=== PATIENT | male | born 1945 | race Caucasian/White ===

== ENCOUNTER 2017-05-22 09:35 | Outpatient (RCR) | payer MEDICARE, MEDICAID ==
[2017-01-24 08:24] VITALS: BMI 30.4
[2017-02-23 16:13] VITALS: BP 138/86
[2017-02-23] MEDS: LIDOCAINE/SOD BICARB 8.4% SYR ID PRN (16:14)
[2017-02-23] MEDS: NS(*) 0.9% 100 ML BAG 100 ML IVPB PRN (16:15)
[2017-02-27] MEDS: LIDOCAINE/SOD BICARB 8.4% SYR ID PRN (11:04)
[2017-02-27 11:05] VITALS: BP 135/86
[2017-02-27] MEDS: NS(*) 0.9% 100 ML BAG 100 ML IVPB PRN (11:05)
[2017-03-06 09:40] VITALS: BP 112/82
[2017-03-06] MEDS: NS(*) 0.9% 100 ML BAG 100 ML IVPB PRN (10:00)
[2017-03-06] MEDS: LIDOCAINE/SOD BICARB 8.4% SYR ID PRN (10:00)
[2017-03-13 09:38] VITALS: BP 152/91
[2017-03-13] MEDS: MAGNESIUM SUL* 4 GM/100 ML BAG 100 ML IVPB PRN ×2 (10:14→12:09)
[2017-03-13] MEDS: LIDOCAINE/SOD BICARB 8.4% SYR ID PRN (14:02)
[2017-03-13] MEDS: NS(*) 0.9% 100 ML BAG 100 ML IVPB PRN (14:02)
[2017-03-20] MEDS: LIDOCAINE/SOD BICARB 8.4% SYR ID PRN (10:35)
[2017-03-20] MEDS: NS(*) 0.9% 100 ML BAG 100 ML IVPB PRN (10:35)
[2017-03-20] MEDS: MAGNESIUM SUL* 4 GM/100 ML BAG 100 ML IVPB PRN ×2 (11:11→13:09)
[2017-03-20 15:20] VITALS: BP 158/90
[2017-03-27] MEDS: MAGNESIUM SUL* 4 GM/100 ML BAG 100 ML IVPB PRN ×2 (10:38→12:15)
[2017-03-27] MEDS: LIDOCAINE/SOD BICARB 8.4% SYR ID PRN (10:39)
[2017-03-27 11:32] VITALS: BP 117/78
[2017-03-27] MEDS: NS(*) 0.9% 100 ML BAG 100 ML IVPB PRN (11:35)
[2017-04-17 10:10] VITALS: BP 125/82
[2017-04-17] MEDS: LIDOCAINE/SOD BICARB 8.4% SYR ID PRN (10:48)
[2017-04-17] MEDS: MAGNESIUM SUL* 4 GM/100 ML BAG 100 ML IVPB PRN ×2 (10:49→12:51)
[2017-04-20 09:38] VITALS: BP 134/72
[2017-04-20] MEDS: LIDOCAINE/SOD BICARB 8.4% SYR ID PRN (09:46)
[2017-04-24 09:33] VITALS: BP 141/86
[2017-04-24] MEDS: NS(*) 0.9% 100 ML BAG 100 ML IVPB PRN (10:00)
[2017-04-24] MEDS: LIDOCAINE/SOD BICARB 8.4% SYR ID PRN (10:30)
[2017-04-24] MEDS: MAGNESIUM SUL* 4 GM/100 ML BAG 100 ML IVPB PRN ×2 (11:09→13:10)
[2017-04-28 09:47] VITALS: BP 126/87
[2017-04-28] MEDS: LIDOCAINE/SOD BICARB 8.4% SYR ID PRN (10:25)
[2017-04-28] MEDS: MAGNESIUM SUL* 4 GM/100 ML BAG 100 ML IVPB PRN ×2 (10:26→12:06)
[2017-05-01] MEDS: MAGNESIUM SUL* 4 GM/100 ML BAG 100 ML IVPB PRN ×2 (10:23→12:05)
[2017-05-01] MEDS: LIDOCAINE/SOD BICARB 8.4% SYR ID PRN (10:24)
[2017-05-01 10:29] VITALS: BP 87/67
[2017-05-04 09:48] VITALS: BP 124/89
[2017-05-04] MEDS: LIDOCAINE/SOD BICARB 8.4% SYR ID PRN (09:48)
[2017-05-04] MEDS: NS(*) 0.9% 100 ML BAG 100 ML IVPB PRN (09:50)
[2017-05-09 09:17] VITALS: BP 147/98
[2017-05-09] MEDS: MAGNESIUM SUL* 4 GM/100 ML BAG 100 ML IVPB PRN ×2 (10:11→12:19)
[2017-05-09] MEDS: NS(*) 0.9% 100 ML BAG 100 ML IVPB PRN (10:11)
[2017-05-09] MEDS: LIDOCAINE/SOD BICARB 8.4% SYR ID PRN (10:11)
[2017-05-16 09:29] VITALS: BP 146/99
[2017-05-16] MEDS: NS(*) 0.9% 100 ML BAG 100 ML IVPB PRN (10:00)
[2017-05-16] MEDS: LIDOCAINE/SOD BICARB 8.4% SYR ID PRN (10:39)
[2017-05-16] MEDS: MAGNESIUM SUL* 4 GM/100 ML BAG 100 ML IVPB PRN ×2 (10:40→12:31)
[~2017-05-22 09:35] MED LIST: ALB0.5 IH; ALB18R INH; ALBU8.5H12 IH; ALL300 PO; ALLO-2; ALLO-2 PO; AML5 PO; AMLO-96; AMLO-96 PO; AMLO1TAB PO; ANU28T PR; APIX2.5T PO; ARTO15 OP; ASPI-715 PO; ATOR10TA65 PO; ATOR20TA22 PO; ATOR20TA65; CHL25 PO; CHOL100059 PO; CHOL100060 PO; CITA-139 PO; CITA-156 PO; COM14R INH; CYAN1000 IJ; CYAN1000 IM; DEXT15DR OU; DEXTROSE 5%(*) 100 ML BAG 100 ML IVPB PRN; DIPH-740 PO; DOXA8TAB62 PO; DOXY-179 PO; ENAL20TA99; ENAL20TA99 PO; ESOM40CA42 PO; FOLI-68 PO; GLY5 PO; HCTZ25 PO; HYD25 PO; HYDR-6045 RC; HYDR10 PO; HYDR25CA83 PO; HYDR25SU51 RC; HYDR28.426 TP; IBUP200C71 PO; K-Dur; KCL IVPB ONE; LAC3.5 OD; LISI20TA29 PO; LOPE1TAB55 PO; LOPE2CAP15; LOR05 PO; LOR5/325 PO; MAGN300C3 PO; MAGN400T36 PO; MAGN400T37 PO; MAGN400T4 PO; MAGNESIUM SUL* 4 GM/100 ML BAG 100 ML IVPB ONE; MAGNESIUM SULFATE 4 GM/100 ML IVPB PRN; MAGNESIUM SULFATE IVPB ONE; MENT113G6 TP; METF-420; METF-420 PO; METO-253 PO; METO25TA23; METO25TA91 PO; METO25TA93 PO; MINE113C2 TP; MOME15CR TP; MOXOD OS; MULT-1379 PO; MULT1CAP59 PO; MVM PO; MYLL PO; NAPR-724; NAPR-724 PO; NIAC100040 PO; NITT TD; NPH,100V12; NPH,100V2 SUBQ; NS(*) 0.9% 1000 ML BAG 1,000 ML IV PRN; NYSP TOP; NYST15PO12 TP; OMEP-218 PO; Oxygen; PAN40 PO; PER PO; PNV1TABL70 PO; POLPT TOP; POTA20TA94 PO; PREOD OS; RAN150 PO; RANI150C17 PO; ROS4 PO; SITA100T9 PO; SUC1 PO; SYRI1DIS; TAM4 PO; TAMS0.4C69 PO; TAMS0.4C70; TAMS0.4C70 PO; THIA100T62 PO; TRAM-420 PO; TRAZ-133 PO; TRAZ50 PO; TRIA80OI13 TP; [UNRECOGNIZED DRUG - CODE]; [UNRECOGNIZED DRUG - MIXTURE]; [UNRECOGNIZED DRUG - OTHER] IVPB ONE; [UNRECOGNIZED DRUG - OTHER] IVPB ONE; [UNRECOGNIZED DRUG - OTHER] OU; [UNRECOGNIZED DRUG - OTHER] PO
[2017-05-22 09:41] VITALS: BP 145/96
[2017-05-22] MEDS: LIDOCAINE/SOD BICARB 8.4% SYR ID PRN (10:05)
[2017-05-22] MEDS: NS(*) 0.9% 100 ML BAG 100 ML IVPB PRN (10:19)
[2017-05-22] MEDS: MAGNESIUM SUL* 4 GM/100 ML BAG 100 ML IVPB PRN ×2 (10:19→12:53)
== END 2017-05-23 ==
LOC: SPU 09:35
PROVIDERS: ATTEND Internal Medicine
DX: E87.6 Hypokalemia (principal); E87.1 Hypo-osmolality and hyponatremia; I48.91 Unspecified atrial fibrillation; F10.10 Alcohol abuse, uncomplicated; R79.0 Abnormal level of blood mineral
CPT/HCPCS: 36415; 83735; 96365; 96366; G0480; J3475; J3480; J7030; J7050; 80320; 82040; 82247; 82310; 82374; 82435; 82565; 82947; 84075; 84132; 84155; 84295; 84450; 84460; 84520

== ENCOUNTER 2017-08-08 08:00 | Outpatient (RCR) | payer MEDICARE, MEDICAID ==
[2017-01-24 08:24] VITALS: BMI 30.4
[~2017-08-08 08:00] MED LIST changes: -DEXTROSE 5%(*) 100 ML BAG 100 ML IVPB PRN; -KCL IVPB ONE; -MAGNESIUM SUL* 4 GM/100 ML BAG 100 ML IVPB ONE; -MAGNESIUM SULFATE 4 GM/100 ML IVPB PRN; -MAGNESIUM SULFATE IVPB ONE; -NAPR-724; -NAPR-724 PO; +NAPR500T31; +NAPR500T31 PO; -NS(*) 0.9% 1000 ML BAG 1,000 ML IV PRN; -[UNRECOGNIZED DRUG - OTHER] IVPB ONE; -[UNRECOGNIZED DRUG - OTHER] IVPB ONE
== END 2017-08-08 10:19 | disposition home or self-care (01) ==
LOC: PT 08:00
PROVIDERS: ATTEND Physician Assistant Medical
DX: M62.81 Muscle weakness (generalized) (principal); M48.00 Spinal stenosis, site unspecified; M48.50XA Collapsed vertebra, not elsewhere classified, site unspecified, initial encounter for fracture; R20.2 Paresthesia of skin; R29.6 Repeated falls; R06.00 Dyspnea, unspecified; M79.606 Pain in leg, unspecified; I10 Essential (primary) hypertension; E11.9 Type 2 diabetes mellitus without complications; E87.1 Hypo-osmolality and hyponatremia; E83.42 Hypomagnesemia; Z95.0 Presence of cardiac pacemaker
CPT/HCPCS: 97163

== ENCOUNTER 2017-08-21 09:08 | Outpatient (RCR) | payer MEDICARE, MEDICAID ==
[2017-01-24 08:24] VITALS: BMI 30.4
[2017-05-29 09:36] VITALS: BP 106/82
[2017-05-29] MEDS: LIDOCAINE/SOD BICARB 8.4% SYR ID PRN (10:38)
[2017-05-29] MEDS: MAGNESIUM SULFATE 4 GM/100 ML IVPB PRN ×2 (10:39→12:38)
[2017-05-29] MEDS: NS(*) 0.9% 100 ML BAG 100 ML IVPB PRN (10:40)
[2017-06-05 09:52] VITALS: BP 137/80
[2017-06-05] MEDS: MAGNESIUM SULFATE 4 GM/100 ML IVPB PRN ×2 (10:27→12:08)
[2017-06-05] MEDS: LIDOCAINE/SOD BICARB 8.4% SYR ID PRN (10:27)
[2017-06-12 09:42] VITALS: BP 116/92
[2017-06-12] MEDS: NS(*) 0.9% 100 ML BAG 100 ML IVPB PRN (10:25)
[2017-06-12] MEDS: MAGNESIUM SULFATE 4 GM/100 ML IVPB PRN ×2 (10:25→12:35)
[2017-06-12] MEDS: LIDOCAINE/SOD BICARB 8.4% SYR ID PRN (10:25)
[2017-06-19 09:26] VITALS: BP 108/93
[2017-06-19] MEDS: MAGNESIUM SULFATE 4 GM/100 ML IVPB PRN ×2 (10:26→12:16)
[2017-06-19] MEDS: LIDOCAINE/SOD BICARB 8.4% SYR ID PRN (10:26)
[2017-06-19] MEDS: NS(*) 0.9% 100 ML BAG 100 ML IVPB PRN (10:26)
[2017-06-26 09:45] VITALS: BP 131/72
[2017-06-26] MEDS: LIDOCAINE/SOD BICARB 8.4% SYR ID PRN (10:41)
[2017-06-26] MEDS: NS(*) 0.9% 100 ML BAG 100 ML IVPB PRN (10:42)
[2017-06-26] MEDS: MAGNESIUM SULFATE 4 GM/100 ML IVPB PRN ×2 (10:42→12:45)
[2017-07-03] MEDS: NS(*) 0.9% 100 ML BAG 100 ML IVPB PRN (10:41)
[2017-07-03] MEDS: MAGNESIUM SULFATE 4 GM/100 ML IVPB PRN ×2 (10:41→12:50)
[2017-07-03] MEDS: LIDOCAINE/SOD BICARB 8.4% SYR ID PRN (10:52)
[2017-07-03 10:55] VITALS: BP 147/89
[2017-07-10 09:40] VITALS: BP 136/89
[2017-07-10] MEDS: LIDOCAINE/SOD BICARB 8.4% SYR ID PRN (10:27)
[2017-07-10] MEDS: NS(*) 0.9% 100 ML BAG 100 ML IVPB PRN (10:28)
[2017-07-10] MEDS: MAGNESIUM SULFATE 4 GM/100 ML IVPB PRN ×2 (10:29→12:30)
[2017-07-10 15:03] VITALS: BP 107/80
[2017-07-17 09:29] VITALS: BP 121/84
[2017-07-17] MEDS: LIDOCAINE/SOD BICARB 8.4% SYR ID PRN (10:15)
[2017-07-17] MEDS: NS(*) 0.9% 100 ML BAG 100 ML IVPB PRN (10:17)
[2017-07-17] MEDS: MAGNESIUM SULFATE 4 GM/100 ML IVPB PRN ×2 (10:17→12:20)
[2017-07-24 09:34] VITALS: BP 132/87
[2017-07-24] MEDS: MAGNESIUM SULFATE 4 GM/100 ML IVPB PRN ×2 (10:16→12:34)
[2017-07-24] MEDS: LIDOCAINE/SOD BICARB 8.4% SYR ID PRN (10:16)
[2017-07-24] MEDS: NS(*) 0.9% 100 ML BAG 100 ML IVPB PRN (10:16)
[2017-07-31 09:50] VITALS: BP 133/87
[2017-07-31] MEDS: MAGNESIUM SULFATE 4 GM/100 ML IVPB PRN ×2 (11:01→13:08)
[2017-07-31] MEDS: LIDOCAINE/SOD BICARB 8.4% SYR ID PRN (11:11)
[2017-07-31] MEDS: NS(*) 0.9% 100 ML BAG 100 ML IVPB PRN (11:11)
[2017-08-07 09:45] VITALS: BP 109/71
[2017-08-07] MEDS: MAGNESIUM SULFATE 4 GM/100 ML IVPB PRN ×2 (10:00→12:51)
[2017-08-07] MEDS: LIDOCAINE/SOD BICARB 8.4% SYR ID PRN (13:24)
[2017-08-07] MEDS: NS(*) 0.9% 100 ML BAG 100 ML IVPB PRN (13:25)
[2017-08-14] MEDS: LIDOCAINE/SOD BICARB 8.4% SYR ID PRN (09:46)
[2017-08-14] MEDS: NS(*) 0.9% 100 ML BAG 100 ML IVPB PRN (09:46)
[2017-08-14] MEDS: MAGNESIUM SULFATE 4 GM/100 ML IVPB PRN ×2 (10:18→12:28)
[2017-08-14 16:12] VITALS: BP 110/87
[~2017-08-21 09:08] MED LIST changes: +DEXTROSE 5%(*) 100 ML BAG 100 ML IVPB PRN; +NS(*) 0.9% 1000 ML BAG 1,000 ML IV PRN
[2017-08-21] MEDS: MAGNESIUM SULFATE 4 GM/100 ML IVPB PRN ×2 (10:00→12:11)
[2017-08-21 10:04] VITALS: BP 127/83
[2017-08-21] MEDS: NS(*) 0.9% 100 ML BAG 100 ML IVPB PRN (13:20)
[2017-08-21] MEDS: LIDOCAINE/SOD BICARB 8.4% SYR ID PRN (13:21)
[2017-08-21 14:33] VITALS: BP 131/80
== END 2017-08-24 ==
LOC: SPU 09:08
PROVIDERS: ATTEND Internal Medicine
DX: R79.0 Abnormal level of blood mineral (principal); E87.1 Hypo-osmolality and hyponatremia; E11.9 Type 2 diabetes mellitus without complications; E78.5 Hyperlipidemia, unspecified
CPT/HCPCS: 36415; 83735; 96365; 96366; G0480; J3475; J7050; 80320; 82040; 82247; 82310; 82374; 82435; 82465; 82565; 82947; 83036; 83718; 84075; 84132; 84155; 84295; 84450; 84460; 84478; 84520

== ENCOUNTER 2017-10-24 09:06 | Outpatient (RCR) | payer MEDICARE, MEDICAID ==
[2017-01-24 08:24] VITALS: BMI 30.4
[2017-08-28] MEDS: MAGNESIUM SUL* 4 GM/100 ML BAG 100 ML IVPB PRN ×2 (11:12→13:08)
[2017-08-28 11:19] VITALS: BP 119/97
[2017-09-04 09:38] VITALS: BP 124/80
[2017-09-04] MEDS: NS(*) 0.9% 100 ML BAG 100 ML IVPB PRN (10:27)
[2017-09-04] MEDS: MAGNESIUM SUL* 4 GM/100 ML BAG 100 ML IVPB PRN ×2 (10:27→12:16)
[2017-09-04] MEDS: LIDOCAINE/SOD BICARB 8.4% SYR ID PRN (10:28)
[2017-09-11] MEDS: MAGNESIUM SUL* 4 GM/100 ML BAG 100 ML IVPB PRN ×2 (10:15→12:16)
[2017-09-11] MEDS: NS(*) 0.9% 100 ML BAG 100 ML IVPB PRN (10:27)
[2017-09-11] MEDS: LIDOCAINE/SOD BICARB 8.4% SYR ID PRN (10:28)
[2017-09-11 15:37] VITALS: BP 124/80
[2017-09-18 09:23] VITALS: BP 129/92
[2017-09-18] MEDS: LIDOCAINE/SOD BICARB 8.4% SYR ID PRN (11:06)
[2017-09-18] MEDS: MAGNESIUM SUL* 4 GM/100 ML BAG 100 ML IVPB PRN ×2 (12:01→12:55)
[2017-09-18] MEDS: NS(*) 0.9% 100 ML BAG 100 ML IVPB PRN (12:02)
[2017-09-26 11:07] VITALS: BP 126/81
[2017-09-26] MEDS: LIDOCAINE/SOD BICARB 8.4% SYR ID PRN (11:20)
[2017-09-26] MEDS: NS(*) 0.9% 100 ML BAG 100 ML IVPB PRN (11:21)
[2017-09-26] MEDS: MAGNESIUM SUL* 4 GM/100 ML BAG 100 ML IVPB PRN ×2 (11:36→13:26)
[2017-10-03 09:55] VITALS: BP 135/86
[2017-10-03] MEDS: NS(*) 0.9% 100 ML BAG 100 ML IVPB PRN (10:14)
[2017-10-03] MEDS: LIDOCAINE/SOD BICARB 8.4% SYR ID PRN (10:14)
[2017-10-03] MEDS: MAGNESIUM SUL* 4 GM/100 ML BAG 100 ML IVPB PRN ×2 (10:15→12:14)
[2017-10-03 14:42] VITALS: BP 150/87
[2017-10-10 09:16] VITALS: BP 151/97
[2017-10-10] MEDS: LIDOCAINE/SOD BICARB 8.4% SYR ID PRN (11:24)
[2017-10-10] MEDS: NS(*) 0.9% 100 ML BAG 100 ML IVPB PRN (11:25)
[2017-10-10] MEDS: MAGNESIUM SULFATE 4 GM/100 ML IVPB PRN ×2 (11:25→13:27)
[~2017-10-24 09:06] MED LIST changes: -CITA-139 PO; +CITA-145 PO; +IBUP-136 PO; -IBUP200C71 PO; -METF-420; +METF-421; +METF-421 PO
[2017-10-24 09:30] VITALS: BP 103/73
[2017-10-24] MEDS: LIDOCAINE/SOD BICARB 8.4% SYR ID PRN (10:06)
[2017-10-24] MEDS: NS(*) 0.9% 100 ML BAG 100 ML IVPB PRN (10:06)
[2017-10-24] MEDS: MAGNESIUM SULFATE 4 GM/100 ML IVPB PRN ×2 (10:07→12:42)
[2017-11-13] MEDS ORDERED: NYST60PO9 TP (09:22)
== END 2017-11-23 ==
LOC: SPU 09:06
PROVIDERS: ATTEND Internal Medicine
DX: R79.0 Abnormal level of blood mineral (principal); E87.1 Hypo-osmolality and hyponatremia; E11.9 Type 2 diabetes mellitus without complications; E78.5 Hyperlipidemia, unspecified
CPT/HCPCS: 83735; 96365; 96366; G0480; J3475; J7050; 80320; 82310; 82374; 82435; 82565; 82947; 84132; 84295; 84520

== ENCOUNTER 2017-11-04 02:04 | Emergency (ER) | payer MEDICARE, MEDICAID ==
[2017-01-24 08:24] VITALS: Wt 90.7 kg
[~2017-11-04 02:04] MED LIST changes: -NYST60PO9 TP
--- NOTE | 2017-11-04 02:06 | ER Report ---
History and Physical Time Seen By MD: 02:04 HPI/ROS CHIEF COMPLAINT: fall tonight, requesting detox HISTORY OF PRESENT ILLNESS: This is a 72 year old male. He fell tonight and called for a lift assist with his emergency pendant. When EMS arrived, he said that he thought he needed to detox. Fall happened when he lost his balance. Only pain is left ribs anteriorly. No other pain. He did not lose consciousness or hit his head. Denies neck pain. Has a skin tear on left forearm. He drinks about 1/2 fifth of liquor daily. Last drink just prior to coming here. Has been here for detox in the past and has had periods of being sober for about 6 months in the past. No shortness of breath. Normal bowels. Normal urination. Allergies: Coded Allergies: No Known Drug Allergies (Verified , 11/04/17) Home Meds Reported Medications Thiamine Hcl (THIAMINE HCL) 100 Mg Tablet, 100 MG PO DAILY 12/26/16 Folic Acid (FOLIC ACID) 1 Mg Tablet, 1 MG PO QDAY, TAB 12/26/16 Citalopram Hydrobromide (CITALOPRAM HBR) 20 Mg Tablet, 20 MG PO QDAY, #5 TAB 12/23/16 Menthol (BENGAY) 113 Gm Gel..gram., 1 GM TP QID Y for PAIN 12/23/16 Cyanocobalamin (Vitamin B-12) (CYANOCOBALAMIN INJECTION) 1,000 Mcg/1 Ml Vial, 1000 MCG IJ Q2WK, VIAL 12/23/16 Tramadol Hcl (TRAMADOL HCL) 50 Mg Tablet, 50 MG PO TID, TAB 12/23/16 Metoprolol Tartrate (METOPROLOL TARTRATE) 25 Mg Tablet, 1 TAB PO BID, TAB 12/23/16 Apixaban (ELIQUIS) 2.5 Mg Tablet, 2 TAB PO BID 08/15/16 Amlodipine Besylate (AMLODIPINE BESYLATE) 5 Mg Tablet, 1 TAB PO QDAY, TAB 08/15/16 Tamsulosin Hcl (TAMSULOSIN HCL) 0.4 Mg Cap.er.24h, 0.4 MG PO HS, CAP 08/15/16 Multivitamin (MULTIVITAMINS) 1 Each Capsule, 1 EACH PO QDAY, CAPSULE 08/15/16 Lisinopril (LISINOPRIL) 20 Mg Tablet, 20 MG PO DAILY, TAB 08/15/16 Magnesium Oxide (MAGNESIUM OXIDE) 400 Mg Tablet, 2 CAP PO TID 08/15/16 Cholecalciferol (Vitamin D3) (VITAMIN D3) 1,000 Unit Capsule, 1000 UNIT PO QDAY , CAPSULE 08/15/16 Reviewed Nurses Notes: Yes Hx Smoking: No Smoking Status: Never Smoker Exposure to Second Hand Smoke?: No Hx Substance Use Disorder: No Hx Alcohol Use: Yes Constitutional Vital Sign - Last 24 Hours 11/04/17 11/04/17 11/04/17 11/04/17 02:05 02:06 02:19 03:00 Temp 97.9 Pulse 86 67 Resp 22 B/P (MAP) 112/69 (83) 112/69 112/82 (92) Pulse Ox 90 90 O2 Delivery Room Air 11/04/17 11/04/17 03:04 03:19 Pulse 83 82 Pulse Ox 91 90 Physical Exam General Appearance: Alert. No acute distress. Eyes: Pupils are equal, round. Reactive to light. Pinpoint. No pallor, injection or icterus. Extraocular movements are intact. ENT: Mucous membranes are moist. Normal oral mucosa. Posterior oropharynx is normal. Neck: Supple and non tender. Respiratory: Lungs are clear to auscultation. Cardiovascular: Regular rate and rhythm. No murmurs, gallops or rubs. Gastrointestinal: Abdomen is soft and non tender. Nondistended. Normal active bowel sounds. Neurological: Alert and oriented x3. Skin: Warm and dry. Has skin tear on left forearm. No bruising noted. Musculoskeletal: Extremities are otherwise nontender. Full range of motion. No tenderness in palpation of the cervical, thoracic and lumbar spine. DIFFERENTIAL DIAGNOSIS: After history and physical exam, differential diagnosis was considered for fall with rib pain and alcohol intoxication requesting detox. Medical Decision Making Data Points Result Diagram: 11/04/17 0210 11/04/17 0210 Laboratory Hematology Test 11/04/17 02:10 11/04/17 03:00 Red Blood Count 5.21 M/uL (4.00-5.60) Mean Corpuscular Volume 94.8 fL (80.0-96.0) Mean Corpuscular Hemoglobin 33.1 pg (26.0-33.0) Mean Corpuscular Hemoglobin Concent 34.9 g/dL (32.0-36.0) Red Cell Distribution Width 14.3 % (11.5-14.5) Mean Platelet Volume 6.7 fL (7.2-11.1) Neutrophils (%) (Auto) 47.4 % (39.4-72.5) Lymphocytes (%) (Auto) 44.7 % (17.6-49.6) Monocytes (%) (Auto) 6.1 % (4.1-12.4) Eosinophils (%) (Auto) 0.5 % (0.4-6.7) Basophils (%) (Auto) 1.3 % (0.3-1.4) Nucleated RBC Relative Count (auto) 0.1 /100WBC Neutrophils # (Auto) 3.6 K/uL (2.0-7.4) Lymphocytes # (Auto) 3.4 K/uL (1.3-3.6) Monocytes # (Auto) 0.5 K/uL (0.3-1.0) Eosinophils # (Auto) 0.0 K/uL (0.0-0.5) Basophils # (Auto) 0.1 K/uL (0.0-0.1) Nucleated RBC Absolute Count (auto) 0.01 K/uL Sodium Level 129 mmol/L (137-145) Potassium Level 3.8 mmol/L (3.5-5.0) Chloride Level 92 mmol/L (98-107) Carbon Dioxide Level 20 mmol/L (22-30) Blood Urea Nitrogen 17 mg/dl (9-21) Creatinine 0.80 mg/dl (0.66-1.25) Glomerular Filtration Rate Calc > 60.0 Random Glucose 153 mg/dl (75-110) Calcium Level 8.1 mg/dl (8.4-10.2) Magnesium Level 1.5 mg/dl (1.7-2.2) Total Bilirubin 0.5 mg/dl (0.2-1.3) Aspartate Amino Transf (AST/SGOT) 20 U/L (0-35) Alanine Aminotransferase (ALT/SGPT) 20 U/L (0-56) Alkaline Phosphatase 56 U/L (0-126) Total Protein 6.5 g/dl (6.3-8.2) Albumin 3.3 g/dl (3.5-5.0) Salicylates Level < 10 mg/L Salicylate Last Dose Date unk Acetaminophen Level < 10 ug/ml Serum Alcohol 257 mg/dl Urine Color Yellow Urine Clarity Clear Urine pH 5.0 pH (4.8-9.5) Urine Specific [place] 1.008 Urine Protein Negative mg/dL (NEGATIVE) Urine Glucose (UA) Negative mg/dL (NEGATIVE) Urine Ketones Negative mg/dL (NEGATIVE) Urine Blood Negative (NEGATIVE) Urine Nitrite Negative (NEGATIVE) Urine Bilirubin Negative (NEGATIVE) Urine Urobilinogen Negative mg/dL (0.2-1.9) Urine Leukocyte Esterase Negative (NEGATIVE) Urine RBC <1 /HPF (0-2/HPF) Urine WBC <1 /HPF (0-5/HPF) Urine Squamous Epithelial Cells None /LPF (</=FEW) Urine Bacteria Negative /HPF (NONE-FEW) Urine Mucus None /HPF (NONE-FEW) Urine Opiates Screen Negative Urine Barbiturates Screen Negative Ur Tricyclic Antidepressants Screen Negative Urine Phencyclidine Screen Negative Urine Amphetamines Screen Negative Urine Benzodiazepines Screen Negative Urine Cocaine Screen Negative Urine Cannabinoids Screen Negative Chemistry Test 11/04/17 02:10 11/04/17 03:00 White Blood Count 7.7 k/uL (4.5-11.0) Red Blood Count 5.21 M/uL (4.00-5.60) Hemoglobin 17.2 g/dL (14.0-18.0) Hematocrit 49.4 % (42.0-52.0) Mean Corpuscular Volume 94.8 fL (80.0-96.0) Mean Corpuscular Hemoglobin 33.1 pg (26.0-33.0) Mean Corpuscular Hemoglobin Concent 34.9 g/dL (32.0-36.0) Red Cell Distribution Width 14.3 % (11.5-14.5) Platelet Count 175 K/uL (150-450) Mean Platelet Volume 6.7 fL (7.2-11.1) Neutrophils (%) (Auto) 47.4 % (39.4-72.5) Lymphocytes (%) (Auto) 44.7 % (17.6-49.6) Monocytes (%) (Auto) 6.1 % (4.1-12.4) Eosinophils (%) (Auto) 0.5 % (0.4-6.7) Basophils (%) (Auto) 1.3 % (0.3-1.4) Nucleated RBC Relative Count (auto) 0.1 /100WBC Neutrophils # (Auto) 3.6 K/uL (2.0-7.4) Lymphocytes # (Auto) 3.4 K/uL (1.3-3.6) Monocytes # (Auto) 0.5 K/uL (0.3-1.0) Eosinophils # (Auto) 0.0 K/uL (0.0-0.5) Basophils # (Auto) 0.1 K/uL (0.0-0.1) Nucleated RBC Absolute Count (auto) 0.01 K/uL Glomerular Filtration Rate Calc > 60.0 Calcium Level 8.1 mg/dl (8.4-10.2) Magnesium Level 1.5 mg/dl (1.7-2.2) Total Bilirubin 0.5 mg/dl (0.2-1.3) Aspartate Amino Transf (AST/SGOT) 20 U/L (0-35) Alanine Aminotransferase (ALT/SGPT) 20 U/L (0-56) Alkaline Phosphatase 56 U/L (0-126) Total Protein 6.5 g/dl (6.3-8.2) Albumin 3.3 g/dl (3.5-5.0) Salicylates Level < 10 mg/L Salicylate Last Dose Date unk Acetaminophen Level < 10 ug/ml Serum Alcohol 257 mg/dl Urine Color Yellow Urine Clarity Clear Urine pH 5.0 pH (4.8-9.5) Urine Specific [place] 1.008 Urine Protein Negative mg/dL (NEGATIVE) Urine Glucose (UA) Negative mg/dL (NEGATIVE) Urine Ketones Negative mg/dL (NEGATIVE) Urine Blood Negative (NEGATIVE) Urine Nitrite Negative (NEGATIVE) Urine Bilirubin Negative (NEGATIVE) Urine Urobilinogen Negative mg/dL (0.2-1.9) Urine Leukocyte Esterase Negative (NEGATIVE) Urine RBC <1 /HPF (0-2/HPF) Urine WBC <1 /HPF (0-5/HPF) Urine Squamous Epithelial Cells None /LPF (</=FEW) Urine Bacteria Negative /HPF (NONE-FEW) Urine Mucus None /HPF (NONE-FEW) Urine Opiates Screen Negative Urine Barbiturates Screen Negative Ur Tricyclic Antidepressants Screen Negative Urine Phencyclidine Screen Negative Urine Amphetamines Screen Negative Urine Benzodiazepines Screen Negative Urine Cocaine Screen Negative Urine Cannabinoids Screen Negative Toxicology Test 11/04/17 02:10 11/04/17 03:00 Salicylates Level < 10 mg/L Salicylate Last Dose Date unk Acetaminophen Level < 10 ug/ml Serum Alcohol 257 mg/dl Urine Opiates Screen Negative Urine Barbiturates Screen Negative Ur Tricyclic Antidepressants Screen Negative Urine Phencyclidine Screen Negative Urine Amphetamines Screen Negative Urine Benzodiazepines Screen Negative Urine Cocaine Screen Negative Urine Cannabinoids Screen Negative Urinalysis Test 11/04/17 03:00 Urine Color Yellow Urine Clarity Clear Urine pH 5.0 pH (4.8-9.5) Urine Specific [place] 1.008 Urine Protein Negative mg/dL (NEGATIVE) Urine Glucose (UA) Negative mg/dL (NEGATIVE) Urine Ketones Negative mg/dL (NEGATIVE) Urine Blood Negative (NEGATIVE) Urine Nitrite Negative (NEGATIVE) Urine Bilirubin Negative (NEGATIVE) Urine Urobilinogen Negative mg/dL (0.2-1.9) Urine Leukocyte Esterase Negative (NEGATIVE) Urine RBC <1 /HPF (0-2/HPF) Urine WBC <1 /HPF (0-5/HPF) Urine Squamous Epithelial Cells None /LPF (</=FEW) Urine Bacteria Negative /HPF (NONE-FEW) Urine Mucus None /HPF (NONE-FEW) EKG/Imaging Imaging CT Head without contrast and CT Cervical spine: Indication: Fall, intoxication. Comparison: 02/18/2014. Technique: CT head: Axial CT images were obtained through the brain from the skull base to the vertex without administration of IV contrast. Reformatted coronal and sagittal images were also obtained. Technique: CT cervical spine: Axial CT imaging of the cervical spine was performed. 2-D sagittal and coronal CT reformats were also obtained. One of the following dose optimization techniques was utilized in the performance of this exam: Automated exposure control; adjustment of the mA and/ or kV according to the patient's size; or use of an iterative reconstruction technique. Specific details can be referenced in the facility's radiology CT exam operational policy. FINDINGS: CT head: No evidence of mass, mass effect, or midline shift. No acute intracranial hemorrhage or acute territorial infarction. Mild cerebral volume loss and small amount of white matter hypoattenuation likely related to chronic small vessel ischemic disease. No fracture. Bilateral lens surgeries. The left maxillary sinus, anterior ethmoid air cells and frontal sinuses are opacified. There is calcific density within part of the material opacifying the maxillary sinus and ethmoid air cells. The wall of the maxillary sinus appears thickened. CT cervical spine: No acute abnormality of cervical vertebral body height and alignment. No cervical spine fracture. There is no prevertebral soft tissue thickening. Moderate to severe multilevel spondylosis. C6 and C7 are fused. Remaining visualized cervical soft tissues are unremarkable. The airway is patent. The lung apices are clear. Incompletely imaged implanted cardiac device. IMPRESSION: 1. No acute intracranial abnormality. 2. No acute osseous abnormality of the cervical spine. 3. Probable chronic opacification of the left maxillary sinus, anterior ethmoid air cell cells and left frontal sinus. Underlying neoplasm not excluded ; consider nonemergent ENT consultation. Report Dictated By: Jalen Guerra MD at 11/04/2017 3:46 AM TWO VIEW CHEST 11/04/2017 2:34 AM. INDICATION: Fall, left rib pain. COMPARISON: 04/26/2017. FINDINGS: Lungs are well-expanded. The lungs are clear. No pneumothorax or pleural effusion. Pulmonary vasculature is unremarkable. Heart size is normal. Unchanged single-lead implanted cardiac device. No definite acute displaced fracture. IMPRESSION: No acute cardiopulmonary abnormality or definite acute displaced rib fracture. Report Dictated By: Jalen Guerra MD at 11/04/2017 3:12 AM TWO VIEW CHEST 11/04/2017 2:34 AM. INDICATION: Fall, left rib pain. COMPARISON: 04/26/2017. FINDINGS: Lungs are well-expanded. The lungs are clear. No pneumothorax or pleural effusion. Pulmonary vasculature is unremarkable. Heart size is normal. Unchanged single-lead implanted cardiac device. No definite acute displaced fracture. IMPRESSION: No acute cardiopulmonary abnormality or definite acute displaced rib fracture. Report Dictated By: Jalen Guerra MD at 11/04/2017 3:12 AM ED Course/Re-evaluation Clinical Indication for ER IV: Hydration, IV Access ED Course After initial evaluation, an IV was started and labs were obtained. Urine sample was obtained as well. Patient went to CT scan for a CT scan of his head and cervical spine which was negative. Had a chest and left rib series which were negative as well. On return, the patient had a banana bag. Once labs were available, I contacted Ember Soler for admission to [facility]. She accepted the patient. However the patient changes mind and would like to return home. He was discharged home with instructions to return if he changed his mind. Decision to Disposition Date: Nov 04, 2017 Decision to Disposition Time: 04:32 Depart Departure Latest Vital Signs Vital Signs Date Time Temp Pulse Resp B/P (MAP) Pulse Ox O2 Delivery O2 Flow Rate FiO2 11/04/17 03:19 82 90 11/04/17 03:00 112/82 (92) 11/04/17 02:06 97.9 22 Room Air Impression: Primary Impression: Alcohol use disorder, severe, dependence Additional Impressions: Fall Rib contusion Condition: Improved Disposition: HOME OR SELF-CARE Referrals: DARRYN HUNTER DO (PCP) Patient Instructions: Alcohol Dependence (ED), Rib Contusion (ED) Problem Qualifiers Additional Impressions: Fall Encounter type: initial encounter Qualified Codes: W19.XXXA - Unspecified fall, initial encounter Rib contusion Encounter type: initial encounter Laterality: left Qualified Codes: S20.212A - Contusion of left front wall of thorax, initial encounter BELTRAN HENRIQUEZ MD Nov 04, 2017 02:06
[2017-11-04 02:18] LABS: PLATELET COUNT, AUTOMATED 175 K/uL (150-450)
[2017-11-04] MEDS ORDERED: THIAMINE HCL(*) 200 MG/2 ML IN 100 MG, FOLIC ACID(*) 50 MG/10 ML INJ 1 MG, MULTIVITAMIN... IV ONE (02:45)
--- NOTE | 2017-11-04 03:21 | RADIOLOGY IMAGING REPORT ---
FACILITY: [facility] - [place] PATIENT NAME: Caleb Gomez : 1945 MR: [id number] V: [id number] EXAM DATE: ORDERING PHYSICIAN: BELTRAN HENRIQUEZ TECHNOLOGIST: Location: [facility] [place] Patient: Caleb Gomez : 1945 Visit/Account:[id number] Date of Sevice: 11/04/2017 TWO VIEW CHEST 11/04/2017 2:34 AM. INDICATION: Fall, left rib pain. COMPARISON: 04/26/2017. FINDINGS: Lungs are well-expanded. The lungs are clear. No pneumothorax or pleural effusion. Pulmo nary vasculature is unremarkable. Heart size is normal. Unchanged single-lead implanted cardiac dev ice. No definite acute displaced fracture. IMPRESSION: No acute cardiopulmonary abnormality or definite acute displaced rib fracture. Report Dictated By: Jalen Guerra MD at 11/04/2017 3:12 AM Report E-Signed By: Jalen Guerra MD at 11/04/2017 3:16 AM WSN:[id number]
--- NOTE | 2017-11-04 03:22 | RADIOLOGY IMAGING REPORT ---
FACILITY: [facility] - [place] PATIENT NAME: Caleb Gomez : 1945 MR: [id number] V: [id number] EXAM DATE: ORDERING PHYSICIAN: BELTRAN HENRIQUEZ TECHNOLOGIST: Location: [facility] [place] Patient: Caleb Gomez : 1945 Visit/Account:[id number] Date of Sevice: 11/04/2017 TWO VIEW CHEST 11/04/2017 2:34 AM. INDICATION: Fall, left rib pain. COMPARISON: 04/26/2017. FINDINGS: Lungs are well-expanded. The lungs are clear. No pneumothorax or pleural effusion. Pulmo nary vasculature is unremarkable. Heart size is normal. Unchanged single-lead implanted cardiac dev ice. No definite acute displaced fracture. IMPRESSION: No acute cardiopulmonary abnormality or definite acute displaced rib fracture. Report Dictated By: Jalen Guerra MD at 11/04/2017 3:12 AM Report E-Signed By: Jalen Guerra MD at 11/04/2017 3:16 AM WSN:[id number]
--- NOTE | 2017-11-04 04:00 | RADIOLOGY IMAGING REPORT ---
FACILITY: [facility] - [place] PATIENT NAME: Caleb Gomez : 1945 MR: [id number] V: [id number] EXAM DATE: ORDERING PHYSICIAN: BELTRAN HENRIQUEZ TECHNOLOGIST: Location: [facility] Patient: Caleb Gomez : 1945 Visit/Account:[id number] Date of Sevice: 11/04/2017 CT Head without contrast and CT Cervical spine: Indication: Fall, intoxication. Comparison: 02/18/2014. Technique: CT head: Axial CT images were obtained through the brain from the skull base to the verte x without administration of IV contrast. Reformatted coronal and sagittal images were also obtained. Technique: CT cervical spine: Axial CT imaging of the cervical spine was performed. 2-D sagittal and coronal CT reformats were also obtained. One of the following dose optimization techniques was utilized in the performance of this exam: Autom ated exposure control; adjustment of the mA and/or kV according to the patient's size; or use of an i terative reconstruction technique. Specific details can be referenced in the facility's radiology C T exam operational policy. FINDINGS: CT head: No evidence of mass, mass effect, or midline shift. No acute intracranial hemorrhage or acute territorial infarction. Mild cerebral volume loss and small amount of white matter hypoattenuation likely related to chronic small vessel ischemic disease. No fracture. Bilateral lens surgeries. The left maxillary sinus, anterior ethmoid air cells and frontal sinuses are opacified. There is khadra cific density within part of the material opacifying the maxillary sinus and ethmoid air cells. The wall of the maxillary sinus appears thickened. CT cervical spine: No acute abnormality of cervical vertebral body height and alignment. No cervical spine fracture. T here is no prevertebral soft tissue thickening. Moderate to severe multilevel spondylosis. C6 and C7 are fused. Remaining visualized cervical soft tissues are unremarkable. The airway is patent. The lung apices are clear. Incompletely imaged implanted cardiac device. IMPRESSION: 1. No acute intracranial abnormality. 2. No acute osseous abnormality of the cervical spine. 3. Probable chronic opacification of the left maxillary sinus, anterior ethmoid air cell cells and l eft frontal sinus. Underlying neoplasm not excluded; consider nonemergent ENT consultation. Report Dictated By: Jalen Guerra MD at 11/04/2017 3:46 AM Report E-Signed By: Jalen Guerra MD at 11/04/2017 3:56 AM WSN:[id number]
--- NOTE | 2017-11-04 04:01 | RADIOLOGY IMAGING REPORT ---
[facility] PATIENT NAME: Caleb Gomez : 1945 MR: [id number] V: [id number] EXAM DATE: ORDERING PHYSICIAN: BELTRAN HENRIQUEZ TECHNOLOGIST: Location: [facility] Patient: Caleb Gomez : 1945 Visit/Account:[id number] Date of Sevice: 11/04/2017 CT Head without contrast and CT Cervical spine: Indication: Fall, intoxication. Comparison: 02/18/2014. Technique: CT head: Axial CT images were obtained through the brain from the skull base to the verte x without administration of IV contrast. Reformatted coronal and sagittal images were also obtained. Technique: CT cervical spine: Axial CT imaging of the cervical spine was performed. 2-D sagittal and coronal CT reformats were also obtained. One of the following dose optimization techniques was utilized in the performance of this exam: Autom ated exposure control; adjustment of the mA and/or kV according to the patient's size; or use of an i terative reconstruction technique. Specific details can be referenced in the facility's radiology C T exam operational policy. FINDINGS: CT head: No evidence of mass, mass effect, or midline shift. No acute intracranial hemorrhage or acute territorial infarction. Mild cerebral volume loss and small amount of white matter hypoattenuation likely related to chronic small vessel ischemic disease. No fracture. Bilateral lens surgeries. The left maxillary sinus, anterior ethmoid air cells and frontal sinuses are opacified. There is khadra cific density within part of the material opacifying the maxillary sinus and ethmoid air cells. The wall of the maxillary sinus appears thickened. CT cervical spine: No acute abnormality of cervical vertebral body height and alignment. No cervical spine fracture. T here is no prevertebral soft tissue thickening. Moderate to severe multilevel spondylosis. C6 and C7 are fused. Remaining visualized cervical soft tissues are unremarkable. The airway is patent. The lung apices are clear. Incompletely imaged implanted cardiac device. IMPRESSION: 1. No acute intracranial abnormality. 2. No acute osseous abnormality of the cervical spine. 3. Probable chronic opacification of the left maxillary sinus, anterior ethmoid air cell cells and l eft frontal sinus. Underlying neoplasm not excluded; consider nonemergent ENT consultation. Report Dictated By: Jalen Guerra MD at 11/04/2017 3:46 AM Report E-Signed By: Jalen Guerra MD at 11/04/2017 3:56 AM WSN:[id number]
[2017-11-04 04:30] VITALS: BP 131/78
== END 2017-11-04 05:00 | disposition home or self-care (01) ==
LOC: ER 02:05
DX: F10.20 Alcohol dependence, uncomplicated (principal); S20.212A Contusion of left front wall of thorax, initial encounter
CPT/HCPCS: 70450; 71046; 71100; 72125; 80305; 81001; 83735; 84443; 85025; 96365; 99284; G0480; J3411; J7030; 80320; 80329; 82040; 82247; 82310; 82374; 82435; 82565; 82947; 84075; 84132; 84155; 84295; 84450; 84460; 84520

== ENCOUNTER → 2017-11-04 | Outpatient (CLI) | payer MEDICARE, MEDICAID ==
[2017-01-24 08:24] VITALS: BMI 30.4
[~2017-11-04] MED LIST changes: -DEXTROSE 5%(*) 100 ML BAG 100 ML IVPB PRN; -IBUP-136 PO; +IBUP200C71 PO; -NS(*) 0.9% 1000 ML BAG 1,000 ML IV PRN; +NYST60PO9 TP
== END ==
LOC: AMB 01:35
PROVIDERS: ATTEND Nurse Practitioner
DX: F10.229 Alcohol dependence with intoxication, unspecified (principal); S50.812A Abrasion of left forearm, initial encounter
CPT/HCPCS: A0425; A0429

== ENCOUNTER 2017-11-08 01:15 | Emergency (ER) | payer MEDICARE, MEDICAID ==
[2017-01-24 08:24] VITALS: Wt 86.2 kg
[~2017-11-08 01:15] MED LIST changes: -NYST60PO9 TP
--- NOTE | 2017-11-08 01:26 | ER Report ---
History and Physical Time Seen By MD: 01:25 Hx. of Stated Complaint: PATIENT STATES THAT HE HAS BEEN DRINKIN TOO MUCH AND THAT HE KEEPS FALLING HPI/ROS CHIEF COMPLAINT: Requesting detox HISTORY OF PRESENT ILLNESS: 72-year-old male brought in by EMS requesting detox tonight. Patient states she's been falling down. He's been so drunk. He denies injuries. He was checked out here a few days ago and has left bruised ribs, chest x-ray and rib series were negative for obvious injury. She has numerous old bruises that are healing. He has numerous abrasions and skin tears on both of his arms. He thinks his last tetanus shots up-to-date. Patient was complaining of right wrist pain on EMS call. He denies complain on arrival here. REVIEW OF SYSTEMS: Respiratory: No cough, no dyspnea. Cardiovascular: No chest pain, no palpitations. Gastrointestinal: No vomiting, no abdominal pain. Musculoskeletal: No back pain. Allergies: Coded Allergies: No Known Drug Allergies (Verified , 11/04/17) Home Meds Reported Medications Thiamine Hcl (THIAMINE HCL) 100 Mg Tablet, 100 MG PO DAILY 12/26/16 Folic Acid (FOLIC ACID) 1 Mg Tablet, 1 MG PO QDAY, TAB 12/26/16 Citalopram Hydrobromide (CITALOPRAM HBR) 20 Mg Tablet, 20 MG PO QDAY, #5 TAB 12/23/16 Menthol (BENGAY) 113 Gm Gel..gram., 1 GM TP QID Y for PAIN 12/23/16 Cyanocobalamin (Vitamin B-12) (CYANOCOBALAMIN INJECTION) 1,000 Mcg/1 Ml Vial, 1000 MCG IJ Q2WK, VIAL 12/23/16 Tramadol Hcl (TRAMADOL HCL) 50 Mg Tablet, 50 MG PO TID, TAB 12/23/16 Metoprolol Tartrate (METOPROLOL TARTRATE) 25 Mg Tablet, 1 TAB PO BID, TAB 12/23/16 Apixaban (ELIQUIS) 2.5 Mg Tablet, 2 TAB PO BID 08/15/16 Amlodipine Besylate (AMLODIPINE BESYLATE) 5 Mg Tablet, 1 TAB PO QDAY, TAB 08/15/16 Tamsulosin Hcl (TAMSULOSIN HCL) 0.4 Mg Cap.er.24h, 0.4 MG PO HS, CAP 08/15/16 Multivitamin (MULTIVITAMINS) 1 Each Capsule, 1 EACH PO QDAY, CAPSULE 08/15/16 Lisinopril (LISINOPRIL) 20 Mg Tablet, 20 MG PO DAILY, TAB 08/15/16 Magnesium Oxide (MAGNESIUM OXIDE) 400 Mg Tablet, 2 CAP PO TID 08/15/16 Cholecalciferol (Vitamin D3) (VITAMIN D3) 1,000 Unit Capsule, 1000 UNIT PO QDAY , CAPSULE 08/15/16 Past Medical/Surgical History Alcoholism, type II diabetes Reviewed Nurses Notes: Yes Old Medical Records Reviewed: Yes Hx Smoking: No Smoking Status: Never Smoker Exposure to Second Hand Smoke?: No Hx Substance Use Disorder: No Hx Alcohol Use: Yes Constitutional Vital Sign - Last 24 Hours 11/08/17 11/08/17 11/08/17 11/08/17 01:17 01:18 01:30 02:00 Temp 98.5 Pulse 69 Resp 16 B/P (MAP) 171/98 (122) 171/98 171/85 (113) 171/95 (120) Pulse Ox 99 O2 Delivery Nasal Cannula 11/08/17 11/08/17 11/08/17 11/08/17 02:30 02:45 03:00 03:15 Pulse 85 77 B/P (MAP) 139/76 (97) 116/74 (88) Pulse Ox 96 98 11/08/17 11/08/17 11/08/17 11/08/17 03:20 03:21 03:30 03:50 Pulse 59 64 B/P (MAP) 136/70 (92) Pulse Ox 98 98 90 11/08/17 03:59 Pulse 60 Physical Exam General Appearance: The patient is alert, has no immediate need for airway protection and no current signs of toxicity. Vital signs stable, afebrile, pulse ox normal HEENT: Pupils equal and round no injection. TMs normal, oropharynx with mild erythema, no exudate Respiratory: Chest is non tender, lungs are clear to auscultation. Cardiac: regular rate and rhythm Gastrointestinal: Abdomen is soft and non tender, no masses, bowel sounds normal. Musculoskeletal: Neck: Neck is supple and non tender. Extremities have full range of motion and are non tender. Skin: No rashes or lesions. DIFFERENTIAL DIAGNOSIS: After history and physical exam differential diagnosis was considered for depression including functional and major depression, situational depression, medication side effect, alcohol dependence, drugs and alcohol abuse. Medical Decision Making Data Points Result Diagram: 11/08/17 02111/08/17 021 Laboratory Hematology Test 11/08/17 02:13 11/08/17 02:20 Red Blood Count 5.10 M/uL (4.00-5.60) Mean Corpuscular Volume 95.3 fL (80.0-96.0) Mean Corpuscular Hemoglobin 33.1 pg (26.0-33.0) Mean Corpuscular Hemoglobin Concent 34.7 g/dL (32.0-36.0) Red Cell Distribution Width 15.0 % (11.5-14.5) Mean Platelet Volume 6.6 fL (7.2-11.1) Neutrophils (%) (Auto) 42.3 % (39.4-72.5) Lymphocytes (%) (Auto) 45.3 % (17.6-49.6) Monocytes (%) (Auto) 11.2 % (4.1-12.4) Eosinophils (%) (Auto) 0.4 % (0.4-6.7) Basophils (%) (Auto) 0.8 % (0.3-1.4) Nucleated RBC Relative Count (auto) 0.1 /100WBC Neutrophils # (Auto) 2.2 K/uL (2.0-7.4) Lymphocytes # (Auto) 2.4 K/uL (1.3-3.6) Monocytes # (Auto) 0.6 K/uL (0.3-1.0) Eosinophils # (Auto) 0.0 K/uL (0.0-0.5) Basophils # (Auto) 0.0 K/uL (0.0-0.1) Nucleated RBC Absolute Count (auto) 0.01 K/uL Sodium Level 138 mmol/L (137-145) Potassium Level 4.3 mmol/L (3.5-5.0) Chloride Level 98 mmol/L (98-107) Carbon Dioxide Level 26 mmol/L (22-30) Blood Urea Nitrogen 13 mg/dl (9-21) Creatinine 0.70 mg/dl (0.66-1.25) Glomerular Filtration Rate Calc > 60.0 Random Glucose 95 mg/dl (75-110) Calcium Level 8.1 mg/dl (8.4-10.2) Magnesium Level 1.5 mg/dl (1.7-2.2) Total Bilirubin 1.0 mg/dl (0.2-1.3) Aspartate Amino Transf (AST/SGOT) 50 U/L (0-35) Alanine Aminotransferase (ALT/SGPT) 32 U/L (0-56) Alkaline Phosphatase 61 U/L (0-126) Total Protein 6.2 g/dl (6.3-8.2) Albumin 3.0 g/dl (3.5-5.0) Thyroid Stimulating Hormone (TSH) 0.20 uIU/ml (0.46-4.68) Salicylates Level < 10 mg/L Salicylate Last Dose Date unk Acetaminophen Level < 10 ug/ml Serum Alcohol 311 mg/dl Urine Color Yellow Urine Clarity Clear Urine pH 5.0 pH (4.8-9.5) Urine Specific [place] 1.006 Urine Protein Negative mg/dL (NEGATIVE) Urine Glucose (UA) Negative mg/dL (NEGATIVE) Urine Ketones Negative mg/dL (NEGATIVE) Urine Blood Negative (NEGATIVE) Urine Nitrite Negative (NEGATIVE) Urine Bilirubin Negative (NEGATIVE) Urine Urobilinogen 0.2 mg/dL (0.2-1.9) Urine Leukocyte Esterase Negative (NEGATIVE) Urine RBC <1 /HPF (0-2/HPF) Urine WBC None /HPF (0-5/HPF) Urine Squamous Epithelial Cells None /LPF (</=FEW) Urine Bacteria Negative /HPF (NONE-FEW) Urine Mucus None /HPF (NONE-FEW) Urine Opiates Screen Negative Urine Barbiturates Screen Negative Ur Tricyclic Antidepressants Screen Negative Urine Phencyclidine Screen Negative Urine Amphetamines Screen Negative Urine Benzodiazepines Screen Negative Urine Cocaine Screen Negative Urine Cannabinoids Screen Negative Chemistry Test 11/08/17 02:13 11/08/17 02:20 White Blood Count 5.2 k/uL (4.5-11.0) Red Blood Count 5.10 M/uL (4.00-5.60) Hemoglobin 16.9 g/dL (14.0-18.0) Hematocrit 48.6 % (42.0-52.0) Mean Corpuscular Volume 95.3 fL (80.0-96.0) Mean Corpuscular Hemoglobin 33.1 pg (26.0-33.0) Mean Corpuscular Hemoglobin Concent 34.7 g/dL (32.0-36.0) Red Cell Distribution Width 15.0 % (11.5-14.5) Platelet Count 141 K/uL (150-450) Mean Platelet Volume 6.6 fL (7.2-11.1) Neutrophils (%) (Auto) 42.3 % (39.4-72.5) Lymphocytes (%) (Auto) 45.3 % (17.6-49.6) Monocytes (%) (Auto) 11.2 % (4.1-12.4) Eosinophils (%) (Auto) 0.4 % (0.4-6.7) Basophils (%) (Auto) 0.8 % (0.3-1.4) Nucleated RBC Relative Count (auto) 0.1 /100WBC Neutrophils # (Auto) 2.2 K/uL (2.0-7.4) Lymphocytes # (Auto) 2.4 K/uL (1.3-3.6) Monocytes # (Auto) 0.6 K/uL (0.3-1.0) Eosinophils # (Auto) 0.0 K/uL (0.0-0.5) Basophils # (Auto) 0.0 K/uL (0.0-0.1) Nucleated RBC Absolute Count (auto) 0.01 K/uL Glomerular Filtration Rate Calc > 60.0 Calcium Level 8.1 mg/dl (8.4-10.2) Magnesium Level 1.5 mg/dl (1.7-2.2) Total Bilirubin 1.0 mg/dl (0.2-1.3) Aspartate Amino Transf (AST/SGOT) 50 U/L (0-35) Alanine Aminotransferase (ALT/SGPT) 32 U/L (0-56) Alkaline Phosphatase 61 U/L (0-126) Total Protein 6.2 g/dl (6.3-8.2) Albumin 3.0 g/dl (3.5-5.0) Thyroid Stimulating Hormone (TSH) 0.20 uIU/ml (0.46-4.68) Salicylates Level < 10 mg/L Salicylate Last Dose Date unk Acetaminophen Level < 10 ug/ml Serum Alcohol 311 mg/dl Urine Color Yellow Urine Clarity Clear Urine pH 5.0 pH (4.8-9.5) Urine Specific [place] 1.006 Urine Protein Negative mg/dL (NEGATIVE) Urine Glucose (UA) Negative mg/dL (NEGATIVE) Urine Ketones Negative mg/dL (NEGATIVE) Urine Blood Negative (NEGATIVE) Urine Nitrite Negative (NEGATIVE) Urine Bilirubin Negative (NEGATIVE) Urine Urobilinogen 0.2 mg/dL (0.2-1.9) Urine Leukocyte Esterase Negative (NEGATIVE) Urine RBC <1 /HPF (0-2/HPF) Urine WBC None /HPF (0-5/HPF) Urine Squamous Epithelial Cells None /LPF (</=FEW) Urine Bacteria Negative /HPF (NONE-FEW) Urine Mucus None /HPF (NONE-FEW) Urine Opiates Screen Negative Urine Barbiturates Screen Negative Ur Tricyclic Antidepressants Screen Negative Urine Phencyclidine Screen Negative Urine Amphetamines Screen Negative Urine Benzodiazepines Screen Negative Urine Cocaine Screen Negative Urine Cannabinoids Screen Negative Toxicology Test 11/08/17 02:13 11/08/17 02:20 Salicylates Level < 10 mg/L Salicylate Last Dose Date unk Acetaminophen Level < 10 ug/ml Serum Alcohol 311 mg/dl Urine Opiates Screen Negative Urine Barbiturates Screen Negative Ur Tricyclic Antidepressants Screen Negative Urine Phencyclidine Screen Negative Urine Amphetamines Screen Negative Urine Benzodiazepines Screen Negative Urine Cocaine Screen Negative Urine Cannabinoids Screen Negative Urinalysis Test 11/08/17 02:20 Urine Color Yellow Urine Clarity Clear Urine pH 5.0 pH (4.8-9.5) Urine Specific [place] 1.006 Urine Protein Negative mg/dL (NEGATIVE) Urine Glucose (UA) Negative mg/dL (NEGATIVE) Urine Ketones Negative mg/dL (NEGATIVE) Urine Blood Negative (NEGATIVE) Urine Nitrite Negative (NEGATIVE) Urine Bilirubin Negative (NEGATIVE) Urine Urobilinogen 0.2 mg/dL (0.2-1.9) Urine Leukocyte Esterase Negative (NEGATIVE) Urine RBC <1 /HPF (0-2/HPF) Urine WBC None /HPF (0-5/HPF) Urine Squamous Epithelial Cells None /LPF (</=FEW) Urine Bacteria Negative /HPF (NONE-FEW) Urine Mucus None /HPF (NONE-FEW) ED Course/Re-evaluation ED Course Patient was admitted to an examination room. H&P was done. The differential diagnoses was considered. On conical examination. Patient has been falling down because of intoxication. He was seen here 4 days ago and had x-rays of his left ribs. Patient was considering detox. During his last admission but declined and went home. He's continued to drink. He brought in by ambulance tonight requesting detox. Patient states she is continuing to fall down intoxicated. There are well-healed abrasions and cuts to his arms. Patient has hyperglycemia secondary to noncompliance with his type II diabetic treatment plan. Myra Cervantestz not been taking his metformin. I see no indication to admit the patient to the medical service. Will likely need consult in behavioral health for management of his glucoses. 11/08/2017 3:52:22 am case discussed with Dr. Prater psychiatrist's on-call Decision to Disposition Date: Nov 08, 2017 Decision to Disposition Time: 03:52 Depart Departure Latest Vital Signs Vital Signs Date Time Temp Pulse Resp B/P (MAP) Pulse Ox O2 Delivery O2 Flow Rate FiO2 11/08/17 03:59 60 11/08/17 03:50 90 11/08/17 03:30 136/70 (92) 11/08/17 01:18 98.5 16 Nasal Cannula Impression: Primary Impression: Alcohol use disorder, severe, dependence Additional Impressions: Falling Contusion of rib on left side Condition: Improved Disposition: XFER TO [facility] Referrals: DARRYN HUNTER DO (PCP) Problem Qualifiers Additional Impressions: Contusion of rib on left side Encounter type: subsequent encounter Qualified Codes: S20.212D - Contusion of left front wall of thorax, subsequent encounter EMILY VILLALTA DO Nov 08, 2017 01:26
[2017-11-08] MEDS ORDERED: THIAMINE HCL(*) 200 MG/2 ML IN 100 MG, FOLIC ACID(*) 50 MG/10 ML INJ 1 MG, MULTIVITAMIN... IV ONE (01:35)
[2017-11-08 02:29] LABS: PLATELET COUNT, AUTOMATED 141 K/uL (150-450)
[2017-11-08 03:30] VITALS: BP 136/70
== END 2017-11-08 04:12 ==
LOC: ER 01:23
DX: F10.20 Alcohol dependence, uncomplicated (principal); S20.212D Contusion of left front wall of thorax, subsequent encounter; E11.65 Type 2 diabetes mellitus with hyperglycemia
CPT/HCPCS: 80305; 81001; 83735; 84443; 85025; 96365; 96366; 99283; G0480; J3411; J3475; J7030; 80320; 80329; 82040; 82247; 82310; 82374; 82435; 82565; 82947; 84075; 84132; 84155; 84295; 84450; 84460; 84520; 96375

== ENCOUNTER 2017-11-08 04:04 | Inpatient (IN) | payer MEDICARE, MEDICAID ==
[2017-01-24 08:24] VITALS: Ht 152.4 cm; Wt 86.4 kg
[~2017-11-08] VITALS: Ht 152.4 cm; Wt 86.4 kg
[2017-11-08 04:18] VITALS: BP 165/84
[2017-11-08] MEDS: DIAZEPAM 10 MG TAB PO PRN ×5 (05:12→23:44)
[2017-11-08 08:00] VITALS: BP 155/74
[2017-11-08] MEDS: MULTIVITAMINS TAB PO SCH (08:26)
[2017-11-08] MEDS: THIAMINE HCL 100 MG TAB PO SCH (08:26)
[2017-11-08 11:57] VITALS: BP 162/86
[2017-11-08] MEDS: CITALOPRAM HYDROBROM 20 MG TAB PO SCH (13:06)
[2017-11-08] MEDS: METOPROLOL TART 50 MG TAB PO SCH ×2 (13:07→20:27)
[2017-11-08] MEDS: TAMSULOSIN HCL 0.4 MG CAP PO SCH (13:07)
[2017-11-08] MEDS: amLODIPine BESYL(*) 5 MG TAB PO SCH (13:07)
[2017-11-08] MEDS: LISINOPRIL 20 MG TAB PO SCH (13:07)
[2017-11-08] MEDS: MAGNESIUM OXIDE 400 MG TAB PO SCH ×2 (13:15→20:27)
[2017-11-08 15:57] VITALS: BP 139/68
--- NOTE | 2017-11-08 16:41 | HISTORY AND PHYSICAL ---
DATE OF ADMISSION: November 08, 2017 Patient was seen at approximately 1130 hours on morning of 08 November 2017 for note concerning this dictation. PRESENTING PROBLEM AND CHIEF COMPLAINT Alcohol withdrawal treatment. HISTORY OF PRESENT ILLNESS This is a very well-known, 72-year-old male who presented to the Emergency Room after calling EMS services to take him there from his home, which is not located far from the hospital. Patient again continues to suffer from alcohol use disorder, patient asking for help with alcohol withdrawal. Patient was brought to the Behavioral Health Unit without any concerns. It is noted that patient was in the Emergency Room for alcohol use disorder on November 04, 2017, as well, but at that time, patient decided he would return home. On the morning of November 08, 2017, patient was seen by this provider, patient having limited communication abilities, patient in active alcohol withdrawal. Patient noted to be smiling at this provider and indicating a good memory of this provide as well as another staff member present. Patient humorous, wanting to tell jokes. Patient denying any other concerns other than ongoing problems with alcohol use disorder, including recent falls resulting in bruising. MENTAL HEALTH HISTORY Patient has been hospitalized here at [facility] on multiple occasions. Please see previous notes for alcohol detox in the past. Patient has at times been hospitalized on medical floor due to electrolyte abnormalities as well. Patient continues to follow up with [facility] and is believed at home. No history of suicide attempt, and no history of residential alcohol treatment is believed to have taken place in the patient's history. FAMILY PSYCHIATRIC HISTORY Noted that his mother and father drank a lot on previous admissions. No other genetic psychiatric illnesses noted. Patient was adopted outside of his biological home at the early age of 1. PAST MEDICAL HISTORY * Patient suffers from lqy-[id number]-kcefuqqog diabetes in the past. * History of significant pain from spinal stenosis. Limited ambulation concerns in the past. * Some concerns with hypertension and obesity in the past. * He has a history of gout, likely related to alcohol consumption. 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 SOCIAL HISTORY Patient was born in [place], raised there. Parents were at time of his . Patient was adopted into another family at the age of 1. He reports after this having a good childhood, free of sexual, emotional, or physical abuse. Patient graduated high school, attended one semester of college. Patient has worked for the [email or web address] in the past. 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 Patient not currently . He is . He is not believed to have any significant other currently, and he is heterosexual. Patient has two grown children living in [place]. Some limited contact with them in the past. Patient is last known to be living in [facility], having home health care nurse and in-home mental health treatment ongoing. LEGAL HISTORY Not believed to be under any legal concerns at this time. SUBSTANCE ABUSE HISTORY Notable for longstanding chronic alcohol dependence. Patient has had relatively long periods of sobriety in the past. He is not believed to have smoked tobacco or use other illicit substances now. PHYSICAL EXAMINATION Please see emergency room note. Notable for: GENERAL: Well-known patient, a 72-year-old male in a state of alcohol intoxication. VITAL SIGNS: At time of admission, blood pressure recorded as 171/98, temperature 98.5, pulse 69, respiratory rate 16, pulse oximetry 99 on supplemental oxygen. LABORATORY DATA At time of admission, CBC notable for MCH high at 33.1 and platelet count low at 141. Chemistry panel notable for magnesium low at 1.5. Patient historically can have a very low magnesium level. TSH low at 0.20. AST elevated at 50. Urinalysis was unremarkable. Toxicology screen negative for substances of abuse with a serum alcohol level of 311 at time of admission. MENTAL STATUS EXAMINATION GENERAL APPEARANCE, BEHAVIOR, AND ATTITUDE: This is a 72-year-old male who is well known to the [facility] staff. Some psychomotor agitation in the form of tremor noted during initial interview. Patient making good eye contact, smiling at this provider. No bizarre mannerisms or tics. SPEECH: Largely considered within normal limits for this patient. MOOD: Described as good today. AFFECT: Full and mood congruent. THOUGHT PROCESSES: Goal directed. Patient seeking admission for help with alcohol withdrawal. No loose associations or flight of ideas could be detected. THOUGHT CONTENT: Free of auditory or visual hallucinations, ideas of reference , thought broadcasting, delusions, obsessions, compulsions. Patient adamantly denying suicidal or homicidal ideations. SENSORIUM: Clear. COGNITION: Alert and oriented to person, place, time, mostly to situation. MEMORY: Immediate, recent, and remote historically intact. INTELLIGENCE: Historically average. INSIGHT AND JUDGMENT: Patient has a virtual inability to abstain from alcohol outside of this hospital; however, patient is believed to make some efforts at limiting consumption, and patient presenting voluntarily for alcohol withdrawal management. ASSESSMENT This 72-year-old male, very well known to the Behavioral Health staff and [facility] staff. Patient certainly could benefit from residential treatment for alcohol use disorder once alcohol withdrawal is treated to completion; however, patient does have physical limitations and is otherwise well cared for in the [facility] with in-home health care present. At this time, will likely treat alcohol withdrawal to completion and encourage abstinence again in the outpatient setting. DIAGNOSES 1. Alcohol intoxication. 2. Alcohol withdrawal. 3. Alcohol use disorder, severe. 4. Stressors of illness and other medical concerns. PLAN 1. Admit to the unit. 2. Necessary precautions to be implemented. 3. Patient will participate in individual and group therapy. 4. Medications will be titrated as necessary. 5. Collateral information to be obtained as necessary. 6. Estimated length of stay three to five days. MTDD
[2017-11-08 20:00] VITALS: BP 133/90
[2017-11-08] MEDS: MENTHOL/METHYL SALI CREAM 57 GM 57 GM TUBE TP PRN (20:27)
[2017-11-08 23:35] VITALS: BP 174/107
[2017-11-08] MEDS: MAG HYD/AL HYD/SIMETH 30ML UDC PO PRN (23:44)
[2017-11-09] MEDS: LOPERAMIDE HCL 2 MG CAP PO PRN ×3 (02:38→09:13)
[2017-11-09 02:40] VITALS: BP 171/80
[2017-11-09] MEDS: DIAZEPAM 10 MG TAB PO PRN (02:47)
[2017-11-09 07:52] VITALS: BP 146/88
[2017-11-09] MEDS: THIAMINE HCL 100 MG TAB PO SCH (08:33)
[2017-11-09] MEDS: CITALOPRAM HYDROBROM 20 MG TAB PO SCH (08:33)
[2017-11-09] MEDS: MAGNESIUM OXIDE 400 MG TAB PO SCH ×3 (08:33→21:10)
[2017-11-09] MEDS: MULTIVITAMINS TAB PO SCH (08:33)
[2017-11-09] MEDS: LISINOPRIL 20 MG TAB PO SCH (08:33)
[2017-11-09] MEDS: METOPROLOL TART 50 MG TAB PO SCH ×2 (08:33→21:10)
[2017-11-09] MEDS: TAMSULOSIN HCL 0.4 MG CAP PO SCH (08:33)
[2017-11-09] MEDS: amLODIPine BESYL(*) 5 MG TAB PO SCH (08:33)
[2017-11-09 09:34] LABS: PLATELET COUNT, AUTOMATED 136 K/uL (150-450)
--- NOTE | 2017-11-09 10:31 | [facility] Progress Note ---
[facility] - Subjective Progress Notes Subjective Patient smiling at this provider and interacting well. Alcohol withdrawal ongoing, will continue treatment. Some stool incontinence today, patient is ambulatory. Magnesium level good today. Will encourage abstinance upon discharge in this patient who refuses rehab center treatment. Suicidal Ideation: None Homicidal Ideation: None [facility] - Objective Physical Exam Vital Signs Hematology Test 11/09/17 09:17 Red Blood Count 4.84 M/uL (4.00-5.60) Mean Corpuscular Volume 97.0 fL (80.0-96.0) Mean Corpuscular Hemoglobin 33.7 pg (26.0-33.0) Mean Corpuscular Hemoglobin Concent 34.7 g/dL (32.0-36.0) Red Cell Distribution Width 15.1 % (11.5-14.5) Mean Platelet Volume 6.9 fL (7.2-11.1) Neutrophils (%) (Auto) 62.0 % (39.4-72.5) Lymphocytes (%) (Auto) 26.2 % (17.6-49.6) Monocytes (%) (Auto) 10.7 % (4.1-12.4) Eosinophils (%) (Auto) 0.7 % (0.4-6.7) Basophils (%) (Auto) 0.4 % (0.3-1.4) Nucleated RBC Relative Count (auto) 0.2 /100WBC Neutrophils # (Auto) 4.8 K/uL (2.0-7.4) Lymphocytes # (Auto) 2.0 K/uL (1.3-3.6) Monocytes # (Auto) 0.8 K/uL (0.3-1.0) Eosinophils # (Auto) 0.1 K/uL (0.0-0.5) Basophils # (Auto) 0.0 K/uL (0.0-0.1) Nucleated RBC Absolute Count (auto) 0.01 K/uL Sodium Level 134 mmol/L (137-145) Potassium Level 3.8 mmol/L (3.5-5.0) Chloride Level 98 mmol/L (98-107) Carbon Dioxide Level 23 mmol/L (22-30) Blood Urea Nitrogen 14 mg/dl (9-21) Creatinine 0.70 mg/dl (0.66-1.25) Glomerular Filtration Rate Calc > 60.0 Random Glucose 226 mg/dl (75-110) Calcium Level 8.1 mg/dl (8.4-10.2) Magnesium Level 1.8 mg/dl (1.7-2.2) Total Bilirubin 2.8 mg/dl (0.2-1.3) Aspartate Amino Transf (AST/SGOT) 100 U/L (0-35) Alanine Aminotransferase (ALT/SGPT) 52 U/L (0-56) Alkaline Phosphatase 74 U/L (0-126) Total Protein 6.1 g/dl (6.3-8.2) Albumin 3.0 g/dl (3.5-5.0) Chemistry Test 11/09/17 09:17 White Blood Count 7.7 k/uL (4.5-11.0) Red Blood Count 4.84 M/uL (4.00-5.60) Hemoglobin 16.3 g/dL (14.0-18.0) Hematocrit 46.9 % (42.0-52.0) Mean Corpuscular Volume 97.0 fL (80.0-96.0) Mean Corpuscular Hemoglobin 33.7 pg (26.0-33.0) Mean Corpuscular Hemoglobin Concent 34.7 g/dL (32.0-36.0) Red Cell Distribution Width 15.1 % (11.5-14.5) Platelet Count 136 K/uL (150-450) Mean Platelet Volume 6.9 fL (7.2-11.1) Neutrophils (%) (Auto) 62.0 % (39.4-72.5) Lymphocytes (%) (Auto) 26.2 % (17.6-49.6) Monocytes (%) (Auto) 10.7 % (4.1-12.4) Eosinophils (%) (Auto) 0.7 % (0.4-6.7) Basophils (%) (Auto) 0.4 % (0.3-1.4) Nucleated RBC Relative Count (auto) 0.2 /100WBC Neutrophils # (Auto) 4.8 K/uL (2.0-7.4) Lymphocytes # (Auto) 2.0 K/uL (1.3-3.6) Monocytes # (Auto) 0.8 K/uL (0.3-1.0) Eosinophils # (Auto) 0.1 K/uL (0.0-0.5) Basophils # (Auto) 0.0 K/uL (0.0-0.1) Nucleated RBC Absolute Count (auto) 0.01 K/uL Glomerular Filtration Rate Calc > 60.0 Calcium Level 8.1 mg/dl (8.4-10.2) Magnesium Level 1.8 mg/dl (1.7-2.2) Total Bilirubin 2.8 mg/dl (0.2-1.3) Aspartate Amino Transf (AST/SGOT) 100 U/L (0-35) Alanine Aminotransferase (ALT/SGPT) 52 U/L (0-56) Alkaline Phosphatase 74 U/L (0-126) Total Protein 6.1 g/dl (6.3-8.2) Albumin 3.0 g/dl (3.5-5.0) Vital Signs Date Time Temp Pulse Resp B/P (MAP) Pulse Ox O2 Delivery O2 Flow Rate FiO2 11/09/17 07:52 98.0 69 18 146/88 (107) 94 Nasal Cannula 1.0 Muscle Strength and Tone: Other (limited) Gait and Station: Unsteady [facility] Medications Reviewed: Side Effects, Benefits of Medication, Risks Allergies Reviewed: Yes Mental Status Exam General Appearance: Casual, No Well Groomed, Good Eye Contact, Cooperative, Polite, Good Interaction, Unkept, No Tearful, Psychomotor Agitation, No Psychomotor Retardation, No Bizarre Mannerisms, No Tics Speech: Clear, Spontaneous, Normal Rate, Normal Rhythm, Normal Volume, Normal Tone Mood: Euthymic Affect: Full and Appropriate, Calm, No Flat, No Withdrawn, No Tearful, No Anxious, No Agitated Thought Process: Organized, Logical, Goal Directed, No Loose Associations, No Flight of Ideas Thought Content: No Suicidal Ideation, No Homicidal Ideation, No Delusions, No Auditory Halllucinations, No Visual Hallucinations, No Thought Broadcasting, No Ideas of Reference, No Obsessions, No Compulsions Sensorium: Clear Cognition: Alert & Oriented-Person, Alert & Oriented-Place, Alert & Oriented- Time, Oxvxr-[id number]-[id number] Memory: Immediate, Recent, Remote Intelligence: Average Insight Judgment: Poor (unable to control fully control alcohol consumption) Result Diagram: 11/09/1791611/09/17916 [facility] Assessment and Plan [id number] Encounter Date: Nov 09, 2017 [id number] Encounter Time: 10:30 [facility] Plan: Necessary Precautions, Individual/Group Therapy, Admin/Titrate Meds, Educate Patient Tobacco Medications: Not Appropriate Condition Multpiple Antipsychotics Used: No Problems: (1) Alcohol withdrawal Status: Acute (2) Alcohol use disorder, severe, dependence Status: Chronic Condition 1. continue treatment. 2. monitor labs Problem Qualifiers (1) Alcohol withdrawal: Complication of substance-induced condition: uncomplicated Qualified Codes: F10.230 - Alcohol dependence with withdrawal, uncomplicated CJ STANLEY MD Nov 09, 2017 10:30
[2017-11-09 12:40] VITALS: BP 118/64
[2017-11-09] MEDS: MAG HYD/AL HYD/SIMETH 30ML UDC PO PRN ×2 (15:08→21:10)
[2017-11-09 16:40] VITALS: BP 142/65
[2017-11-10] MEDS: LOPERAMIDE HCL 2 MG CAP PO PRN ×4 (01:11→15:52)
[2017-11-10 06:23] VITALS: BP 142/84
[2017-11-10 07:47] VITALS: BP 130/80
[2017-11-10] MEDS: CITALOPRAM HYDROBROM 20 MG TAB PO SCH (08:20)
[2017-11-10] MEDS: TAMSULOSIN HCL 0.4 MG CAP PO SCH (08:21)
[2017-11-10] MEDS: METOPROLOL TART 50 MG TAB PO SCH ×2 (08:21→20:49)
[2017-11-10] MEDS: MULTIVITAMINS TAB PO SCH (08:22)
[2017-11-10] MEDS: amLODIPine BESYL(*) 5 MG TAB PO SCH (08:22)
[2017-11-10] MEDS: THIAMINE HCL 100 MG TAB PO SCH (08:22)
[2017-11-10] MEDS: LISINOPRIL 20 MG TAB PO SCH (08:22)
[2017-11-10] MEDS: MAGNESIUM OXIDE 400 MG TAB PO SCH ×3 (08:22→20:49)
[2017-11-10 10:30] VITALS: BP 102/62
[2017-11-10] MEDS: MAG HYD/AL HYD/SIMETH 30ML UDC PO PRN (10:34)
--- NOTE | 2017-11-10 11:07 | BHS Progress Note ---
S - Subjective Progress Notes Subjective Patient continues in alcohol withdrawal, mood good, appetite improving, limited strength today, will continue treatment with likely discharge on Monday. Sleep intact. No other concerns today. Will likely resume home health care, and plan for discharge on Monday. Will monitor magnesium, and routine labwork prior to discharge. No other concerns, interacting well, in good spirits. Suicidal Ideation: None Homicidal Ideation: None [facility] - Objective Physical Exam Vital Signs Hematology Test 11/09/17 09:17 Red Blood Count 4.84 M/uL (4.00-5.60) Mean Corpuscular Volume 97.0 fL (80.0-96.0) Mean Corpuscular Hemoglobin 33.7 pg (26.0-33.0) Mean Corpuscular Hemoglobin Concent 34.7 g/dL (32.0-36.0) Red Cell Distribution Width 15.1 % (11.5-14.5) Mean Platelet Volume 6.9 fL (7.2-11.1) Neutrophils (%) (Auto) 62.0 % (39.4-72.5) Lymphocytes (%) (Auto) 26.2 % (17.6-49.6) Monocytes (%) (Auto) 10.7 % (4.1-12.4) Eosinophils (%) (Auto) 0.7 % (0.4-6.7) Basophils (%) (Auto) 0.4 % (0.3-1.4) Nucleated RBC Relative Count (auto) 0.2 /100WBC Neutrophils # (Auto) 4.8 K/uL (2.0-7.4) Lymphocytes # (Auto) 2.0 K/uL (1.3-3.6) Monocytes # (Auto) 0.8 K/uL (0.3-1.0) Eosinophils # (Auto) 0.1 K/uL (0.0-0.5) Basophils # (Auto) 0.0 K/uL (0.0-0.1) Nucleated RBC Absolute Count (auto) 0.01 K/uL Sodium Level 134 mmol/L (137-145) Potassium Level 3.8 mmol/L (3.5-5.0) Chloride Level 98 mmol/L (98-107) Carbon Dioxide Level 23 mmol/L (22-30) Blood Urea Nitrogen 14 mg/dl (9-21) Creatinine 0.70 mg/dl (0.66-1.25) Glomerular Filtration Rate Calc > 60.0 Random Glucose 226 mg/dl (75-110) Hemoglobin A1c 6.3 % (4.6-6.0) Calcium Level 8.1 mg/dl (8.4-10.2) Magnesium Level 1.8 mg/dl (1.7-2.2) Total Bilirubin 2.8 mg/dl (0.2-1.3) Aspartate Amino Transf (AST/SGOT) 100 U/L (0-35) Alanine Aminotransferase (ALT/SGPT) 52 U/L (0-56) Alkaline Phosphatase 74 U/L (0-126) Total Protein 6.1 g/dl (6.3-8.2) Albumin 3.0 g/dl (3.5-5.0) Chemistry Test 11/09/17 09:17 White Blood Count 7.7 k/uL (4.5-11.0) Red Blood Count 4.84 M/uL (4.00-5.60) Hemoglobin 16.3 g/dL (14.0-18.0) Hematocrit 46.9 % (42.0-52.0) Mean Corpuscular Volume 97.0 fL (80.0-96.0) Mean Corpuscular Hemoglobin 33.7 pg (26.0-33.0) Mean Corpuscular Hemoglobin Concent 34.7 g/dL (32.0-36.0) Red Cell Distribution Width 15.1 % (11.5-14.5) Platelet Count 136 K/uL (150-450) Mean Platelet Volume 6.9 fL (7.2-11.1) Neutrophils (%) (Auto) 62.0 % (39.4-72.5) Lymphocytes (%) (Auto) 26.2 % (17.6-49.6) Monocytes (%) (Auto) 10.7 % (4.1-12.4) Eosinophils (%) (Auto) 0.7 % (0.4-6.7) Basophils (%) (Auto) 0.4 % (0.3-1.4) Nucleated RBC Relative Count (auto) 0.2 /100WBC Neutrophils # (Auto) 4.8 K/uL (2.0-7.4) Lymphocytes # (Auto) 2.0 K/uL (1.3-3.6) Monocytes # (Auto) 0.8 K/uL (0.3-1.0) Eosinophils # (Auto) 0.1 K/uL (0.0-0.5) Basophils # (Auto) 0.0 K/uL (0.0-0.1) Nucleated RBC Absolute Count (auto) 0.01 K/uL Glomerular Filtration Rate Calc > 60.0 Hemoglobin A1c 6.3 % (4.6-6.0) Calcium Level 8.1 mg/dl (8.4-10.2) Magnesium Level 1.8 mg/dl (1.7-2.2) Total Bilirubin 2.8 mg/dl (0.2-1.3) Aspartate Amino Transf (AST/SGOT) 100 U/L (0-35) Alanine Aminotransferase (ALT/SGPT) 52 U/L (0-56) Alkaline Phosphatase 74 U/L (0-126) Total Protein 6.1 g/dl (6.3-8.2) Albumin 3.0 g/dl (3.5-5.0) Muscle Strength and Tone: Other (limited) Gait and Station: Unsteady [facility] Medications Reviewed: Side Effects, Benefits of Medication, Risks Allergies Reviewed: Yes Mental Status Exam General Appearance: Casual, No Well Groomed, Good Eye Contact, Cooperative, Polite, Good Interaction, Unkept, No Tearful, No Psychomotor Agitation, No Psychomotor Retardation, No Bizarre Mannerisms, No Tics Speech: Clear (baseline), Spontaneous, Normal Rate, Normal Rhythm, Normal Volume, Normal Tone, No Delayed, No Slurred, No Garbled, No Rambling, No Inappropriate Mood: Euthymic Affect: Full and Appropriate, Calm, No Flat, No Withdrawn, No Tearful, No Anxious, No Agitated Thought Process: Organized, Logical, Goal Directed, No Loose Associations, No Flight of Ideas Thought Content: No Suicidal Ideation, No Homicidal Ideation, No Delusions, No Auditory Halllucinations, No Visual Hallucinations, No Thought Broadcasting, No Ideas of Reference, No Obsessions, No Compulsions Sensorium: Clear Cognition: Alert & Oriented-Person, Alert & Oriented-Place, Alert & Oriented- Time, [id number] Memory: Immediate, Recent, Remote Intelligence: Average Insight Judgment: Poor (unable to fully control alcohol consumption) Result Diagram: 11/09/17 0917 11/09/1717 [facility] Assessment and Plan Immu-[id number] Encounter Date: Nov 10, 2017 Louo-[id number]-Rewg Encounter Time: 11:00 [facility] Plan: Necessary Precautions, Individual/Group Therapy, Admin/Titrate Meds, Educate Patient Tobacco Medications: Not Appropriate Condition Multpiple Antipsychotics Used: No Problems: (1) Alcohol withdrawal Status: Acute (2) Alcohol use disorder, severe, dependence Status: Chronic Condition 1. continue treatment. 2. likely discharge Monday. Problem Qualifiers (1) Alcohol withdrawal: Complication of substance-induced condition: uncomplicated Qualified Codes: F10.230 - Alcohol dependence with withdrawal, uncomplicated CJ STANLEY MD Nov 10, 2017 11:07
[2017-11-10 15:45] VITALS: BP 130/80
[2017-11-10 18:30] VITALS: BP 122/64
[2017-11-10 23:40] VITALS: BP 178/98
[2017-11-11] MEDS: TAMSULOSIN HCL 0.4 MG CAP PO SCH (08:31)
[2017-11-11] MEDS: CITALOPRAM HYDROBROM 20 MG TAB PO SCH (08:31)
[2017-11-11] MEDS: amLODIPine BESYL(*) 5 MG TAB PO SCH (08:31)
[2017-11-11] MEDS: THIAMINE HCL 100 MG TAB PO SCH (08:31)
[2017-11-11] MEDS: LISINOPRIL 20 MG TAB PO SCH (08:31)
[2017-11-11] MEDS: MAGNESIUM OXIDE 400 MG TAB PO SCH ×3 (08:32→21:12)
[2017-11-11] MEDS: METOPROLOL TART 50 MG TAB PO SCH ×2 (08:32→21:13)
[2017-11-11] MEDS: MULTIVITAMINS TAB PO SCH (08:35)
[2017-11-11] MEDS ORDERED: HYPROMELLOSE 0.4% LUB 15ML BTL OU PRN (09:35)
[2017-11-11] MEDS: MAG HYD/AL HYD/SIMETH 30ML UDC PO PRN ×2 (10:27→19:37)
[2017-11-11] MEDS: MENTHOL/METHYL SALI CREAM 57 GM 57 GM TUBE TP PRN (10:28)
--- NOTE | 2017-11-11 12:33 | BHS Progress Note ---
[facility] - Subjective Progress Notes Subjective "I've done this four or five times before. I'm almost through it." Slight hand tremor, denies N/V/D Denies depression/anxiety/anger Reports sleep as sufficient States plan for discharge Monday Has [facility], [facility] assist at home Suicidal Ideation: None Homicidal Ideation: None [facility] - Objective Physical Exam Vital Signs Allergies Coded Allergies No Known Drug Allergies (Verified11/04/17) Muscle Strength and Tone: Other (limited) Gait and Station: Unsteady [facility] Medications Reviewed: Side Effects, Benefits of Medication, Risks Allergies Reviewed: Yes Mental Status Exam General Appearance: Casual, No Well Groomed, Good Eye Contact, Cooperative, Polite, Good Interaction, Unkept, No Tearful, No Psychomotor Agitation, No Psychomotor Retardation, No Bizarre Mannerisms, No Tics Speech: Clear (baseline), Spontaneous, Normal Rate, Normal Rhythm, Normal Volume, Normal Tone, No Delayed, No Slurred, No Garbled, No Rambling, No Inappropriate Mood: Euthymic Affect: Full and Appropriate, Calm, No Flat, No Withdrawn, No Tearful, No Anxious, No Agitated Thought Process: Organized, Logical, Goal Directed, No Loose Associations, No Flight of Ideas Thought Content: No Suicidal Ideation, No Homicidal Ideation, No Delusions, No Auditory Halllucinations, No Visual Hallucinations, No Thought Broadcasting, No Ideas of Reference, No Obsessions, No Compulsions Sensorium: Clear Cognition: Alert & Oriented-Person, Alert & Oriented-Place, Alert & Oriented- Time, [id number]-[id number]-[id number] Memory: Immediate, Recent, Remote Intelligence: Average Insight Judgment: Poor (unable to fully control alcohol consumption) Result Diagram: 11/09/1791611/09/17916 [facility] Assessment and Plan [id number] Encounter Date: Nov 11, 2017 Iuag-[id number] Encounter Time: 12:29 [facility] Plan: Necessary Precautions, Individual/Group Therapy, Admin/Titrate Meds, Educate Patient Tobacco Medications: Not Appropriate Condition Multpiple Antipsychotics Used: No Problems: (1) Alcohol use disorder, severe, dependence Status: Chronic (2) Type 2 diabetes mellitus Status: Chronic (3) Alcohol intoxication Status: Resolved (4) Alcohol withdrawal Status: Resolved Condition Continue CIWA Continue current medication and treatment Ambulates w/walker, compliant with oxygen Problem Qualifiers (1) Alcohol withdrawal: Complication of substance-induced condition: uncomplicated Qualified Codes: F10.230 - Alcohol dependence with withdrawal, uncomplicated HOME FRAZIER NP Nov 11, 2017 12:33
[2017-11-11] MEDS: HYPROMELLOSE 0.4% LUB 15ML BTL OU PRN (14:08)
[2017-11-11] MEDS: LOPERAMIDE HCL 2 MG CAP PO PRN (14:48)
[2017-11-11] MEDS: NYSTATIN 100,000 U/GM PWD 15GM TP SCH (21:12)
[2017-11-11] MEDS: APIXABAN 2.5 MG TABLET PO SCH (21:13)
[2017-11-12 06:10] VITALS: BP 152/92
[2017-11-12] MEDS: LISINOPRIL 20 MG TAB PO SCH (08:47)
[2017-11-12] MEDS: THIAMINE HCL 100 MG TAB PO SCH (08:47)
[2017-11-12] MEDS: APIXABAN 2.5 MG TABLET PO SCH ×2 (08:47→21:30)
[2017-11-12] MEDS: CITALOPRAM HYDROBROM 20 MG TAB PO SCH (08:47)
[2017-11-12] MEDS: MULTIVITAMINS TAB PO SCH (08:47)
[2017-11-12] MEDS: amLODIPine BESYL(*) 5 MG TAB PO SCH (08:47)
[2017-11-12] MEDS: METOPROLOL TART 50 MG TAB PO SCH ×2 (08:48→21:30)
[2017-11-12] MEDS: MAGNESIUM OXIDE 400 MG TAB PO SCH ×3 (08:48→21:30)
[2017-11-12] MEDS: NYSTATIN 100,000 U/GM PWD 15GM TP SCH ×2 (08:52→21:29)
[2017-11-12 09:05] VITALS: BP 108/60
[2017-11-12] MEDS: LOPERAMIDE HCL 2 MG CAP PO PRN ×3 (09:23→21:30)
[2017-11-12] MEDS: MAG HYD/AL HYD/SIMETH 30ML UDC PO PRN ×3 (09:23→21:29)
--- NOTE | 2017-11-12 10:56 | BHS Progress Note ---
S - Subjective Progress Notes Subjective "I'm doing great. I'm going home tomorrow.." Denies depression, anxiety Agrees with having home health care meet him, has assist from [facility] Denies urge to drink Alcohol withdrawal complete Suicidal Ideation: None Homicidal Ideation: None [facility] - Objective Physical Exam Deferred ED Medications Hypromellose (Natural Balance Tears 0.4% 15 ml Btl) 1-2 DROPS PRN PRN Last administered on 11/11/17at 14:08; Admin Dose 4 DROP; Start 11/11/17 at 09:35; Stop 12/11/17 at 09:34 Nystatin (Nystop (Or Equiv)) APPLY BID Last administered on 11/12/17at 08:52; Admin Dose 1 RACHEL; Start 11/11/17 at 21:00; Stop 12/11/17 at 20:59 Apixaban (Eliquis 2.5 Mg Tablet (Or Equiv)) 5 mg BID Last administered on at 08:47; Admin Dose 5 MG; Start 11/11/17 at 21:00; Stop 12/11/17 at 20:59 Muscle Strength and Tone: Other (limited) Gait and Station: Unsteady [facility] Medications Reviewed: Side Effects, Benefits of Medication, Risks Allergies Reviewed: Yes Mental Status Exam General Appearance: Casual, No Well Groomed, Good Eye Contact, Cooperative, Polite, Good Interaction, Unkept, No Tearful, No Psychomotor Agitation, No Psychomotor Retardation, No Bizarre Mannerisms, No Tics Speech: Clear (baseline), Spontaneous, Normal Rate, Normal Rhythm, Normal Volume, Normal Tone, No Delayed, No Slurred, No Garbled, No Rambling, No Inappropriate Mood: Euthymic Affect: Full and Appropriate, Calm, No Flat, No Withdrawn, No Tearful, No Anxious, No Agitated Thought Process: Organized, Logical, Goal Directed, No Loose Associations, No Flight of Ideas Thought Content: No Suicidal Ideation, No Homicidal Ideation, No Delusions, No Auditory Halllucinations, No Visual Hallucinations, No Thought Broadcasting, No Ideas of Reference, No Obsessions, No Compulsions Sensorium: Clear Cognition: Alert & Oriented-Person, Alert & Oriented-Place, Alert & Oriented- Time, Pbecl-Mztccwna-Yvyavcecr Memory: Immediate, Recent, Remote Intelligence: Average Insight Judgment: Poor (unable to fully control alcohol consumption) Result Diagram: 11/09/17 0917 11/09/17 0917 Imaging Hematology Test 11/09/17 09:17 Red Blood Count 4.84 M/uL (4.00-5.60) Mean Corpuscular Volume 97.0 fL (80.0-96.0) Mean Corpuscular Hemoglobin 33.7 pg (26.0-33.0) Mean Corpuscular Hemoglobin Concent 34.7 g/dL (32.0-36.0) Red Cell Distribution Width 15.1 % (11.5-14.5) Mean Platelet Volume 6.9 fL (7.2-11.1) Neutrophils (%) (Auto) 62.0 % (39.4-72.5) Lymphocytes (%) (Auto) 26.2 % (17.6-49.6) Monocytes (%) (Auto) 10.7 % (4.1-12.4) Eosinophils (%) (Auto) 0.7 % (0.4-6.7) Basophils (%) (Auto) 0.4 % (0.3-1.4) Nucleated RBC Relative Count (auto) 0.2 /100WBC Neutrophils # (Auto) 4.8 K/uL (2.0-7.4) Lymphocytes # (Auto) 2.0 K/uL (1.3-3.6) Monocytes # (Auto) 0.8 K/uL (0.3-1.0) Eosinophils # (Auto) 0.1 K/uL (0.0-0.5) Basophils # (Auto) 0.0 K/uL (0.0-0.1) Nucleated RBC Absolute Count (auto) 0.01 K/uL Sodium Level 134 mmol/L (137-145) Potassium Level 3.8 mmol/L (3.5-5.0) Chloride Level 98 mmol/L (98-107) Carbon Dioxide Level 23 mmol/L (22-30) Blood Urea Nitrogen 14 mg/dl (9-21) Creatinine 0.70 mg/dl (0.66-1.25) Glomerular Filtration Rate Calc > 60.0 Random Glucose 226 mg/dl (75-110) Hemoglobin A1c 6.3 % (4.6-6.0) Calcium Level 8.1 mg/dl (8.4-10.2) Magnesium Level 1.8 mg/dl (1.7-2.2) Total Bilirubin 2.8 mg/dl (0.2-1.3) Aspartate Amino Transf (AST/SGOT) 100 U/L (0-35) Alanine Aminotransferase (ALT/SGPT) 52 U/L (0-56) Alkaline Phosphatase 74 U/L (0-126) Total Protein 6.1 g/dl (6.3-8.2) Albumin 3.0 g/dl (3.5-5.0) Chemistry Test 11/09/17 09:17 White Blood Count 7.7 k/uL (4.5-11.0) Red Blood Count 4.84 M/uL (4.00-5.60) Hemoglobin 16.3 g/dL (14.0-18.0) Hematocrit 46.9 % (42.0-52.0) Mean Corpuscular Volume 97.0 fL (80.0-96.0) Mean Corpuscular Hemoglobin 33.7 pg (26.0-33.0) Mean Corpuscular Hemoglobin Concent 34.7 g/dL (32.0-36.0) Red Cell Distribution Width 15.1 % (11.5-14.5) Platelet Count 136 K/uL (150-450) Mean Platelet Volume 6.9 fL (7.2-11.1) Neutrophils (%) (Auto) 62.0 % (39.4-72.5) Lymphocytes (%) (Auto) 26.2 % (17.6-49.6) Monocytes (%) (Auto) 10.7 % (4.1-12.4) Eosinophils (%) (Auto) 0.7 % (0.4-6.7) Basophils (%) (Auto) 0.4 % (0.3-1.4) Nucleated RBC Relative Count (auto) 0.2 /100WBC Neutrophils # (Auto) 4.8 K/uL (2.0-7.4) Lymphocytes # (Auto) 2.0 K/uL (1.3-3.6) Monocytes # (Auto) 0.8 K/uL (0.3-1.0) Eosinophils # (Auto) 0.1 K/uL (0.0-0.5) Basophils # (Auto) 0.0 K/uL (0.0-0.1) Nucleated RBC Absolute Count (auto) 0.01 K/uL Glomerular Filtration Rate Calc > 60.0 Hemoglobin A1c 6.3 % (4.6-6.0) Calcium Level 8.1 mg/dl (8.4-10.2) Magnesium Level 1.8 mg/dl (1.7-2.2) Total Bilirubin 2.8 mg/dl (0.2-1.3) Aspartate Amino Transf (AST/SGOT) 100 U/L (0-35) Alanine Aminotransferase (ALT/SGPT) 52 U/L (0-56) Alkaline Phosphatase 74 U/L (0-126) Total Protein 6.1 g/dl (6.3-8.2) Albumin 3.0 g/dl (3.5-5.0) [facility] Assessment and Plan [id number] Encounter Date: Nov 12, 2017 Agps-sl-Vxej Encounter Time: 10:53 [facility] Plan: Necessary Precautions, Individual/Group Therapy, Admin/Titrate Meds, Educate Patient Tobacco Medications: Not Appropriate Condition Multpiple Antipsychotics Used: No Problems: (1) Alcohol use disorder, severe, dependence Status: Chronic (2) Type 2 diabetes mellitus Status: Chronic (3) Alcohol intoxication Status: Resolved (4) Alcohol withdrawal Status: Resolved Condition Treatment team 11/13/17 Denies urge to drink [facility] and [facility] services in [facility] Continue current medication and treatment Potential discharge tomorrow Problem Qualifiers (1) Alcohol withdrawal: Complication of substance-induced condition: uncomplicated Qualified Codes: F10.230 - Alcohol dependence with withdrawal, uncomplicated HOME FRAZIER NP Nov 12, 2017 10:56
[2017-11-12 13:18] VITALS: BP 110/58
[2017-11-12 17:00] VITALS: BP 124/78
[2017-11-12] MEDS ORDERED: TAMSULOSIN HCL 0.4 MG CAP PO SCH (21:00)
[2017-11-12 22:00] VITALS: BP 148/88
[2017-11-12] MEDS: HYPROMELLOSE 0.4% LUB 15ML BTL OU PRN (23:08)
[2017-11-13 04:08] VITALS: BP 171/92
[2017-11-13] MEDS: LOPERAMIDE HCL 2 MG CAP PO PRN (04:22)
[2017-11-13 07:02] LABS: PLATELET COUNT, AUTOMATED 123 K/uL (150-450)
[2017-11-13] MEDS: MULTIVITAMINS TAB PO SCH (08:18)
[2017-11-13] MEDS: METOPROLOL TART 50 MG TAB PO SCH (08:18)
[2017-11-13] MEDS: APIXABAN 2.5 MG TABLET PO SCH (08:18)
[2017-11-13] MEDS: LISINOPRIL 20 MG TAB PO SCH (08:18)
[2017-11-13] MEDS: MAGNESIUM OXIDE 400 MG TAB PO SCH (08:18)
[2017-11-13] MEDS: amLODIPine BESYL(*) 5 MG TAB PO SCH (08:18)
[2017-11-13] MEDS: CITALOPRAM HYDROBROM 20 MG TAB PO SCH (08:18)
[2017-11-13] MEDS: THIAMINE HCL 100 MG TAB PO SCH (08:18)
[2017-11-13] MEDS ORDERED: NYST60PO9 TP (09:22)
[2017-11-13] MEDS: NYSTATIN 100,000 U/GM PWD 15GM TP SCH (10:10)
[2017-11-13 11:12] VITALS: BP 115/85
--- NOTE | 2017-11-14 21:35 | DISCHARGE SUMMARY ---
DATE OF ADMISSION: November 08, 2017 DATE OF DISCHARGE: November 13, 2017 Patient was seen on the a.m. of 13 November 2017 at approximately 0930 hours for note concerning this dictation. FINAL DIAGNOSES 1. Alcohol use disorder, severe. 2. Ket-lwwokaq-vspuzfrns diabetes mellitus. 3. Chronic hypomagnesemia. 4. Supportive relationship with outpatient care. REASON FOR ADMISSION This is a very well-known, 72-year-old male who had been admitted to the [facility] Unit on multiple occasions for ongoing battles with alcohol use disorder which is severe in nature. Patient calling EMS services on October, to be brought to the Emergency Room. Patient was admitted without incident. Alcohol withdrawal was treated to completion with diazepam per [facility] protocol. Patient remained polite, calm, and cooperative throughout his stay. Alcohol withdrawal was considered moderate in nature and treated to completion. This provider and staff members at [facility] as well as the patient met with [facility] staff on multiple occasions, who indicated that he would be appropriate for ongoing management at home. Patient was cooperative with them prior to admission as well as during discharge process. Patient did verbalized a desire to once again stop alcohol consumption. Patient indicating no other psychiatric concerns, and patient was discharged to home. Patient refusing to go to rehab at this time. PHYSICAL EXAMINATION Please see emergency room note. Notable for: GENERAL: A 72-year-old male who is somewhat older than state age. VITAL SIGNS: Vital signs at time of admission, temperature 98.5, pulse 68, respiratory rate 16, blood pressure 171/98, and pulse oximetry 99 on nasal cannula oxygen at time of admission. At time of discharge, vital signs showed temperature 98.6, pulse 68, respiratory rate 18, blood pressure 115/85, and pulse oximetry 92 on room air. LABORATORY DATA CBC on November 09, 2017, indicated MCV elevations at 97.0, MCV elevated at 33.7, platelet count low at 136. At time of admission, toxicology screen notable for serum alcohol of 311. Rest of toxicology screen was negative. Urinalysis was unremarkable. TSH was low at 0.20. CMP on November 08, 2017, indicated a total bilirubin in normal range of 1.0 with an elevated AST of 50. Random glucose on November 13, 2017, noted to be at 121 with a hemoglobin A1c of 6.3 and elevated on November 09, 2017. MENTAL STATUS EXAMINATION AT TIME OF DISCHARGE GENERAL APPEARANCE, BEHAVIOR, AND ATTITUDE: This is a pleasant, 72-year-old male, some frailness to patient's overall appearance. Patient making good eye contact, in good spirits. No bizarre mannerisms or ticks. No periods of tearfulness. No psychomotor retardation or retardation. SPEECH: Considered baseline in this patient and overall within normal limits. MOOD: Described at good. AFFECT: Full and bright. THOUGHT PROCESSES: Goal directed, patient wanting to discharge back to home. Logical, patient wanting to stop all alcohol use. No loose associations or flight of ideas. THOUGHT CONTENT: Free of auditory or visual hallucinations, ideas of reference , thought broadcasting, delusions, obsessions, compulsions. Patient adamantly denying suicidal or homicidal ideations. SENSORIUM: Clear. COGNITION: Alert and oriented to person, place, time, situation. MEMORY: Immediate, recent, and remote estimated intact. INTELLIGENCE: Average based on interview. INSIGHT AND JUDGMENT: Considered grossly intact in the absence of alcohol use and appropriate for ongoing outpatient management with close observation through in-home health care. RESULTS OF TESTING IMAGING: On November 04, 2017, please see electronic record for cervical spine CT, head CT, and chest x-ray. There was noted to be chronic opacification of the left maxillary sinus, anterior ethmoid air cells, and left frontal sinus, and consider nonemergent ENT consultation. 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 Chest x-ray was overall unremarkable. LABORATORY DATA: See above. CONSULTATIONS None. TREATMENT Patient received medications, participated in individual and group therapy. HOSPITAL COURSE Patient took an active role in his treatment, very friendly disposition underlying in this 72-year-old male who suffers from chronic alcoholism. Alcohol withdrawal was treated to completion. Incontinence of both urine and stool during treatment resolved, and patient was appropriate for discharge back to home. CONDITION OF PATIENT ON DISCHARGE Stable, considered minimal risk to himself or others in the absence of alcohol use. DISPOSITION Patient refusing entrance into rehab at this time. Patient strongly encouraged to abstain from alcohol. Patient indicated the desire to do so. Patient would follow up with primary care providers and magnesium infusions that patient has been doing well with overall. Patient would abstain from all alcohol, Tylenol, and acetaminophen-containing products. Patient would stop tramadol prescribed at home, which patient did not need on the unit. Patient would follow up with [facility] as directed and scheduled, and given the crisis line should symptoms return. Patient encouraged to attempt to attend AA meetings as well and obtain a sponsor. DISCHARGE MEDICATIONS 1. Celexa 20 mg daily. 2. Eliquis 5 mg twice a day. 3. Flomax 0.4 mg at bedtime. 4. Lopressor 25 mg twice daily. 5. Magnesium oxide 800 mg three times daily. 6. Norvasc 5 mg daily. 7. Prinivil 20 mg daily. 8. Multivitamin with minerals daily. 9. Thiamine 100 mg daily. Risks, benefits, and alternatives of above discharge plan were discussed. Informed consent was given to proceed with above discharge plan by this competent patient and home health care staff from [facility]. THONG
== END 2017-11-13 12:24 | disposition home or self-care (01) | DRG 897 ==
LOC: BHS 04:04
PROVIDERS: ADMIT Psychiatry & Neurology Psychiatry; ATTEND Psychiatry & Neurology Psychiatry
DX: F10.230 Alcohol dependence with withdrawal, uncomplicated (principal); E11.9 Type 2 diabetes mellitus without complications; E83.42 Hypomagnesemia; I10 Essential (primary) hypertension; Y90.8 Blood alcohol level of 240 mg/100 ml or more; M1A.9XX0 Chronic gout, unspecified, without tophus (tophi)
CPT/HCPCS: 36415; 80305; 80320; 80329; 81001; 82040; 82247; 82310; 82374; 82435; 82565; 82947; 83036; 83735; 84075; 84132; 84155; 84295; 84443; 84450; 84460; 84520; 85025; 96365; 96375; 99283; J3411; J3475; J7030

== ENCOUNTER → 2017-11-08 | Outpatient (CLI) | payer MEDICARE, MEDICAID ==
[2017-01-24 08:24] VITALS: BMI 30.4
[~2017-11-08] MED LIST changes: +NYST60PO9 TP
== END ==
LOC: AMB 00:48
PROVIDERS: ATTEND Nurse Practitioner
DX: S20.212A Contusion of left front wall of thorax, initial encounter (principal); F10.229 Alcohol dependence with intoxication, unspecified
CPT/HCPCS: A0425; A0429

== ENCOUNTER 2017-12-22 17:24 | Inpatient (IN) | payer MEDICARE, MEDICAID ==
[~2017-12-22] VITALS: Ht 172.7 cm; Wt 86.4 kg
[~2017-12-22 17:24] MED LIST changes: -SODCTAB FT
--- NOTE | 2017-12-22 17:34 | ER Report ---
History and Physical Time Seen By MD: 17:34 Hx. of Stated Complaint: NOT FEELING WELL TODAY. HAS HAD 7 OR 8 BEERS TODAY. NOT TAKING HIG MAGNESIUM MEDS. TAKES BP MEDS, BP IS AROUND 100 TODAY PER EMS HPI/ROS CHIEF COMPLAINT: Not feeling well HISTORY OF PRESENT ILLNESS: 72-year-old male patient presents to emergency room with complaint of not feeling well. Patient states that he has a history of hypomagnesium. Patient states he is not been getting infusion for his magnesium due to his drinking. Patient states that he has not had any nausea, vomiting, however he has had some diarrhea. Patient states that he would like to have his magnesium checked because of his history. Patient states he's also had a history of hypokalemia. He states that he has had some stomach upset, which he gets these been drinking. He states he is been drinking 7-8 of 16 ounce beers a night. Patient denies having any fevers or chills. He also denies having any chest pain or shortness of breath. REVIEW OF SYSTEMS: Respiratory: No cough, no dyspnea. Cardiovascular: No chest pain, no palpitations. Gastrointestinal: As noted above Musculoskeletal: No back pain. Allergies: Coded Allergies: No Known Drug Allergies (Verified , 12/22/17) Home Meds Reported Medications Nystatin (NYSTOP) 60 Gm Powder, 1 RACHEL TP BID Finish remainder of Nystop from hospital. 11/13/17 Thiamine Hcl (THIAMINE HCL) 100 Mg Tablet, 100 MG PO DAILY 12/26/16 Folic Acid (FOLIC ACID) 1 Mg Tablet, 1 MG PO QDAY, TAB 12/26/16 Citalopram Hydrobromide (CITALOPRAM HBR) 20 Mg Tablet, 20 MG PO QDAY, #5 TAB 12/23/16 Menthol (BENGAY) 113 Gm Gel..gram., 1 GM TP QID Y for PAIN 12/23/16 Cyanocobalamin (Vitamin B-12) (CYANOCOBALAMIN INJECTION) 1,000 Mcg/1 Ml Vial, 1000 MCG IJ Q2WK, VIAL 12/23/16 Metoprolol Tartrate (METOPROLOL TARTRATE) 25 Mg Tablet, 1 TAB PO BID, TAB 12/23/16 Apixaban (ELIQUIS) 2.5 Mg Tablet, 2 TAB PO BID 08/15/16 Amlodipine Besylate (AMLODIPINE BESYLATE) 5 Mg Tablet, 1 TAB PO QDAY, TAB 08/15/16 Tamsulosin Hcl (TAMSULOSIN HCL) 0.4 Mg Cap.er.24h, 0.4 MG PO HS, CAP 08/15/16 Multivitamin (MULTIVITAMINS) 1 Each Capsule, 1 EACH PO QDAY, CAPSULE 08/15/16 Lisinopril (LISINOPRIL) 20 Mg Tablet, 20 MG PO DAILY, TAB 08/15/16 Magnesium Oxide (MAGNESIUM OXIDE) 400 Mg Tablet, 2 CAP PO TID 08/15/16 Cholecalciferol (Vitamin D3) (VITAMIN D3) 1,000 Unit Capsule, 1000 UNIT PO QDAY , CAPSULE 08/15/16 Past Medical/Surgical History Patient has a past medical history of syncope, hypertension, hyperlipidemia, ulcers, reflux, fractured ribs, fibula fracture, spinal stenosis, bilateral cataracts, type 2 diabetes, hypomagnesemia, hyponatremia, rash, alcohol abuse. Patient has surgical history of pacemaker, cataract surgery. Patient has a family medical history of diabetes. Reviewed Nurses Notes: Yes Hx Smoking: No Smoking Status: Never Smoker Exposure to Second Hand Smoke?: No Hx Substance Use Disorder: No Hx Alcohol Use: Yes Constitutional Vital Sign - Last 24 Hours 12/22/17 12/22/17 12/22/17 12/22/17 17:26 17:30 17:39 17:54 Temp 98.7 Pulse 81 83 58 Resp 20 14 30 B/P (MAP) 94/83 86/51 (63) Pulse Ox 95 96 95 12/22/17 12/22/17 12/22/17 12/22/17 18:00 18:24 18:30 18:39 Pulse 53 80 Resp 19 18 B/P (MAP) 102/51 (68) 118/73 (88) Pulse Ox 97 96 12/22/17 12/22/17 12/22/17 12/22/17 18:54 19:00 19:09 19:29 Pulse 59 63 82 Resp 27 18 18 B/P (MAP) 128/76 (93) Pulse Ox 98 98 99 12/22/17 19:30 B/P (MAP) 111/67 (82) Intake and Output 12/22/17 12/22/17 12/23/17 14:59 22:59 06:59 Intake Total 1000 ml Balance 1000 ml Physical Exam General Appearance: The patient is alert, has no immediate need for airway protection and no current signs of toxicity. Respiratory: Chest is non tender, lungs are clear to auscultation. Cardiac: regular rate and rhythm Gastrointestinal: Abdomen is soft and non tender, no masses, bowel sounds normal. Musculoskeletal: Neck: Neck is supple and non tender. Extremities have full range of motion and are non tender. Skin: No rashes or lesions. DIFFERENTIAL DIAGNOSIS: After history and physical exam differential diagnosis was considered for alcohol abuse, hypomagnesemia, hyponatremia. Medical Decision Making Data Points Result Diagram: 12/22/17 1745 12/22/17 1745 Laboratory Hematology Test 12/22/17 17:45 12/22/17 18:01 12/22/17 19:27 Red Blood Count 5.19 M/uL (4.00-5.60) Mean Corpuscular Volume 94.4 fL (80.0-96.0) Mean Corpuscular Hemoglobin 33.4 pg (26.0-33.0) Mean Corpuscular Hemoglobin Concent 35.4 g/dL (32.0-36.0) Red Cell Distribution Width 14.4 % (11.5-14.5) Mean Platelet Volume 7.2 fL (7.2-11.1) Neutrophils (%) (Auto) 58.5 % (39.4-72.5) Lymphocytes (%) (Auto) 24.2 % (17.6-49.6) Monocytes (%) (Auto) 13.8 % (4.1-12.4) Eosinophils (%) (Auto) 1.9 % (0.4-6.7) Basophils (%) (Auto) 1.6 % (0.3-1.4) Nucleated RBC Relative Count (auto) 0.1 /100WBC Neutrophils # (Auto) 4.9 K/uL (2.0-7.4) Lymphocytes # (Auto) 2.0 K/uL (1.3-3.6) Monocytes # (Auto) 1.2 K/uL (0.3-1.0) Eosinophils # (Auto) 0.2 K/uL (0.0-0.5) Basophils # (Auto) 0.1 K/uL (0.0-0.1) Nucleated RBC Absolute Count (auto) 0.01 K/uL Sodium Level 119 mmol/L (137-145) Potassium Level 4.2 mmol/L (3.5-5.0) Chloride Level 81 mmol/L (98-107) Carbon Dioxide Level 29 mmol/L (22-30) Blood Urea Nitrogen 10 mg/dl (9-21) Creatinine 0.80 mg/dl (0.66-1.25) Glomerular Filtration Rate Calc > 60.0 Random Glucose 110 mg/dl (75-110) Calcium Level 8.6 mg/dl (8.4-10.2) Magnesium Level 1.3 mg/dl (1.7-2.2) Total Bilirubin 0.9 mg/dl (0.2-1.3) Aspartate Amino Transf (AST/SGOT) 17 U/L (0-35) Alanine Aminotransferase (ALT/SGPT) 19 U/L (0-56) Alkaline Phosphatase 49 U/L (0-126) Troponin I < 0.012 ng/ml Total Protein 6.3 g/dl (6.3-8.2) Albumin 3.4 g/dl (3.5-5.0) Salicylates Level < 10 mg/L Salicylate Last Dose Date unk Acetaminophen Level < 10 ug/ml Serum Alcohol 61 mg/dl Urine Color Yellow Urine Clarity Slightly-cloudy Urine pH 6.0 pH (4.8-9.5) Urine Specific [place] 1.009 Urine Protein Negative mg/dL (NEGATIVE) Urine Glucose (UA) Negative mg/dL (NEGATIVE) Urine Ketones Negative mg/dL (NEGATIVE) Urine Blood Negative (NEGATIVE) Urine Nitrite Negative (NEGATIVE) Urine Bilirubin Negative (NEGATIVE) Urine Urobilinogen Negative mg/dL (0.2-1.9) Urine Leukocyte Esterase Negative (NEGATIVE) Urine RBC <1 /HPF (0-2/HPF) Urine WBC 2 /HPF (0-5/HPF) Urine Squamous Epithelial Cells Many /LPF (</=FEW) Urine Bacteria Negative /HPF (NONE-FEW) Urine Hyaline Casts Many /LPF (NONE-FEW) Urine Mucus None /HPF (NONE-FEW) Urine Opiates Screen Negative Urine Barbiturates Screen Negative Ur Tricyclic Antidepressants Screen Negative Urine Phencyclidine Screen Negative Urine Amphetamines Screen Positive Urine Benzodiazepines Screen Positive Urine Cocaine Screen Negative Urine Cannabinoids Screen Negative Urine Osmolality 238 mosm/K (500-800) Urine Random Sodium 14 MEQ/L Chemistry Test 12/22/17 17:45 12/22/17 18:01 12/22/17 19:27 White Blood Count 8.4 k/uL (4.5-11.0) Red Blood Count 5.19 M/uL (4.00-5.60) Hemoglobin 17.4 g/dL (14.0-18.0) Hematocrit 49.0 % (42.0-52.0) Mean Corpuscular Volume 94.4 fL (80.0-96.0) Mean Corpuscular Hemoglobin 33.4 pg (26.0-33.0) Mean Corpuscular Hemoglobin Concent 35.4 g/dL (32.0-36.0) Red Cell Distribution Width 14.4 % (11.5-14.5) Platelet Count 172 K/uL (150-450) Mean Platelet Volume 7.2 fL (7.2-11.1) Neutrophils (%) (Auto) 58.5 % (39.4-72.5) Lymphocytes (%) (Auto) 24.2 % (17.6-49.6) Monocytes (%) (Auto) 13.8 % (4.1-12.4) Eosinophils (%) (Auto) 1.9 % (0.4-6.7) Basophils (%) (Auto) 1.6 % (0.3-1.4) Nucleated RBC Relative Count (auto) 0.1 /100WBC Neutrophils # (Auto) 4.9 K/uL (2.0-7.4) Lymphocytes # (Auto) 2.0 K/uL (1.3-3.6) Monocytes # (Auto) 1.2 K/uL (0.3-1.0) Eosinophils # (Auto) 0.2 K/uL (0.0-0.5) Basophils # (Auto) 0.1 K/uL (0.0-0.1) Nucleated RBC Absolute Count (auto) 0.01 K/uL Glomerular Filtration Rate Calc > 60.0 Calcium Level 8.6 mg/dl (8.4-10.2) Magnesium Level 1.3 mg/dl (1.7-2.2) Total Bilirubin 0.9 mg/dl (0.2-1.3) Aspartate Amino Transf (AST/SGOT) 17 U/L (0-35) Alanine Aminotransferase (ALT/SGPT) 19 U/L (0-56) Alkaline Phosphatase 49 U/L (0-126) Troponin I < 0.012 ng/ml Total Protein 6.3 g/dl (6.3-8.2) Albumin 3.4 g/dl (3.5-5.0) Salicylates Level < 10 mg/L Salicylate Last Dose Date unk Acetaminophen Level < 10 ug/ml Serum Alcohol 61 mg/dl Urine Color Yellow Urine Clarity Slightly-cloudy Urine pH 6.0 pH (4.8-9.5) Urine Specific [place] 1.009 Urine Protein Negative mg/dL (NEGATIVE) Urine Glucose (UA) Negative mg/dL (NEGATIVE) Urine Ketones Negative mg/dL (NEGATIVE) Urine Blood Negative (NEGATIVE) Urine Nitrite Negative (NEGATIVE) Urine Bilirubin Negative (NEGATIVE) Urine Urobilinogen Negative mg/dL (0.2-1.9) Urine Leukocyte Esterase Negative (NEGATIVE) Urine RBC <1 /HPF (0-2/HPF) Urine WBC 2 /HPF (0-5/HPF) Urine Squamous Epithelial Cells Many /LPF (</=FEW) Urine Bacteria Negative /HPF (NONE-FEW) Urine Hyaline Casts Many /LPF (NONE-FEW) Urine Mucus None /HPF (NONE-FEW) Urine Opiates Screen Negative Urine Barbiturates Screen Negative Ur Tricyclic Antidepressants Screen Negative Urine Phencyclidine Screen Negative Urine Amphetamines Screen Positive Urine Benzodiazepines Screen Positive Urine Cocaine Screen Negative Urine Cannabinoids Screen Negative Urine Osmolality 238 mosm/K (500-800) Urine Random Sodium 14 MEQ/L Toxicology Test 12/22/17 17:45 12/22/17 18:01 Salicylates Level < 10 mg/L Salicylate Last Dose Date unk Acetaminophen Level < 10 ug/ml Serum Alcohol 61 mg/dl Urine Opiates Screen Negative Urine Barbiturates Screen Negative Ur Tricyclic Antidepressants Screen Negative Urine Phencyclidine Screen Negative Urine Amphetamines Screen Positive Urine Benzodiazepines Screen Positive Urine Cocaine Screen Negative Urine Cannabinoids Screen Negative Urinalysis Test 12/22/17 18:01 12/22/17 19:27 Urine Color Yellow Urine Clarity Slightly-cloudy Urine pH 6.0 pH (4.8-9.5) Urine Specific [place] 1.009 Urine Protein Negative mg/dL (NEGATIVE) Urine Glucose (UA) Negative mg/dL (NEGATIVE) Urine Ketones Negative mg/dL (NEGATIVE) Urine Blood Negative (NEGATIVE) Urine Nitrite Negative (NEGATIVE) Urine Bilirubin Negative (NEGATIVE) Urine Urobilinogen Negative mg/dL (0.2-1.9) Urine Leukocyte Esterase Negative (NEGATIVE) Urine RBC <1 /HPF (0-2/HPF) Urine WBC 2 /HPF (0-5/HPF) Urine Squamous Epithelial Cells Many /LPF (</=FEW) Urine Bacteria Negative /HPF (NONE-FEW) Urine Hyaline Casts Many /LPF (NONE-FEW) Urine Mucus None /HPF (NONE-FEW) Urine Osmolality 238 mosm/K (500-800) Urine Random Sodium 14 MEQ/L EKG/Imaging EKG Interpretation 12 lead EKG: Rhythm: I tried ventricular pacemaker with ventricular rate of 82 bpm [place]: normal QRS: Wide-complex QRS consistent with a chronic jugular pacemaker ST segments: normal Imaging Technique: CHEST SINGLE AP HISTORY: not feeling well Comparison studies: None FINDINGS: The lungs are clear. No pleural effusion. The left chest wall pacer, leads and cardiomediastinal silhouette is unchanged. IMPRESSION: 1. No acute cardiopulmonary process. Report Dictated By: Toan Hui DO at 12/22/2017 6:05 PM Report E-Signed By: Toan Hui DO at 12/22/2017 6:07 PM ED Course/Re-evaluation ED Course Patient was admitted to exam room, history and physical were obtained. Differential diagnoses were considered. On examination lungs are clear, heart is regular, abdomen soft nontender. A CBC, CMP, troponin, EKG, chest x-ray, Tylenol level, magnesium, TSH ordered. Patient had a normal white count, his CMP did show a critically low sodium of 119, his chloride was also low at 81. He had a potassium of 4.2 and a magnesium of 1.3. Patient states he does have salt tablets which he takes normally. He states that he has not been taking those. Patient states that he is feeling better after receiving half liter normal saline. I discussed with him his lab results, his chest x-ray, his EKG and troponin. I believe the sodium is low enough that we need to admit him so that we can slowly replace his sodium. Patient states that he would agree to that. I discussed the case with Dr. Velázquez, hospitalist, who came down and evaluated the patient in the emergency room and agreed to admit the patient for hyponatremia and alcohol detox. Decision to Disposition Date: Dec 22, 2017 Decision to Disposition Time: 19:08 Depart Departure Latest Vital Signs Vital Signs Date Time Temp Pulse Resp B/P (MAP) Pulse Ox O2 Delivery O2 Flow Rate FiO2 12/22/17 19:30 111/67 (82) 12/22/17 19:29 82 18 99 12/22/17 17:26 98.7 Impression: Primary Impression: Hyponatremia Additional Impressions: Hypomagnesemia Alcohol withdrawal Condition: Condition Unchanged Disposition: Admitted from ER Problem Qualifiers Additional Impressions: Alcohol withdrawal Complication of substance-induced condition: uncomplicated Qualified Codes: F10.230 - Alcohol dependence with withdrawal, uncomplicated CARROLL AMADOR Dec 22, 2017 17:34
[2017-12-22] MEDS ORDERED: NS(*) 0.9% 1000 ML BAG 1,000 ML IV ONE (17:39)
--- NOTE | 2017-12-22 17:46 | EKG ---
FACILITY: [facility] PATIENT NAME: ALVARO POWELL : [id number] MR: [id number] V: [id number] EXAM DATE: ORDERING PHYSICIAN: CARROLL AMADOR TECHNOLOGIST: Test Reason : Blood Pressure : / mmHG Vent. Rate : 083 BPM Atrial Rate : 083 BPM P-R Int : 108 ms QRS Dur : 174 ms QT Int : 454 ms P-R-T Axes : 032 -86 079 degrees QTc Int : 533 ms Electronic ventricular pacemaker When compared with ECG of 23-JAN-2017 16:53, Vent. rate has increased BY 23 BPM Confirmed by MIKE VELÁSQUEZ ([id number]) on 12/22/2017 6:43:14 PM Referred By: Confirmed By:MIKE VELÁSQUEZ
[2017-12-22 17:59] LABS: PLATELET COUNT, AUTOMATED 172 K/uL (150-450)
--- NOTE | 2017-12-22 18:10 | RADIOLOGY IMAGING REPORT ---
FACILITY: [facility] [place] PATIENT NAME: Caleb Gomez : 1945 MR: [id number] V: [id number] EXAM DATE: ORDERING PHYSICIAN: CARROLL AMADOR TECHNOLOGIST: Location: [facility] [place] Patient: Caleb Gomez : 1945 Visit/Account:[id number] Date of Sevice: 12/22/2017 Technique: CHEST SINGLE AP HISTORY: not feeling well Comparison studies: None FINDINGS: The lungs are clear. No pleural effusion. The left chest wall pacer, leads and cardiomedias tinal silhouette is unchanged. IMPRESSION: 1. No acute cardiopulmonary process. Report Dictated By: Toan Hui DO at 12/22/2017 6:05 PM Report E-Signed By: Toan Hui DO at 12/22/2017 6:07 PM [id number]
[2017-12-22] MEDS ORDERED: DIAZEPAM 10 MG TAB PO PRN ×2 (19:05)
[2017-12-22] MEDS ORDERED: PROMETHAZINE 25 MG/ML 1 ML AMP IVP PRN (19:05)
[2017-12-22] MEDS ORDERED: MAGNESIUM SUL* 2 GM/50 ML IVPB 50 ML IVPB ONE (19:19)
[2017-12-22] MEDS ORDERED: THIAMINE HCL(*) 200 MG/2 ML IN 100 MG, FOLIC ACID(*) 50 MG/10 ML INJ 1 MG, MULTIVITAMIN... IV ONE ×2 (19:30→22:10)
--- NOTE | 2017-12-22 19:49 | History & Physical ---
History of Present Illness History of Present Illness 72yo male with a h/o alcohol abuse, hyponatremia who came to the ER because he has been having daily n/v and wanted electrolytes checked. About a month ago, he was on BHS for alcohol withdrawal. He had a "moderate" withdrawal and was able to discharge about 5 days later. It is unclear when he started drinking again, but has been drinking about 6-8 16ounce beers a day. His last drink was about 4 o'clock today. He has been having daily vomiting in the evening after he eats and drinks water, which happens when he drinking alcohol regularly. He denies coffee ground emesis/hematemesis/melena/hematochezia. He denies cp/sob/f /c. He would like to stop drinking alcohol. He denies illicit drug use or any history of smoking/chewing tobacco. In the ER, he received NS. History Problems: (1) Type 2 diabetes mellitus Status: Chronic (2) Hyponatremia Status: Chronic (3) Hypertension Status: Chronic (4) Alcohol abuse Status: Chronic (5) GERD (gastroesophageal reflux disease) Status: Chronic (6) BPH (benign prostatic hyperplasia) Status: Chronic (7) Chronic a-fib Status: Chronic (8) S/P placement of cardiac pacemaker Status: Chronic Home Meds Reported Medications Nystatin (NYSTOP) 60 Gm Powder, 1 RACHEL TP BID Finish remainder of Nystop from hospital. 11/13/17 Thiamine Hcl (THIAMINE HCL) 100 Mg Tablet, 100 MG PO DAILY 12/26/16 Folic Acid (FOLIC ACID) 1 Mg Tablet, 1 MG PO QDAY, TAB 12/26/16 Citalopram Hydrobromide (CITALOPRAM HBR) 20 Mg Tablet, 20 MG PO QDAY, #5 TAB 12/23/16 Menthol (BENGAY) 113 Gm Gel..gram., 1 GM TP QID Y for PAIN 12/23/16 Cyanocobalamin (Vitamin B-12) (CYANOCOBALAMIN INJECTION) 1,000 Mcg/1 Ml Vial, 1000 MCG IJ Q2WK, VIAL 12/23/16 Metoprolol Tartrate (METOPROLOL TARTRATE) 25 Mg Tablet, 1 TAB PO BID, TAB 12/23/16 Apixaban (ELIQUIS) 2.5 Mg Tablet, 2 TAB PO BID 08/15/16 Amlodipine Besylate (AMLODIPINE BESYLATE) 5 Mg Tablet, 1 TAB PO QDAY, TAB 08/15/16 Tamsulosin Hcl (TAMSULOSIN HCL) 0.4 Mg Cap.er.24h, 0.4 MG PO HS, CAP 08/15/16 Multivitamin (MULTIVITAMINS) 1 Each Capsule, 1 EACH PO QDAY, CAPSULE 08/15/16 Lisinopril (LISINOPRIL) 20 Mg Tablet, 20 MG PO DAILY, TAB 08/15/16 Magnesium Oxide (MAGNESIUM OXIDE) 400 Mg Tablet, 2 CAP PO TID 08/15/16 Cholecalciferol (Vitamin D3) (VITAMIN D3) 1,000 Unit Capsule, 1000 UNIT PO QDAY , CAPSULE 08/15/16 Allergies: Coded Allergies: No Known Drug Allergies (Verified , 12/22/17) Patient History: FH: alcoholism FATHER MOTHER Unremarkable BROTHER OR SISTER CHILD CHILD Other Social/Family Hx See HPI Hx Smoking: No Smoking Status: Never Smoker Exposure to Second Hand Smoke?: No Caffeine Intake: Coffee Caffeine/Cups Per Day: 2 Hx Alcohol Use: Yes Hx Substance Use Disorder: No Social Drug Use: Never Review of Systems All Systems Reviewed/Normal: Yes, Except as Noted Exam Vital Signs Vital Signs Date Time Temp Pulse Resp B/P (MAP) Pulse Ox O2 Delivery O2 Flow Rate FiO2 12/22/17 17:26 98.7 81 20 94/83 95 General Appearance: Alert, Awake, No Acute Distress Neuro: No Gross deficits Eyes: PERRLA ENT: Moist Mucous Membranes Cardiovascular: Regular Rate and Rhythm, No JVD Respiratory: Clear to Auscultation GI: Abd Soft and Non-Tender Extremities: No Edema Integumentary: No Jaundice, No Cyanosis Medical Decision Making Data Points Result Diagram: 12/22/17174412/22/17 174 Item Value Date Time Serum Alcohol 11 mg/dl 01/26/15 1345 Troponin I < 0.012 ng/ml 12/22/171744 Magnesium Level 1.3 mg/dl L 12/22/17 174 Total Bilirubin 0.9 mg/dl 12/22/17 174 Aspartate Amino Transf (AST/SGOT) 17 U/L 12/22/17 174 Alanine Aminotransferase (ALT/SGPT) 19 U/L 12/22/17 174 Alkaline Phosphatase 49 U/L 12/22/17 174 Neutrophils (%) (Auto) 58.5 % 12/22/17 1745 Lymphocytes (%) (Auto) 24.2 % 12/22/17 1745 Monocytes (%) (Auto) 13.8 % H 12/22/17 1745 Urine RBC <1 /HPF 12/22/17 1801 Urine WBC 2 /HPF 12/22/17 1801 Urine Squamous Epithelial Cells Many /LPF H 12/22/17 1801 Urine Bacteria Negative /HPF 12/22/17 1801 Urine Hyaline Casts Many /LPF H 12/22/17 1801 Urine Mucus None /HPF 12/22/17 1801 EKG / Imaging EKG Interpretation Vent. Rate : 083 BPM Atrial Rate : 083 BPM P-R Int : 108 ms QRS Dur : 174 ms QT Int : 454 ms P-R-T Axes : 032 -86 079 degrees QTc Int : 533 ms Electronic ventricular pacemaker When compared with ECG of 23-JAN-2017 16:53, Vent. rate has increased BY 23 BPM Confirmed by MIKE VELÁSQUEZ ([id number]) on 12/22/2017 6:43:14 PM Imaging CXR - 1. No acute cardiopulmonary process. Assessment and Plan Problems: (1) Hyponatremia Status: Chronic Assessment & Plan: He presented with a sodium of 118 and appears to be asymptomatic. This is a chronic intermittent problem likely related to "Beer Potomania". However, he is on citalopram that could be causing SIADH. Abby and UOsm pending. Will check a BMP in about an hour. He will be on seizure precautions. (2) Alcohol abuse Status: Chronic Assessment & Plan: His last drink was a few hours before admission. He will be on CIWA precautions with Valium to cover. See above. Banana bag now and then oral thiamine and folate. (3) Hypomagnesemia Status: Acute Assessment & Plan: Secondary to alcohol use. Will replace and follow. He reports stopping his oral supplement at home while drinking alcohol. (4) Type 2 diabetes mellitus Status: Chronic Assessment & Plan: He is diet controlled. He had a HgA1c of 6.8 on 11/09. Will check AC and HS glucose with SSI level 1 to cover. (5) GERD (gastroesophageal reflux disease) Status: Chronic Assessment & Plan: He has been having daily vomiting secondary to his "gastria " from drinking alcohol. Will start Carafate AC and HS and IV Protonix. He denies any symptoms worrisome for bleeding. (6) Hypertension Status: Chronic Assessment & Plan: Continue chronic metoprolol, amlodipine and lisinopril with parameters. (7) Chronic a-fib Status: Chronic Assessment & Plan: He is chronically ventricular paced, but does take metoprolol. He is on Eliquis for stroke prophylaxis, which will be continued. (8) BPH (benign prostatic hyperplasia) Status: Chronic Assessment & Plan: Continue Flomax Copies to: DARRYN HUNTER DO Venous Thromboembolism Antithrombotics Is Pt On Any Antithrombotics?: Yes Exam Sepsis Risk: No Definite Risk Problem Qualifiers (1) BPH (benign prostatic hyperplasia): Lower urinary tract symptom presence: unspecified whether lower urinary tract symptoms present Qualified Codes: N40.0 - Benign prostatic hyperplasia without lower urinary tract symptoms MIKE VELÁSQUEZ MD Dec 22, 2017 19:49
[2017-12-22 20:19] VITALS: BP 107/69
[2017-12-22] MEDS: METOPROLOL TART 50 MG TAB PO SCH (21:00)
[2017-12-22] MEDS: PANTOPRAZOLE SOD 40 MG IV VIAL IVP SCH (21:08)
[2017-12-22] MEDS: APIXABAN 2.5 MG TABLET PO SCH (21:09)
[2017-12-22] MEDS: SUCRALFATE 1 GM TAB PO SCH (21:09)
[2017-12-22] MEDS: TAMSULOSIN HCL 0.4 MG CAP PO SCH (21:09)
[2017-12-22 22:27] VITALS: BP 100/64
[2017-12-23 03:26] VITALS: BP 136/86
[2017-12-23] MEDS: SUCRALFATE 1 GM TAB PO SCH ×4 (06:17→20:50)
[2017-12-23 06:21] LABS: PLATELET COUNT, AUTOMATED 135 K/uL (150-450)
[2017-12-23 06:28] LABS: INR 1.19
[2017-12-23 07:42] VITALS: BP 137/84
[2017-12-23] MEDS: LISINOPRIL 20 MG TAB PO SCH (09:00)
[2017-12-23] MEDS: PANTOPRAZOLE SOD 40 MG IV VIAL IVP SCH ×2 (09:13→20:51)
[2017-12-23] MEDS: METOPROLOL TART 50 MG TAB PO SCH ×2 (09:14→20:50)
[2017-12-23] MEDS: FOLIC ACID 1 MG TAB PO SCH (09:14)
[2017-12-23] MEDS: THIAMINE HCL 100 MG TAB PO SCH (09:14)
[2017-12-23] MEDS: amLODIPine BESYL(*) 5 MG TAB PO SCH (09:14)
[2017-12-23] MEDS: APIXABAN 2.5 MG TABLET PO SCH ×2 (09:14→20:50)
[2017-12-23 11:39] VITALS: BP 113/75
[2017-12-23 13:02] VITALS: Ht 172.7 cm; Wt 86.4 kg
[2017-12-23] MEDS: ACETAMINOPHEN 500 MG TAB PO PRN ×2 (13:15→20:49)
[2017-12-23] MEDS: CALCIUM CARBONATE 500 MG CHEW PO PRN ×2 (13:15→20:50)
[2017-12-23] MEDS: HYPROMELLOSE 0.4% LUB 15ML BTL OU PRN ×3 (13:16→21:01)
[2017-12-23 15:11] VITALS: BP 99/67
--- NOTE | 2017-12-23 16:01 | Hospitalist Progress Note ---
Subjective Progress Notes Subjective 72M admitted for hyponatremia 2/2 EtOH abuse. Doing well this am, Na coming up. Patient Complains of: Neurological: No: Syncope Cardiovascular: No: Chest Pain Respiratory: No: Cough Gastrointestinal: No Nausea, No Vomiting Genitourinary: No Dysuria Musculoskeletal: Other (tremor), No: Pain, Sprain Physical Exam Vital Signs Date Time Temp Pulse Resp B/P (MAP) Pulse Ox O2 Delivery O2 Flow Rate FiO2 12/23/17 15:11 97.7 20 99/67 (78) 96 Nasal Cannula 2.0 12/23/17 11:39 83 Intake and Output 12/24/17 07:00 Intake Total 0 ml Balance 0 ml Intake Oral 0 ml # Voids 4 # Bowel Movements 4 General Appearance: Alert, Awake, No Acute Distress Neuro: No Gross deficits Eyes: PERRLA ENT: Normal Neck: No Masses Cardiovascular: Normal Rhythm & Peripheral Pulses Respiratory: No Respiratory Distress Chest: No Masses GI: Soft and Non-Tender Lymph: Cervical Nodes Benign Musculoskeletal: No Weakness/Pain Extremities: Warm, Pulses, Perfused Integumentary: Skin Intact without Lesion / Mass Result Diagram: 12/23/1753012/23/17530 Assessment and Plan Problems: (1) Hyponatremia Status: Chronic Assessment & Plan: He presented with a sodium of 118 and appears to be asymptomatic. This is a chronic intermittent problem likely related to "Beer Potomania". However, he is on citalopram that could be causing SIADH. Na increasing at acceptable rate. Monitor. (2) Alcohol abuse Status: Chronic Assessment & Plan: His last drink was a few hours before admission. He will be on CIWA precautions with Valium to cover. See above. Banana bag now and then oral thiamine and folate. (3) Hypomagnesemia Status: Acute Assessment & Plan: Secondary to alcohol use. Will replace and follow. He reports stopping his oral supplement at home while drinking alcohol. (4) Type 2 diabetes mellitus Status: Chronic Assessment & Plan: He is diet controlled. He had a HgA1c of 6.8 on 11/09. Will check AC and HS glucose with SSI level 1 to cover. (5) GERD (gastroesophageal reflux disease) Status: Chronic Assessment & Plan: He has been having daily vomiting secondary to his "gastria " from drinking alcohol. Carafate AC and HS and IV Protonix. He denies any symptoms worrisome for bleeding. (6) Hypertension Status: Chronic Assessment & Plan: Continue chronic metoprolol, amlodipine and lisinopril with parameters. (7) Chronic a-fib Status: Chronic Assessment & Plan: He is chronically ventricular paced, but does take metoprolol. He is on Eliquis for stroke prophylaxis, which will be continued. (8) BPH (benign prostatic hyperplasia) Status: Chronic Assessment & Plan: Continue Flomax Exam Sepsis Risk: No Definite Risk Problem Qualifiers (1) BPH (benign prostatic hyperplasia): Lower urinary tract symptom presence: unspecified whether lower urinary tract symptoms present Qualified Codes: N40.0 - Benign prostatic hyperplasia without lower urinary tract symptoms JUNIE MEHTACHARLES Dec 23, 2017 16:01
[2017-12-23] MEDS: INSULIN HUM LISPRO 100 UN/ML 3 ML VIAL SUBQ PRN ×2 (16:58→21:03)
[2017-12-23] MEDS ORDERED: NS(*) 0.9% 1000 ML BAG 1,000 ML IV PRN (19:25)
[2017-12-23 19:32] VITALS: BP 110/75
[2017-12-23] MEDS: TAMSULOSIN HCL 0.4 MG CAP PO SCH (20:50)
[2017-12-24 00:46] VITALS: BP 158/93
[2017-12-24 02:36] VITALS: BP 133/83
[2017-12-24] MEDS: HYPROMELLOSE 0.4% LUB 15ML BTL OU PRN ×2 (02:41→09:16)
[2017-12-24] MEDS: SUCRALFATE 1 GM TAB PO SCH (05:52)
[2017-12-24 08:55] VITALS: BP 136/68
[2017-12-24] MEDS: LISINOPRIL 20 MG TAB PO SCH (09:00)
[2017-12-24] MEDS: amLODIPine BESYL(*) 5 MG TAB PO SCH (09:17)
[2017-12-24] MEDS: METOPROLOL TART 50 MG TAB PO SCH (09:17)
[2017-12-24] MEDS: THIAMINE HCL 100 MG TAB PO SCH (09:17)
[2017-12-24] MEDS: PANTOPRAZOLE SOD 40 MG IV VIAL IVP SCH (09:17)
[2017-12-24] MEDS: FOLIC ACID 1 MG TAB PO SCH (09:17)
[2017-12-24] MEDS: APIXABAN 2.5 MG TABLET PO SCH (09:17)
[2017-12-24] MEDS ORDERED: SODCTAB FT (09:38)
--- NOTE | 2017-12-24 09:43 | Hospitalist Depart ---
Discharge Summary Reason for Hosp/Final Diag: (1) Hyponatremia Status: Chronic Hospital Course & Plan: He presented with a sodium of 118. He was treated with a saline infusion and his sodium improved appropriately. He is advised to take sodium tablets. (2) Alcohol abuse Status: Chronic Hospital Course & Plan: His last drink was a few hours before admission. He was placed on CIWA protocol, but did not require treatment. We did place him on thiamine supplements. (3) Hypomagnesemia Status: Acute Hospital Course & Plan: Resolved with supplementation. (4) Type 2 diabetes mellitus Status: Chronic Hospital Course & Plan: He is controlled by diet alone. (5) GERD (gastroesophageal reflux disease) Status: Chronic Hospital Course & Plan: Resolved with Protonix. (6) Hypertension Status: Chronic Hospital Course & Plan: He is on chronic treatment with metoprolol, amlodipine and lisinopril. (7) Chronic a-fib Status: Chronic Hospital Course & Plan: He is ventricular paced. He is also on chronic treatment with metoprolol and Eliquis. (8) BPH (benign prostatic hyperplasia) Status: Chronic Hospital Course & Plan: He is on chronic treatment with Flomax Departure Latest Vital Signs Vital Signs 12/24/17 12/24/17 02:36 08:55 Temp 97.7 Pulse 61 Resp 18 B/P (MAP) 136/68 (90) O2 Flow Rate 1.0 Weight (Pounds): 190 Weight (Ounces): 9.0 Result Diagram: 12/23/17 0531 12/24/17 0522 Condition: Improved Discharge: Home, Home Health Discharge Instructions Home Meds Active Scripts Sodium Chloride (SODIUM CHLORIDE) 1 Gm Tab, 1 GM FT QDAY, #30 TAB Prov:COLINALVARO DO 12/24/17 Reported Medications Nystatin (NYSTOP) 60 Gm Powder, 1 RACHEL TP BID Finish remainder of Nystop from hospital. 11/13/17 Thiamine Hcl (THIAMINE HCL) 100 Mg Tablet, 100 MG PO DAILY 12/26/16 Folic Acid (FOLIC ACID) 1 Mg Tablet, 1 MG PO QDAY, TAB 12/26/16 Citalopram Hydrobromide (CITALOPRAM HBR) 20 Mg Tablet, 20 MG PO QDAY, #5 TAB 12/23/16 Menthol (BENGAY) 113 Gm Gel..gram., 1 GM TP QID Y for PAIN 12/23/16 Cyanocobalamin (Vitamin B-12) (CYANOCOBALAMIN INJECTION) 1,000 Mcg/1 Ml Vial, 1000 MCG IJ Q2WK, VIAL 12/23/16 Metoprolol Tartrate (METOPROLOL TARTRATE) 25 Mg Tablet, 1 TAB PO BID, TAB 12/23/16 Apixaban (ELIQUIS) 2.5 Mg Tablet, 2 TAB PO BID 08/15/16 Amlodipine Besylate (AMLODIPINE BESYLATE) 5 Mg Tablet, 1 TAB PO QDAY, TAB 08/15/16 Tamsulosin Hcl (TAMSULOSIN HCL) 0.4 Mg Cap.er.24h, 0.4 MG PO HS, CAP 08/15/16 Multivitamin (MULTIVITAMINS) 1 Each Capsule, 1 EACH PO QDAY, CAPSULE 08/15/16 Lisinopril (LISINOPRIL) 20 Mg Tablet, 20 MG PO DAILY, TAB 08/15/16 Magnesium Oxide (MAGNESIUM OXIDE) 400 Mg Tablet, 2 CAP PO TID 08/15/16 Cholecalciferol (Vitamin D3) (VITAMIN D3) 1,000 Unit Capsule, 1000 UNIT PO QDAY , CAPSULE 08/15/16 Diet: Diabetic Activity: As Tolerated Copies to: DARRYN HUNTER DO Venous Thromboembolism Antithrombotics Is Pt On Any Antithrombotics?: Yes Problem Qualifiers (1) BPH (benign prostatic hyperplasia): Lower urinary tract symptom presence: unspecified whether lower urinary tract symptoms present Qualified Codes: N40.0 - Benign prostatic hyperplasia without lower urinary tract symptoms ALVARO SHAW DO Dec 24, 2017 09:43
== END 2017-12-24 10:05 | disposition home health service (06) | DRG 641 ==
LOC: ER 17:38 → MED 19:30
PROVIDERS: ADMIT Internal Medicine; ATTEND Internal Medicine
DX: E87.1 Hypo-osmolality and hyponatremia (principal); F10.220 Alcohol dependence with intoxication, uncomplicated; E83.42 Hypomagnesemia; E11.9 Type 2 diabetes mellitus without complications; K21.9 Gastro-esophageal reflux disease without esophagitis; I10 Essential (primary) hypertension; I48.2 Chronic atrial fibrillation; N40.0 Benign prostatic hyperplasia without lower urinary tract symptoms; E78.5 Hyperlipidemia, unspecified; Y90.3 Blood alcohol level of 60-79 mg/100 ml; Z95.0 Presence of cardiac pacemaker
CPT/HCPCS: 36415; 36416; 71045; 80305; 80320; 80329; 81001; 82040; 82247; 82310; 82374; 82435; 82565; 82947; 82948; 83735; 83935; 84075; 84132; 84155; 84295; 84300; 84443; 84450; 84460; 84484; 84520; 85025; 85610; 93005; C9113; J3411; J3475; J7030

== ENCOUNTER → 2017-12-22 | Outpatient (CLI) | payer MEDICARE, MEDICAID ==
[~2017-12-22] MED LIST changes: +IBUP-136 PO; -IBUP200C71 PO; +NYST60PO9 TP; +SODCTAB FT
[2017-12-23 13:02] VITALS: BMI 28.9
== END ==
LOC: AMB 16:49
PROVIDERS: ATTEND Nurse Practitioner
DX: R53.1 Weakness (principal); F10.20 Alcohol dependence, uncomplicated
CPT/HCPCS: A0425; A0429

== ENCOUNTER → 2018-01-01 | Outpatient (CLI) | payer MEDICARE, MEDICAID ==
[2017-12-23 13:02] VITALS: BMI 28.9
[~2018-01-01] MED LIST changes: +SODCTAB FT
== END ==
LOC: LAB 15:45
PROVIDERS: ATTEND Family Medicine
DX: E87.1 Hypo-osmolality and hyponatremia (principal); R79.0 Abnormal level of blood mineral
CPT/HCPCS: 36415; 82310; 82374; 82435; 82565; 82947; 83735; 84132; 84295; 84520

== ENCOUNTER 2018-01-08 11:06 | Emergency (ER) | payer MEDICARE, MEDICAID ==
[2017-12-23 13:02] VITALS: Wt 86.4 kg
--- NOTE | 2018-01-08 11:20 | ER Report ---
History and Physical Time Seen By MD: 11:16 Hx. of Stated Complaint: pt reports shakiness and lightheadedness, was admitted last time he had these symptoms for low electrolytes. is known alcoholic, stopped for 3 weeks but started up again about 2 weeks ago. reports drinking about 4 beers daily HPI/ROS 72-year-old male known alcoholic presents to the emergency department stating that he started to drink again, and he is worried about his electrolytes. Started to drink 2 beers a day for the past 2 weeks. He drank 2 beers this morning already. He has been sober for long periods of time intermittently. He says he doesn't feel like he is withdrawing from alcohol, but says that he has been hyponatremic in the past and he is worried about hyponatremia. He otherwise feels well, and is taking by mouth. He states he knows that he needs to stop drinking, and voices that he knows how to self detox. He has no other concerns or complaints. Remainder of the 14 system rev: Yes Allergies: Coded Allergies: No Known Drug Allergies (Verified , 01/08/18) Home Meds Active Scripts Sodium Chloride (SODIUM CHLORIDE) 1 Gm Tab, 1 GM FT QDAY, #30 TAB Prov:COLINALVARO 12/24/17 Reported Medications Nystatin (NYSTOP) 60 Gm Powder, 1 RACHEL TP BID Finish remainder of Nystop from hospital. 11/13/17 Thiamine Hcl (THIAMINE HCL) 100 Mg Tablet, 100 MG PO DAILY 12/26/16 Folic Acid (FOLIC ACID) 1 Mg Tablet, 1 MG PO QDAY, TAB 12/26/16 Citalopram Hydrobromide (CITALOPRAM HBR) 20 Mg Tablet, 20 MG PO QDAY, #5 TAB 12/23/16 Menthol (BENGAY) 113 Gm Gel..gram., 1 GM TP QID PRN for PAIN 12/23/16 Cyanocobalamin (Vitamin B-12) (CYANOCOBALAMIN INJECTION) 1,000 Mcg/1 Ml Vial, 1000 MCG IJ Q2WK, VIAL 12/23/16 Metoprolol Tartrate (METOPROLOL TARTRATE) 25 Mg Tablet, 1 TAB PO BID, TAB 12/23/16 Apixaban (ELIQUIS) 2.5 Mg Tablet, 2 TAB PO BID 08/15/16 Amlodipine Besylate (AMLODIPINE BESYLATE) 5 Mg Tablet, 1 TAB PO QDAY, TAB 08/15/16 Tamsulosin Hcl (TAMSULOSIN HCL) 0.4 Mg Cap.er.24h, 0.4 MG PO HS, CAP 08/15/16 Multivitamin (MULTIVITAMINS) 1 Each Capsule, 1 EACH PO QDAY, CAPSULE 08/15/16 Lisinopril (LISINOPRIL) 20 Mg Tablet, 20 MG PO DAILY, TAB 08/15/16 Magnesium Oxide (MAGNESIUM OXIDE) 400 Mg Tablet, 2 CAP PO TID 08/15/16 Cholecalciferol (Vitamin D3) (VITAMIN D3) 1,000 Unit Capsule, 1000 UNIT PO QDAY, CAPSULE 08/15/16 Reviewed Nurses Notes: Yes Old Medical Records Reviewed: Yes Hx Smoking: No Smoking Status: Never Smoker Exposure to Second Hand Smoke?: No Hx Substance Use Disorder: No Hx Alcohol Use: Yes Constitutional Vital Sign - Last 24 Hours 01/08/18 11:07 Temp 98.2 Pulse 63 Resp 15 B/P (MAP) 107/77 Pulse Ox 96 Physical Exam General Appearance: The patient is alert, has no immediate need for airway protection and no current signs of toxicity. Eyes: Pupils equal and round no injection. Respiratory: Chest is non tender, lungs are clear to auscultation. Cardiac: regular rate and rhythm Gastrointestinal: Abdomen is soft and non tender, no masses, bowel sounds normal. Neck: Neck is supple and non tender. Extremities have full range of motion and are non tender. Skin: No rashes or lesions. DIFFERENTIAL DIAGNOSIS: After history and physical exam differential diagnosis was considered for alcohol withdrawal, electrolyte abnormality, other toxidrome, alcohol intoxication Medical Decision Making Data Points Result Diagram: 01/08/18 1125 01/08/18 1125 Laboratory Hematology Test 01/08/18 11:25 Red Blood Count 5.50 M/uL (4.00-5.60) Mean Corpuscular Volume 94.8 fL (80.0-96.0) Mean Corpuscular Hemoglobin 33.6 pg (26.0-33.0) Mean Corpuscular Hemoglobin Concent 35.5 g/dL (32.0-36.0) Red Cell Distribution Width 13.9 % (11.5-14.5) Mean Platelet Volume 7.4 fL (7.2-11.1) Neutrophils (%) (Auto) 63.9 % (39.4-72.5) Lymphocytes (%) (Auto) 23.4 % (17.6-49.6) Monocytes (%) (Auto) 9.6 % (4.1-12.4) Eosinophils (%) (Auto) 1.7 % (0.4-6.7) Basophils (%) (Auto) 1.4 % (0.3-1.4) Nucleated RBC Relative Count (auto) 0.1 /100WBC Neutrophils # (Auto) 5.4 K/uL (2.0-7.4) Lymphocytes # (Auto) 2.0 K/uL (1.3-3.6) Monocytes # (Auto) 0.8 K/uL (0.3-1.0) Eosinophils # (Auto) 0.1 K/uL (0.0-0.5) Basophils # (Auto) 0.1 K/uL (0.0-0.1) Nucleated RBC Absolute Count (auto) 0.01 K/uL Sodium Level 127 mmol/L (137-145) Potassium Level 4.3 mmol/L (3.5-5.0) Chloride Level 89 mmol/L (98-107) Carbon Dioxide Level 28 mmol/L (22-30) Blood Urea Nitrogen 8 mg/dl (9-21) Creatinine 0.70 mg/dl (0.66-1.25) Glomerular Filtration Rate Calc > 60.0 Random Glucose 137 mg/dl (75-110) Calcium Level 8.9 mg/dl (8.4-10.2) Magnesium Level 1.4 mg/dl (1.7-2.2) Total Bilirubin 0.9 mg/dl (0.2-1.3) Aspartate Amino Transf (AST/SGOT) 23 U/L (0-35) Alanine Aminotransferase (ALT/SGPT) 29 U/L (0-56) Alkaline Phosphatase 56 U/L (0-126) Total Protein 7.1 g/dl (6.3-8.2) Albumin 3.8 g/dl (3.5-5.0) Serum Alcohol 44 mg/dl Chemistry Test 01/08/18 11:25 White Blood Count 8.4 k/uL (4.5-11.0) Red Blood Count 5.50 M/uL (4.00-5.60) Hemoglobin 18.5 g/dL (14.0-18.0) Hematocrit 52.1 % (42.0-52.0) Mean Corpuscular Volume 94.8 fL (80.0-96.0) Mean Corpuscular Hemoglobin 33.6 pg (26.0-33.0) Mean Corpuscular Hemoglobin Concent 35.5 g/dL (32.0-36.0) Red Cell Distribution Width 13.9 % (11.5-14.5) Platelet Count 238 K/uL (150-450) Mean Platelet Volume 7.4 fL (7.2-11.1) Neutrophils (%) (Auto) 63.9 % (39.4-72.5) Lymphocytes (%) (Auto) 23.4 % (17.6-49.6) Monocytes (%) (Auto) 9.6 % (4.1-12.4) Eosinophils (%) (Auto) 1.7 % (0.4-6.7) Basophils (%) (Auto) 1.4 % (0.3-1.4) Nucleated RBC Relative Count (auto) 0.1 /100WBC Neutrophils # (Auto) 5.4 K/uL (2.0-7.4) Lymphocytes # (Auto) 2.0 K/uL (1.3-3.6) Monocytes # (Auto) 0.8 K/uL (0.3-1.0) Eosinophils # (Auto) 0.1 K/uL (0.0-0.5) Basophils # (Auto) 0.1 K/uL (0.0-0.1) Nucleated RBC Absolute Count (auto) 0.01 K/uL Glomerular Filtration Rate Calc > 60.0 Calcium Level 8.9 mg/dl (8.4-10.2) Magnesium Level 1.4 mg/dl (1.7-2.2) Total Bilirubin 0.9 mg/dl (0.2-1.3) Aspartate Amino Transf (AST/SGOT) 23 U/L (0-35) Alanine Aminotransferase (ALT/SGPT) 29 U/L (0-56) Alkaline Phosphatase 56 U/L (0-126) Total Protein 7.1 g/dl (6.3-8.2) Albumin 3.8 g/dl (3.5-5.0) Serum Alcohol 44 mg/dl Toxicology Test 01/08/18 11:25 Serum Alcohol 44 mg/dl ED Course/Re-evaluation ED Course Electrolytes are at baseline for this patient. He was given a banana bag with magnesium. He is not currently in withdrawal. He has had no falls or other trauma, and does not need any imaging. He will says that he no he needs to stop drinking, and states that he knows how to self detox at home. He does not want inpatient admission for alcohol detox. Decision to Disposition Date: Jan 08, 2018 Decision to Disposition Time: 11:19 Depart Departure Latest Vital Signs Vital Signs Date Time Temp Pulse Resp B/P (MAP) Pulse Ox O2 Delivery O2 Flow Rate FiO2 01/08/18 11:07 98.2 63 15 107/77 96 Impression: Primary Impression: Alcohol use disorder, severe, dependence Condition: Improved Disposition: HOME OR SELF-CARE Patient Instructions: Alcohol Dependence (ED) ERIKA POLANCO MD Jan 08, 2018 11:20
[2018-01-08] MEDS ORDERED: NS(*) 0.9% 1000 ML BAG 1,000 ML IV ONE (11:25)
[2018-01-08 11:34] LABS: PLATELET COUNT, AUTOMATED 238 K/uL (150-450)
--- NOTE | 2018-01-08 11:54 | EKG ---
FACILITY: [facility] PATIENT NAME: ALVARO POWELL : [id number] MR: [id number] V: [id number] EXAM DATE: ORDERING PHYSICIAN: ERIKA POLANCO TECHNOLOGIST: DARIAN Parsons Reason : A Blood Pressure : / mmHG Vent. Rate : 063 BPM Atrial Rate : 300 BPM P-R Int : 000 ms QRS Dur : 182 ms QT Int : 476 ms P-R-T Axes : 092 -80 079 degrees QTc Int : 487 ms Electronic ventricular pacemaker Ventricular-paced rhythm Atrial fibrillation When compared with ECG of 22-DEC-2017 17:40, Vent. rate has decreased BY 20 BPM Confirmed by Wagner Haskins ([id number]) on 01/08/2018 3:36:32 PM Referred By: Confirmed By:Wagner Villegas
[2018-01-08] MEDS ORDERED: GI COCKTAIL 60 ML BTL PO PRN (12:30)
[2018-01-08] MEDS ORDERED: FAMOTIDINE(*) 20MG/50ML PREMIX 50 ML IVPB ONE (12:30)
[2018-01-08] MEDS ORDERED: LIDOCAINE 2% VISC SLN 15ML UDC PO ONE (13:00)
[2018-01-08] MEDS ORDERED: MAG HYD/AL HYD/SIMETH 30ML UDC PO ONE (13:00)
[2018-01-08] MEDS ORDERED: MULTIVITAMINS(*) 10 ML VIAL 10 ML, THIAMINE HCL(*) 200 MG/2 ML IN 100 MG, FOLIC ACID(*)... IV ONE (13:30)
[2018-01-08 15:00] VITALS: BP 152/108
== END 2018-01-08 15:17 | disposition home or self-care (01) ==
LOC: ER 11:17
DX: F10.20 Alcohol dependence, uncomplicated (principal); I48.91 Unspecified atrial fibrillation
CPT/HCPCS: 83735; 85025; 93005; 96361; 96365; 96367; 99284; A9270; G0480; J3411; J3475; J3490; J7030; 80320; 82040; 82247; 82310; 82374; 82435; 82565; 82947; 84075; 84132; 84155; 84295; 84450; 84460; 84520

== ENCOUNTER → 2018-01-08 | Outpatient (CLI) | payer MEDICARE, MEDICAID ==
[2017-12-23 13:02] VITALS: BMI 28.9
== END ==
LOC: AMB 10:50
PROVIDERS: ATTEND Nurse Practitioner
DX: R42 Dizziness and giddiness (principal); R25.3 Fasciculation; E11.9 Type 2 diabetes mellitus without complications; F10.21 Alcohol dependence, in remission
CPT/HCPCS: A0425; A0429

== ENCOUNTER 2018-02-22 17:27 | Emergency (ER) | payer MEDICARE, MEDICAID ==
[2017-12-23 13:02] VITALS: Wt 86.4 kg
[~2018-02-22 17:27] MED LIST changes: -ONDA4TAB SL
--- NOTE | 2018-02-22 18:02 | ER Report ---
History and Physical Time Seen By MD: 18:02 Hx. of Stated Complaint: "I DONT KNOW WHY I'M HERE." REPORTS THINKING HE MAY WANT TO DETOX. HPI/ROS CHIEF COMPLAINT: Crying out for help HISTORY OF PRESENT ILLNESS: 72-year-old male chronic alcoholic brought in by EMS from [facility] where he is a resident for the last 20 years. His fellow residents hurting crying out for help and called EMS to come evaluate him. On arrival EMS. Find him slightly pale. Patient voices no complaint on arrival here to the ER. Patient has a history of chronic alcoholism and continues to drink whiskey. He was admitted 2 months ago for hyponatremia, hypomagnesemia. Patient has a history of chronic atrial fibrillation on a ventricular pacemaker on Eliquis. REVIEW OF SYSTEMS: Respiratory: No cough, no dyspnea. Cardiovascular: No chest pain, no palpitations. Gastrointestinal: No vomiting, no abdominal pain. Musculoskeletal: No back pain. Allergies: Coded Allergies: No Known Drug Allergies (Verified , 02/22/18) Home Meds Active Scripts Sodium Chloride (SODIUM CHLORIDE) 1 Gm Tab, 1 GM FT QDAY, #30 TAB Prov:ALVARO SHAW 12/24/17 Reported Medications Nystatin (NYSTOP) 60 Gm Powder, 1 RACHEL TP BID Finish remainder of Nystop from hospital. 11/13/17 Thiamine Hcl (THIAMINE HCL) 100 Mg Tablet, 100 MG PO DAILY 12/26/16 Folic Acid (FOLIC ACID) 1 Mg Tablet, 1 MG PO QDAY, TAB 12/26/16 Citalopram Hydrobromide (CITALOPRAM HBR) 20 Mg Tablet, 20 MG PO QDAY, #5 TAB 12/23/16 Menthol (BENGAY) 113 Gm Gel..gram., 1 GM TP QID PRN for PAIN 12/23/16 Cyanocobalamin (Vitamin B-12) (CYANOCOBALAMIN INJECTION) 1,000 Mcg/1 Ml Vial, 1000 MCG IJ Q2WK, VIAL 12/23/16 Metoprolol Tartrate (METOPROLOL TARTRATE) 25 Mg Tablet, 1 TAB PO BID, TAB 12/23/16 Apixaban (ELIQUIS) 2.5 Mg Tablet, 2 TAB PO BID 08/15/16 Amlodipine Besylate (AMLODIPINE BESYLATE) 5 Mg Tablet, 1 TAB PO QDAY, TAB 08/15/16 Tamsulosin Hcl (TAMSULOSIN HCL) 0.4 Mg Cap.er.24h, 0.4 MG PO HS, CAP 08/15/16 Multivitamin (MULTIVITAMINS) 1 Each Capsule, 1 EACH PO QDAY, CAPSULE 08/15/16 Lisinopril (LISINOPRIL) 20 Mg Tablet, 20 MG PO DAILY, TAB 08/15/16 Magnesium Oxide (MAGNESIUM OXIDE) 400 Mg Tablet, 2 CAP PO TID 08/15/16 Cholecalciferol (Vitamin D3) (VITAMIN D3) 1,000 Unit Capsule, 1000 UNIT PO QDAY, CAPSULE 08/15/16 Past Medical/Surgical History Patient has a past medical history of syncope, hypertension, hyperlipidemia, ulcers, reflux, fractured ribs, fibula fracture, spinal stenosis, bilateral cataracts, type 2 diabetes, hypomagnesemia, hyponatremia, rash, alcohol abuse. Patient has surgical history of pacemaker, cataract surgery. Patient has a family medical history of diabetes. Reviewed Nurses Notes: Yes Old Medical Records Reviewed: Yes Hx Smoking: No Smoking Status: Never Smoker Exposure to Second Hand Smoke?: No Hx Substance Use Disorder: No Hx Alcohol Use: Yes Constitutional Vital Sign - Last 24 Hours 02/22/18 02/22/18 02/22/18 02/22/18 17:27 18:42 18:57 19:00 Temp 98.1 Pulse 76 59 60 Resp 20 B/P (MAP) 134/97 133/66 (88) 116/57 (76) Pulse Ox 93 87 95 O2 Delivery Room Air 02/22/18 19:12 Pulse 59 Pulse Ox 99 Intake and Output 02/22/18 02/22/18 02/23/18 15:00 23:00 07:00 Intake Total 1015.2 ml Balance 1015.2 ml Physical Exam Vital signs stable, afebrile, pulse ox normal General Appearance: The patient is alert, has no immediate need for airway protection and no current signs of toxicity. Slurred speech consistent with alcohol ingestion. HEENT: Pupils equal and round no injection. Oropharynx without redness or exudate, mucous. Membranes are moist., Odor of EtOH Respiratory: Chest is non tender, lungs are clear to auscultation. Cardiac: regular rate and rhythm Gastrointestinal: Abdomen is soft and non tender, no masses, bowel sounds normal. Musculoskeletal: Neck: Neck is supple and non tender. Extremities have full range of motion and are non tender. No edema, no calf tenderness Skin: No rashes or lesions. DIFFERENTIAL DIAGNOSIS: After history and physical exam differential diagnosis was considered for altered mental status including but not limited to hypoglycemia, infectious process, electrolyte abnormality, head injury and intoxicants. Additionally, Medical Decision Making Data Points Result Diagram: 02/22/18 1755 02/22/18 1755 Laboratory Hematology Test 02/22/18 17:55 Red Blood Count 5.46 M/uL (4.00-5.60) Mean Corpuscular Volume 95.7 fL (80.0-96.0) Mean Corpuscular Hemoglobin 33.1 pg (26.0-33.0) Mean Corpuscular Hemoglobin Concent 34.6 g/dL (32.0-36.0) Red Cell Distribution Width 14.7 % (11.5-14.5) Mean Platelet Volume 7.0 fL (7.2-11.1) Neutrophils (%) (Auto) 41.0 % (39.4-72.5) Lymphocytes (%) (Auto) 46.7 % (17.6-49.6) Monocytes (%) (Auto) 11.1 % (4.1-12.4) Eosinophils (%) (Auto) 0.5 % (0.4-6.7) Basophils (%) (Auto) 0.7 % (0.3-1.4) Nucleated RBC Relative Count (auto) 0.1 /100WBC Neutrophils # (Auto) 2.4 K/uL (2.0-7.4) Lymphocytes # (Auto) 2.7 K/uL (1.3-3.6) Monocytes # (Auto) 0.7 K/uL (0.3-1.0) Eosinophils # (Auto) 0.0 K/uL (0.0-0.5) Basophils # (Auto) 0.0 K/uL (0.0-0.1) Nucleated RBC Absolute Count (auto) 0.01 K/uL Sodium Level 131 mmol/L (137-145) Potassium Level 3.6 mmol/L (3.5-5.0) Chloride Level 91 mmol/L (98-107) Carbon Dioxide Level 29 mmol/L (22-30) Blood Urea Nitrogen 7 mg/dl (9-21) Creatinine 0.60 mg/dl (0.66-1.25) Glomerular Filtration Rate Calc > 60.0 Random Glucose 138 mg/dl (75-110) Calcium Level 9.1 mg/dl (8.4-10.2) Magnesium Level 1.2 mg/dl (1.7-2.2) Total Bilirubin 0.6 mg/dl (0.2-1.3) Aspartate Amino Transf (AST/SGOT) 135 U/L (0-35) Alanine Aminotransferase (ALT/SGPT) 77 U/L (0-56) Alkaline Phosphatase 63 U/L (0-126) Total Protein 6.9 g/dl (6.3-8.2) Albumin 3.6 g/dl (3.5-5.0) Thyroid Stimulating Hormone (TSH) 1.04 uIU/ml (0.46-4.68) Salicylates Level < 10 mg/L Salicylate Last Dose Date unk Acetaminophen Level < 10 ug/ml Serum Alcohol 256 mg/dl Chemistry Test 02/22/18 17:55 White Blood Count 5.9 k/uL (4.5-11.0) Red Blood Count 5.46 M/uL (4.00-5.60) Hemoglobin 18.1 g/dL (14.0-18.0) Hematocrit 52.2 % (42.0-52.0) Mean Corpuscular Volume 95.7 fL (80.0-96.0) Mean Corpuscular Hemoglobin 33.1 pg (26.0-33.0) Mean Corpuscular Hemoglobin Concent 34.6 g/dL (32.0-36.0) Red Cell Distribution Width 14.7 % (11.5-14.5) Platelet Count 195 K/uL (150-450) Mean Platelet Volume 7.0 fL (7.2-11.1) Neutrophils (%) (Auto) 41.0 % (39.4-72.5) Lymphocytes (%) (Auto) 46.7 % (17.6-49.6) Monocytes (%) (Auto) 11.1 % (4.1-12.4) Eosinophils (%) (Auto) 0.5 % (0.4-6.7) Basophils (%) (Auto) 0.7 % (0.3-1.4) Nucleated RBC Relative Count (auto) 0.1 /100WBC Neutrophils # (Auto) 2.4 K/uL (2.0-7.4) Lymphocytes # (Auto) 2.7 K/uL (1.3-3.6) Monocytes # (Auto) 0.7 K/uL (0.3-1.0) Eosinophils # (Auto) 0.0 K/uL (0.0-0.5) Basophils # (Auto) 0.0 K/uL (0.0-0.1) Nucleated RBC Absolute Count (auto) 0.01 K/uL Glomerular Filtration Rate Calc > 60.0 Calcium Level 9.1 mg/dl (8.4-10.2) Magnesium Level 1.2 mg/dl (1.7-2.2) Total Bilirubin 0.6 mg/dl (0.2-1.3) Aspartate Amino Transf (AST/SGOT) 135 U/L (0-35) Alanine Aminotransferase (ALT/SGPT) 77 U/L (0-56) Alkaline Phosphatase 63 U/L (0-126) Total Protein 6.9 g/dl (6.3-8.2) Albumin 3.6 g/dl (3.5-5.0) Thyroid Stimulating Hormone (TSH) 1.04 uIU/ml (0.46-4.68) Salicylates Level < 10 mg/L Salicylate Last Dose Date unk Acetaminophen Level < 10 ug/ml Serum Alcohol 256 mg/dl Toxicology Test 02/22/18 17:55 Salicylates Level < 10 mg/L Salicylate Last Dose Date unk Acetaminophen Level < 10 ug/ml Serum Alcohol 256 mg/dl ED Course/Re-evaluation Clinical Indication for ER IV: Hydration, IV Access ED Course To an examination room. H&P was done. The differential diagnoses was considered. On clinical examination. Patient voicing no complaints. He admits that he heavily drinks. He has no desire to quit. He was offered admission to detox after. Diagnostic studies were performed. Patient has a history of a low sodium and was admitted several months ago. Patient's diagnostic studies are unremarkable. He is given a banana bag. He was again offered admission [facility] for medical detox. But he declined. He is discharged back to his [facility] facility. Decision to Disposition Date: Feb 22, 2018 Decision to Disposition Time: 18:59 Depart Departure Latest Vital Signs Vital Signs Date Time Temp Pulse Resp B/P (MAP) Pulse Ox O2 Delivery O2 Flow Rate FiO2 02/22/18 19:12 59 99 02/22/18 19:00 116/57 (76) 02/22/18 17:27 98.1 20 Room Air Impression: Primary Impression: Alcohol use disorder, severe, dependence Additional Impressions: Hyponatremia Hypomagnesemia Condition: Improved Disposition: HOME OR SELF-CARE Patient Instructions: Alcohol Dependence (ED) Additional Instructions: Follow-up with your primary care physician Problem Qualifiers EMILY VILLALTA DO Feb 22, 2018 18:02
[2018-02-22] MEDS ORDERED: THIAMINE HCL(*) 200 MG/2 ML IN 100 MG, FOLIC ACID(*) 50 MG/10 ML INJ 1 MG, MULTIVITAMIN... IV ONE ×2 (18:13→18:30)
[2018-02-22 18:21] LABS: PLATELET COUNT, AUTOMATED 195 K/uL (150-450)
[2018-02-22 19:00] VITALS: BP 116/57
== END 2018-02-22 19:43 | disposition home or self-care (01) ==
LOC: ER 18:03
DX: F10.20 Alcohol dependence, uncomplicated (principal); E87.1 Hypo-osmolality and hyponatremia; E83.42 Hypomagnesemia
CPT/HCPCS: 83735; 84443; 85025; 96365; 99283; G0480; J3411; J3475; J7030; 80320; 80329; 82040; 82247; 82310; 82374; 82435; 82565; 82947; 84075; 84132; 84155; 84295; 84450; 84460; 84520

== ENCOUNTER → 2018-02-22 | Outpatient (CLI) | payer MEDICARE, MEDICAID ==
[2017-12-23 13:02] VITALS: BMI 28.9
[~2018-02-22] MED LIST changes: +AMLO-111; +AMLO-111 PO; -AMLO-96; -AMLO-96 PO; -METF-421; -METF-421 PO; +METF-452; +METF-452 PO; +ONDA4TAB SL
== END ==
LOC: AMB 16:57
PROVIDERS: ATTEND Nurse Practitioner
DX: F10.220 Alcohol dependence with intoxication, uncomplicated (principal)
CPT/HCPCS: A0425; A0429

== ENCOUNTER 2018-03-03 23:12 | Emergency (ER) | payer MEDICARE, MEDICAID ==
[2017-12-23 13:02] VITALS: Wt 90.7 kg
[~2018-03-03 23:12] MED LIST changes: -ONDA4TAB SL
[2018-03-03 23:17] VITALS: BP 108/70
--- NOTE | 2018-03-03 23:17 | ER Report ---
History and Physical Time Seen By MD: 23:16 HPI/ROS CHIEF COMPLAINT: Vomiting, alcohol withdrawal HISTORY OF PRESENT ILLNESS: 72-year-old male chronic alcoholic presents by ambulance with vomiting and diarrhea for 24 hours. Patient denies fever, chills, hematemesis, or melena. Patient denies dysuria. Patient denies consumption of bad food or exposure to ill contacts. Patient denies recent antibiotic use. Patient states he wants medical detox. Patient admits to recent alcohol ingestion. REVIEW OF SYSTEMS: Respiratory: No cough, no dyspnea. Cardiovascular: No chest pain, no palpitations. Gastrointestinal: As above Musculoskeletal: No back pain. Allergies: Coded Allergies: No Known Drug Allergies (Verified , 03/03/18) Home Meds Active Scripts Ondansetron (ZOFRAN ODT) 4 Mg Tab.rapdis, 4 MG SL Q6H PRN for NAUSEA/VOMITING, #12 TAB.VIMAL Prov:EMILY VILLALTA DO 03/04/18 Sodium Chloride (SODIUM CHLORIDE) 1 Gm Tab, 1 GM FT QDAY, #30 TAB Prov:ALVARO SHAW DO 12/24/17 Reported Medications Nystatin (NYSTOP) 60 Gm Powder, 1 RACHEL TP BID Finish remainder of Nystop from hospital. 11/13/17 Thiamine Hcl (THIAMINE HCL) 100 Mg Tablet, 100 MG PO DAILY 12/26/16 Folic Acid (FOLIC ACID) 1 Mg Tablet, 1 MG PO QDAY, TAB 12/26/16 Citalopram Hydrobromide (CITALOPRAM HBR) 20 Mg Tablet, 20 MG PO QDAY, #5 TAB 12/23/16 Menthol (BENGAY) 113 Gm Gel..gram., 1 GM TP QID PRN for PAIN 12/23/16 Cyanocobalamin (Vitamin B-12) (CYANOCOBALAMIN INJECTION) 1,000 Mcg/1 Ml Vial, 1000 MCG IJ Q2WK, VIAL 12/23/16 Metoprolol Tartrate (METOPROLOL TARTRATE) 25 Mg Tablet, 1 TAB PO BID, TAB 12/23/16 Apixaban (ELIQUIS) 2.5 Mg Tablet, 2 TAB PO BID 08/15/16 Amlodipine Besylate (AMLODIPINE BESYLATE) 5 Mg Tablet, 1 TAB PO QDAY, TAB 08/15/16 Tamsulosin Hcl (TAMSULOSIN HCL) 0.4 Mg Cap.er.24h, 0.4 MG PO HS, CAP 08/15/16 Multivitamin (MULTIVITAMINS) 1 Each Capsule, 1 EACH PO QDAY, CAPSULE 08/15/16 Lisinopril (LISINOPRIL) 20 Mg Tablet, 20 MG PO DAILY, TAB 08/15/16 Magnesium Oxide (MAGNESIUM OXIDE) 400 Mg Tablet, 2 CAP PO TID 08/15/16 Cholecalciferol (Vitamin D3) (VITAMIN D3) 1,000 Unit Capsule, 1000 UNIT PO QDAY, CAPSULE 08/15/16 Past Medical/Surgical History Patient has a past medical history of syncope, hypertension, hyperlipidemia, ulcers, reflux, fractured ribs, fibula fracture, spinal stenosis, bilateral cataracts, type 2 diabetes, hypomagnesemia, hyponatremia, rash, alcohol abuse. Patient has surgical history of pacemaker, cataract surgery. Patient has a family medical history of diabetes. Reviewed Nurses Notes: Yes Old Medical Records Reviewed: Yes Hx Smoking: No Smoking Status: Never Smoker Exposure to Second Hand Smoke?: No Hx Substance Use Disorder: No Hx Alcohol Use: Yes Constitutional Vital Sign - Last 24 Hours 03/03/18 23:17 Temp 99.6 Pulse 68 Resp 20 B/P (MAP) 108/70 Pulse Ox 95 O2 Delivery Room Air Physical Exam General Appearance: The patient is alert, has no immediate need for airway protection and no current signs of toxicity. Vital signs stable, afebrile, pulse ox normal. Palpation of the head and neck reveal no tenderness or trauma HEENT: Pupils equal and round no injection. Anicteric sclera, oropharynx with redness, odor of EtOH and emesis Respiratory: Chest is non tender, lungs are clear to auscultation. Cardiac: regular rate and rhythm Gastrointestinal: Abdomen is soft and non tender, no masses, bowel sounds normal. Musculoskeletal: Neck: Neck is supple and non tender. No lymphadenopathy Extremities have full range of motion and are non tender. No edema Skin: No rashes or lesions. DIFFERENTIAL DIAGNOSIS: After history and physical exam differential diagnosis was considered for abdominal pain including but not limited to appendicitis, cholecystitis, gastritis , alcohol dependence, alcohol withdrawal, and urinary tract infection. Medical Decision Making Data Points Result Diagram: 03/03/18 6341 03/03/18 2351 Laboratory Hematology Test 03/03/18 23:51 Red Blood Count 5.05 M/uL (4.00-5.60) Mean Corpuscular Volume 96.0 fL (80.0-96.0) Mean Corpuscular Hemoglobin 33.4 pg (26.0-33.0) Mean Corpuscular Hemoglobin Concent 34.7 g/dL (32.0-36.0) Red Cell Distribution Width 14.6 % (11.5-14.5) Mean Platelet Volume 7.2 fL (7.2-11.1) Neutrophils (%) (Auto) 47.8 % (39.4-72.5) Lymphocytes (%) (Auto) 35.4 % (17.6-49.6) Monocytes (%) (Auto) 15.3 % (4.1-12.4) Eosinophils (%) (Auto) 0.8 % (0.4-6.7) Basophils (%) (Auto) 0.7 % (0.3-1.4) Nucleated RBC Relative Count (auto) 0.1 /100WBC Neutrophils # (Auto) 3.1 K/uL (2.0-7.4) Lymphocytes # (Auto) 2.3 K/uL (1.3-3.6) Monocytes # (Auto) 1.0 K/uL (0.3-1.0) Eosinophils # (Auto) 0.0 K/uL (0.0-0.5) Basophils # (Auto) 0.0 K/uL (0.0-0.1) Nucleated RBC Absolute Count (auto) 0.01 K/uL Sodium Level 131 mmol/L (137-145) Potassium Level 3.0 mmol/L (3.5-5.0) Chloride Level 89 mmol/L (98-107) Carbon Dioxide Level 29 mmol/L (22-30) Blood Urea Nitrogen 6 mg/dl (9-21) Creatinine 0.80 mg/dl (0.66-1.25) Glomerular Filtration Rate Calc > 60.0 Random Glucose 133 mg/dl (75-110) Lactate 3.8 mmol/L (0.7-2.1) Calcium Level 8.1 mg/dl (8.4-10.2) Magnesium Level 1.2 mg/dl (1.7-2.2) Total Bilirubin 1.0 mg/dl (0.2-1.3) Aspartate Amino Transf (AST/SGOT) 75 U/L (0-35) Alanine Aminotransferase (ALT/SGPT) 73 U/L (0-56) Alkaline Phosphatase 67 U/L (0-126) Ammonia < 9 UMOL/L (9-33) Total Protein 6.4 g/dl (6.3-8.2) Albumin 3.2 g/dl (3.5-5.0) Salicylates Level 16 mg/L Salicylate Last Dose Date unk Acetaminophen Level < 10 ug/ml Serum Alcohol 93 mg/dl Chemistry Test 03/03/18 23:51 White Blood Count 6.5 k/uL (4.5-11.0) Red Blood Count 5.05 M/uL (4.00-5.60) Hemoglobin 16.8 g/dL (14.0-18.0) Hematocrit 48.5 % (42.0-52.0) Mean Corpuscular Volume 96.0 fL (80.0-96.0) Mean Corpuscular Hemoglobin 33.4 pg (26.0-33.0) Mean Corpuscular Hemoglobin Concent 34.7 g/dL (32.0-36.0) Red Cell Distribution Width 14.6 % (11.5-14.5) Platelet Count 153 K/uL (150-450) Mean Platelet Volume 7.2 fL (7.2-11.1) Neutrophils (%) (Auto) 47.8 % (39.4-72.5) Lymphocytes (%) (Auto) 35.4 % (17.6-49.6) Monocytes (%) (Auto) 15.3 % (4.1-12.4) Eosinophils (%) (Auto) 0.8 % (0.4-6.7) Basophils (%) (Auto) 0.7 % (0.3-1.4) Nucleated RBC Relative Count (auto) 0.1 /100WBC Neutrophils # (Auto) 3.1 K/uL (2.0-7.4) Lymphocytes # (Auto) 2.3 K/uL (1.3-3.6) Monocytes # (Auto) 1.0 K/uL (0.3-1.0) Eosinophils # (Auto) 0.0 K/uL (0.0-0.5) Basophils # (Auto) 0.0 K/uL (0.0-0.1) Nucleated RBC Absolute Count (auto) 0.01 K/uL Glomerular Filtration Rate Calc > 60.0 Lactate 3.8 mmol/L (0.7-2.1) Calcium Level 8.1 mg/dl (8.4-10.2) Magnesium Level 1.2 mg/dl (1.7-2.2) Total Bilirubin 1.0 mg/dl (0.2-1.3) Aspartate Amino Transf (AST/SGOT) 75 U/L (0-35) Alanine Aminotransferase (ALT/SGPT) 73 U/L (0-56) Alkaline Phosphatase 67 U/L (0-126) Ammonia < 9 UMOL/L (9-33) Total Protein 6.4 g/dl (6.3-8.2) Albumin 3.2 g/dl (3.5-5.0) Salicylates Level 16 mg/L Salicylate Last Dose Date unk Acetaminophen Level < 10 ug/ml Serum Alcohol 93 mg/dl Toxicology Test 03/03/18 23:51 Salicylates Level 16 mg/L Salicylate Last Dose Date unk Acetaminophen Level < 10 ug/ml Serum Alcohol 93 mg/dl EKG/Imaging EKG Interpretation 12 lead EK Rhythm: Electronic pacemaker, rate 60 bpm [place]: normal QRS: normal ST segments: normal, comparison to previous EKG dated 01/08/18 to begin change in morphology of pacemaker ED Course/Re-evaluation Clinical Indication for ER IV: Hydration, IV Access ED Course Patient was admitted to an examination room. H&P was done. The differential diagnoses was considered. On clinical examination. Patient presents with vomiting. He is in alcohol withdrawal. He's a chronic alcoholic. Patient was requesting detox. Unfortunately there are no beds available in [facility] for detox tonight. I spoke with the patient at length offering him other options. He would like to go home with medicine to control his vomiting and stop drinking on his own. Patient's diagnostic studies show a blood alcohol and 93. Hypokalem ia. Patient does have a history of hypomagnesemia and hypokalemia. He was previously admitted with a sodium of 119.. Patient having diarrhea. Likely secondary to food poisoning or gastroenteritis. Patient was treated with an IV banana bag. Zofran 4 mg IV with improvement of his symptoms. He would like to go home. He is given a prescription for oral Zofran sublingual. Decision to Disposition Date: Mar 04, 2018 Decision to Disposition Time: 00:56 Depart Departure Latest Vital Signs Vital Signs Date Time Temp Pulse Resp B/P (MAP) Pulse Ox O2 Delivery O2 Flow Rate FiO2 03/03/18 23:17 99.6 68 20 108/70 95 Room Air Impression: Primary Impression: Alcohol use disorder, severe, dependence Additional Impressions: Vomiting Hypokalemia Hyponatremia Condition: Improved Disposition: HOME OR SELF-CARE New Scripts Ondansetron (ZOFRAN ODT) 4 Mg Tab.rapdis 4 MG SL Q6H PRN for NAUSEA/VOMITING, #12 TAB.VIMAL Prov: EMILY VILLALTA DO 03/04/18 Patient Instructions: Alcohol Dependence (ED) Additional Instructions: Stop drinking alcohol Follow up with your primary care next week Problem Qualifiers Additional Impressions: Vomiting Vomiting type: unspecified Vomiting Intractability: unspecified Nausea presence: unspecified Qualified Codes: R11.10 - Vomiting, unspecified EMILY VILLALTA DO Mar 03, 2018 23:17
[2018-03-03] MEDS ORDERED: THIAMINE HCL(*) 200 MG/2 ML IN 100 MG, FOLIC ACID(*) 50 MG/10 ML INJ 1 MG, MULTIVITAMIN... IV ONE (23:18)
--- NOTE | 2018-03-04 00:09 | EKG ---
FACILITY: [facility] PATIENT NAME: ALVARO POWELL : [id number] MR: [id number]: [id number] EXAM DATE: ORDERING PHYSICIAN: EMILY VILLALTA TECHNOLOGIST: LANCE Test Reason : DETOX Blood Pressure : / mmHG Vent. Rate : 060 BPM Atrial Rate : 220 BPM P-R Int : 000 ms QRS Dur : 168 ms QT Int : 500 ms P-R-T Axes : 000 -83 077 degrees QTc Int : 500 ms Electronic ventricular pacemaker When compared with ECG of 08-JAN-2018 11:43, Electronic ventricular pacemaker has replaced Atrial fibrillation Confirmed by DOMONIQUE CALERO ([id number]) on 03/04/2018 6:35:16 AM Referred By: AMBAR Confirmed By:DOMONIQUE CALERO
[2018-03-04 00:16] LABS: PLATELET COUNT, AUTOMATED 153 K/uL (150-450)
[2018-03-04] MEDS ORDERED: ONDANSETRON 4 MG ODT TH SL ONE (00:55)
[2018-03-04] MEDS ORDERED: POTASSIUM CHL 20 MEQ TABCR PO ONE (00:55)
[2018-03-04] MEDS ORDERED: ONDA4TAB SL (00:59)
== END 2018-03-04 01:20 | disposition home or self-care (01) ==
LOC: ER 23:49
DX: F10.230 Alcohol dependence with withdrawal, uncomplicated (principal); R11.10 Vomiting, unspecified; E87.6 Hypokalemia; E87.1 Hypo-osmolality and hyponatremia; Y90.4 Blood alcohol level of 80-99 mg/100 ml
CPT/HCPCS: 82140; 83605; 83735; 84443; 85025; 93005; 96365; 99283; A9270; G0480; J3411; J3475; J7030; Q0162; 80320; 80329; 82040; 82247; 82310; 82374; 82435; 82565; 82947; 84075; 84132; 84155; 84295; 84450; 84460; 84520; S0119

== ENCOUNTER → 2018-03-03 | Outpatient (CLI) | payer MEDICARE, MEDICAID ==
[2017-12-23 13:02] VITALS: BMI 28.9
[~2018-03-03] MED LIST changes: +ONDA4TAB SL
== END ==
LOC: AMB 22:59
PROVIDERS: ATTEND Nurse Practitioner
DX: F10.120 Alcohol abuse with intoxication, uncomplicated (principal); R11.10 Vomiting, unspecified
CPT/HCPCS: A0425; A0429

== ENCOUNTER 2018-03-15 13:50 | Emergency (ER) | payer MEDICARE, MEDICAID ==
[2017-12-23 13:02] VITALS: Wt 91.0 kg
[~2018-03-15 13:50] MED LIST changes: -ACID1TAB2 PO; -BENGAY TP; -ESCI20TA38 PO; -LOPE2CAP15 PO; -MAG-65 PO
[2018-03-15] MEDS ORDERED: THIAMINE HCL(*) 200 MG/2 ML IN 100 MG, FOLIC ACID(*) 50 MG/10 ML INJ 1 MG, MULTIVITAMIN... IV ONE (14:18)
[2018-03-15 14:33] LABS: PLATELET COUNT, AUTOMATED 158 K/uL (150-450)
--- NOTE | 2018-03-15 14:33 | ER Report ---
History and Physical Time Seen By MD: 14:05 Hx. of Stated Complaint: Patient here for alcohol detox. Also states he has bed sores on his buttocks. BS 111 on scene (YAYO MYLES DO) HPI/ROS CHIEF COMPLAINT: I want detox HISTORY OF PRESENT ILLNESS: Pt states that he and his doctors have a plan for him to be admitted for detox and then to go to a group/intermediate for 20 days to follow. PT states he has been struggling alcoholic for 50 years. Pt states he has been sober for 6 months in the past but that was a while ago. Pt last drink was prior to arrival. Pt states that he also has a bed sore on his buttocks. Pt denies any fevers. no chills. PT denies using other drugs. Pt does states he knows his electrolytes are sometimes off and would like them checked. Not homicidal or suicidal REVIEW OF SYSTEMS: Constitutional: No fever, no chills. Eyes: No discharge. ENT: No sore throat. Cardiovascular: No chest pain, no palpitations. Respiratory: No cough, no shortness of breath. Gastrointestinal: No abdominal pain, no vomiting. Genitourinary: No hematuria. Musculoskeletal: No back pain. Skin: No rashes, + pressure sore on left buttocks Neurological: No headache. (YAYO MYLES DO) Allergies: Coded Allergies: No Known Drug Allergies (Verified , 03/15/18) Home Meds Active Scripts Ondansetron (ZOFRAN ODT) 4 Mg Tab.rapdis, 4 MG SL Q6H PRN for NAUSEA/VOMITING, #12 TAB.VIMAL Prov:EMILY VILLALTA DO 03/04/18 Sodium Chloride (SODIUM CHLORIDE) 1 Gm Tab, 1 GM FT QDAY, #30 TAB Prov:ALVARO SHAW DO 12/24/17 Reported Medications Nystatin (NYSTOP) 60 Gm Powder, 1 RACHEL TP BID Finish remainder of Nystop from hospital. 11/13/17 Thiamine Hcl (THIAMINE HCL) 100 Mg Tablet, 100 MG PO DAILY 12/26/16 Folic Acid (FOLIC ACID) 1 Mg Tablet, 1 MG PO QDAY, TAB 12/26/16 Citalopram Hydrobromide (CITALOPRAM HBR) 20 Mg Tablet, 20 MG PO QDAY, #5 TAB 12/23/16 Menthol (BENGAY) 113 Gm Gel..gram., 1 GM TP QID PRN for PAIN 12/23/16 Cyanocobalamin (Vitamin B-12) (CYANOCOBALAMIN INJECTION) 1,000 Mcg/1 Ml Vial, 1000 MCG IJ Q2WK, VIAL 12/23/16 Metoprolol Tartrate (METOPROLOL TARTRATE) 25 Mg Tablet, 1 TAB PO BID, TAB 12/23/16 Apixaban (ELIQUIS) 2.5 Mg Tablet, 2 TAB PO BID 08/15/16 Amlodipine Besylate (AMLODIPINE BESYLATE) 5 Mg Tablet, 1 TAB PO QDAY, TAB 08/15/16 Tamsulosin Hcl (TAMSULOSIN HCL) 0.4 Mg Cap.er.24h, 0.4 MG PO HS, CAP 08/15/16 Multivitamin (MULTIVITAMINS) 1 Each Capsule, 1 EACH PO QDAY, CAPSULE 08/15/16 Lisinopril (LISINOPRIL) 20 Mg Tablet, 20 MG PO DAILY, TAB 08/15/16 Magnesium Oxide (MAGNESIUM OXIDE) 400 Mg Tablet, 2 CAP PO TID 08/15/16 Cholecalciferol (Vitamin D3) (VITAMIN D3) 1,000 Unit Capsule, 1000 UNIT PO QDAY, CAPSULE 08/15/16 Past Medical/Surgical History Pmhx: syncope, hypertension, hyperlipidemia, ulcers, reflux, fractured ribs, fibula fracture, spinal stenosis, bilateral cataracts, type 2 diabetes, hypomagnesemia, hyponatremia, rash, alcohol abuse. Pshx: pacemaker, cataract surgery. Pfhx: diabetes. (YAYO MYLES DO) Reviewed Nurses Notes: Yes Old Medical Records Reviewed: Yes (YAYO MYLES DO) Hx Smoking: No Smoking Status: Never Smoker Exposure to Second Hand Smoke?: No Hx Substance Use Disorder: No Hx Alcohol Use: Yes (YAYO MYLES DO) Constitutional Vital Sign - Last 24 Hours 03/15/18 13:51 Temp 99.1 Pulse 74 Resp 16 B/P (MAP) 134/102 Pulse Ox 94 O2 Delivery Room Air (BELTRAN HENRIQUEZ MD) Physical Exam General Appearance: The patient is alert, has no immediate need for airway p rotection and no signs of toxicity. Eyes: Pupils equal and round no pallor or injection, EOMI ENT: no pharyngeal erythema or exudates, Mucous membranes are moist Respiratory: There are no retractions, lungs are clear to auscultation. Cardiovascular: Regular rate and rhythm. pulses are equal and symmetrical Gastrointestinal: Abdomen is soft and non tender, no masses, bowel sounds normal, no guarding, no rigidity or rebound Neurological: Cranial nerves II-XII grossly intact, no sensory or motor loss Skin: Warm and dry, no rashes, + 1.5cm circular grade 2 pressure sore on left bottocks Musculoskeletal: Neck is supple non tender, no vertebral tenderness Extremities are nontender, non swollen and have full range of motion. DIFFERENTIAL DIAGNOSIS: After history and physical exam differential diagnosis was considered for electrolyte abnl, pressure sore secondary to immobility, alcoholic (LAURORA,YAYO V DO) Medical Decision Making Data Points Result Diagram: 03/15/18 1350 03/15/18 1350 Laboratory Hematology Test 03/15/18 13:50 03/15/18 16:00 03/15/18 16:50 Red Blood Count 5.34 M/uL (4.00-5.60) Mean Corpuscular Volume 98.4 fL (80.0-96.0) Mean Corpuscular Hemoglobin 34.5 pg (26.0-33.0) Mean Corpuscular Hemoglobin Concent 35.1 g/dL (32.0-36.0) Red Cell Distribution Width 16.0 % (11.5-14.5) Mean Platelet Volume 7.5 fL (7.2-11.1) Neutrophils (%) (Auto) 50.5 % (39.4-72.5) Lymphocytes (%) (Auto) 37.7 % (17.6-49.6) Monocytes (%) (Auto) 10.9 % (4.1-12.4) Eosinophils (%) (Auto) 0.4 % (0.4-6.7) Basophils (%) (Auto) 0.5 % (0.3-1.4) Nucleated RBC Relative Count (auto) 0.2 /100WBC Neutrophils # (Auto) 3.5 K/uL (2.0-7.4) Lymphocytes # (Auto) 2.6 K/uL (1.3-3.6) Monocytes # (Auto) 0.8 K/uL (0.3-1.0) Eosinophils # (Auto) 0.0 K/uL (0.0-0.5) Basophils # (Auto) 0.0 K/uL (0.0-0.1) Nucleated RBC Absolute Count (auto) 0.01 K/uL Peripheral Blood Smear No Y/N Sodium Level 131 mmol/L (137-145) Potassium Level 3.6 mmol/L (3.5-5.0) Chloride Level 90 mmol/L (98-107) Carbon Dioxide Level 27 mmol/L (22-30) Blood Urea Nitrogen 5 mg/dl (9-21) Creatinine 0.80 mg/dl (0.66-1.25) Glomerular Filtration Rate Calc > 60.0 Random Glucose 139 mg/dl (75-110) Calcium Level 7.9 mg/dl (8.4-10.2) Total Bilirubin 2.4 mg/dl (0.2-1.3) Aspartate Amino Transf (AST/SGOT) 181 U/L (0-35) Alanine Aminotransferase (ALT/SGPT) 113 U/L (0-56) Alkaline Phosphatase 76 U/L (0-126) Total Protein 7.4 g/dl (6.3-8.2) Albumin 3.6 g/dl (3.5-5.0) Thyroid Stimulating Hormone (TSH) 0.89 uIU/ml (0.46-4.68) Salicylates Level < 10 mg/L Salicylate Last Dose Date unknown Acetaminophen Level < 10 ug/ml Serum Alcohol 236 mg/dl Urine Color Yellow Urine Clarity Clear Urine pH 6.0 pH (4.8-9.5) Urine Specific [place] 1.009 Urine Protein Negative mg/dL (NEGATIVE) Urine Glucose (UA) Negative mg/dL (NEGATIVE) Urine Ketones Negative mg/dL (NEGATIVE) Urine Blood Negative (NEGATIVE) Urine Nitrite Negative (NEGATIVE) Urine Bilirubin Negative (NEGATIVE) Urine Urobilinogen Negative mg/dL (0.2-1.9) Urine Leukocyte Esterase Negative (NEGATIVE) Urine RBC None /HPF (0-2/HPF) Urine WBC <1 /HPF (0-5/HPF) Urine Squamous Epithelial Cells None /LPF (</=FEW) Urine Bacteria Negative /HPF (NONE-FEW) Urine Hyaline Casts Many /LPF (NONE-FEW) Urine Mucus Few /HPF (NONE-FEW) Urine Opiates Screen Negative Urine Barbiturates Screen Negative Ur Tricyclic Antidepressants Screen Negative Urine Phencyclidine Screen Negative Urine Amphetamines Screen Negative Urine Benzodiazepines Screen Negative Urine Cocaine Screen Negative Urine Cannabinoids Screen Negative Magnesium Level 1.9 mg/dl (1.7-2.2) Chemistry Test 03/15/18 13:50 03/15/18 16:00 03/15/18 16:50 White Blood Count 6.9 k/uL (4.5-11.0) Red Blood Count 5.34 M/uL (4.00-5.60) Hemoglobin 18.4 g/dL (14.0-18.0) Hematocrit 52.5 % (42.0-52.0) Mean Corpuscular Volume 98.4 fL (80.0-96.0) Mean Corpuscular Hemoglobin 34.5 pg (26.0-33.0) Mean Corpuscular Hemoglobin Concent 35.1 g/dL (32.0-36.0) Red Cell Distribution Width 16.0 % (11.5-14.5) Platelet Count 158 K/uL (150-450) Mean Platelet Volume 7.5 fL (7.2-11.1) Neutrophils (%) (Auto) 50.5 % (39.4-72.5) Lymphocytes (%) (Auto) 37.7 % (17.6-49.6) Monocytes (%) (Auto) 10.9 % (4.1-12.4) Eosinophils (%) (Auto) 0.4 % (0.4-6.7) Basophils (%) (Auto) 0.5 % (0.3-1.4) Nucleated RBC Relative Count (auto) 0.2 /100WBC Neutrophils # (Auto) 3.5 K/uL (2.0-7.4) Lymphocytes # (Auto) 2.6 K/uL (1.3-3.6) Monocytes # (Auto) 0.8 K/uL (0.3-1.0) Eosinophils # (Auto) 0.0 K/uL (0.0-0.5) Basophils # (Auto) 0.0 K/uL (0.0-0.1) Nucleated RBC Absolute Count (auto) 0.01 K/uL Peripheral Blood Smear No Y/N Glomerular Filtration Rate Calc > 60.0 Calcium Level 7.9 mg/dl (8.4-10.2) Total Bilirubin 2.4 mg/dl (0.2-1.3) Aspartate Amino Transf (AST/SGOT) 181 U/L (0-35) Alanine Aminotransferase (ALT/SGPT) 113 U/L (0-56) Alkaline Phosphatase 76 U/L (0-126) Total Protein 7.4 g/dl (6.3-8.2) Albumin 3.6 g/dl (3.5-5.0) Thyroid Stimulating Hormone (TSH) 0.89 uIU/ml (0.46-4.68) Salicylates Level < 10 mg/L Salicylate Last Dose Date unknown Acetaminophen Level < 10 ug/ml Serum Alcohol 236 mg/dl Urine Color Yellow Urine Clarity Clear Urine pH 6.0 pH (4.8-9.5) Urine Specific [place] 1.009 Urine Protein Negative mg/dL (NEGATIVE) Urine Glucose (UA) Negative mg/dL (NEGATIVE) Urine Ketones Negative mg/dL (NEGATIVE) Urine Blood Negative (NEGATIVE) Urine Nitrite Negative (NEGATIVE) Urine Bilirubin Negative (NEGATIVE) Urine Urobilinogen Negative mg/dL (0.2-1.9) Urine Leukocyte Esterase Negative (NEGATIVE) Urine RBC None /HPF (0-2/HPF) Urine WBC <1 /HPF (0-5/HPF) Urine Squamous Epithelial Cells None /LPF (</=FEW) Urine Bacteria Negative /HPF (NONE-FEW) Urine Hyaline Casts Many /LPF (NONE-FEW) Urine Mucus Few /HPF (NONE-FEW) Urine Opiates Screen Negative Urine Barbiturates Screen Negative Ur Tricyclic Antidepressants Screen Negative Urine Phencyclidine Screen Negative Urine Amphetamines Screen Negative Urine Benzodiazepines Screen Negative Urine Cocaine Screen Negative Urine Cannabinoids Screen Negative Magnesium Level 1.9 mg/dl (1.7-2.2) Toxicology Test 03/15/18 13:50 03/15/18 16:00 Salicylates Level < 10 mg/L Salicylate Last Dose Date unknown Acetaminophen Level < 10 ug/ml Serum Alcohol 236 mg/dl Urine Opiates Screen Negative Urine Barbiturates Screen Negative Ur Tricyclic Antidepressants Screen Negative Urine Phencyclidine Screen Negative Urine Amphetamines Screen Negative Urine Benzodiazepines Screen Negative Urine Cocaine Screen Negative Urine Cannabinoids Screen Negative Urinalysis Test 03/15/18 16:00 Urine Color Yellow Urine Clarity Clear Urine pH 6.0 pH (4.8-9.5) Urine Specific [place] 1.009 Urine Protein Negative mg/dL (NEGATIVE) Urine Glucose (UA) Negative mg/dL (NEGATIVE) Urine Ketones Negative mg/dL (NEGATIVE) Urine Blood Negative (NEGATIVE) Urine Nitrite Negative (NEGATIVE) Urine Bilirubin Negative (NEGATIVE) Urine Urobilinogen Negative mg/dL (0.2-1.9) Urine Leukocyte Esterase Negative (NEGATIVE) Urine RBC None /HPF (0-2/HPF) Urine WBC <1 /HPF (0-5/HPF) Urine Squamous Epithelial Cells None /LPF (</=FEW) Urine Bacteria Negative /HPF (NONE-FEW) Urine Hyaline Casts Many /LPF (NONE-FEW) Urine Mucus Few /HPF (NONE-FEW) (BELTRAN HENRIQUEZ MD) ED Course/Re-evaluation Clinical Indication for ER IV: IV Access ED Course Consult wound care for the pressure sore. Check labs. 03/15/2018 2:59:11 pm Pts Magnesium level is low. Had 1gram in the banana bag but will order a second gram of magnesium. Will page Dr. Prater to discuss case. 03/15/2018 3:24:[address] Mckinley accepts the patient but would like him down in the emergency room for a repeat magnesium level to show improvement before he goes upstairs. Decision to Disposition Date: Mar 15, 2018 (YAYO MYLES DO) ED Course Repeat Magnesium level is normal. Decision to Disposition Date: Mar 15, 2018 Decision to Disposition Time: 17:35 (BELTRAN HENRIQUEZ MD) Depart Departure Latest Vital Signs Vital Signs Date Time Temp Pulse Resp B/P (MAP) Pulse Ox O2 Delivery O2 Flow Rate FiO2 03/15/18 13:51 99.1 74 16 134/102 94 Room Air (BELTRAN HENRIQUEZ MD) Impression: Primary Impression: Hypomagnesemia Additional Impressions: Alcohol intoxication Alcohol abuse Pressure ulcer of left buttock, stage 2 Condition: Condition Unchanged Disposition: XFER TO [facility] Problem Qualifiers Additional Impressions: Alcohol intoxication Complication of substance-induced condition: uncomplicated Qualified Codes: F10.920 - Alcohol use, unspecified with intoxication, uncomplicated YAYO MYLES DO Mar 15, 2018 14:33 BELTRAN HENRIQUEZ MD Mar 15, 2018 17:35
[2018-03-15] MEDS ORDERED: MAGNESIUM SUL/D5W* 1 GM/100 ML 100 ML IVPB ONE (14:55)
[2018-03-15] MEDS ORDERED: POTASSIUM CHL 20 MEQ TABCR PO ONE (15:25)
[2018-03-15 16:30] VITALS: BP 128/98
[2018-03-15] MEDS ORDERED: ESCI20TA38 PO (22:30)
== END 2018-03-15 17:46 ==
LOC: ER 14:09
DX: E83.42 Hypomagnesemia (principal); F10.229 Alcohol dependence with intoxication, unspecified; L89.322 Pressure ulcer of left buttock, stage 2
CPT/HCPCS: 80305; 81001; 83735; 84443; 85025; 96365; 96366; 96368; 99284; A9270; G0480; J3411; J3475; J7030; 80320; 80329; 82040; 82247; 82310; 82374; 82435; 82565; 82947; 84075; 84132; 84155; 84295; 84450; 84460; 84520; 97161

== ENCOUNTER 2018-03-15 16:17 | Inpatient (IN) | payer MEDICARE, MEDICAID ==
[2017-12-23 13:02] VITALS: Ht 172.7 cm; Wt 90.7 kg
[~2018-03-15] VITALS: Ht 172.7 cm; Wt 90.7 kg
[2018-03-15 18:00] VITALS: BP 130/85
[2018-03-15 22:00] VITALS: BP 130/85
[2018-03-15] MEDS ORDERED: ESCI20TA38 PO (22:30)
[2018-03-15] MEDS: APIXABAN 2.5 MG TABLET PO SCH (23:38)
[2018-03-15] MEDS: MAGNESIUM OXIDE 400 MG TAB PO SCH (23:38)
[2018-03-15] MEDS: TAMSULOSIN HCL 0.4 MG CAP PO SCH (23:38)
[2018-03-15] MEDS: MAG HYD/AL HYD/SIMETH 30ML UDC PO PRN (23:45)
[2018-03-16] VITALS (7 sets, daily range): BP systolic 108–141; BP diastolic 61–92
[2018-03-16] MEDS ORDERED: ACETAMINOPHEN 325 MG TAB PO PRN (00:55)
[2018-03-16] MEDS: LOPERAMIDE HCL 2 MG CAP PO PRN ×6 (02:33→18:30)
[2018-03-16] MEDS: DIAZEPAM 10 MG TAB PO PRN ×2 (07:50→11:49)
[2018-03-16 08:14] LABS: PLATELET COUNT, AUTOMATED 126 K/uL (150-450)
[2018-03-16] MEDS: MAGNESIUM OXIDE 400 MG TAB PO SCH ×3 (08:18→21:25)
[2018-03-16] MEDS: FOLIC ACID 1 MG TAB PO SCH (08:18)
[2018-03-16] MEDS: amLODIPine BESYL(*) 5 MG TAB PO SCH (08:18)
[2018-03-16] MEDS: MULTIVITAMINS TAB PO SCH (08:19)
[2018-03-16] MEDS: THIAMINE HCL 100 MG TAB PO SCH (08:19)
[2018-03-16] MEDS: CHOLECALCIFEROL 1000 UNIT TAB PO SCH (08:19)
[2018-03-16] MEDS: LISINOPRIL 20 MG TAB PO SCH (08:19)
[2018-03-16] MEDS: APIXABAN 2.5 MG TABLET PO SCH ×2 (08:27→21:26)
[2018-03-16] MEDS: ESCITALOPRAM OXALATE 10 MG TAB PO SCH (08:27)
[2018-03-16] MEDS: MAG HYD/AL HYD/SIMETH 30ML UDC PO PRN ×2 (10:12→16:56)
--- NOTE | 2018-03-16 14:41 | SCHAAF H&P ---
DATE OF ADMISSION: March 15, 2018 Patient was seen on 03/16/2018 at approximately 0825 hours for a note concerning this dictation. ATTENDING PHYSICIAN Sloan Prater MD PRESENTING PROBLEM, CHIEF COMPLAINT Treatment for alcohol withdrawal. HISTORY OF PRESENT ILLNESS This is very well known 72-year-old male who was last on the Behavioral Health floor for alcohol withdrawal on 11/08/2017 to 11/13/2017. Patient once again discharged at that time back to home where he was followed closely by [facility]. Patient has some sporadic periods of abstinence, but overall has been in a repeated pattern of slow relapses culminating in hospital admissions. At this time, patient starting that he wants help with alcohol withdrawals so he can "enter a alf for 20 days." Patient decompensating overall slowly with AIDS and the effects of chronic alcoholism. Patient's apartment is in a state of disrepair at this time per [facility] staff. Patient himself happy appearing with bright affect interacting with this provider in active alcohol withdrawal, remembering this provider well and did not seem to have any significant cognitive impairment. Patient denies any other symptoms of psychiatric concern. MENTAL HEALTH HISTORY The patient has been hospitalized at [facility] here on numerous occasions. Patient has at times been hospitalized on a medical floor due to electrolyte abnormality as well, particularly chronic hypomagnesemia. Patient continues to follow up with [facility] at home at this time. No history of suicide attempt. No history of residential alcohol treatment is believed to have taken place in the patient's history. MEDICATIONS The patient has been on [*] FAMILY PSYCHIATRIC HISTORY The patient noted that his mother and father drank a lot on previous admissions. No other genetic psychiatric illnesses were noted. Patient was adopted outside of his biological home at the early age of 1. PAST MEDICAL HISTORY The patient suffers from noninsulin-dependent diabetes in the past. History of significant pain from spinal stenosis, limited ambulation concerns, hypertension, obesity, history of gout likely related to alcohol consumption, history of severe and significant hypomagnesemia, and this has long-term being treated with infusions in the past here at [facility]. SOCIAL HISTORY The patient was born in [place] and raised there. Parents at the time of his . Patient was adopted into another family at the age of 1. He reports after this having a good childhood free of sexual, emotional, or physical abuse. Patient graduated high school, attended one semester of college. Patient has worked for the [employer] in the past. 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 Patient not currently . He is . He is not believed to have a significant other, and he is heterosexual. Patient has two grown children living in [place]. Some limited contract with them in the past. The patient is last known to be living in [facility] having Home Healthcare nurse and in-home mental health treatment ongoing from [facility]. LEGAL HISTORY Not believed to be under any legal concerns at this time. SUBSTANCE ABUSE HISTORY Notable for longstanding chronic alcohol dependence. Patient had had relatively long periods of sobriety in the past. He is not believed to have smoked tobacco or use other illicit substances now. PHYSICAL EXAMINATION Please see emergency room note notable for 72-year-old male and somewhat physically compromised at time of admission. Vital signs at the time of admission: Temperature 99.1, pulse 74, respiratory rate 16, blood pressure 134/102 and pulse oximetry 94% on room air. LABORATORY DATA CBC upon admission notable for hemoglobin 18.4 and elevated, hematocrit 52.5 and elevated, MCV 98.4 and elevated, MCH 34.5 and elevated, platelet count at 158 upon admission. Chemistry panel notable for magnesium of 0.9. This was corrected to 1.9 in the emergency room before being brought to the Behavioral Health floor. Total bilirubin 2.4 with a AST of 181 and ALT of 113. Potassium noted to be normal with 3.6. Urinalysis showed hyaline cast present. Toxicology screen negative for substance abuse with serum alcohol level of 236. MENTAL STATUS EXAMINATION GENERAL APPEARANCE, BEHAVIOR AND ATTITUDE: This is a somewhat disheveled appearing 72-year-old male, smiling at this provider, making good eye contact. Psychomotor agitation associated with ongoing alcohol withdrawal present. No periods of tearfulness. No bizarre mannerisms or tics. SPEECH: Considered to be baseline in this patient, but complicated by active alcohol withdrawal. MOOD: Frustrated somewhat. AFFECT: Full and bright and overall mood-congruent. THOUGHT PROCESSES: Goal-directed. Patient reporting that he wants to detox and then go to the alf for a period of 20 days. No loose associations or flight of ideas. THOUGHT CONTENT: Free of auditory or visual hallucinations, ideas of reference, thought broadcastings, delusions, obsessions or compulsions. The patient denying suicidal or homicidal ideations. SENSORIUM: Clear. COGNITION: Alert and oriented to person, place, time and situation. MEMORY: Immediate, recent and remote grossly intact. INTELLIGENCE: Average, based on historical knowledge of this patient as well as multiple admissions here. INSIGHT AND JUDGMENT: Considered grossly intact in the absence of ongoing alcohol use. ASSESSMENT This is a very well known 72-year-old male. Continues to suffer from ongoing alcohol independence with limited ability now to maintain his independence with Home Health nursing and [facility] present. At this time, the patient himself stating he would like to enter the alf for a period of "20 days" to get back on his feet. We will continue to evaluate, and we will treat alcohol withdrawal to completion. DIAGNOSES 1. Alcohol withdrawal. 2. Alcohol use disorder, severe. 3. Past history of noninsulin-dependent diabetes mellitus. 4. Chronic hypomagnesemia. 5. Limited mobility. 6. Supportive care with [facility]. PLAN 1. Admit to the unit. 2. Necessary precautions will be implemented. 3. The patient will participate in individual and group therapy as tolerated. 4. Medications will be given. Patient will continue outpatient medications, and alcohol withdrawal to be treated with diazepam per [facility] [place] Withdrawal Assessment protocol. 5. Collateral information to be obtained as necessary. 6. Estimated length of stay five to seven days. MTDD
[2018-03-16] MEDS: MENTHOL/METHYL SALI CREAM 57 GM 57 GM TUBE TP PRN (17:56)
[2018-03-16] MEDS ORDERED: DIAZEPAM 10 MG TAB PO ONE (21:00)
[2018-03-16] MEDS: TAMSULOSIN HCL 0.4 MG CAP PO SCH (21:25)
[2018-03-17] MEDS: MAG HYD/AL HYD/SIMETH 30ML UDC PO PRN ×3 (00:53→17:35)
[2018-03-17] MEDS: MENTHOL/METHYL SALI CREAM 57 GM 57 GM TUBE TP PRN ×3 (01:16→21:04)
[2018-03-17 02:46] VITALS: BP 148/93
[2018-03-17 06:32] VITALS: BP 144/91
[2018-03-17 06:49] LABS: PLATELET COUNT, AUTOMATED 95 K/uL (150-450)
[2018-03-17] MEDS: APIXABAN 2.5 MG TABLET PO SCH ×2 (08:53→21:05)
[2018-03-17] MEDS: LISINOPRIL 20 MG TAB PO SCH (08:53)
[2018-03-17] MEDS: MULTIVITAMINS TAB PO SCH (08:53)
[2018-03-17] MEDS: ESCITALOPRAM OXALATE 10 MG TAB PO SCH (08:53)
[2018-03-17] MEDS: FOLIC ACID 1 MG TAB PO SCH (08:53)
[2018-03-17] MEDS: amLODIPine BESYL(*) 5 MG TAB PO SCH (08:53)
[2018-03-17] MEDS: CHOLECALCIFEROL 1000 UNIT TAB PO SCH (08:54)
[2018-03-17] MEDS: MAGNESIUM OXIDE 400 MG TAB PO SCH ×3 (08:54→21:05)
[2018-03-17] MEDS: THIAMINE HCL 100 MG TAB PO SCH (08:54)
[2018-03-17 10:50] VITALS: BP 134/62
--- NOTE | 2018-03-17 10:50 | BHS Progress Note ---
[facility] - Subjective Progress Notes Subjective "I'm good... I just need eye drops and Nystatin." Denies SI/HI. Monitoring per [facility] protocol. Alcohol withdrawal syndrome is benign. Suicidal Ideation: None Homicidal Ideation: None [facility] - Objective Physical Exam Vital Signs Vital Signs 03/16/18 03/17/18 16:50 06:32 Temp 97.3 Pulse 78 Resp 24 B/P (MAP) 144/91 (108) Pulse Ox 98 O2 Delivery Oxy Mask O2 Flow Rate 2.0 Muscle Strength and Tone: Other (poor/weak) Gait and Station: Unsteady [facility] Medications Reviewed: Side Effects, Benefits of Medication, Risks Allergies Reviewed: Yes Mental Status Exam General Appearance: No Well Groomed; Good Eye Contact, Cooperative, Polite, Good Interaction, Unkept Speech: Spontaneous, Normal Rate, Normal Rhythm, Normal Volume, Normal Tone Mood: Euthymic, Other Affect: Full and Appropriate, Calm Thought Process: Organized, Logical, Goal Directed; No Loose Associations, No Flight of Ideas Thought Content: No Suicidal Ideation, No Homicidal Ideation, No Delusions, No Auditory Halllucinations, No Visual Hallucinations, No Thought Broadcasting, No Ideas of Reference, No Obsessions, No Compulsions Sensorium: Clear Cognition: Alert & Oriented-Person, Alert & Oriented-Place, Alert & Oriented- Time, [id number]-[id number]-Xqfrzgcyp Memory: Immediate, Recent, Remote (fair) Intelligence: Average Insight Judgment: Fair Result Diagram: 03/17/1862603/17/18626 [facility] Assessment and Plan Wjhf-[id number] Encounter Date: Mar 17, 2018 Aybj-gu-Qyns Encounter Time: 10:00 Tobacco Medications: Not Appropriate Condition Multpiple Antipsychotics Used: No Problems: (1) Alcohol abuse Status: Chronic PEDRO PABLO GARAY NP Mar 17, 2018 10:50
[2018-03-17 14:50] VITALS: BP 128/68
[2018-03-17] MEDS: HYPROMELLOSE 0.4% LUB 15ML BTL OU PRN ×2 (17:39→21:09)
[2018-03-17] MEDS: TAMSULOSIN HCL 0.4 MG CAP PO SCH (21:05)
[2018-03-17] MEDS: LOPERAMIDE HCL 2 MG CAP PO PRN ×2 (21:05→23:02)
[2018-03-17] MEDS: NYSTATIN 100,000 U/GM PWD 15GM TP PRN (21:10)
[2018-03-17 23:00] VITALS: BP 125/79
[2018-03-18] MEDS: LOPERAMIDE HCL 2 MG CAP PO PRN ×2 (00:56→23:19)
[2018-03-18 06:26] VITALS: BP 132/77
[2018-03-18 06:49] LABS: PLATELET COUNT, AUTOMATED 86 K/uL (150-450)
[2018-03-18] MEDS: CHOLECALCIFEROL 1000 UNIT TAB PO SCH (07:32)
[2018-03-18] MEDS: THIAMINE HCL 100 MG TAB PO SCH (07:32)
[2018-03-18] MEDS: MAGNESIUM OXIDE 400 MG TAB PO SCH ×3 (07:32→20:19)
[2018-03-18] MEDS: amLODIPine BESYL(*) 5 MG TAB PO SCH (07:32)
[2018-03-18] MEDS: ESCITALOPRAM OXALATE 10 MG TAB PO SCH (07:33)
[2018-03-18] MEDS: APIXABAN 2.5 MG TABLET PO SCH ×2 (07:33→20:20)
[2018-03-18] MEDS: MULTIVITAMINS TAB PO SCH (07:33)
[2018-03-18] MEDS: LISINOPRIL 20 MG TAB PO SCH (07:33)
[2018-03-18] MEDS: FOLIC ACID 1 MG TAB PO SCH (07:33)
[2018-03-18] MEDS: HYPROMELLOSE 0.4% LUB 15ML BTL OU PRN ×3 (07:37→20:19)
[2018-03-18] MEDS: MAG HYD/AL HYD/SIMETH 30ML UDC PO PRN ×2 (13:44→20:26)
[2018-03-18] MEDS: MENTHOL/METHYL SALI CREAM 57 GM 57 GM TUBE TP PRN (20:19)
[2018-03-18] MEDS: NYSTATIN 100,000 U/GM PWD 15GM TP PRN (20:19)
[2018-03-18] MEDS: TAMSULOSIN HCL 0.4 MG CAP PO SCH (20:19)
[2018-03-18 20:26] VITALS: BP 133/66
[2018-03-19] MEDS: LOPERAMIDE HCL 2 MG CAP PO PRN ×3 (01:54→13:17)
[2018-03-19 05:32] VITALS: BP 124/62
[2018-03-19 06:21] LABS: PLATELET COUNT, AUTOMATED 108 K/uL (150-450)
[2018-03-19] MEDS: MULTIVITAMINS TAB PO SCH (08:32)
[2018-03-19] MEDS: FOLIC ACID 1 MG TAB PO SCH (08:33)
[2018-03-19] MEDS: MAGNESIUM OXIDE 400 MG TAB PO SCH ×3 (08:33→20:52)
[2018-03-19] MEDS: THIAMINE HCL 100 MG TAB PO SCH (08:33)
[2018-03-19] MEDS: amLODIPine BESYL(*) 5 MG TAB PO SCH (08:33)
[2018-03-19] MEDS: LISINOPRIL 20 MG TAB PO SCH (08:34)
[2018-03-19] MEDS: APIXABAN 2.5 MG TABLET PO SCH ×2 (08:34→20:51)
[2018-03-19] MEDS: ESCITALOPRAM OXALATE 10 MG TAB PO SCH (08:34)
[2018-03-19] MEDS: CHOLECALCIFEROL 1000 UNIT TAB PO SCH (08:34)
[2018-03-19] MEDS: MAG HYD/AL HYD/SIMETH 30ML UDC PO PRN ×2 (10:01→18:05)
--- NOTE | 2018-03-19 11:15 | BHS Progress Note ---
[facility] - Subjective Progress Notes Subjective Patient alcohol withdrawal now considered complete, will plan on patient entering [facility]. Will look into this today. Patient denies any other concerns. Magnesium trending up. Suicidal Ideation: None Homicidal Ideation: None [facility] - Objective Physical Exam Vital Signs Hematology Test 03/16/18 08:03 03/17/18 06:27 03/19/18 06:12 Peripheral Blood Smear No Y/N Hemoglobin A1c 6.5 % (4.6-6.0) Red Blood Count 3.72 M/uL (4.00-5.60) Mean Corpuscular Volume 102.2 fL (80.0-96.0) Mean Corpuscular Hemoglobin 35.6 pg (26.0-33.0) Mean Corpuscular Hemoglobin Concent 34.8 g/dL (32.0-36.0) Red Cell Distribution Width 15.4 % (11.5-14.5) Mean Platelet Volume 7.9 fL (7.2-11.1) Neutrophils (%) (Auto) 69.1 % (39.4-72.5) Lymphocytes (%) (Auto) 16.7 % (17.6-49.6) Monocytes (%) (Auto) 12.2 % (4.1-12.4) Eosinophils (%) (Auto) 1.7 % (0.4-6.7) Basophils (%) (Auto) 0.3 % (0.3-1.4) Nucleated RBC Relative Count (auto) 0.1 /100WBC Neutrophils # (Auto) 4.5 K/uL (2.0-7.4) Lymphocytes # (Auto) 1.1 K/uL (1.3-3.6) Monocytes # (Auto) 0.8 K/uL (0.3-1.0) Eosinophils # (Auto) 0.1 K/uL (0.0-0.5) Basophils # (Auto) 0.0 K/uL (0.0-0.1) Nucleated RBC Absolute Count (auto) 0.01 K/uL Sodium Level 126 mmol/L (137-145) Potassium Level 4.3 mmol/L (3.5-5.0) Chloride Level 91 mmol/L (98-107) Carbon Dioxide Level 30 mmol/L (22-30) Blood Urea Nitrogen 21 mg/dl (9-21) Creatinine 0.50 mg/dl (0.66-1.25) Glomerular Filtration Rate Calc > 60.0 Random Glucose 136 mg/dl (75-110) Calcium Level 7.7 mg/dl (8.4-10.2) Magnesium Level 1.6 mg/dl (1.7-2.2) Total Bilirubin 3.1 mg/dl (0.2-1.3) Aspartate Amino Transf (AST/SGOT) 30 U/L (0-35) Alanine Aminotransferase (ALT/SGPT) 49 U/L (0-56) Alkaline Phosphatase 45 U/L (0-126) Total Protein 5.3 g/dl (6.3-8.2) Albumin 2.5 g/dl (3.5-5.0) Chemistry Test 03/16/18 08:03 03/17/18 06:27 03/19/18 06:12 Peripheral Blood Smear No Y/N Hemoglobin A1c 6.5 % (4.6-6.0) White Blood Count 6.5 k/uL (4.5-11.0) Red Blood Count 3.72 M/uL (4.00-5.60) Hemoglobin 13.2 g/dL (14.0-18.0) Hematocrit 38.0 % (42.0-52.0) Mean Corpuscular Volume 102.2 fL (80.0-96.0) Mean Corpuscular Hemoglobin 35.6 pg (26.0-33.0) Mean Corpuscular Hemoglobin Concent 34.8 g/dL (32.0-36.0) Red Cell Distribution Width 15.4 % (11.5-14.5) Platelet Count 108 K/uL (150-450) Mean Platelet Volume 7.9 fL (7.2-11.1) Neutrophils (%) (Auto) 69.1 % (39.4-72.5) Lymphocytes (%) (Auto) 16.7 % (17.6-49.6) Monocytes (%) (Auto) 12.2 % (4.1-12.4) Eosinophils (%) (Auto) 1.7 % (0.4-6.7) Basophils (%) (Auto) 0.3 % (0.3-1.4) Nucleated RBC Relative Count (auto) 0.1 /100WBC Neutrophils # (Auto) 4.5 K/uL (2.0-7.4) Lymphocytes # (Auto) 1.1 K/uL (1.3-3.6) Monocytes # (Auto) 0.8 K/uL (0.3-1.0) Eosinophils # (Auto) 0.1 K/uL (0.0-0.5) Basophils # (Auto) 0.0 K/uL (0.0-0.1) Nucleated RBC Absolute Count (auto) 0.01 K/uL Glomerular Filtration Rate Calc > 60.0 Calcium Level 7.7 mg/dl (8.4-10.2) Magnesium Level 1.6 mg/dl (1.7-2.2) Total Bilirubin 3.1 mg/dl (0.2-1.3) Aspartate Amino Transf (AST/SGOT) 30 U/L (0-35) Alanine Aminotransferase (ALT/SGPT) 49 U/L (0-56) Alkaline Phosphatase 45 U/L (0-126) Total Protein 5.3 g/dl (6.3-8.2) Albumin 2.5 g/dl (3.5-5.0) Vital Signs Date Time Temp Pulse Resp B/P (MAP) Pulse Ox O2 Delivery O2 Flow Rate FiO2 03/19/18 05:32 97.9 69 16 124/62 (82) 95 Nasal Cannula 2.0 Muscle Strength and Tone: Other (poor/weak, improving some) Gait and Station: Unsteady [facility] Medications Reviewed: Side Effects, Benefits of Medication, Risks Allergies Reviewed: Yes Mental Status Exam General Appearance: No Well Groomed; Good Eye Contact, Cooperative, Polite, Good Interaction, Unkept; No Tearful, No Psychomotor Agitation, No Psychomotor Retardation, No Bizarre Mannerisms, No Tics Speech: Clear, Spontaneous, Normal Rate, Normal Rhythm, Normal Volume, Normal Tone Mood: Euthymic Affect: Full and Appropriate, Calm Thought Process: Organized, Logical, Goal Directed; No Loose Associations, No Flight of Ideas Thought Content: No Suicidal Ideation, No Homicidal Ideation, No Delusions, No Auditory Halllucinations, No Visual Hallucinations, No Thought Broadcasting, No Ideas of Reference, No Obsessions, No Compulsions Sensorium: Clear Cognition: Alert & Oriented-Person, Alert & Oriented-Place, Alert & Oriented- Time, Gwsdr-Nhupqyra-Nfcwqjpqz Memory: Immediate, Recent, Remote (fair) Intelligence: Average Insight Judgment: Fair (in absence of alcohol) Result Diagram: 03/19/1861103/19/18611 [facility] Assessment and Plan Vjhj-sv-[id number] Encounter Date: Mar 19, 2018 Tfoz-kv-Otss Encounter Time: 11:00 [facility] Plan: Necessary Precautions, Individual/Group Therapy, Admin/Titrate Meds, Educate Patient Tobacco Medications: Not Appropriate Condition Multpiple Antipsychotics Used: No Problems: (1) Alcohol withdrawal (2) Alcohol use disorder, severe, dependence Status: Chronic Condition 1. will look into transfer to [facility]. 2. alcohol withdrawal now complete. Problem Qualifiers (1) Alcohol withdrawal: Complication of substance-induced condition: uncomplicated Qualified Codes: F10.230 - Alcohol dependence with withdrawal, uncomplicated CJ STANLEY MD Mar 19, 2018 11:15
--- NOTE | 2018-03-19 11:52 | Miscellaneous Provider Note ---
Miscellaneous Provider Note Note History and physical was dictated and signed stating that patient "decompensating with AIDS". The dictation was intended to say "decompensating with age." Medical Records to be sent: Miscellaneous Notes CJ STANLEY MD Mar 19, 2018 11:52
[2018-03-19] MEDS: HYPROMELLOSE 0.4% LUB 15ML BTL OU PRN ×3 (12:34→20:52)
[2018-03-19 13:53] VITALS: BP 133/75
[2018-03-19] MEDS: TAMSULOSIN HCL 0.4 MG CAP PO SCH (20:51)
[2018-03-19] MEDS: NYSTATIN 100,000 U/GM PWD 15GM TP PRN (20:52)
[2018-03-19] MEDS: MENTHOL/METHYL SALI CREAM 57 GM 57 GM TUBE TP PRN (20:52)
[2018-03-20] MEDS: LOPERAMIDE HCL 2 MG CAP PO PRN ×5 (02:42→20:57)
[2018-03-20 05:39] VITALS: BP 161/78
[2018-03-20 07:50] VITALS: BP 128/76
[2018-03-20 08:35] VITALS: BP 110/60
[2018-03-20 08:38] LABS: PLATELET COUNT, AUTOMATED 128 K/uL (150-450)
[2018-03-20] MEDS: APIXABAN 2.5 MG TABLET PO SCH ×2 (08:39→20:54)
[2018-03-20] MEDS: ESCITALOPRAM OXALATE 10 MG TAB PO SCH (08:39)
[2018-03-20] MEDS: amLODIPine BESYL(*) 5 MG TAB PO SCH (08:39)
[2018-03-20] MEDS: MAGNESIUM OXIDE 400 MG TAB PO SCH ×3 (08:39→20:54)
[2018-03-20] MEDS: FOLIC ACID 1 MG TAB PO SCH (08:39)
[2018-03-20] MEDS: MULTIVITAMINS TAB PO SCH (08:40)
[2018-03-20] MEDS: THIAMINE HCL 100 MG TAB PO SCH (08:40)
[2018-03-20] MEDS: CHOLECALCIFEROL 1000 UNIT TAB PO SCH (08:40)
[2018-03-20] MEDS: LISINOPRIL 20 MG TAB PO SCH (08:40)
[2018-03-20] MEDS: LACTOBACILLUS ACIDOPHILUS TAB PO SCH ×2 (08:41→17:18)
--- NOTE | 2018-03-20 08:49 | BHS Progress Note ---
S - Subjective Progress Notes Subjective Patient in good spirits today, loose stool continues will order labs concerning such, and alcohol withdrawal is now considered complete. Will continue to explore entrance into [facility], and also look into transfer to Extended care to await placement in shelter. Blood pressure now falling in absence of alcohol use and will hold/stop antihypertensives accordingly. Will have labs today to evaluate magnesium and hepatic function. Sleep okay, Mood good. Suicidal Ideation: None Homicidal Ideation: None [facility] - Objective Physical Exam Vital Signs Hematology Test 03/17/18 06:27 03/20/18 08:31 Hemoglobin A1c 6.5 % (4.6-6.0) Red Blood Count 3.94 M/uL (4.00-5.60) Mean Corpuscular Volume 103.2 fL (80.0-96.0) Mean Corpuscular Hemoglobin 35.3 pg (26.0-33.0) Mean Corpuscular Hemoglobin Concent 34.2 g/dL (32.0-36.0) Red Cell Distribution Width 15.3 % (11.5-14.5) Mean Platelet Volume 7.8 fL (7.2-11.1) Neutrophils (%) (Auto) 59.2 % (39.4-72.5) Lymphocytes (%) (Auto) 21.3 % (17.6-49.6) Monocytes (%) (Auto) 16.5 % (4.1-12.4) Eosinophils (%) (Auto) 2.3 % (0.4-6.7) Basophils (%) (Auto) 0.7 % (0.3-1.4) Nucleated RBC Relative Count (auto) 0.1 /100WBC Neutrophils # (Auto) 3.7 K/uL (2.0-7.4) Lymphocytes # (Auto) 1.3 K/uL (1.3-3.6) Monocytes # (Auto) 1.0 K/uL (0.3-1.0) Eosinophils # (Auto) 0.1 K/uL (0.0-0.5) Basophils # (Auto) 0.0 K/uL (0.0-0.1) Nucleated RBC Absolute Count (auto) 0.01 K/uL Peripheral Blood Smear No Y/N Chemistry Test 03/17/18 06:27 03/20/18 08:31 Hemoglobin A1c 6.5 % (4.6-6.0) White Blood Count 6.3 k/uL (4.5-11.0) Red Blood Count 3.94 M/uL (4.00-5.60) Hemoglobin 13.9 g/dL (14.0-18.0) Hematocrit 40.7 % (42.0-52.0) Mean Corpuscular Volume 103.2 fL (80.0-96.0) Mean Corpuscular Hemoglobin 35.3 pg (26.0-33.0) Mean Corpuscular Hemoglobin Concent 34.2 g/dL (32.0-36.0) Red Cell Distribution Width 15.3 % (11.5-14.5) Platelet Count 128 K/uL (150-450) Mean Platelet Volume 7.8 fL (7.2-11.1) Neutrophils (%) (Auto) 59.2 % (39.4-72.5) Lymphocytes (%) (Auto) 21.3 % (17.6-49.6) Monocytes (%) (Auto) 16.5 % (4.1-12.4) Eosinophils (%) (Auto) 2.3 % (0.4-6.7) Basophils (%) (Auto) 0.7 % (0.3-1.4) Nucleated RBC Relative Count (auto) 0.1 /100WBC Neutrophils # (Auto) 3.7 K/uL (2.0-7.4) Lymphocytes # (Auto) 1.3 K/uL (1.3-3.6) Monocytes # (Auto) 1.0 K/uL (0.3-1.0) Eosinophils # (Auto) 0.1 K/uL (0.0-0.5) Basophils # (Auto) 0.0 K/uL (0.0-0.1) Nucleated RBC Absolute Count (auto) 0.01 K/uL Peripheral Blood Smear No Y/N Muscle Strength and Tone: Other (poor/weak, improving ) Gait and Station: Unsteady [facility] Medications Reviewed: Side Effects, Benefits of Medication, Risks Allergies Reviewed: Yes Mental Status Exam General Appearance: No Well Groomed; Good Eye Contact, Cooperative, Polite, Good Interaction, Unkept; No Tearful, No Psychomotor Agitation, No Psychomotor Retardation, No Bizarre Mannerisms, No Tics Speech: Clear, Spontaneous, Normal Rate, Normal Rhythm, Normal Volume, Normal Tone Mood: Euthymic Affect: Full and Appropriate, Calm Thought Process: Organized, Logical, Goal Directed; No Loose Associations, No Flight of Ideas Thought Content: No Suicidal Ideation, No Homicidal Ideation, No Delusions, No Auditory Halllucinations, No Visual Hallucinations, No Thought Broadcasting, No Ideas of Reference, No Obsessions, No Compulsions Sensorium: Clear Cognition: Alert & Oriented-Person, Alert & Oriented-Place, Alert & Oriented- Time, Jixtp-Fggupcbj-Gwcoejowi Memory: Immediate, Recent, Remote (fair) Intelligence: Average Insight Judgment: Fair (in absence of alcohol) Result Diagram: 03/19/1861103/19/18611 [facility] Assessment and Plan [id number] Encounter Date: Mar 20, 2018 [id number] Encounter Time: 08:40 [facility] Plan: Necessary Precautions, Individual/Group Therapy, Admin/Titrate Meds, Educate Patient Tobacco Medications: Not Appropriate Condition Multpiple Antipsychotics Used: No Problems: (1) Alcohol withdrawal Status: Resolved (2) Alcohol use disorder, severe, dependence Status: Chronic Condition 1. labwork 2. look into placement. 3. monitor hypertension. Problem Qualifiers (1) Alcohol withdrawal: Complication of substance-induced condition: uncomplicated Qualified Codes: F10.230 - Alcohol dependence with withdrawal, uncomplicated CJ STANLEY MD Mar 20, 2018 08:49
[2018-03-20] MEDS: MAG HYD/AL HYD/SIMETH 30ML UDC PO PRN ×2 (11:53→23:09)
[2018-03-20] MEDS: HYPROMELLOSE 0.4% LUB 15ML BTL OU PRN ×2 (17:30→20:53)
[2018-03-20] MEDS: TAMSULOSIN HCL 0.4 MG CAP PO SCH (20:53)
[2018-03-21 02:09] VITALS: BP 156/86
[2018-03-21 07:32] VITALS: BP 138/74
[2018-03-21] MEDS: CHOLECALCIFEROL 1000 UNIT TAB PO SCH (08:13)
[2018-03-21] MEDS: THIAMINE HCL 100 MG TAB PO SCH (08:13)
[2018-03-21] MEDS: MAGNESIUM OXIDE 400 MG TAB PO SCH ×3 (08:13→20:52)
[2018-03-21] MEDS: MULTIVITAMINS TAB PO SCH (08:13)
[2018-03-21] MEDS: FOLIC ACID 1 MG TAB PO SCH (08:14)
[2018-03-21] MEDS: ESCITALOPRAM OXALATE 10 MG TAB PO SCH (08:14)
[2018-03-21] MEDS: amLODIPine BESYL(*) 5 MG TAB PO SCH (08:14)
[2018-03-21] MEDS: LISINOPRIL 20 MG TAB PO SCH (08:14)
[2018-03-21 08:18] LABS: PLATELET COUNT, AUTOMATED 125 K/uL (150-450)
[2018-03-21] MEDS: LACTOBACILLUS ACIDOPHILUS TAB PO SCH ×2 (08:44→17:14)
[2018-03-21] MEDS: APIXABAN 2.5 MG TABLET PO SCH ×2 (08:46→20:52)
--- NOTE | 2018-03-21 13:32 | BHS Progress Note ---
BHS - Subjective Progress Notes Subjective Patient continues to make progress with ambulation, loose stools resolving somewhat, alcohol withdrawal considered complete. Will have magnesium infusion today, and will continue to work on intermediate placement. Will continue to hold lisinopril,. Will not start Protonix as hypomagnesia may be promoted. Suicidal Ideation: None Homicidal Ideation: None [facility] - Objective Physical Exam Vital Signs Vital Signs Date Time Temp Pulse Resp B/P (MAP) Pulse Ox O2 Delivery O2 Flow Rate FiO2 03/21/18 07:32 97.7 60 15 138/74 (95) 97 Nasal Cannula 2.0 Hematology Test 03/17/18 06:27 03/20/18 00:00 03/21/18 08:01 Hemoglobin A1c 6.5 % (4.6-6.0) Stool Occult Blood (IFOB) Negative (NEGATIVE) Stool Leukocytes, Qualitative Negative Clostridium Difficile Toxin A & B Negative Clostridium difficile Antigen Negative Red Blood Count 3.61 M/uL (4.00-5.60) Mean Corpuscular Volume 103.4 fL (80.0-96.0) Mean Corpuscular Hemoglobin 35.8 pg (26.0-33.0) Mean Corpuscular Hemoglobin Concent 34.7 g/dL (32.0-36.0) Red Cell Distribution Width 15.5 % (11.5-14.5) Mean Platelet Volume 7.6 fL (7.2-11.1) Neutrophils (%) (Auto) 52.1 % (39.4-72.5) Lymphocytes (%) (Auto) 23.4 % (17.6-49.6) Monocytes (%) (Auto) 21.4 % (4.1-12.4) Eosinophils (%) (Auto) 2.5 % (0.4-6.7) Basophils (%) (Auto) 0.6 % (0.3-1.4) Nucleated RBC Relative Count (auto) 0.1 /100WBC Neutrophils # (Auto) 3.0 K/uL (2.0-7.4) Lymphocytes # (Auto) 1.3 K/uL (1.3-3.6) Monocytes # (Auto) 1.2 K/uL (0.3-1.0) Eosinophils # (Auto) 0.1 K/uL (0.0-0.5) Basophils # (Auto) 0.0 K/uL (0.0-0.1) Nucleated RBC Absolute Count (auto) 0.00 K/uL Peripheral Blood Smear Yes Y/N Sodium Level 128 mmol/L (137-145) Potassium Level 3.9 mmol/L (3.5-5.0) Chloride Level 94 mmol/L (98-107) Carbon Dioxide Level 30 mmol/L (22-30) Blood Urea Nitrogen 12 mg/dl (9-21) Creatinine 0.50 mg/dl (0.66-1.25) Glomerular Filtration Rate Calc > 60.0 Random Glucose 145 mg/dl (75-110) Calcium Level 8.0 mg/dl (8.4-10.2) Magnesium Level 1.5 mg/dl (1.7-2.2) Total Bilirubin 1.4 mg/dl (0.2-1.3) Aspartate Amino Transf (AST/SGOT) 36 U/L (0-35) Alanine Aminotransferase (ALT/SGPT) 45 U/L (0-56) Alkaline Phosphatase 42 U/L (0-126) Total Protein 5.2 g/dl (6.3-8.2) Albumin 2.4 g/dl (3.5-5.0) Chemistry Test 03/17/18 06:27 03/20/18 00:00 03/21/18 08:01 Hemoglobin A1c 6.5 % (4.6-6.0) Stool Occult Blood (IFOB) Negative (NEGATIVE) Stool Leukocytes, Qualitative Negative Clostridium Difficile Toxin A & B Negative Clostridium difficile Antigen Negative White Blood Count 5.7 k/uL (4.5-11.0) Red Blood Count 3.61 M/uL (4.00-5.60) Hemoglobin 12.9 g/dL (14.0-18.0) Hematocrit 37.3 % (42.0-52.0) Mean Corpuscular Volume 103.4 fL (80.0-96.0) Mean Corpuscular Hemoglobin 35.8 pg (26.0-33.0) Mean Corpuscular Hemoglobin Concent 34.7 g/dL (32.0-36.0) Red Cell Distribution Width 15.5 % (11.5-14.5) Platelet Count 125 K/uL (150-450) Mean Platelet Volume 7.6 fL (7.2-11.1) Neutrophils (%) (Auto) 52.1 % (39.4-72.5) Lymphocytes (%) (Auto) 23.4 % (17.6-49.6) Monocytes (%) (Auto) 21.4 % (4.1-12.4) Eosinophils (%) (Auto) 2.5 % (0.4-6.7) Basophils (%) (Auto) 0.6 % (0.3-1.4) Nucleated RBC Relative Count (auto) 0.1 /100WBC Neutrophils # (Auto) 3.0 K/uL (2.0-7.4) Lymphocytes # (Auto) 1.3 K/uL (1.3-3.6) Monocytes # (Auto) 1.2 K/uL (0.3-1.0) Eosinophils # (Auto) 0.1 K/uL (0.0-0.5) Basophils # (Auto) 0.0 K/uL (0.0-0.1) Nucleated RBC Absolute Count (auto) 0.00 K/uL Peripheral Blood Smear Yes Y/N Glomerular Filtration Rate Calc > 60.0 Calcium Level 8.0 mg/dl (8.4-10.2) Magnesium Level 1.5 mg/dl (1.7-2.2) Total Bilirubin 1.4 mg/dl (0.2-1.3) Aspartate Amino Transf (AST/SGOT) 36 U/L (0-35) Alanine Aminotransferase (ALT/SGPT) 45 U/L (0-56) Alkaline Phosphatase 42 U/L (0-126) Total Protein 5.2 g/dl (6.3-8.2) Albumin 2.4 g/dl (3.5-5.0) Muscle Strength and Tone: Other (poor/weak, improving ) Gait and Station: Unsteady [facility] Medications Reviewed: Side Effects, Benefits of Medication, Risks Allergies Reviewed: Yes Mental Status Exam General Appearance: No Well Groomed; Good Eye Contact, Cooperative, Polite, Good Interaction, Unkept; No Tearful, No Psychomotor Agitation, No Psychomotor Retardation, No Bizarre Mannerisms, No Tics Speech: Clear, Spontaneous, Normal Rate, Normal Rhythm, Normal Volume, Normal Tone Mood: Euthymic Affect: Full and Appropriate, Calm Thought Process: Organized, Logical, Goal Directed; No Loose Associations, No Flight of Ideas Thought Content: No Suicidal Ideation, No Homicidal Ideation, No Delusions, No Auditory Halllucinations, No Visual Hallucinations, No Thought Broadcasting, No Ideas of Reference, No Obsessions, No Compulsions Sensorium: Clear Cognition: Alert & Oriented-Person, Alert & Oriented-Place, Alert & Oriented- Time, [id number]-[id number] Memory: Immediate, Recent, Remote (fair) Intelligence: Average Insight Judgment: Fair (in absence of alcohol) Result Diagram: 03/21/1880003/21/18800 [facility] Assessment and Plan [id number] Encounter Date: Mar 21, 2018 Oefn-cn-[id number] Encounter Time: 10:00 [facility] Plan: Necessary Precautions, Individual/Group Therapy, Admin/Titrate Meds, Educate Patient Tobacco Medications: Not Appropriate Condition Multpiple Antipsychotics Used: No Problems: (1) Alcohol withdrawal Status: Resolved (2) Alcohol use disorder, severe, dependence Status: Chronic Condition 1. continue treatment. 2. magnesium infusion today. 3. hold lisinopril 4. consider trazadone QHS. 5. intermediate placement latter this week. Problem Qualifiers (1) Alcohol withdrawal: Complication of substance-induced condition: uncomplicated Qualified Codes: F10.230 - Alcohol dependence with withdrawal, uncomplicated CJ STANLEY MD Mar 21, 2018 13:32
[2018-03-21] MEDS: TAMSULOSIN HCL 0.4 MG CAP PO SCH (20:52)
[2018-03-21] MEDS: HYPROMELLOSE 0.4% LUB 15ML BTL OU PRN (20:53)
[2018-03-22 06:16] VITALS: BP 157/85
[2018-03-22 07:32] VITALS: BP 118/74
[2018-03-22] MEDS: LISINOPRIL 20 MG TAB PO SCH (07:53)
[2018-03-22 08:09] LABS: PLATELET COUNT, AUTOMATED 141 K/uL (150-450)
[2018-03-22] MEDS: THIAMINE HCL 100 MG TAB PO SCH (08:25)
[2018-03-22] MEDS: APIXABAN 2.5 MG TABLET PO SCH ×2 (08:25→21:10)
[2018-03-22] MEDS: CHOLECALCIFEROL 1000 UNIT TAB PO SCH (08:25)
[2018-03-22] MEDS: amLODIPine BESYL(*) 5 MG TAB PO SCH (08:27)
[2018-03-22] MEDS: FOLIC ACID 1 MG TAB PO SCH (08:27)
[2018-03-22] MEDS: MAGNESIUM OXIDE 400 MG TAB PO SCH ×3 (08:27→21:10)
[2018-03-22] MEDS: MULTIVITAMINS TAB PO SCH (08:27)
[2018-03-22] MEDS: LACTOBACILLUS ACIDOPHILUS TAB PO SCH ×2 (08:27→21:10)
[2018-03-22] MEDS: ESCITALOPRAM OXALATE 10 MG TAB PO SCH (08:27)
[2018-03-22] MEDS: MAG HYD/AL HYD/SIMETH 30ML UDC PO PRN (13:02)
--- NOTE | 2018-03-22 15:04 | BHS Progress Note ---
[facility] - Subjective Progress Notes Subjective Patient remains in good spirits today, appetite okay today with good sleep, no other concerns, probable transfer to the [facility] soon. Suicidal Ideation: None Homicidal Ideation: None [facility] - Objective Physical Exam Vital Signs Vital Signs Date Time Temp Pulse Resp B/P (MAP) Pulse Ox O2 Delivery O2 Flow Rate FiO2 03/22/18 07:32 97.9 63 28 118/74 (89) 97 Room Air 03/22/18 06:16 2.0 Muscle Strength and Tone: Other (poor/weak, improving ) Gait and Station: Unsteady [facility] Medications Reviewed: Side Effects, Benefits of Medication, Risks Allergies Reviewed: Yes Mental Status Exam General Appearance: No Well Groomed; Good Eye Contact, Cooperative, Polite, Good Interaction, Unkept; No Tearful, No Psychomotor Agitation, No Psychomotor Retardation, No Bizarre Mannerisms, No Tics Speech: Clear, Spontaneous, Normal Rate, Normal Rhythm, Normal Volume, Normal Tone Mood: Euthymic Affect: Full and Appropriate, Calm Thought Process: Organized, Logical, Goal Directed; No Loose Associations, No Flight of Ideas Thought Content: No Suicidal Ideation, No Homicidal Ideation, No Delusions, No Auditory Halllucinations, No Visual Hallucinations, No Thought Broadcasting, No Ideas of Reference, No Obsessions, No Compulsions Sensorium: Clear Cognition: Alert & Oriented-Person, Alert & Oriented-Place, Alert & Oriented- Time, [id number]-Xnuaqiadb Memory: Immediate, Recent, Remote (fair) Intelligence: Average Insight Judgment: Fair (in absence of alcohol) Result Diagram: 03/22/18 0803 03/22/18 0803 [facility] Assessment and Plan Qnaj-ie-[id number] Encounter Date: Mar 22, 2018 Ozsf-fe-[id number] Encounter Time: 15:00 [facility] Plan: Necessary Precautions, Individual/Group Therapy, Admin/Titrate Meds, Educate Patient Tobacco Medications: Not Appropriate Condition Multpiple Antipsychotics Used: No Problems: (1) Alcohol withdrawal Status: Resolved (2) Alcohol use disorder, severe, dependence Status: Chronic Condition 1. continue treatment. 2. no medication changes. 3. transfer to [facility] when accepted. Problem Qualifiers (1) Alcohol withdrawal: Complication of substance-induced condition: uncomplicated Qualified Codes: F10.230 - Alcohol dependence with withdrawal, uncomplicated CJ STANLEY MD Mar 22, 2018 15:04
[2018-03-22] MEDS: HYPROMELLOSE 0.4% LUB 15ML BTL OU PRN (21:09)
[2018-03-22] MEDS: TAMSULOSIN HCL 0.4 MG CAP PO SCH (21:10)
[2018-03-22] MEDS: NYSTATIN 100,000 U/GM PWD 15GM TP PRN (21:22)
[2018-03-22] MEDS: MENTHOL/METHYL SALI CREAM 57 GM 57 GM TUBE TP PRN (21:22)
[2018-03-23 06:38] VITALS: BP 114/74
[2018-03-23 07:50] VITALS: BP 108/78
[2018-03-23] MEDS: LACTOBACILLUS ACIDOPHILUS TAB PO SCH (08:16)
[2018-03-23] MEDS: ESCITALOPRAM OXALATE 10 MG TAB PO SCH (08:16)
[2018-03-23] MEDS: MAGNESIUM OXIDE 400 MG TAB PO SCH ×2 (08:16→13:32)
[2018-03-23] MEDS: APIXABAN 2.5 MG TABLET PO SCH (08:16)
[2018-03-23] MEDS: FOLIC ACID 1 MG TAB PO SCH (08:16)
[2018-03-23] MEDS: CHOLECALCIFEROL 1000 UNIT TAB PO SCH (08:17)
[2018-03-23] MEDS: THIAMINE HCL 100 MG TAB PO SCH (08:17)
[2018-03-23] MEDS: MULTIVITAMINS TAB PO SCH (08:17)
[2018-03-23] MEDS: amLODIPine BESYL(*) 5 MG TAB PO SCH (08:19)
[2018-03-23] MEDS ORDERED: ACID1TAB2 PO (11:43)
[2018-03-23] MEDS ORDERED: BENGAY TP (11:48)
[2018-03-23] MEDS ORDERED: LOPE2CAP15 PO (11:49)
[2018-03-23] MEDS ORDERED: MAG-65 PO (11:54)
[2018-03-23] MEDS ORDERED: DEXT15DR OU (11:55)
[2018-03-23] MEDS ORDERED: NYST60PO9 TP (12:01)
--- NOTE | 2018-03-27 05:48 | SCHAAF DISCHARGE ---
DATE OF ADMISSION: 03/15/2018 DATE OF DISCHARGE: 03/23/2018 ATTENDING PHYSICIAN Sloan Prater MD Patient was seen at approximately 1100 hours on 23 March 2018 for note concerning this dictation. FINAL DIAGNOSES 1. Alcohol use disorder, severe. 2. Alcohol withdrawal, considered complete. 3. Hypomagnesemia, chronic in nature, likely related at least in part to heavy alcohol consumption. 4. Hypertension. 5. Chronic pain. 6. Inability to care for self. 7. Rule out anxiety, unspecified, or depression, unspecified. REASON FOR ADMISSION This is a very well-known 72-year-old male who lives locally here in the senior housing in [place]. Patient has long been followed by [facility] in-home health services and other in-home health services. Patient is noted to continue to live in very poor conditions. Patient decompensating even worse in the presence of heavy alcohol consumption. Patient has been admitted here multiple times for detoxification from alcohol, returns home and continues to drink, where patient has a very limited ability to care for his needs in the home. Patient was brought in to detox from alcohol and planned subsequent admission into [facility]. Patient on board with this and in agreement. Patient admitted without incident. Alcohol withdrawal was considered moderate in nature and treated to completion. Patient having limited mobility and limited ability to care for self. Alcohol withdrawal was treated again to completion. [facility] agreed to accept patient in for continued rehab and monitoring of overall medical conditions and ability to care for self. PHYSICAL EXAMINATION Please see emergency room note. Notable for a 72-year-old male having limited ambulatory status at time of arrival. Vital signs at the time of admission: Temperature 99.1, pulse 74, respiratory rate 16, blood pressure 134/102 and pulse oximetry 94% on room air. Vital signs at the time of discharge from [facility]: Temperature 97.7, pulse 60, respiratory rate 20, blood pressure 108/78 and pulse oximetry 97% on nasal cannula at 2L. LABORATORY DATA CBC notable on admission for hemoglobin and hematocrit elevated at 18.4 and 52.5 respectively. MCV and MCH elevated at 98.4 and 34.5. Platelet count noted to be in low-normal range at 158 upon admission. Magnesium level critically low upon arrival at 0.9. Total bilirubin 2.4 with an AST elevated at 181 and an ALT elevated at 113. Urinalysis unremarkable. Toxicology screen negative on arrival for substances of abuse, with a serum alcohol level of 236. CBC on 03/22/2018 indicated red blood cells low at 3.77, hemoglobin and hematocrit low at 13.5 and 38.8, MCV elevated at 103 with an MCH elevated at 35.8, platelet count low at 141. Stool occult blood was negative. Stool leukocytes negative. Giardia antigen was negative, as well as trichrome parasite testing negative in the stool. Clostridium difficile antigen and toxins were negative, and ova and parasite concentrate was negative. Chemistry panel on 03/22/2018 indicated sodium slightly low at 128, random glucose 117. A1c noted to be 6.5. Calcium low at 7.7. Total bilirubin in normal range at 1.3 with a mild elevation in AST of 37. MENTAL STATUS EXAMINATION AT THE TIME OF DISCHARGE GENERAL APPEARANCE, BEHAVIOR AND ATTITUDE: This is a cooperative, pleasant 72]-year-old male, smiling at this provider, joking and making good eye contact. No bizarre mannerisms or tics. No gross psychomotor retardation or agitation. No periods of tearfulness. SPEECH: Considered baseline in this patient, and overall largely within normal limits. . MOOD: Described as "good." . AFFECT: Full and mood-congruent. THOUGHT PROCESSES: Goal-directed. Patient stating he was ready to go to the [facility], where he has been before. Fairly logical. No loose associations or flight of ideas. THOUGHT CONTENT: Free of auditory or visual hallucinations, ideas of reference, thought broadcastings, delusions, obsessions or compulsions. The patient is adamantly denying suicidal or homicidal ideation. SENSORIUM: Clear. COGNITION: Alert and oriented to person, place, time and situation. MEMORY: Immediate, recent and remote was estimated intact. INTELLIGENCE: Average, based on interview. INSIGHT AND JUDGMENT: Considered grossly intact in the absence of alcohol consumption. . RESULTS OF TESTING Imaging: None. Laboratory data: See above. CONSULTATIONS None. TREATMENT Patient received medications, participated in individual and group therapy, and was followed by Physical and Occupational Therapy. Please see their notes on medical record. HOSPITAL COURSE Patient remained very pleasant, calm, in good spirits throughout his stay. Alcohol withdrawal treated to completion, considered moderate in nature. Patient becoming somewhat more ambulatory during his stay, and somewhat more able to take care of himself in the absence of extreme alcohol use. Patient becoming somewhat more able to care for his ADLs in the absence of alcohol use again. Please refer to PT and OT notes. CONDITION OF PATIENT ON DISCHARGE Stable and considered a minimal risk to himself or others and appropriate for transfer to [facility]. DISPOSITION The patient was discharged to enter [facility] with diagnosis of alcohol use disorder, severe; alcohol withdrawal, considered complete, and see above. Patient would continue followup care through [facility]. Crisis line was given should symptoms return at time of discharge. Patient would remain on Bacid, two tablets at breakfast and supper; Eliquis 5 mg twice daily; Flomax 0.4 mg at bedtime; folic acid 1 mg daily; Lexapro 20 mg daily; magnesium oxide 800 mg three times a day. Patient noted to have chronic hypomagnesemia and received a magnesium infusion while on the behavioral health floor. Norvasc 5 mg daily. Prinivil was stopped during patient's stay, as hypertension was alleviated somewhat in the absence of alcohol use once withdrawal was complete. Multivitamin with minerals daily; thiamine 100 mg daily; vitamin D3 1000 international units daily. Patient could use Uzair Taylor cream as needed; Imodium 2 mg as needed p.r.n. Patient could continue Maalox, Natural Balance Tears, and Nystop as needed to affected area. Patient would abstain from all alcohol and would continue magnesium infusions as necessary in the absence of alcohol use. Crisis line was given should symptoms return. The risks, benefits and alternatives of the above discharge plan were discussed. Informed consent was given to proceed with the above discharge plan by this competent patient. [facility] program accepting snf facility. THONG
== END 2018-03-23 15:45 | DRG 897 ==
LOC: BHS 16:17
PROVIDERS: ADMIT Psychiatry & Neurology Psychiatry; ATTEND Psychiatry & Neurology Psychiatry
DX: F10.230 Alcohol dependence with withdrawal, uncomplicated (principal); E83.42 Hypomagnesemia; E11.9 Type 2 diabetes mellitus without complications; I10 Essential (primary) hypertension; Y90.7 Blood alcohol level of 200-239 mg/100 ml; E66.9 Obesity, unspecified; Z68.30 Body mass index [BMI] 30.0-30.9, adult; G89.29 Other chronic pain; F41.8 Other specified anxiety disorders; Z60.2 Problems related to living alone; Z81.1 Family history of alcohol abuse and dependence
CPT/HCPCS: 36415; 80305; 80320; 80329; 81001; 82040; 82247; 82274; 82310; 82374; 82435; 82565; 82947; 83036; 83630; 83735; 84075; 84132; 84155; 84295; 84443; 84450; 84460; 84520; 85025; 87045; 87177; 87269; 87324; 87449; 96365; 96366; 96368; 97161; 97162; 97165; 99284; J3411; J3475; J7030

== ENCOUNTER → 2018-03-15 | Outpatient (CLI) | payer MEDICARE, MEDICAID ==
[2017-12-23 13:02] VITALS: BMI 28.9
[~2018-03-15] MED LIST changes: +ACID1TAB2 PO; +BENGAY TP; +ESCI20TA38 PO; +LOPE2CAP15 PO; +MAG-65 PO; +ONDA4TAB SL
== END ==
LOC: AMB 13:37
PROVIDERS: ATTEND Nurse Practitioner
DX: F10.220 Alcohol dependence with intoxication, uncomplicated (principal)
CPT/HCPCS: A0425; A0427

== ENCOUNTER 2018-03-21 06:58 | Outpatient (RCR) | payer MEDICARE, MEDICAID ==
--- NOTE | 2017-12-05 08:34 | NUR ---
October 16, 2017 RE: . Michele Diallo To whom it may concern, Please note my patient Michele Diallo underwent an infusion treatment on Wednesday, October 04, 2017. It was recommended that he abstain from work for two days following his infusion in order to manage his ongoing medical needs. Thank you for your support to Mr. Diallo during this time. Any questions regarding this matter can be directed to Dr. Saldaña at [phone]. Thank you, Kelton Saldaña MD [facility] General Surgeon [facility]
[2017-12-23 13:02] VITALS: BMI 28.9
[~2018-03-21 06:58] MED LIST changes: +ESCI20TA38 PO
[2018-03-21] MEDS ORDERED: DEXTROSE 5%(*) 100 ML BAG 100 ML IVPB PRN (12:20)
[2018-03-21] MEDS ORDERED: LIDOCAINE/SOD BICARB 8.4% SYR ID PRN (12:20)
[2018-03-21] MEDS ORDERED: NS(*) 0.9% 100 ML BAG 100 ML IVPB PRN (12:20)
[2018-03-21] MEDS: MAGNESIUM SUL* 4 GM/100 ML BAG 100 ML IVPB PRN ×2 (12:38→14:18)
[2018-03-23] MEDS ORDERED: ACID1TAB2 PO (11:43)
[2018-03-23] MEDS ORDERED: BENGAY TP (11:48)
[2018-03-23] MEDS ORDERED: LOPE2CAP15 PO (11:49)
[2018-03-23] MEDS ORDERED: MAG-65 PO (11:54)
[2018-03-23] MEDS ORDERED: DEXT15DR OU (11:55)
[2018-03-23] MEDS ORDERED: NYST60PO9 TP (12:01)
[2018-04-11] MEDS ORDERED: BENZ200C15 PO (11:21)
[2018-04-11] MEDS ORDERED: ROBC PO (11:21)
[2018-04-11] MEDS ORDERED: ALBU2.5V36 INH (11:21)
[2018-04-11] MEDS ORDERED: PRED20TA6 PO (11:21)
[2018-04-28] MEDS ORDERED: TRAM-420 PO (22:18)
== END 2018-05-11 16:11 | disposition home or self-care (01) ==
LOC: SPU 06:58
PROVIDERS: ATTEND Family Medicine
DX: R79.0 Abnormal level of blood mineral (principal); E87.1 Hypo-osmolality and hyponatremia; E11.9 Type 2 diabetes mellitus without complications; E78.5 Hyperlipidemia, unspecified
CPT/HCPCS: 96365; 96366; J3475; J7050

== ENCOUNTER → 2018-03-29 | Outpatient (REF) | payer MEDICARE, MEDICAID ==
[2017-12-23 13:02] VITALS: BMI 28.9
[~2018-03-29] MED LIST changes: +ACID1TAB2 PO; +BENGAY TP; +LOPE2CAP15 PO; +MAG-65 PO
== END ==
LOC: ZZSENDIN 16:58
PROVIDERS: ATTEND Family Medicine
DX: E87.1 Hypo-osmolality and hyponatremia (principal)
CPT/HCPCS: 82310; 82374; 82435; 82565; 82947; 83735; 84132; 84295; 84520

== ENCOUNTER → 2018-04-04 | Outpatient (REF) | payer MEDICARE, MEDICAID ==
[2017-12-23 13:02] VITALS: BMI 28.9
== END ==
LOC: ZZLCC 06:48
PROVIDERS: ATTEND Family Medicine
DX: E87.1 Hypo-osmolality and hyponatremia (principal); R79.0 Abnormal level of blood mineral
CPT/HCPCS: 82310; 82374; 82435; 82565; 82947; 83735; 84132; 84295; 84520

== ENCOUNTER 2018-04-11 09:08 | Emergency (ER) | payer MEDICARE, MEDICAID ==
[2017-12-23 13:02] VITALS: Wt 86.2 kg
[~2018-04-11 09:08] MED LIST changes: -ALBU2.5V36 INH; -BENZ200C15 PO; -PRED20TA6 PO; -ROBC PO
[2018-04-11] MEDS ORDERED: NS(*) 0.9% 1000 ML BAG 1,000 ML IV ONE (09:21)
--- NOTE | 2018-04-11 09:21 | ER Report ---
History and Physical Time Seen By MD: 09:16 Hx. of Stated Complaint: PATIENT REPORTS THAT HE HAS BEEN CONGESTED FOR THE PAST 5 DAYS. HPI/ROS CHIEF COMPLAINT: Cough and shortness of breath HISTORY OF PRESENT ILLNESS: This is a 72-year-old male. Transferred to the ER from [facility]. Shortness of breath for the last 5 days. Also having runny nose and congestion. He has been coughing up increasing amounts of phlegm. Now also having some pain around his ribs and lower abdomen from the coughing. This pain just started today. Denies any fevers and there are no reported fevers at [facility] from the nurse's documentation. His chest feels tight but no other pain. No nausea or vomiting. He denies any trouble with his bowels or with urination. Allergies: Coded Allergies: No Known Drug Allergies (Verified , 03/15/18) Home Meds Active Scripts Guaifenesin/Codeine (GUAIFENESIN-CODEINE SYRUP) 5 Ml Syrp, 5 ML PO Q6H PRN for COUGH, #120 ML 0 Refills Prov:BELTRAN HENRIQUEZ MD 04/11/18 Albuterol Sulfate 0.083% (ALBUTEROL SULFATE 0.083%) 2.5 Mg/3 Ml Vial.neb, 2.5 MG INH Q4H PRN for WHEEZING, #1 BOX 0 Refills Prov:BELTRAN HENRIQUEZ MD 04/11/18 Benzonatate (BENZONATATE) 200 Mg Capsule, 200 MG PO TID PRN for COUGH, #15 CAP 0 Refills Prov:BELTRAN HENRIQUEZ MD 04/11/18 Prednisone (PREDNISONE) 20 Mg Tablet, 60 MG PO QDAY, #12 TAB Prov:BELTRAN HENRIQUEZ MD 04/11/18 Reported Medications Nystatin (NYSTOP) 60 Gm Powder, 1 RCAHEL TP BID for ANTI FUNGAL 03/23/18 Dextran 70/Hypromellose (Natural Balance Tears Eye Drop) 0.1 %-0.3 % Drops, 1-2 GTT OU PRN PRN for DRY EYES 03/23/18 Mag Hydrox/Aluminum Hyd/Simeth (Maalox Advanced Suspension) 200 Mg-200 Mg-20 Mg/5 Ml Oral.susp, 1 DOSE-PACK PO Q4H 03/23/18 Loperamide HCl (Imodium A-D) 2 Mg Capsule, 2 MG PO PRN PRN for DIARRHEA 03/23/18 Menthol/Methyl Salicylate (BENGAY GREASELESS CREAM) 57 Gm Oint, 1 GM TP 3-4XD for PAIN 03/23/18 Acidoph/L.bulg/Bif.b/S.thermop (BACID CAPLET) 1 Each Tablet, 2 EACH PO BIDBS 03/23/18 Escitalopram Oxalate (LEXAPRO) 20 Mg Tablet, 20 MG PO QDAY, TAB 03/15/18 Thiamine Hcl (THIAMINE HCL) 100 Mg Tablet, 100 MG PO DAILY 12/26/16 Folic Acid (FOLIC ACID) 1 Mg Tablet, 1 MG PO QDAY, TAB 12/26/16 Cyanocobalamin (Vitamin B-12) (CYANOCOBALAMIN INJECTION) 1,000 Mcg/1 Ml Vial, 1000 MCG IJ Q2WK, VIAL 12/23/16 Apixaban (ELIQUIS) 2.5 Mg Tablet, 2 TAB PO BID 08/15/16 Amlodipine Besylate (AMLODIPINE BESYLATE) 5 Mg Tablet, 1 TAB PO QDAY, TAB 08/15/16 Tamsulosin Hcl (TAMSULOSIN HCL) 0.4 Mg Cap.er.24h, 0.4 MG PO HS, CAP 08/15/16 Multivitamin (MULTIVITAMINS) 1 Each Capsule, 1 EACH PO QDAY, CAPSULE 08/15/16 Magnesium Oxide (MAGNESIUM OXIDE) 400 Mg Tablet, 2 CAP PO TID 08/15/16 Cholecalciferol (Vitamin D3) (VITAMIN D3) 1,000 Unit Capsule, 1000 UNIT PO QDAY, CAPSULE 08/15/16 Reviewed Nurses Notes: Yes Hx Smoking: No Smoking Status: Never Smoker Exposure to Second Hand Smoke?: No Hx Substance Use Disorder: No Hx Alcohol Use: Yes Constitutional Vital Sign - Last 24 Hours 04/11/18 04/11/18 04/11/18 04/11/18 09:08 09:10 09:23 09:25 Temp 97.7 Pulse 66 Resp 24 B/P (MAP) 130/115 (120) 130/115 131/83 (99) Pulse Ox 96 O2 Delivery Nasal Cannula O2 Flow Rate 3.0 04/11/18 04/11/18 04/11/18 04/11/18 09:30 09:35 09:35 09:38 Pulse 60 60 Resp 18 17 B/P (MAP) 139/88 (105) Pulse Ox 97 97 O2 Delivery Nasal Cannula O2 Flow Rate 3.0 04/11/18 04/11/18 04/11/18 04/11/18 09:49 09:49 10:08 10:13 Pulse 60 62 ??? Resp 18 27 27 Pulse Ox 98 96 85 O2 Delivery Cool Aerosol O2 Flow Rate 3.0 04/11/18 04/11/18 04/11/18 04/11/18 10:27 10:27 10:30 10:43 Pulse 60 68 Resp 18 21 B/P (MAP) 149/130 (136) Pulse Ox 95 91 O2 Delivery Nasal Cannula O2 Flow Rate 1.0 04/11/18 04/11/18 04/11/18 04/11/18 11:00 11:13 11:30 11:43 Pulse 72 77 Resp 11 32 B/P (MAP) 128/73 (91) 123/68 (86) Pulse Ox 95 95 Physical Exam General Appearance: The patient is alert. No acute distress. Eyes: Pupils are equal, round. Reactive to light. No pallor, injection or icterus. Extraocular movements are intact. ENT: Mucous membranes are moist. Normal oral mucosa. Posterior oropharynx has mild erythema with some mild postnasal drainage which is clear. Neck: Supple and non tender. Has some anterior cervical lymphadenopathy. Respiratory: Lungs have wheezing and rhonchi. Cardiovascular: Regular rate and rhythm. No murmurs, gallops or rubs. Gastrointestinal: Abdomen is soft and non tender. Nondistended. No masses or organomegaly. Normal active bowel sounds. Neurological: Alert and oriented x3. No focal neurologic deficits Skin: Warm and dry. No rashes. Musculoskeletal: Extremities are nontender. DIFFERENTIAL DIAGNOSIS: After history and physical exam, differential diagnosis was considered for shortness of breath including but not limited to pulmonary infectious process, COPD, asthma, pulmonary embolus and congestive heart failure. Medical Decision Making Data Points Result Diagram: 04/11/1852 04/11/1852 Laboratory Hematology Test 04/11/18 09:52 04/11/18 10:00 Red Blood Count 4.49 M/uL (4.00-5.60) Mean Corpuscular Volume 99.4 fL (80.0-96.0) Mean Corpuscular Hemoglobin 34.2 pg (26.0-33.0) Mean Corpuscular Hemoglobin Concent 34.4 g/dL (32.0-36.0) Red Cell Distribution Width 14.0 % (11.5-14.5) Mean Platelet Volume 7.8 fL (7.2-11.1) Neutrophils (%) (Auto) 67.7 % (39.4-72.5) Lymphocytes (%) (Auto) 18.3 % (17.6-49.6) Monocytes (%) (Auto) 11.5 % (4.1-12.4) Eosinophils (%) (Auto) 1.5 % (0.4-6.7) Basophils (%) (Auto) 1.0 % (0.3-1.4) Nucleated RBC Relative Count (auto) 0.1 /100WBC Neutrophils # (Auto) 7.3 K/uL (2.0-7.4) Lymphocytes # (Auto) 2.0 K/uL (1.3-3.6) Monocytes # (Auto) 1.2 K/uL (0.3-1.0) Eosinophils # (Auto) 0.2 K/uL (0.0-0.5) Basophils # (Auto) 0.1 K/uL (0.0-0.1) Nucleated RBC Absolute Count (auto) 0.01 K/uL Sodium Level 129 mmol/L (137-145) Potassium Level 3.7 mmol/L (3.5-5.0) Chloride Level 97 mmol/L (98-107) Carbon Dioxide Level 24 mmol/L (22-30) Blood Urea Nitrogen 12 mg/dl (9-21) Creatinine 0.50 mg/dl (0.66-1.25) Glomerular Filtration Rate Calc > 60.0 Random Glucose 112 mg/dl (75-110) Calcium Level 8.1 mg/dl (8.4-10.2) Magnesium Level 1.4 mg/dl (1.7-2.2) Total Bilirubin 1.1 mg/dl (0.2-1.3) Aspartate Amino Transf (AST/SGOT) 24 U/L (0-35) Alanine Aminotransferase (ALT/SGPT) 38 U/L (0-56) Alkaline Phosphatase 55 U/L (0-126) Troponin I 0.016 ng/ml B-Type Natriuretic Peptide 193 pg/ml (0-100) Total Protein 6.2 g/dl (6.3-8.2) Albumin 3.1 g/dl (3.5-5.0) Blood Gas Puncture Site Left radial Blood Gas Patient Temperature 97.7 DEGREES Arterial Blood pH 7.41 (7.35-7.45) Arterial Blood Partial Pressure CO2 37 mmHg (32-37) Arterial Blood Partial Pressure O2 87 mmHg (60-80) Arterial Blood HCO3 24 mmol/L (20-26) Arterial Blood Oxygen Saturation 97 % (92-100) Arterial Blood Base Excess -1.0 mmol/L Juma Test Acceptable Oxygen Liters/Minute 33 Chemistry Test 04/11/18 09:52 04/11/18 10:00 White Blood Count 10.8 k/uL (4.5-11.0) Red Blood Count 4.49 M/uL (4.00-5.60) Hemoglobin 15.4 g/dL (14.0-18.0) Hematocrit 44.6 % (42.0-52.0) Mean Corpuscular Volume 99.4 fL (80.0-96.0) Mean Corpuscular Hemoglobin 34.2 pg (26.0-33.0) Mean Corpuscular Hemoglobin Concent 34.4 g/dL (32.0-36.0) Red Cell Distribution Width 14.0 % (11.5-14.5) Platelet Count 181 K/uL (150-450) Mean Platelet Volume 7.8 fL (7.2-11.1) Neutrophils (%) (Auto) 67.7 % (39.4-72.5) Lymphocytes (%) (Auto) 18.3 % (17.6-49.6) Monocytes (%) (Auto) 11.5 % (4.1-12.4) Eosinophils (%) (Auto) 1.5 % (0.4-6.7) Basophils (%) (Auto) 1.0 % (0.3-1.4) Nucleated RBC Relative Count (auto) 0.1 /100WBC Neutrophils # (Auto) 7.3 K/uL (2.0-7.4) Lymphocytes # (Auto) 2.0 K/uL (1.3-3.6) Monocytes # (Auto) 1.2 K/uL (0.3-1.0) Eosinophils # (Auto) 0.2 K/uL (0.0-0.5) Basophils # (Auto) 0.1 K/uL (0.0-0.1) Nucleated RBC Absolute Count (auto) 0.01 K/uL Glomerular Filtration Rate Calc > 60.0 Calcium Level 8.1 mg/dl (8.4-10.2) Magnesium Level 1.4 mg/dl (1.7-2.2) Total Bilirubin 1.1 mg/dl (0.2-1.3) Aspartate Amino Transf (AST/SGOT) 24 U/L (0-35) Alanine Aminotransferase (ALT/SGPT) 38 U/L (0-56) Alkaline Phosphatase 55 U/L (0-126) Troponin I 0.016 ng/ml B-Type Natriuretic Peptide 193 pg/ml (0-100) Total Protein 6.2 g/dl (6.3-8.2) Albumin 3.1 g/dl (3.5-5.0) Blood Gas Puncture Site Left radial Blood Gas Patient Temperature 97.7 DEGREES Arterial Blood pH 7.41 (7.35-7.45) Arterial Blood Partial Pressure CO2 37 mmHg (32-37) Arterial Blood Partial Pressure O2 87 mmHg (60-80) Arterial Blood HCO3 24 mmol/L (20-26) Arterial Blood Oxygen Saturation 97 % (92-100) Arterial Blood Base Excess -1.0 mmol/L Juma Test Acceptable Oxygen Liters/Minute 33 Microbiology Microbiology Date/Time Source Procedure Growth Status 04/11/18 09:52 Blood Blood Culture - Preliminary NO GROWTH SO FAR, SET LATE. REINCUBATED Resulted EKG/Imaging EKG Interpretation 12 lead EKG: Electronic ventricular paced Imaging Exam type: CHEST SINGLE AP History: RESP DISTRESS Comparison: December 22, 2017. Findings: The lungs are free of acute effusions, infiltrates or edema. There is no evidence of a pneumothorax or pneumomediastinum. Oxygen tubing projects over the left upper thorax. A pacemaker battery pack projects over the lateral aspect the left mid thorax. Single pacemaker lead appears well totally unchanged in position. The cardiac silhouette is normal in size. IMPRESSION: 1. No acute cardiac pulmonary process is seen Report Dictated By: Beth Enriquez MD at 04/11/2018 10:40 AM ED Course/Re-evaluation Clinical Indication for ER IV: IV Access ED Course Had improvement after DuoNeb treatment. Solu-Medrol 125 mg IV given as well. X- ray negative. Labs unremarkable. Gave him benzonatate and this did seem to help the cough a little bit. Decision to Disposition Date: Apr 11, 2018 Decision to Disposition Time: 11:18 Depart Departure Latest Vital Signs Vital Signs Date Time Temp Pulse Resp B/P (MAP) Pulse Ox O2 Delivery O2 Flow Rate FiO2 04/11/18 11:43 77 32 95 04/11/18 11:30 123/68 (86) 04/11/18 10:27 Nasal Cannula 1.0 04/11/18 09:10 97.7 Impression: Primary Impression: Acute viral bronchitis Condition: Improved Disposition: HOME OR SELF-CARE New Scripts Guaifenesin/Codeine (GUAIFENESIN-CODEINE SYRUP) 5 Ml Syrp 5 ML PO Q6H PRN for COUGH, #120 ML 0 Refills Prov: BELTRAN HENRIQUEZ MD 04/11/18 Albuterol Sulfate 0.083% (ALBUTEROL SULFATE 0.083%) 2.5 Mg/3 Ml Vial.neb 2.5 MG INH Q4H PRN for WHEEZING, #1 BOX 0 Refills Prov: BELTRAN HENRIQUEZ MD 04/11/18 Benzonatate (BENZONATATE) 200 Mg Capsule 200 MG PO TID PRN for COUGH, #15 CAP 0 Refills Prov: BELTRAN HENRIQUEZ MD 04/11/18 Prednisone (PREDNISONE) 20 Mg Tablet 60 MG PO QDAY, #12 TAB Prov: BELTRAN HENRIQUEZ MD 04/11/18 Patient Instructions: Acute Bronchitis (ED) Additional Instructions: Use Benzonatate 200mg every 8 hours as needed for cough. Albuterol nebulizer treatments every 4 hours as needed for cough and wheezing. Prednisone 20mg tablets, take 3 tablets once a day for 4 days, first dose tomorrow morning. Use of Guaifenesin with Codeine, 1 teaspoon every 4 hours as needed for cough. Tylenol or Ibuprofen as needed for pain. Make a follow-up appointment with Dr. Woods. BELTRAN HENRIQUEZ MD Apr 11, 2018 09:21
[2018-04-11] MEDS ORDERED: methylPREDNIS SUCC 125 MG/2ML IVP ONE (09:25)
[2018-04-11] MEDS ORDERED: MORPHINE 4 MG/ML SDV IVP ONE (09:25)
[2018-04-11] MEDS: ALBUTEROL/IPRATROPIUM 3 ML NEB NEB SCH ×3 (09:34→10:06)
[2018-04-11 10:02] LABS: PLATELET COUNT, AUTOMATED 181 K/uL (150-450)
--- NOTE | 2018-04-11 10:16 | EKG ---
FACILITY: [facility] PATIENT NAME: ALVARO POWELL : [id number] MR: [id number] V: [id number] EXAM DATE: ORDERING PHYSICIAN: BELTRAN HENRIQUEZ TECHNOLOGIST: DARIAN Parsons Reason : RESPIRATORY Blood Pressure : / mmHG Vent. Rate : 060 BPM Atrial Rate : 061 BPM P-R Int : 000 ms QRS Dur : 158 ms QT Int : 544 ms P-R-T Axes : 000 -72 132 degrees QTc Int : 544 ms Electronic ventricular pacemaker When compared with ECG of 03-MAR-2018 23:56, No significant change was found Confirmed by Wagner Haskins ([id number]) on 04/11/2018 6:51:31 PM Referred By: MARTINEZ Confirmed By:Wagner Villegas
--- NOTE | 2018-04-11 10:46 | RADIOLOGY IMAGING REPORT ---
FACILITY: [facility] [place] PATIENT NAME: Caleb Gomez : 1945 MR: [id number] V: [id number] EXAM DATE: ORDERING PHYSICIAN: BELTRAN HENRIQUEZ TECHNOLOGIST: Location: [facility] [place] Patient: Caleb Gomez : 1945 Visit/Account:[id number] Date of Sevice: 04/11/2018 Exam type: CHEST SINGLE AP History: RESP DISTRESS Comparison: December 22, 2017. Findings: The lungs are free of acute effusions, infiltrates or edema. There is no evidence of a pneumothorax or pneumomediastinum. Oxygen tubing projects over the left upper thorax. A pacemaker battery pack p rojects over the lateral aspect the left mid thorax. Single pacemaker lead appears well totally unch anged in position. The cardiac silhouette is normal in size. IMPRESSION: 1. No acute cardiac pulmonary process is seen Report Dictated By: Beth Enriquez MD at 04/11/2018 10:40 AM Report E-Signed By: Beth Enriquez MD at 04/11/2018 10:42 AM WSN:[id number]
[2018-04-11] MEDS ORDERED: BENZONATATE 100 MG CAP PO ONE (11:10)
[2018-04-11] MEDS ORDERED: predniSONE 20 MG TAB PO ONE (11:10)
[2018-04-11] MEDS ORDERED: ALBUTEROL 2.5 MG/3 ML NEB NEB ONE (11:10)
[2018-04-11] MEDS ORDERED: BENZ200C15 PO (11:21)
[2018-04-11] MEDS ORDERED: ROBC PO (11:21)
[2018-04-11] MEDS ORDERED: PRED20TA6 PO (11:21)
[2018-04-11] MEDS ORDERED: ALBU2.5V36 INH (11:21)
[2018-04-11 11:30] VITALS: BP 123/68
== END 2018-04-11 12:00 | disposition home or self-care (01) ==
LOC: ER 09:08
DX: J20.8 Acute bronchitis due to other specified organisms (principal)
CPT/HCPCS: 36415; 36600; 71045; 82803; 83735; 83880; 84484; 85025; 87040; 93005; 94640; 94644; 96361; 96374; 96375; 99284; A9270; J2270; J2930; J7030; J7512; J7613; J7620; 82040; 82247; 82310; 82374; 82435; 82565; 82947; 84075; 84132; 84155; 84295; 84450; 84460; 84520

== ENCOUNTER → 2018-04-11 | Outpatient (CLI) | payer MEDICARE, MEDICAID ==
[2017-12-23 13:02] VITALS: BMI 28.9
[~2018-04-11] MED LIST changes: +ALBU2.5V36 INH; +BENZ200C15 PO; +PRED20TA6 PO; +ROBC PO
== END ==
LOC: AMB 08:48
PROVIDERS: ATTEND Nurse Practitioner
DX: R06.03 Acute respiratory distress (principal); R19.7 Diarrhea, unspecified
CPT/HCPCS: A0425; A0427

== ENCOUNTER → 2018-04-11 | Outpatient (CLI) | payer MEDICARE, MEDICAID ==
[2017-12-23 13:02] VITALS: BMI 28.9
== END ==
LOC: AMB 11:59
PROVIDERS: ATTEND Nurse Practitioner
DX: R53.1 Weakness (principal)
CPT/HCPCS: A0425; A0428

== ENCOUNTER 2018-04-28 17:57 | Emergency (ER) | payer MEDICARE, MEDICAID ==
[2017-12-23 13:02] VITALS: BMI 28.9
[~2018-04-28 17:57] MED LIST changes: +ALBU2.5V36 INH; +BENZ200C15 PO; +PRED20TA6 PO; +ROBC PO
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
--- NOTE | 2018-04-28 19:12 | RADIOLOGY IMAGING REPORT ---
FACILITY: [facility] - [place] PATIENT NAME: Caleb Gomez : 1945 MR: [id number] V: [id number] EXAM DATE: ORDERING PHYSICIAN: EMILY VILLALTA TECHNOLOGIST: Location: [facility] [place] Patient: Caleb Gomez : 1945 Visit/Account:[id number] Date of Sevice: 04/28/2018 Lumbar spine Indication: Back pain. Comparison: None available FINDINGS: Exam is limited by crosstable lateral technique. 3 views of the lumbar spine were obtained. There are 5 lumbar type vertebral bodies. The lumbar alignment is felt to be intact. There are superior endplate compression deformities at L1 and T12. These are age indeterminate. Corre late with focal pain. Multilevel degenerative disc disease is present most severe at L2-3 and L3-4. T he abdominal aorta is diffusely atherosclerotic. IMPRESSION: 1. Limited examination due to crosstable lateral technique. 2. Age indeterminant superior endplate compression deformities at T12 and L1. 3. Multilevel degenerative disc disease. Report Dictated By: Tino Herrera at 04/28/2018 7:04 PM Report E-Signed By: Tino Herrera at 04/28/2018 7:08 PM WSN:[id number]
--- NOTE | 2018-04-28 19:15 | RADIOLOGY IMAGING REPORT ---
FACILITY: [facility] - [place] PATIENT NAME: Caleb Gomez : 1945 MR: [id number] V: [id number] EXAM DATE: ORDERING PHYSICIAN: EMILY VILLALTA TECHNOLOGIST: [facility] Patient: Caleb Gomez : 1945 Visit/Account:[id number] Date of Sevice: 04/28/2018 PELVIS INDICATION: Fall. COMPARISON: None available FINDINGS: Single frontal view of the pelvis is submitted. There is a subtle area of linear lucency involving th e left upper sacrum. A minimally displaced left sacral ala fracture is likely. Correlate clinically. No other suspected fracture line is seen. Hip joints appear appropriately aligned on this single proj ection. Pubic symphysis and sacroiliac joints also appear appropriately aligned. Degenerative changes involve the low lumbar spine. There is diffuse atherosclerosis. IMPRESSION: 1. Suspected minimally displaced fracture involving the left sacral ala. Correlate for focal pain. 2. Degenerative disc disease of lumbar spine. 3. Diffuse atherosclerosis. Report Dictated By: Tino Herrera at 04/28/2018 7:08 PM Report E-Signed By: Tino Herrera at 04/28/2018 7:11 PM WSN:[id number]
[2018-04-28] MEDS ORDERED: APAP/HYDROCODONE 325/5 TAB PO ONE (19:25)
--- NOTE | 2018-04-28 21:04 | RADIOLOGY IMAGING REPORT ---
FACILITY: [facility] - [place] PATIENT NAME: Caleb Gomez : 1945 MR: [id number] V: [id number] EXAM DATE: ORDERING PHYSICIAN: EMILY VILLALTA TECHNOLOGIST: Location: [facility] Patient: Caleb Gomez : 1945 Visit/Account:[id number] Date of Sevice: 04/28/2018 CT of the osseous pelvis without contrast Indication: Fall. Evaluate for sacral ala fracture. Comparison: Plain films of the pelvis from earlier today are reviewed. Technique: Axial CT images were obtained through the pelvis. Reformatted coronal and sagittal images were reviewed. One of the following dose optimization techniques was utilized in the performance of this exam: Autom ated exposure control; adjustment of the mA and/or kV according to the patient's size; or use of an i terative reconstruction technique. Specific details can be referenced in the facility's radiology C T exam operational policy. Findings: There is no evidence of an acute sacral fracture. The plain film finding corresponds to a pseudoartic ulation between the left transverse process at L5 and the sacral ala. Degenerative changes are seen a long this pseudoarticulation. This is asymmetric to the right side and corresponds to the plain film finding. No acute fracture involves the bony pelvis or the proximal femora. There are mild changes of bilateral hip joint osteoarthritis. Focal areas of chondrocalcinosis are se en to involve the acetabular labrum. There is a benign-appearing bone island within the left acetabul um. Multilevel degenerative disc disease involves the included low lumbar spine. No compression fractures seen of L5 or L4. With respect to the soft tissues, no soft tissue hematoma is identified. There is no evidence to sugg est hip joint effusion. Within the pelvis, there is evidence of a right fat-containing inguinal herni a. No free fluid. There is mild prostatic enlargement. There is diffuse atherosclerosis. IMPRESSION: 1. No evidence of acute fracture of the left sacrum. Plain film finding corresponds to a pseudoarticu lation between the left sacral ala and the left L5 transverse process with associated degenerative ch marv. 2. No acute fracture deformity identified. 3. Multilevel degenerative disc disease of lumbar spine. 4. Bilateral hip joint osteoarthritis. Report Dictated By: Tino Herrera at 04/28/2018 8:46 PM Report E-Signed By: Tino Herrera at 04/28/2018 9:00 PM WSN:[id number]
[2018-04-28] MEDS ORDERED: CALCIUM CARBONATE 500 MG CHEW PO ONE (21:20)
--- NOTE | 2018-04-28 21:20 | RADIOLOGY IMAGING REPORT ---
FACILITY: [facility] - [place] PATIENT NAME: Caleb Gomez : 1945 MR: [id number] V: [id number] EXAM DATE: ORDERING PHYSICIAN: EMILY VILLALTA TECHNOLOGIST: Location: [facility] - [place] Patient: Caleb Gomez : 1945 Visit/Account:[id number] Date of Sevice: 04/28/2018 L-SPINE W/O CONTRAST HISTORY: Fall. Sacral alar fracture on plain films. COMPARISON: Lumbar spine x-rays earlier same day. CT pelvis was performed at the same time as the cur rent examination. TECHNIQUE: Axial images were obtained through the lumbar spine. Coronal and sagittal reformatted imag es were obtained from the axial source data. One of the following dose optimization techniques was utilized in the performance of this exam: Autom ated exposure control; adjustment of the mA and/or kV according to the patient's size; or use of an i terative reconstruction technique. Specific details can be referenced in the facility's radiology CT exam operational policy. CONTRAST: None. FINDINGS: Musculoskeletal/vertebra: There is a fracture of the superior endplate of T12 with 40 percent loss of vertebral body height. There is also a fracture of the superior endplate of L1 with 25 percent loss of vertebral body height. Fractures were present on prior chest x-rays and chest CT dating as far erwin k as 2012. The remainder of the vertebral body heights are maintained. There fractures of the right L1 and L2 transverse processes that are nondisplaced. The left L5 transverse process articulates with the superior left sacrum. There is 3 mm anterolisthes is of L4 compared to L5. There are vacuum clefts and loss of disc height at L2-3 and L3-4. Disc heigh t loss is severe at L3-4. There is endplate sclerosis at both of these levels. There is milder degene rative disc disease at multiple other levels in the lumbar spine, and there is severe degenerative fa cet disease at L4-5 and L5-S1, bilaterally. There is severe spinal canal stenosis at L2-3, L3-4, and L4-5. Visualized retroperitoneal / abdominal structures: There is a moderate to large type I hiatal hernia. There is moderate to severe atherosclerosis of the aorta and iliac arteries. No aneurysm. There is m ild dependent atelectasis. IMPRESSION: 1. Nondisplaced right L1 and L2 transverse process fractures. 2. Chronic superior endplate compression fractures at T12 and L1 are unchanged from CT of the chest d ated 08/16/2012. 3. Multilevel degenerative changes of the spine result in severe spinal canal stenosis from L2-3 thro ugh L4-5. 4. Moderate to large hiatal hernia. Report Dictated By: Ambar Martin at 04/28/2018 8:57 PM Report E-Signed By: Ambar Martin at 04/28/2018 9:17 PM WSN:[id number]
[2018-04-28 21:30] VITALS: BP 174/107
[2018-04-28] MEDS ORDERED: TRAM-420 PO (22:18)
[2018-04-28] MEDS ORDERED: traMADol 50 MG TAB TH 2 TAB/BOTTLE PO ONE (22:25)
== END 2018-04-28 22:30 | disposition home or self-care (01) ==
LOC: ER 18:06
DX: S32.009A Unspecified fracture of unspecified lumbar vertebra, initial encounter for closed fracture (principal); S20.221A Contusion of right back wall of thorax, initial encounter; W18.30XA Fall on same level, unspecified, initial encounter
CPT/HCPCS: 72100; 72131; 72170; 72192; 99284; A9270; C9399

== ENCOUNTER 2018-07-17 16:30 | Inpatient (IN) | payer MEDICARE, MEDICAID ==
[2017-12-23 13:02] VITALS: Wt 72.8 kg
[~2018-07-17 16:30] MED LIST changes: -APIX5TAB PO; -ERYT1OIN3 OP; -RANI-318 PO; -TRIA15CR40 TOP
--- NOTE | 2018-07-17 16:50 | ER Report ---
History and Physical Time Seen By MD: 16:26 (STEFANO GAITANP-BC) Time Seen By MD: 21:00 (PAOLA LEVY DO) HPI/ROS CHIEF COMPLAINT: Altered mental status HISTORY OF PRESENT ILLNESS: This is a 72 male, well-known to the emergency department who presents via EMS for an altered mental status. Patient's is an alcoholic, and according to EMS they were dispatched to the patient's home for a welfare check, the liquor store contacted PD when he did not show up today for his usual liquor run. Upon arrival they noted several cans of shaving cream around the living room, he was somewhat coherence and then began to have a tonic-clonic seizure, they did give him 2 mg IM Ativan. Subsequently was transported to the emergency department. Upon arrival the patient's GCS is 10. Moving all extremities. Not following commands, will respond to his name however not following commands. No obvious injuries, no bleeding from the nose or mouth or ears, no contusions does have small abrasions on his arms and legs, and multiple stages of healing. REVIEW OF SYSTEMS: Constitutional: No fever, no chills. Eyes: No discharge. ENT: No sore throat. Cardiovascular: No chest pain, no palpitations. Respiratory: No cough, no shortness of breath. Gastrointestinal: No abdominal pain, no vomiting. Genitourinary: No hematuria. Musculoskeletal: No back pain. Skin: No rashes. Neurological: As above. (STEFANO GAITANP-BC) HPI/ROS Please see Stefano Gaitan's note (PAOLA LEVY DO) Allergies: Coded Allergies: No Known Drug Allergies (Verified , 03/15/18) Home Meds Active Scripts Tramadol Hcl (TRAMADOL HCL) 50 Mg Tablet, 1 TAB PO Q4-6H PRN for PAIN, #20 MG TAKE ONE TABLETS BY MOUTH EVERY FOUR TO SIX HOURS NEEDED Prov:EMILY VILLALTA DO 04/28/18 Guaifenesin/Codeine (GUAIFENESIN-CODEINE SYRUP) 5 Ml Syrp, 5 ML PO Q6H PRN for COUGH, #120 ML 0 Refills Prov:BELTRAN HENRIQUEZ MD 04/11/18 Albuterol Sulfate 0.083% (ALBUTEROL SULFATE 0.083%) 2.5 Mg/3 Ml Vial.neb, 2.5 MG INH Q4H PRN for WHEEZING, #1 BOX 0 Refills Prov:BELTRAN HENRIQUEZ MD 04/11/18 Benzonatate (BENZONATATE) 200 Mg Capsule, 200 MG PO TID PRN for COUGH, #15 CAP 0 Refills Prov:BELTRAN HENRIQUEZ MD 04/11/18 Prednisone (PREDNISONE) 20 Mg Tablet, 60 MG PO QDAY, #12 TAB Prov:BELTRAN HENRIQUEZ MD 04/11/18 Reported Medications Nystatin (NYSTOP) 60 Gm Powder, 1 RACHEL TP BID for ANTI FUNGAL 03/23/18 Dextran 70/Hypromellose (Natural Balance Tears Eye Drop) 0.1 %-0.3 % Drops, 1-2 GTT OU PRN PRN for DRY EYES 03/23/18 Mag Hydrox/Aluminum Hyd/Simeth (Maalox Advanced Suspension) 200 Mg-200 Mg-20 Mg/5 Ml Oral.susp, 1 DOSE-PACK PO Q4H 03/23/18 Loperamide HCl (Imodium A-D) 2 Mg Capsule, 2 MG PO PRN PRN for DIARRHEA 03/23/18 Menthol/Methyl Salicylate (BENGAY GREASELESS CREAM) 57 Gm Oint, 1 GM TP 3-4XD for PAIN 03/23/18 Acidoph/L.bulg/Bif.b/S.thermop (BACID CAPLET) 1 Each Tablet, 2 EACH PO BIDBS 03/23/18 Escitalopram Oxalate (LEXAPRO) 20 Mg Tablet, 20 MG PO QDAY, TAB 03/15/18 Thiamine Hcl (THIAMINE HCL) 100 Mg Tablet, 100 MG PO DAILY 12/26/16 Folic Acid (FOLIC ACID) 1 Mg Tablet, 1 MG PO QDAY, TAB 12/26/16 Cyanocobalamin (Vitamin B-12) (CYANOCOBALAMIN INJECTION) 1,000 Mcg/1 Ml Vial, 1000 MCG IJ Q2WK, VIAL 12/23/16 Apixaban (ELIQUIS) 2.5 Mg Tablet, 2 TAB PO BID 08/15/16 Amlodipine Besylate (AMLODIPINE BESYLATE) 5 Mg Tablet, 1 TAB PO QDAY, TAB 08/15/16 Tamsulosin Hcl (TAMSULOSIN HCL) 0.4 Mg Cap.er.24h, 0.4 MG PO HS, CAP 08/15/16 Multivitamin (MULTIVITAMINS) 1 Each Capsule, 1 EACH PO QDAY, CAPSULE 08/15/16 Magnesium Oxide (MAGNESIUM OXIDE) 400 Mg Tablet, 2 CAP PO TID 08/15/16 Cholecalciferol (Vitamin D3) (VITAMIN D3) 1,000 Unit Capsule, 1000 UNIT PO QDAY, CAPSULE 08/15/16 Past Medical/Surgical History The patient has a past medical and surgical history of questionable carotid occlusion causing syncope, pacemaker, atrial fibrillation, shortness of breath, hypertension, hypercholesterolemia, ulcers, GERD, enlarged prostate, rib fractures, fracture, spinal stenosis, compression fractures, cataract surgery, type II diabetes, chronic hyponatremia and hypomagnesemia, regular rashes and itching, chronic alcoholism, pacemaker. (STEFANO GAITANP-) Reviewed Nurses Notes: Yes (STEFANO GAITANP-) Hx Smoking: No Smoking Status: Never Smoker Exposure to Second Hand Smoke?: No Hx Substance Use Disorder: No Hx Alcohol Use: Yes (STEFANO GAITAN [facility]-) Constitutional Vital Sign - Last 24 Hours 07/17/18 07/17/18 07/17/18 07/17/18 16:30 16:30 16:30 16:41 Temp 98.0 Pulse ??? 86 Resp 20 B/P (MAP) 146/118 134/103 (113) Pulse Ox 88 O2 Delivery Room Air O2 Flow Rate 3.0 07/17/18 07/17/18 07/17/18 07/17/18 16:50 16:52 16:55 17:00 Pulse 103 Resp 29 B/P (MAP) 87/61 (70) 86/63 (71) 104/84 (91) 90/72 (78) Pulse Ox 81 07/17/18 07/17/18 07/17/18 07/17/18 17:20 17:30 17:40 18:00 Pulse 119 B/P (MAP) 134/118 (123) 125/88 (100) 158/88 (111) Pulse Ox 96 07/17/18 07/17/18 07/17/18 07/17/18 18:20 18:25 18:55 19:10 Pulse 98 98 Resp 36 21 B/P (MAP) 154/77 (102) 3/5/19 3/5/19 3/5/19 3/5/19 19:11 19:20 19:25 19:40 Pulse 103 101 Resp 25 25 B/P (MAP) 129/87 (101) 142/82 (102) 130/75 (93) 07/17/18 07/17/18 07/17/18 07/17/18 19:55 19:57 20:00 20:20 Temp 98.5 Pulse 101 B/P (MAP) 126/83 (97) 106/85 (92) 07/17/18 07/17/18 07/17/18 07/17/18 20:20 20:35 20:40 20:50 Pulse 105 97 101 B/P (MAP) 106/85 (92) 99/66 (77) 07/17/18 07/17/18 07/17/18 07/17/18 21:00 21:05 21:20 21:35 Pulse 94 100 96 B/P (MAP) 116/65 (82) 106/60 (75) 07/17/18 07/17/18 07/17/18 07/17/18 21:40 21:50 21:55 22:00 Pulse 105 95 B/P (MAP) 92/74 (80) 103/57 (72) 07/17/18 07/17/18 07/17/18 07/17/18 22:10 22:20 22:25 22:40 Pulse 101 92 92 B/P (MAP) 122/62 (82) 106/66 (79) 07/17/18 07/17/18 07/17/18 07/17/18 22:55 23:00 23:20 23:45 Pulse 95 B/P (MAP) 119/82 (94) 121/67 (85) 100/75 (83) 07/17/18 07/18/18 07/18/18 07/18/18 23:55 00:00 00:10 00:20 Pulse 100 101 Resp 30 22 B/P (MAP) 113/44 (67) 103/58 (73) Pulse Ox 87 89 07/18/18 07/18/18 07/18/18 07/18/18 00:40 00:45 01:00 01:15 Pulse 96 101 89 Resp 25 26 21 20 B/P (MAP) 111/58 (75) Pulse Ox 99 98 99 99 07/18/18 07/18/18 07/18/18 07/18/18 01:20 01:30 01:40 01:45 Pulse 84 89 Resp 19 18 B/P (MAP) 113/69 (84) 130/65 (86) Pulse Ox 98 94 07/18/18 07/18/18 07/18/18 07/18/18 02:00 02:20 02:25 02:40 Pulse 81 81 96 Resp 21 B/P (MAP) 144/77 (99) 127/83 (98) 125/67 (86) Pulse Ox 82 98 07/18/18 07/18/18 07/18/18 07/18/18 02:55 03:00 03:10 03:20 Pulse 81 81 B/P (MAP) 119/67 (84) 123/64 (83) Pulse Ox 98 98 07/18/18 07/18/18 07/18/18 07/18/18 03:25 03:30 03:40 03:45 Pulse 80 87 85 B/P (MAP) 94/60 (71) Pulse Ox 85 85 93 07/18/18 07/18/18 07/18/18 07/18/18 04:00 04:15 04:20 04:30 Pulse 83 91 89 B/P (MAP) 85/60 (68) 80/60 (67) Pulse Ox 90 90 91 07/18/18 07/18/18 07/18/18 07/18/18 04:35 04:40 04:50 05:00 Pulse 90 86 B/P (MAP) 104/55 (71) 117/69 (85) Pulse Ox 90 90 07/18/18 07/18/18 07/18/18 05:05 05:20 05:35 Pulse 84 80 77 B/P (MAP) 127/67 (87) Pulse Ox 83 89 94 (PAOLA LEVY DO) Physical Exam General Appearance: The patient is alert, has no immediate need for airway protection and no signs of toxicity. Eyes: Pupils equal and round no pallor or injection. ENT, Mouth: Mucous membranes are dry. Respiratory: There are no retractions, lungs are clear to auscultation. Cardiovascular: Regular rate and rhythm, no murmurs, clicks or rubs. Gastrointestinal: Abdomen is soft and non tender, no masses, bowel sounds normal. Neurological: Unable to fully assess, due to patient's current status, GCS 10. Skin: Several abrasions and small bruises over the entire body, multiple stages of healing, no acute findings. Musculoskeletal: Neck is supple non tender. Extremities are nontender, nonswollen and have full range of motion. DIFFERENTIAL DIAGNOSIS: After history and physical exam differential diagnosis w as considered for altered mental status including but not limited to hypoglycemia, infectious process, electrolyte abnormality, head injury and intoxicants. NIH Stroke Scale: Unable to fully assess due to patient's GCS status. (STEFANO GAITAN [employer]-BC) Physical Exam Please see Stefano Gaitan's note (PAOLA LEVY DO) Medical Decision Making Data Points Result Diagram: 07/19/18 0455 07/19/18 0455 Laboratory Hematology Test 07/17/18 16:36 07/17/18 16:47 07/17/18 19:08 07/17/18 19:52 Red Blood Count 4.78 M/uL (4.00-5.60) Mean Corpuscular Volume 96.7 fL (80.0-96.0) Mean Corpuscular Hemoglobin 33.0 pg (26.0-33.0) Mean Corpuscular Hemoglobin Concent 34.1 g/dL (32.0-36.0) Red Cell Distribution Width 15.0 % (11.5-14.5) Mean Platelet Volume 8.6 fL (7.2-11.1) Neutrophils (%) (Auto) 85.3 % (39.4-72.5) Lymphocytes (%) (Auto) 7.1 % (17.6-49.6) Monocytes (%) (Auto) 7.2 % (4.1-12.4) Eosinophils (%) (Auto) 0.1 % (0.4-6.7) Basophils (%) (Auto) 0.3 % (0.3-1.4) Nucleated RBC Relative Count (auto) 0.2 /100WBC Neutrophils # (Auto) 13.7 K/uL (2.0-7.4) Lymphocytes # (Auto) 1.1 K/uL (1.3-3.6) Monocytes # (Auto) 1.1 K/uL (0.3-1.0) Eosinophils # (Auto) 0.0 K/uL (0.0-0.5) Basophils # (Auto) 0.0 K/uL (0.0-0.1) Nucleated RBC Absolute Count (auto) 0.03 K/uL Sodium Level 124 mmol/L (137-145) Potassium Level 3.6 mmol/L (3.5-5.0) Chloride Level 85 mmol/L (98-107) Carbon Dioxide Level 22 mmol/L (22-30) Blood Urea Nitrogen 6 mg/dl (9-21) Creatinine 0.70 mg/dl (0.66-1.25) Glomerular Filtration Rate Calc > 60.0 Random Glucose 175 mg/dl (75-110) Calcium Level 9.1 mg/dl (8.4-10.2) Total Bilirubin 2.6 mg/dl (0.2-1.3) Aspartate Amino Transf (AST/SGOT) 57 U/L (0-35) Alanine Aminotransferase (ALT/SGPT) 36 U/L (0-56) Alkaline Phosphatase 76 U/L (0-126) Ammonia 23 UMOL/L (9-33) Troponin I 0.050 ng/ml Total Protein 6.2 g/dl (6.3-8.2) Albumin 3.1 g/dl (3.5-5.0) Serum Alcohol < 10 mg/dl Influenza Virus Type A (PCR) Negative (NEGATIVE) Influenza Virus Type B (PCR) Negative (NEGATIVE) Urine Color Wendy Urine Clarity Slightly-cloudy Urine pH 5.0 pH (4.8-9.5) Urine Specific [place] 1.015 Urine Protein 30 mg/dL (NEGATIVE) Urine Glucose (UA) Negative mg/dL (NEGATIVE) Urine Ketones Trace mg/dL (NEGATIVE) Urine Blood Negative (NEGATIVE) Urine Nitrite Negative (NEGATIVE) Urine Bilirubin Negative (NEGATIVE) Urine Urobilinogen Negative mg/dL (0.2-1.9) Urine Leukocyte Esterase Negative (NEGATIVE) Urine RBC <1 /HPF (0-2/HPF) Urine WBC 3 /HPF (0-5/HPF) Urine Squamous Epithelial Cells Few /LPF (NONE-FEW) Urine Bacteria Negative /HPF (NONE-FEW) Urine Hyaline Casts Few /LPF (NONE-FEW) Urine Mucus None /HPF (NONE-FEW) Urine Opiates Screen Negative Urine Barbiturates Screen Negative Ur Tricyclic Antidepressants Screen Negative Urine Phencyclidine Screen Negative Urine Amphetamines Screen Positive Urine Benzodiazepines Screen Negative Urine Cocaine Screen Negative Urine Cannabinoids Screen Negative Blood Gas Puncture Site Left radial Blood Gas Patient Temperature 98 DEGREES Arterial Blood pH 7.49 (7.35-7.45) Arterial Blood Partial Pressure CO2 30 mmHg (32-37) Arterial Blood Partial Pressure O2 87 mmHg (60-80) Arterial Blood HCO3 23 mmol/L (20-26) Arterial Blood Oxygen Saturation 98 % (92-100) Arterial Blood Base Excess 0.0 mmol/L Juma Test Acceptable Oxygen Liters/Minute 3l Chemistry Test 07/17/18 16:36 07/17/18 16:47 07/17/18 19:08 07/17/18 19:52 White Blood Count 16.0 k/uL (4.5-11.0) Red Blood Count 4.78 M/uL (4.00-5.60) Hemoglobin 15.8 g/dL (14.0-18.0) Hematocrit 46.2 % (42.0-52.0) Mean Corpuscular Volume 96.7 fL (80.0-96.0) Mean Corpuscular Hemoglobin 33.0 pg (26.0-33.0) Mean Corpuscular Hemoglobin Concent 34.1 g/dL (32.0-36.0) Red Cell Distribution Width 15.0 % (11.5-14.5) Platelet Count 185 K/uL (150-450) Mean Platelet Volume 8.6 fL (7.2-11.1) Neutrophils (%) (Auto) 85.3 % (39.4-72.5) Lymphocytes (%) (Auto) 7.1 % (17.6-49.6) Monocytes (%) (Auto) 7.2 % (4.1-12.4) Eosinophils (%) (Auto) 0.1 % (0.4-6.7) Basophils (%) (Auto) 0.3 % (0.3-1.4) Nucleated RBC Relative Count (auto) 0.2 /100WBC Neutrophils # (Auto) 13.7 K/uL (2.0-7.4) Lymphocytes # (Auto) 1.1 K/uL (1.3-3.6) Monocytes # (Auto) 1.1 K/uL (0.3-1.0) Eosinophils # (Auto) 0.0 K/uL (0.0-0.5) Basophils # (Auto) 0.0 K/uL (0.0-0.1) Nucleated RBC Absolute Count (auto) 0.03 K/uL Glomerular Filtration Rate Calc > 60.0 Calcium Level 9.1 mg/dl (8.4-10.2) Total Bilirubin 2.6 mg/dl (0.2-1.3) Aspartate Amino Transf (AST/SGOT) 57 U/L (0-35) Alanine Aminotransferase (ALT/SGPT) 36 U/L (0-56) Alkaline Phosphatase 76 U/L (0-126) Ammonia 23 UMOL/L (9-33) Troponin I 0.050 ng/ml Total Protein 6.2 g/dl (6.3-8.2) Albumin 3.1 g/dl (3.5-5.0) Serum Alcohol < 10 mg/dl Influenza Virus Type A (PCR) Negative (NEGATIVE) Influenza Virus Type B (PCR) Negative (NEGATIVE) Urine Color Wendy Urine Clarity Slightly-cloudy Urine pH 5.0 pH (4.8-9.5) Urine Specific [place] 1.015 Urine Protein 30 mg/dL (NEGATIVE) Urine Glucose (UA) Negative mg/dL (NEGATIVE) Urine Ketones Trace mg/dL (NEGATIVE) Urine Blood Negative (NEGATIVE) Urine Nitrite Negative (NEGATIVE) Urine Bilirubin Negative (NEGATIVE) Urine Urobilinogen Negative mg/dL (0.2-1.9) Urine Leukocyte Esterase Negative (NEGATIVE) Urine RBC <1 /HPF (0-2/HPF) Urine WBC 3 /HPF (0-5/HPF) Urine Squamous Epithelial Cells Few /LPF (NONE-FEW) Urine Bacteria Negative /HPF (NONE-FEW) Urine Hyaline Casts Few /LPF (NONE-FEW) Urine Mucus None /HPF (NONE-FEW) Urine Opiates Screen Negative Urine Barbiturates Screen Negative Ur Tricyclic Antidepressants Screen Negative Urine Phencyclidine Screen Negative Urine Amphetamines Screen Positive Urine Benzodiazepines Screen Negative Urine Cocaine Screen Negative Urine Cannabinoids Screen Negative Blood Gas Puncture Site Left radial Blood Gas Patient Temperature 98 DEGREES Arterial Blood pH 7.49 (7.35-7.45) Arterial Blood Partial Pressure CO2 30 mmHg (32-37) Arterial Blood Partial Pressure O2 87 mmHg (60-80) Arterial Blood HCO3 23 mmol/L (20-26) Arterial Blood Oxygen Saturation 98 % (92-100) Arterial Blood Base Excess 0.0 mmol/L Juma Test Acceptable Oxygen Liters/Minute 3l Toxicology Test 07/17/18 16:36 07/17/18 19:08 Serum Alcohol < 10 mg/dl Urine Opiates Screen Negative Urine Barbiturates Screen Negative Ur Tricyclic Antidepressants Screen Negative Urine Phencyclidine Screen Negative Urine Amphetamines Screen Positive Urine Benzodiazepines Screen Negative Urine Cocaine Screen Negative Urine Cannabinoids Screen Negative Urinalysis Test 07/17/18 19:08 Urine Color Wendy Urine Clarity Slightly-cloudy Urine pH 5.0 pH (4.8-9.5) Urine Specific [place] 1.015 Urine Protein 30 mg/dL (NEGATIVE) Urine Glucose (UA) Negative mg/dL (NEGATIVE) Urine Ketones Trace mg/dL (NEGATIVE) Urine Blood Negative (NEGATIVE) Urine Nitrite Negative (NEGATIVE) Urine Bilirubin Negative (NEGATIVE) Urine Urobilinogen Negative mg/dL (0.2-1.9) Urine Leukocyte Esterase Negative (NEGATIVE) Urine RBC <1 /HPF (0-2/HPF) Urine WBC 3 /HPF (0-5/HPF) Urine Squamous Epithelial Cells Few /LPF (NONE-FEW) Urine Bacteria Negative /HPF (NONE-FEW) Urine Hyaline Casts Few /LPF (NONE-FEW) Urine Mucus None /HPF (NONE-FEW) (PAOLA LEVY DO) EKG/Imaging EKG Interpretation 12 lead EKG: Time of EKG 1620. Rhythm: Atrial fibrillation, rate of 98 bpm. [place]: normal QRS: normal ST segments: No ST depression or elevation identified, significant underlying artifact. [ ] Imaging Location: [facility] - [place] Patient: Caleb Gomez : 1945 Visit/Account:[id number] Date of Sevice: 07/17/2018 CHEST SINGLE AP Indication: Altered mental status.. Comparison: 04/03/2018. Findings: Cardiomediastinal silhouette and pulmonary vessels within normal limits for the technique and inspiration. Left subclavian pacemakers in place and unchanged. The interstitium is accentuated by the low lung volumes. No focal areas of consolidation. No pneumothorax or pleural effusion. No nodule. Upper abdomen is unremarkable. No acute bony abnormality. IMPRESSION: 1. No acute cardiopulmonary process. Report Dictated By: Nick Guerra at 07/17/2018 6:55 PM Report E-Signed By: Nick Guerra at 07/17/2018 6:56 PM WSN:[id number] Location: [facility] - [place] Patient: Caleb Gomez : 1945 Visit/Account:[id number] Date of Sevice: 07/17/2018 EXAMINATION: Head CT without intravenous contrast HISTORY: Altered mental status. COMPARISON: 11/04/2017. TECHNIQUE: Contiguous axial images were obtained from the skull base to the vertex without intravenous contrast. Sagittal and coronal reformatted images are also submitted. One of the following dose optimization techniques was utilized in the pe rformance of this exam: Automated exposure control; adjustment of the mA and/or kV according to the patient's size; or use of an iterative reconstruction technique. Specific details can be referenced in the facility's radiology CT exam operational policy. FINDINGS: Brain and intracranial structures: Mild cerebral volume loss with corresponding sulcal and ventricular prominence. The basal cisterns are patent. Lorenz-white matter differentiation is maintained. No midline shift, acute hemorrhage, mass, or evidence of acute infarct. Vessels: Calcification of the carotid siphons and intracranial vertebral arteries. Calvarium / scalp: Negative. No acute fracture. Skull base / visualized face: Motion artifact through the face. Visualized sinuses / orbits: Complete opacification of the left frontal sinus, anterior left ethmoid air cells, and left maxillary sinus. Osteitis of the devlin of the left maxillary sinus indicating chronicity. Leftward deviation of the nasal septum. IMPRESSION: No CT evidence of acute intracranial pathology. Chronic sinusitis with left ostiomeatal unit obstruction pattern. Report Dictated By: Alexander Agudelo MD at 07/17/2018 7:03 PM Report E-Signed By: Alexander Agudelo MD at 07/17/2018 7:16 PM WSN:[id number] (STEFANO GAITAN [facility]-) ED Course/Re-evaluation Clinical Indication for ER IV: Hydration, IV Access ED Course The patient was admitted to room via EMS. A history of physical were obtained. Differential diagnoses were considered. As the patient's GCS is 10, I did a ra ther extensive workup, IV, 1 L normal saline bolus. Catheter UA unremarkable. CBC CMP, alcohol drug screen.CBC 5 white count of 16, left shift chemistry showing sodium 124, historically this is within the patient's normal range, potassium 3.6, chloride 85, troponin 0.50, negative serum alcohol, positive amphetamines. Negative head and neck CT, negative chest x-ray. EKG showing significant artifact however no ST elevation or depression identified. Showing A. fib. I am concerned the patient did have a alcohol withdrawal seizure, no seizure-like activity in the emergency department, I did review the case with Dr. Delfina johnson, no air conversation below. We are experiencing rather high volumes in the hospital and they're having staffing issues, the patient will be held overnight ER until bed status can be confirmed, the patient was turned over to Dr. Levy, see any additional notes. Additionally the patient was given a total of 2 mg IV Ativan while in the emergency department. 07/17/2018 8:11:[address] Delfina johnson, the hospitalist on-call, he's accepted the patient in the ICU for altered mental status. 07/17/2018 8:49:41 pm and speak with Dr. Delfina johnson, the hospitalist, the ICU is reaching maximum capacity, unsure if this testing is available to house the patient, the clearing house clerk is also unsure if we have staffing for a one-to-one observation on the medical floor for the patient. The patient will be held in the ER until further notice, when they are able to contact administration and figure out the staffing. I did speak with Dr. Levy the ED provider on tonight, he is agreeable and will manage the patient tonight. Continue monitoring in hopes that we can admit the patient to either ICU later tonight or worse case scenario in the morning the medical surgical floor. Decision to Disposition Date: Jul 17, 2018 Decision to Disposition Time: 20:11 Turned Over The care of the patient was turned over to Dr Levy.. ANA LILIA Huston I authorize my typed signature that I authenticated this report. (STEFANO GAITAN-) ED Course Is inpatient care from Stefano Gaitan at 2100. Patient was awaiting inpatient admission until later during shift boss when staffing was adequate to transfer the patient to the floor. Patient remained hemodynamically stable throughout course with no acute decompensation. Patient was hemodynamically stable at time of admission. Decision to Disposition Date: Jul 18, 2018 Decision to Disposition Time: 06:07 (PAOLA LEVY DO) Depart Departure Latest Vital Signs Vital Signs Date Time Temp Pulse Resp B/P (MAP) Pulse Ox O2 Delivery O2 Flow Rate FiO2 07/18/18 05:35 77 94 07/18/18 05:20 127/67 (87) 07/18/18 02:00 21 07/17/18 19:57 98.5 07/17/18 16:30 3.0 07/17/18 16:30 Room Air (PAOLA LEVY DO) Impression: Primary Impression: Altered mental status Additional Impressions: Alcohol abuse Alcohol withdrawal Condition: Condition Unchanged Disposition: Admitted from ER Problem Qualifiers Primary Impression: Altered mental status Altered mental status type: unspecified Qualified Codes: R41.82 - Altered mental status, unspecified STEFANO GAITAN [employer] Jul 17, 2018 16:49 PAOLA LEVY DO Jul 18, 2018 02:46
[2018-07-17] MEDS ORDERED: NS(*) 0.9% 1000 ML BAG 1,000 ML IV ONE (17:12)
[2018-07-17] MEDS ORDERED: LORazepam 2 MG/ML VIAL IVP ONE ×3 (17:15→19:20)
--- NOTE | 2018-07-17 17:24 | EKG ---
FACILITY: [facility] PATIENT NAME: ALVARO POWELL : [id number] MR: [id number] V: [id number] EXAM DATE: ORDERING PHYSICIAN: MAURICIO GAITAN TECHNOLOGIST: Test Reason : Blood Pressure : / mmHG Vent. Rate : 098 BPM Atrial Rate : 092 BPM P-R Int : 000 ms QRS Dur : 092 ms QT Int : 160 ms P-R-T Axes : 000 084 000 degrees QTc Int : 204 ms Atrial fibrillation Nonspecific ST and T wave abnormality Abnormal ECG When compared to the ECG of, 04.11.2018 Afib has replaced ventricular pacing Confirmed by Wagner Haskins ([id number]) on 07/17/2018 11:27:06 PM Referred By: Confirmed By:Wagner Villegas
[2018-07-17 17:55] LABS: PLATELET COUNT, AUTOMATED 185 K/uL (150-450)
--- NOTE | 2018-07-17 19:01 | RADIOLOGY IMAGING REPORT ---
FACILITY: [facility] - [place] PATIENT NAME: Caleb Gomez : 1945 MR: [id number] V: [id number] EXAM DATE: ORDERING PHYSICIAN: MAURICIO GAITAN TECHNOLOGIST: Location: [facility] [place] Patient: Caleb Gomez : 1945 Visit/Account:[id number] Date of Sevice: 07/17/2018 CHEST SINGLE AP Indication: Altered mental status.. Comparison: 04/03/2018. Findings: Cardiomediastinal silhouette and pulmonary vessels within normal limits for the technique and inspira tion. Left subclavian pacemakers in place and unchanged. The interstitium is accentuated by the low lung volumes. No focal areas of consolidation. No pneumothorax or pleural effusion. No nodule. Upper abdomen is unremarkable. No acute bony abnormality. IMPRESSION: 1. No acute cardiopulmonary process. Report Dictated By: Nick Guerra at 07/17/2018 6:55 PM Report E-Signed By: Nick Guerra at 07/17/2018 6:56 PM WSN:[id number]
[2018-07-17] MEDS ORDERED: LORazepam 1 MG TAB PO ONE (19:15)
--- NOTE | 2018-07-17 19:20 | RADIOLOGY IMAGING REPORT ---
FACILITY: [facility] - [place] PATIENT NAME: Caleb Gomez : 1945 MR: [id number] V: [id number] EXAM DATE: ORDERING PHYSICIAN: MAURICIO GAITAN TECHNOLOGIST: Location: [facility] Patient: Caleb Gomez : 1945 Visit/Account:[id number] Date of Sevice: 07/17/2018 EXAMINATION: Head CT without intravenous contrast HISTORY: Altered mental status. COMPARISON: 11/04/2017. TECHNIQUE: Contiguous axial images were obtained from the skull base to the vertex without intraven ous contrast. Sagittal and coronal reformatted images are also submitted. One of the following dose optimization techniques was utilized in the performance of this exam: Autom ated exposure control; adjustment of the mA and/or kV according to the patient's size; or use of an i terative reconstruction technique. Specific details can be referenced in the facility's radiology C T exam operational policy. FINDINGS: Brain and intracranial structures: Mild cerebral volume loss with corresponding sulcal and ventricul ar prominence. The basal cisterns are patent. Lorenz-white matter differentiation is maintained. No midline shift, acute hemorrhage, mass, or evidence of acute infarct. Vessels: Calcification of the carotid siphons and intracranial vertebral arteries. Calvarium / scalp: Negative. No acute fracture. Skull base / visualized face: Motion artifact through the face. Visualized sinuses / orbits: Complete opacification of the left frontal sinus, anterior left ethmoid air cells, and left maxillary sinus. Osteitis of the devlin of the left maxillary sinus indicating ch ronicity. Leftward deviation of the nasal septum. IMPRESSION: No CT evidence of acute intracranial pathology. Chronic sinusitis with left ostiomeatal unit obstruction pattern. Report Dictated By: Alexander Agudelo MD at 07/17/2018 7:03 PM Report E-Signed By: Alexander Agudelo MD at 07/17/2018 7:16 PM WSN:[id number]
--- NOTE | 2018-07-17 19:32 | RADIOLOGY IMAGING REPORT ---
FACILITY: [facility] [place] PATIENT NAME: Caleb Gomez : 1945 MR: [id number] V: [id number] EXAM DATE: ORDERING PHYSICIAN: MAURICIO GAITAN TECHNOLOGIST: Location: [facility] Patient: Caleb Gomez : 1945 Visit/Account:[id number] Date of Sevice: 07/17/2018 EXAMINATION: CT Cervical spine without intravenous contrast HISTORY: Altered mental status. COMPARISON: 11/04/2017. TECHNIQUE: Axial images were obtained from the skull base through the upper thoracic spine without I V contrast administration. Coronal and sagittal reformatted images were obtained from the axial [facility] e data. One of the following dose optimization techniques was utilized in the performance of this exam: Autom ated exposure control; adjustment of the mA and/or kV according to the patient's size; or use of an i terative reconstruction technique. Specific details can be referenced in the facility's radiology C T exam operational policy. FINDINGS: Images are degraded by motion artifact. Alignment: Slight anterolisthesis of C3 on C4. 3.5 mm anterolisthesis of C4 on C5. Cranio-cervical junction: Pannus posterior to the dens causes mild spinal canal stenosis. Vertebral bodies: Bony ankylosis of the C5, C6, and C7 vertebral bodies. No evidence of acute fractur e. Posterior elements: Multilevel facet hypertrophy. No evidence of acute fracture. Hardware: None. Disc Spaces: Bony ankylosis across the C5-6 and C6-7 disc space. Severe disc space narrowing at C4-5. Mild disc space narrowing at C3-4. Endplate osteophytes at multiple levels. Soft tissues: No paraspinal hematoma or significant soft tissue swelling. Visualized upper chest: Negative. IMPRESSION: Images are degraded by motion artifact. No evidence of acute fracture of the cervical spine. Advanced multilevel disc and facet degenerative changes in the cervical spine. Report Dictated By: Alexander Agudelo MD at 07/17/2018 7:16 PM Report E-Signed By: Alexander Agudelo MD at 07/17/2018 7:29 PM WSN:[id number]
[2018-07-18] VITALS (14 sets, daily range): BP systolic 90–139; BP diastolic 2–86
[2018-07-18] MEDS ORDERED: MAGNESIUM SUL* 2 GM/50 ML IVPB 50 ML IVPB ONE (07:55)
--- NOTE | 2018-07-18 08:16 | History & Physical ---
History of Present Illness Chief Complaint Confused History of Present Illness 72yo male with PMHx significant for longstanding alcoholism, hypomagnesemia, a- fib, pacemaker placement. He apparently did not show up at a local liquor store today for his usual purchase so the store contacted EMS for a welfare check. Upon arrival they found Mr. Gomez confused/disoriented and he was noted to have a tonic-clonic seizure. He was then transferred to [facility] for evaluation. His labs were remarkable for mild chronic hyponatremia and hypomagnesemia. Radiology studies were unremarkable. His mental status has improved slightly, but he continued to have evidence of alcohol withdrawal. His BAL was <10. He apparently had not had any alcohol for a few days. He was given IV Ativan during his stay and did not have any recurrent seizures. He was held in the ER for >12hrs as no bed was available for him. History Problems: (1) Symptomatic bradycardia Status: Acute (2) Hypertension Status: Chronic (3) Gout Status: Chronic (4) Hyperlipemia Status: Chronic (5) Alcoholism Status: Chronic (6) Hyponatremia Status: Chronic (7) Spinal stenosis Status: Chronic (8) Hypomagnesemia Status: Chronic (9) Vertebral compression fracture Status: Chronic (10) Fracture, fibula, proximal Status: Acute (11) Third degree heart block Status: Chronic (12) Type 2 diabetes mellitus Status: Chronic (13) GERD (gastroesophageal reflux disease) Status: Chronic (14) S/P placement of cardiac pacemaker Status: Chronic (15) Chronic a-fib Status: Chronic Home Meds Active Scripts Tramadol Hcl (TRAMADOL HCL) 50 Mg Tablet, 1 TAB PO Q4-6H PRN for PAIN, #20 MG TAKE ONE TABLETS BY MOUTH EVERY FOUR TO SIX HOURS NEEDED Prov:EMILY VILLALTA DO 04/28/18 Guaifenesin/Codeine (GUAIFENESIN-CODEINE SYRUP) 5 Ml Syrp, 5 ML PO Q6H PRN for COUGH, #120 ML 0 Refills Prov:BELTRAN HENRIQUEZ MD 04/11/18 Albuterol Sulfate 0.083% (ALBUTEROL SULFATE 0.083%) 2.5 Mg/3 Ml Vial.neb, 2.5 MG INH Q4H PRN for WHEEZING, #1 BOX 0 Refills Prov:BELTRAN HENRIQUEZ MD 04/11/18 Benzonatate (BENZONATATE) 200 Mg Capsule, 200 MG PO TID PRN for COUGH, #15 CAP 0 Refills Prov:BELTRAN HENRIQUEZ MD 04/11/18 Prednisone (PREDNISONE) 20 Mg Tablet, 60 MG PO QDAY, #12 TAB Prov:BELTRAN HENRIQUEZ MD 04/11/18 Reported Medications Nystatin (NYSTOP) 60 Gm Powder, 1 RACHEL TP BID for ANTI FUNGAL 03/23/18 Dextran 70/Hypromellose (Natural Balance Tears Eye Drop) 0.1 %-0.3 % Drops, 1-2 GTT OU PRN PRN for DRY EYES 03/23/18 Mag Hydrox/Aluminum Hyd/Simeth (Maalox Advanced Suspension) 200 Mg-200 Mg-20 Mg/5 Ml Oral.susp, 1 DOSE-PACK PO Q4H 03/23/18 Loperamide HCl (Imodium A-D) 2 Mg Capsule, 2 MG PO PRN PRN for DIARRHEA 03/23/18 Menthol/Methyl Salicylate (BENGAY GREASELESS CREAM) 57 Gm Oint, 1 GM TP 3-4XD for PAIN 03/23/18 Acidoph/L.bulg/Bif.b/S.thermop (BACID CAPLET) 1 Each Tablet, 2 EACH PO BIDBS 03/23/18 Escitalopram Oxalate (LEXAPRO) 20 Mg Tablet, 20 MG PO QDAY, TAB 03/15/18 Thiamine Hcl (THIAMINE HCL) 100 Mg Tablet, 100 MG PO DAILY 12/26/16 Folic Acid (FOLIC ACID) 1 Mg Tablet, 1 MG PO QDAY, TAB 12/26/16 Cyanocobalamin (Vitamin B-12) (CYANOCOBALAMIN INJECTION) 1,000 Mcg/1 Ml Vial, 1000 MCG IJ Q2WK, VIAL 12/23/16 Apixaban (ELIQUIS) 2.5 Mg Tablet, 2 TAB PO BID 08/15/16 Amlodipine Besylate (AMLODIPINE BESYLATE) 5 Mg Tablet, 1 TAB PO QDAY, TAB 08/15/16 Tamsulosin Hcl (TAMSULOSIN HCL) 0.4 Mg Cap.er.24h, 0.4 MG PO HS, CAP 08/15/16 Multivitamin (MULTIVITAMINS) 1 Each Capsule, 1 EACH PO QDAY, CAPSULE 08/15/16 Magnesium Oxide (MAGNESIUM OXIDE) 400 Mg Tablet, 2 CAP PO TID 08/15/16 Cholecalciferol (Vitamin D3) (VITAMIN D3) 1,000 Unit Capsule, 1000 UNIT PO QDAY, CAPSULE 08/15/16 Allergies: Coded Allergies: No Known Drug Allergies (Verified , 03/15/18) Patient History: FH: alcoholism FATHER MOTHER Unremarkable BROTHER OR SISTER CHILD CHILD Hx Smoking: No Smoking Status: Never Smoker Exposure to Second Hand Smoke?: No Caffeine Intake: Coffee Caffeine/Cups Per Day: 2 Hx Alcohol Use: Yes Alcohol Use: Currently Hx Substance Use Disorder: No Social Drug Use: Never Review of Systems Other Unable to obtain at this time. Exam Vital Signs Vital Signs Date Time Temp Pulse Resp B/P (MAP) Pulse Ox O2 Delivery O2 Flow Rate FiO2 07/18/18 06:56 84 83 07/18/18 06:40 102/82 (89) 07/18/18 02:00 21 07/17/18 19:57 98.5 07/17/18 16:30 3.0 07/17/18 16:30 Room Air General Appearance: Other (Somewhat somnolent, but he will open eyes to command and tries to answer questions/some tremulousness is noted) Neuro: Other (he moves all four extremities) ENT: Other (Oral mucosa is dry/very poor dentition/no obvious tongue biting) Neck: No Masses Cardiovascular: Other (Irregular slightly tachycardic distant tones) Respiratory: Other (scattered rhonchi) Chest: No Tenderness, Other (pacemaker left upper chest) GI: Abd Soft and Non-Tender Lymph: No Adenopathy Extremities: Warm, Perfused Integumentary: Generalized Fragile Skin, Other (multiple ecchymoses across upper back/shoulders/several scattered abarsions as well) Psych: Other (he is oriented only to person) Medical Decision Making Data Points Result Diagram: 07/17/18 1636 07/17/18 1636 Item Value Date Time Albumin 3.1 g/dl L 07/17/18 1636 Total Protein 6.2 g/dl L 07/17/18 1636 Troponin I 0.050 ng/ml 07/17/18 1636 Ammonia 23 UMOL/L 07/17/18 1636 Alkaline Phosphatase 76 U/L 07/17/18 1636 Alanine Aminotransferase (ALT/SGPT) 36 U/L 07/17/18 1636 Aspartate Amino Transf (AST/SGOT) 57 U/L H 07/17/18 1636 Total Bilirubin 2.6 mg/dl H 07/17/18 1636 Calcium Level 9.1 mg/dl 07/17/18 1636 Urine Mucus None /HPF 07/17/18 1908 Urine Hyaline Casts Few /LPF 07/17/18 1908 Urine Bacteria Negative /HPF 07/17/18 1908 Urine Squamous Epithelial Cells Few /LPF 07/17/18 1908 Urine WBC 3 /HPF 07/17/18 1908 Urine RBC <1 /HPF 07/17/18 1908 Urine Leukocyte Esterase Negative 07/17/181907 Urine Urobilinogen Negative mg/dL 07/17/181907 Urine Bilirubin Negative 07/17/181907 Urine Nitrite Negative 07/17/181907 Urine Blood Negative 07/17/181907 Urine Ketones Trace mg/dL 07/17/181907 Urine Glucose (UA) Negative mg/dL 07/17/181907 Urine Protein 30 mg/dL 07/17/181907 Urine Specific Julian 1.015 07/17/181907 Urine pH 5.0 pH 07/17/18 1908 Urine Clarity Slightly-cloudy 07/17/181907 Urine Color Wendy 07/17/181907 Serum Alcohol < 10 mg/dl 07/17/18 1636 Urine Cannabinoids Screen Negative 07/17/18 1908 Urine Cocaine Screen Negative 07/17/18 190 Urine Benzodiazepines Screen Negative 07/17/18 190 Urine Amphetamines Screen Positive 07/17/18 1908 Urine Phencyclidine Screen Negative 07/17/18 1908 Ur Tricyclic Antidepressants Screen Negative 07/17/18 190 Urine Barbiturates Screen Negative 07/17/181907 Urine Opiates Screen Negative 07/17/18 1908 Influenza Virus Type B (PCR) Negative 07/17/18 1647 Influenza Virus Type A (PCR) Negative 07/17/18 1647 Oxygen Liters/Minute 3l 07/17/181951 Juma Test Acceptable 07/17/181951 Arterial Blood Base Excess 0.0 mmol/L 07/17/181951 Arterial Blood Oxygen Saturation 98 % 07/17/181951 Arterial Blood HCO3 23 mmol/L 07/17/181951 Arterial Blood Partial Pressure O2 87 mmHg H 07/17/181951 Arterial Blood Partial Pressure CO2 30 mmHg L 07/17/181951 Arterial Blood pH 7.49 H 07/17/181951 Blood Gas Patient Temperature 98 DEGREES 07/17/181951 Blood Gas Puncture Site Left radial 07/17/181951 EKG / Imaging Imaging PATIENT NAME: Caleb Gomez : 1945 MR: [id number] V: [id number] EXAM DATE: ORDERING PHYSICIAN: MAURICIO GAITAN TECHNOLOGIST: Location: [facility] [place] Patient: Caleb Gomez : 1945 Visit/Account:[id number] Date of Sevice: 07/17/2018 EXAMINATION: CT Cervical spine without intravenous contrast HISTORY: Altered mental status. COMPARISON: 11/04/2017. TECHNIQUE: Axial images were obtained from the skull base through the upper thoracic spine without IV contrast administration. Coronal and sagittal reformatted images were obtained from the axial source data. One of the following dose optimization techniques was utilized in the performance of this exam: Automated exposure control; adjustment of the mA and/or kV according to the patient's size; or use of an iterative reconstruction technique. Specific details can be referenced in the facility's radiology CT exam operational policy. FINDINGS: Images are degraded by motion artifact. Alignment: Slight anterolisthesis of C3 on C4. 3.5 mm anterolisthesis of C4 on C5. Cranio-cervical junction: Pannus posterior to the dens causes mild spinal canal stenosis. Vertebral bodies: Bony ankylosis of the C5, C6, and C7 vertebral bodies. No evidence of acute fracture. Posterior elements: Multilevel facet hypertrophy. No evidence of acute fracture. Hardware: None. Disc Spaces: Bony ankylosis across the C5-6 and C6-7 disc space. Severe disc space narrowing at C4-5. Mild disc space narrowing at C3-4. Endplate osteophytes at multiple levels. Soft tissues: No paraspinal hematoma or significant soft tissue swelling. Visualized upper chest: Negative. IMPRESSION: Images are degraded by motion artifact. No evidence of acute fracture of the cervical spine. Advanced multilevel disc and facet degenerative changes in the cervical spine. Report Dictated By: Alexander Agudelo MD at 07/17/2018 7:16 PM Report E-Signed By: Alexander Agudelo MD at 07/17/2018 7:29 PM WSN:[id number] PATIENT NAME: Caleb Gomez : 1945 MR: [id number] V: [id number] EXAM DATE: ORDERING PHYSICIAN: MAURICIO GAITAN TECHNOLOGIST: Location: [facility] [place] Patient: Caleb Gomez : 1945 Visit/Account:[id number] Date of Sevice: 07/17/2018 CHEST SINGLE AP Indication: Altered mental status.. Comparison: 04/03/2018. Findings: Cardiomediastinal silhouette and pulmonary vessels within normal limits for the technique and inspiration. Left subclavian pacemakers in place and unchanged. The interstitium is accentuated by the low lung volumes. No focal areas of consolidation. No pneumothorax or pleural effusion. No nodule. Upper abdomen is unremarkable. No acute bony abnormality. IMPRESSION: 1. No acute cardiopulmonary process. Report Dictated By: Nick Guerra at 07/17/2018 6:55 PM Report E-Signed By: Nick Guerra at 07/17/2018 6:56 PM WSN:[id number] PATIENT NAME: Caleb Gomez : 1945 MR: [id number] V: [id number] EXAM DATE: [id number] ORDERING PHYSICIAN: MAURICOI GAITAN TECHNOLOGIST: Location: [facility] [place] Patient: Caleb Gomez : 1945 Visit/Account:[id number] Date of Sevice: 07/17/2018 EXAMINATION: Head CT without intravenous contrast HISTORY: Altered mental status. COMPARISON: 11/04/2017. TECHNIQUE: Contiguous axial images were obtained from the skull base to the vertex without intravenous contrast. Sagittal and coronal reformatted images are also submitted. One of the following dose optimization techniques was utilized in the performance of this exam: Automated exposure control; adjustment of the mA and/or kV according to the patient's size; or use of an iterative reconstruction technique. Specific details can be referenced in the facility's radiology CT exam operational policy. FINDINGS: Brain and intracranial structures: Mild cerebral volume loss with corresponding sulcal and ventricular prominence. The basal cisterns are patent. Lorenz-white matter differentiation is maintained. No midline shift, acute hemorrhage, mass, or evidence of acute infarct. Vessels: Calcification of the carotid siphons and intracranial vertebral arteries. Calvarium / scalp: Negative. No acute fracture. Skull base / visualized face: Motion artifact through the face. Visualized sinuses / orbits: Complete opacification of the left frontal sinus, anterior left ethmoid air cells, and left maxillary sinus. Osteitis of the devlin of the left maxillary sinus indicating chronicity. Leftward deviation of the nasal septum. IMPRESSION: No CT evidence of acute intracranial pathology. Chronic sinusitis with left ostiomeatal unit obstruction pattern. Report Dictated By: Alexander Agudelo MD at 07/17/2018 7:03 PM Report E-Signed By: Alexander Agudelo MD at 07/17/2018 7:16 PM WSN:[id number] Assessment and Plan Problems: (1) Seizure due to alcohol withdrawal Status: Acute Assessment & Plan: He had at least one witnessed seizure. Most likely due to alcohol withdrawal. Will monitor closely for any recurrent seizure activity. Will treat his alcohol withdrawal. Will not start anticonvulsant therapy at this point. (2) Alcohol withdrawal Status: Resolved Assessment & Plan: He appears to be in active withdrawal. Will place on CIWA protocol and treat with IV Ativan as needed. Will also supplement B vitamins. Watch closely. (3) Alcoholism Status: Chronic Assessment & Plan: Longstanding. He has not been able to maintain abstinence for any significant length of time. (4) Chronic a-fib Status: Chronic Assessment & Plan: It appears he has been on Eliquis in the past, but does not have any medication for rate control. 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 At present he is in a-fib with HR in 90-110 range. Will add beta anthony or diltiazem for rate control if needed. (5) Type 2 diabetes mellitus Status: Chronic Assessment & Plan: Place on ADA diet. Monitor glucoses. Use SSI if needed. (6) Hypomagnesemia Status: Acute Assessment & Plan: Replace with IV supplement. Watch labs. Venous Thromboembolism Antithrombotics Is Pt On Any Antithrombotics?: Yes Exam Sepsis Risk: No Definite Risk LIUDMILA SOL MD Jul 18, 2018 08:16
[2018-07-18] MEDS: THIAMINE HCL 200 MG/2 ML INJ IVP SCH (08:47)
[2018-07-18] MEDS: FOLIC ACID 1 MG TAB PO SCH (08:47)
[2018-07-18] MEDS: NS(*) 0.9% 1000 ML BAG 1,000 ML IV PRN ×2 (08:47→19:23)
[2018-07-18] MEDS: ENOXAPARIN 40 MG/0.4ML SYR SC SCH (08:51)
[2018-07-18] MEDS: LORazepam 2 MG/ML VIAL IVP PRN ×3 (09:49→12:26)
[2018-07-18] MEDS ORDERED: KCL (*) 20 MEQ/100 ML PREMIX 100 ML IV ONE (20:05)
[2018-07-19] VITALS (16 sets, daily range): BP systolic 107–155; BP diastolic 50–111
[2018-07-19] MEDS: LORazepam 2 MG/ML VIAL IVP PRN ×7 (01:12→23:31)
[2018-07-19] MEDS: NS(*) 0.9% 1000 ML BAG 1,000 ML IV PRN (05:13)
[2018-07-19 05:15] LABS: PLATELET COUNT, AUTOMATED 161 K/uL (150-450)
[2018-07-19] MEDS: ENOXAPARIN 40 MG/0.4ML SYR SC SCH (08:55)
[2018-07-19] MEDS: THIAMINE HCL 200 MG/2 ML INJ IVP SCH (08:55)
[2018-07-19] MEDS: FOLIC ACID 1 MG TAB PO SCH ×2 (08:55→09:00)
[2018-07-19] MEDS: KCL/NS* 20 MEQ/1000 ML PREMIX 1,000 ML IV SCH ×2 (10:02→19:49)
--- NOTE | 2018-07-19 13:44 | Hospitalist Progress Note ---
Subjective Progress Notes Subjective 72M admitted after seizure for EtOH withdrawal. JOSEMANULE overnight, continues to have symptoms. Physical Exam Vital Signs Date Time Temp Pulse Resp B/P (MAP) Pulse Ox O2 Delivery O2 Flow Rate FiO2 07/19/18 13:15 94 Nasal Cannula 4.0 07/19/18 13:15 88 07/19/18 13:00 24 122/65 (84) 07/19/18 10:00 98.6 Intake and Output 07/19/18 07:00 Intake Total 2045 ml Output Total 675 ml Balance 1370 ml Intake IV Total 2045 ml Output Urine Total 675 ml # Bowel Movements 2 General Appearance: Awake, No Acute Distress, Afebrile Neuro: No Gross deficits Cardiovascular: Normal Rhythm & Peripheral Pulses Respiratory: No Respiratory Distress Extremities: Soft and Non Tender, Warm, Pulses, Perfused Integumentary: Skin Intact without Lesion / Mass Result Diagram: 07/19/1845407/19/18454 Assessment and Plan Problems: (1) Seizure due to alcohol withdrawal Status: Acute Assessment & Plan: He had at least one witnessed seizure. Most likely due to alcohol withdrawal. Will monitor closely for any recurrent seizure activity. Will treat his alcohol withdrawal. Will not start anticonvulsant therapy at this point. (2) Alcohol withdrawal Status: Resolved Assessment & Plan: He appears to be in active withdrawal. Will place on CIWA p rotocol and treat with IV Ativan as needed. Will also supplement B vitamins. Watch closely. (3) Alcoholism Status: Chronic Assessment & Plan: Longstanding. He has not been able to maintain abstinence for any significant length of time. (4) Chronic a-fib Status: Chronic Assessment & Plan: It appears he has been on Eliquis in the past, but does not have any medication for rate control. 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 Will add beta anthony or diltiazem for rate control if needed. (5) Type 2 diabetes mellitus Status: Chronic Assessment & Plan: Place on ADA diet. Monitor glucoses. Use SSI if needed. (6) Hypomagnesemia Status: Acute Assessment & Plan: Replace with IV supplement. Watch labs. Exam Sepsis Risk: No Definite Risk ZAMAN TYSONCHARLES DO Jul 19, 2018 13:44
[2018-07-19] MEDS ORDERED: RANI-318 PO (20:05)
[2018-07-19] MEDS ORDERED: TRIA15CR40 TOP (20:05)
[2018-07-19] MEDS: ALBUTEROL/IPRATROPIUM 3 ML NEB NEB SCH ×2 (20:28→23:20)
--- NOTE | 2018-07-19 21:05 | RADIOLOGY IMAGING REPORT ---
FACILITY: [facility] - [place] PATIENT NAME: Caleb Gomez : 1945 MR: [id number] V: [id number] EXAM DATE: ORDERING PHYSICIAN: CHARLES MEHTA TECHNOLOGIST: Location: [facility] [place] Patient: Caleb Gomez : 1945 Visit/Account:[id number] Date of Sevice: 07/19/2018 Examination: CHEST SINGLE AP Comparison: 07/17/2018 and earlier. History: Fever, cough, and shortness of breath. Findings: Cardiac and hilar contour is prominent but unchanged. Pacemaker as before. No new or enlarging consolidation or nodule. A subtle apparent parenchymal density projecting over th e right upper lung is favored to be a summation artifact related to the first costosternal junction. Mild peribronchial thickening; although this is unchanged from the study of 07/17/2018 this does appear greater than on 04/11/2018. No pneumothorax, edema, or effusion. No acute osseous abnormality. IMPRESSION: Mild peribronchial inflammation suggestive of bronchitis. No definite consolidation. Report Dictated By: Camron Palafox MD at 07/19/2018 8:58 PM Report E-Signed By: Camron Palafox MD at 07/19/2018 9:01 PM WSN:[id number]
[2018-07-20] VITALS (18 sets, daily range): BP systolic 104–165; BP diastolic 58–108
[2018-07-20] MEDS: LORazepam 2 MG/ML VIAL IVP PRN ×2 (04:35→10:02)
[2018-07-20] MEDS: ALBUTEROL/IPRATROPIUM 3 ML NEB NEB SCH ×4 (05:37→23:25)
[2018-07-20] MEDS: KCL/NS* 20 MEQ/1000 ML PREMIX 1,000 ML IV SCH ×2 (05:48→15:45)
[2018-07-20] MEDS ORDERED: MAGNESIUM SUL* 2 GM/50 ML IVPB 50 ML IVPB ONE (06:15)
[2018-07-20] MEDS ORDERED: NS(*) 0.9% 250 ML BAG 250 ML ONE (06:30)
[2018-07-20] MEDS: FOLIC ACID 1 MG TAB PO SCH (08:23)
[2018-07-20] MEDS: ENOXAPARIN 40 MG/0.4ML SYR SC SCH (08:23)
[2018-07-20] MEDS: THIAMINE HCL 200 MG/2 ML INJ IVP SCH (08:24)
[2018-07-20] MEDS ORDERED: ALBUTEROL 2.5 MG/3 ML NEB NEB PRN (08:45)
[2018-07-20] MEDS ORDERED: methylPREDNIS SUCC 125 MG/2ML IVP ONE (09:00)
--- NOTE | 2018-07-20 12:56 | Hospitalist Progress Note ---
Subjective Progress Notes Subjective The patient states he has some back pain. He also states he feels a bit short of breath. Physical Exam Vital Signs Date Time Temp Pulse Resp B/P (MAP) Pulse Ox O2 Delivery O2 Flow Rate FiO2 07/20/18 11:28 62 28 07/20/18 11:17 30.0 07/20/18 11:13 93 Bi-PAP 07/20/18 10:00 98.4 142/108 (119) 5.0 Intake and Output 07/20/18 07:00 Intake Total 2570 ml Output Total 1450 ml Balance 1120 ml Intake Oral 90 ml IV Total 2480 ml Output Urine Total 1450 ml General Appearance: Alert, Awake Neuro: Other (Moving around in the bed.) Cardiovascular: Regular Rate and Rhythm Respiratory: Other (Increased work of breathing with elevated) GI: Soft and Non-Tender Extremities: Warm, Perfused Psych: Appropriate Mood & Affect Result Diagram: 07/19/18 0455 07/20/18 0679 Assessment and Plan Problems: (1) Seizure due to alcohol withdrawal Status: Acute Assessment & Plan: He had at least one witnessed seizure. Most likely due to alcohol withdrawal. Will monitor closely for any recurrent seizure activity. Will treat his alcohol withdrawal. Will not start anticonvulsant therapy at this point. (2) COPD with exacerbation Status: Acute Assessment & Plan: CXR shows peribronchial thickening c/w bronchitis. He is on Duoneb q 6 hours. Will add solumedrol and prn albuterol nebs. Will add flutter therapy as well. He has not had fever. WBC is normal today. Will not start antibiotics. (3) Alcohol withdrawal Status: Resolved Assessment & Plan: He appears to be in active withdrawal. Will place on CIWA protocol and treat with IV Ativan as needed. Will also supplement B vitamins. Watch closely. (4) Alcoholism Status: Chronic Assessment & Plan: Longstanding. He has not been able to maintain abstinence for any significant length of time. (5) Chronic a-fib Status: Chronic Assessment & Plan: It appears he has been on Eliquis in the past, but does not have any medication for rate control. 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 Will add beta anthony or diltiazem for rate control if needed. (6) Type 2 diabetes mellitus Status: Chronic Assessment & Plan: Place on ADA diet. Monitor glucoses. Use SSI if needed. (7) Hypomagnesemia Status: Acute Assessment & Plan: Replace with IV supplement. Watch labs. Time Spent on Plan of Care: < 30 min Exam Sepsis Risk: No Definite Risk DOMONIQUE SOL MD Jul 20, 2018 12:56
[2018-07-20] MEDS: methylPREDNIS SUCC 125 MG/2ML IVP SCH ×2 (15:25→21:50)
[2018-07-20] MEDS ORDERED: ERYT1OIN3 OP (18:09)
[2018-07-20] MEDS ORDERED: APIX5TAB PO (18:09)
[2018-07-20] MEDS: INSULIN HUM LISPRO 100 UN/ML 3 ML VIAL SUBQ PRN (18:30)
[2018-07-20] MEDS: ACETAMINOPHEN 325 MG TAB PO PRN (23:57)
[2018-07-21 02:35] VITALS: BP 122/70
[2018-07-21] MEDS: KCL/NS* 20 MEQ/1000 ML PREMIX 1,000 ML IV SCH ×3 (02:36→21:27)
[2018-07-21] MEDS: methylPREDNIS SUCC 125 MG/2ML IVP SCH ×3 (02:50→21:28)
[2018-07-21] MEDS: ALBUTEROL/IPRATROPIUM 3 ML NEB NEB SCH ×3 (05:45→17:43)
[2018-07-21 06:17] LABS: PLATELET COUNT, AUTOMATED 195 K/uL (150-450)
[2018-07-21 07:32] VITALS: BP 126/76
--- NOTE | 2018-07-21 08:13 | Hospitalist Progress Note ---
Subjective Progress Notes Subjective The patient states his breathing is much better today. Physical Exam Vital Signs Date Time Temp Pulse Resp B/P (MAP) Pulse Ox O2 Delivery O2 Flow Rate FiO2 07/21/18 07:32 97.5 73 18 126/76 (93) 96 Nasal Cannula 2.0 07/20/18 12:00 30.0 Intake and Output 07/21/18 07:00 Intake Total 2200 ml Output Total 1940 ml Balance 260 ml Intake Oral 1050 ml IV Total 1150 ml Output Urine Total 1940 ml # Voids 2 # Bowel Movements 1 General Appearance: Alert, Awake, No Acute Distress, Afebrile Neuro: Other (Confused at times.) Eyes: PERRLA Cardiovascular: Regular Rate and Rhythm Respiratory: Clear to Auscultation GI: Soft and Non-Tender Extremities: Warm, Perfused Psych: Appropriate Mood & Affect Result Diagram: 07/21/1853107/21/18531 Assessment and Plan Problems: (1) Seizure due to alcohol withdrawal Status: Acute Assessment & Plan: He had at least one witnessed seizure. Most likely due to alcohol withdrawal. Will monitor closely for any recurrent seizure activity. Will treat his alcohol withdrawal. Will not start anticonvulsant therapy at this point. He is improving. No further seizures. (2) COPD with exacerbation Status: Acute Assessment & Plan: CXR shows peribronchial thickening c/w bronchitis. He is on Duoneb q 6 hours. Solumedrol added 07/20 and prn albuterol nebs. Also flutter therapy. He remains afebrile with normal WBC. Will not start antibiotics. He is much improved on exam today. Will decrease his steroids. (3) Alcohol withdrawal Status: Resolved Assessment & Plan: He appears to be in active withdrawal. Will place on CIWA protocol and treat with IV Ativan as needed. Will also supplement B vitamins. Watch closely. (4) Alcoholism Status: Chronic Assessment & Plan: Longstanding. He has not been able to maintain abstinence for any significant length of time. (5) Chronic a-fib Status: Chronic Assessment & Plan: It appears he has been on Eliquis in the past, but does not have any medication for rate control. 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 Will add beta anthony or diltiazem for rate control if needed. (6) Type 2 diabetes mellitus Status: Chronic Assessment & Plan: Place on ADA diet. Monitor glucoses. Use SSI if needed. (7) Hypomagnesemia Status: Acute Assessment & Plan: Replace with IV supplement. Watch labs. Time Spent on Plan of Care: < 30 min Exam Sepsis Risk: No Definite Risk DOMONIQUE SOL MD Jul 21, 2018 08:13
[2018-07-21] MEDS ORDERED: MAGNESIUM SUL* 4 GM/100 ML BAG 100 ML IVPB ONE (08:30)
[2018-07-21] MEDS: THIAMINE HCL 100 MG TAB PO SCH (08:47)
[2018-07-21] MEDS: FOLIC ACID 1 MG TAB PO SCH (08:48)
[2018-07-21] MEDS: ENOXAPARIN 40 MG/0.4ML SYR SC SCH (08:49)
[2018-07-21 14:06] VITALS: BP 147/78
--- NOTE | 2018-07-21 15:13 | NUR ---
Physical Therapy Impression Pt. able to correctly answer where he is and why, however when not directly engaged he begins to demonstrate signs of disorientation and confusion. Bed mobility performed maxA x2. Pt. unable to perform transfer at this time due to safety concerns and inability to follow cuing. Rec intermediate frame tender subacute rehab upon d/c. Referral has been made to [facility] per social service director. Physical Therapy Goals 1. Harshad for all bed mobility 2. Gait x50' with least restrictive AD and CGA. 3. Harshad for transfers from various surfaces. Patient's Goals
[2018-07-21 19:47] VITALS: BP 144/84
[2018-07-21 23:30] VITALS: BP 118/58
[2018-07-22] MEDS: ALBUTEROL/IPRATROPIUM 3 ML NEB NEB SCH ×4 (00:10→17:50)
[2018-07-22 04:11] VITALS: BP 136/68
[2018-07-22] MEDS: ACETAMINOPHEN 325 MG TAB PO PRN ×3 (06:19→22:30)
[2018-07-22 06:26] LABS: PLATELET COUNT, AUTOMATED 233 K/uL (150-450)
[2018-07-22 06:58] VITALS: BP 91/64
[2018-07-22] MEDS: methylPREDNIS SUCC 125 MG/2ML IVP SCH ×2 (08:56→21:15)
[2018-07-22] MEDS: FOLIC ACID 1 MG TAB PO SCH (08:57)
[2018-07-22] MEDS: THIAMINE HCL 100 MG TAB PO SCH (08:57)
[2018-07-22] MEDS: ENOXAPARIN 40 MG/0.4ML SYR SC SCH (08:57)
[2018-07-22] MEDS ORDERED: INFLUENZA VIRUS VAC 0.5ML SYR IM ONLY ONE (09:00)
[2018-07-22] MEDS: INSULIN HUM LISPRO 100 UN/ML 3 ML VIAL SUBQ PRN ×4 (09:01→19:37)
[2018-07-22] MEDS: KCL/NS* 20 MEQ/1000 ML PREMIX 1,000 ML IV SCH ×2 (10:08→21:14)
--- NOTE | 2018-07-22 10:48 | Hospitalist Progress Note ---
Subjective Progress Notes Subjective This patient was admitted for alcohol detox. He had no acute events overnight. Patient Complains of: Cardiovascular: No: Chest Pain Respiratory: No: Shortness of Breath Physical Exam Vital Signs Date Time Temp Pulse Resp B/P (MAP) Pulse Ox O2 Delivery O2 Flow Rate FiO2 07/22/18 06:58 98.4 77 20 91/64 (73) 95 Nasal Cannula 2.0 07/22/18 04:11 21.0 Intake and Output 07/22/18 07:00 Intake Total 0 ml Balance 0 ml Intake Oral 0 ml # Voids 4 # Bowel Movements 3 Neuro: Other (Tremors present.) Cardiovascular: Regular Rate and Rhythm Respiratory: Clear to Auscultation Result Diagram: 07/22/1853907/22/18539 Assessment and Plan Problems: (1) Seizure due to alcohol withdrawal Status: Acute Assessment & Plan: He had at least one witnessed seizure. Most likely due to alcohol withdrawal. He has been on CIWA protocol with no further seizure activity. He is receiving thiamine supplements. (2) COPD with exacerbation Status: Acute Assessment & Plan: His chest x-ray showed peribronchial thickening c/w bronchitis. He is on nebulizers and Solu Medrol. (3) Alcohol withdrawal Status: Resolved Assessment & Plan: He is on CIWA protocol. (4) Alcoholism Status: Chronic Assessment & Plan: Longstanding. He has not been able to maintain abstinence for any significant length of time. (5) Chronic a-fib Status: Chronic Assessment & Plan: It appears he has been on Eliquis in the past. His rate has been controlled without medications. (6) Type 2 diabetes mellitus Status: Chronic Assessment & Plan: He is on sliding scale level #1. (7) Hypomagnesemia Status: Acute Assessment & Plan: Resolved with supplementation. Exam Sepsis Risk: No Definite Risk ALVARO SHAW DO Jul 22, 2018 10:48
[2018-07-22] MEDS: MENTHOL/METHYL SALI CREAM 57 GM 57 GM TUBE TP SCH (11:57)
[2018-07-22] MEDS ORDERED: BENZONATATE 100 MG CAP PO PRN (12:00)
[2018-07-22 12:02] VITALS: BP 162/78
[2018-07-22] MEDS: MAG HYD/AL HYD/SIMETH 30ML UDC PO PRN ×2 (13:47→22:30)
[2018-07-22 14:57] VITALS: BP 140/80
[2018-07-22 19:01] VITALS: BP 156/81
[2018-07-22 22:32] VITALS: BP 173/89
[2018-07-23] MEDS: ALBUTEROL/IPRATROPIUM 3 ML NEB NEB SCH ×4 (00:15→17:08)
[2018-07-23] MEDS: MENTHOL/METHYL SALI CREAM 57 GM 57 GM TUBE TP SCH ×2 (01:22→11:26)
[2018-07-23 03:00] VITALS: BP 138/98
--- NOTE | 2018-07-23 06:53 | EKG ---
FACILITY: [facility] - [place] PATIENT NAME: ALVARO POWELL : [id number] MR: [id number] V: [id number] EXAM DATE: ORDERING PHYSICIAN: ALVARO SHAW TECHNOLOGIST: MIKIE Parsons Reason : A-FIB Blood Pressure : / mmHG Vent. Rate : 083 BPM Atrial Rate : 114 BPM P-R Int : 000 ms QRS Dur : 086 ms QT Int : 396 ms P-R-T Axes : 000 087 -30 degrees QTc Int : 465 ms Suspect second degree AV block type 1 T wave abnormality, consider inferolateral ischemia Prolonged QTc Abnormal ECG Confirmed by LIUDMILA SOL ([id number]) on 07/23/2018 2:48:44 PM Referred By: COLIN Confirmed By:LIUDMILA SOL
[2018-07-23] MEDS: INSULIN HUM LISPRO 100 UN/ML 3 ML VIAL SUBQ PRN ×4 (07:51→19:45)
[2018-07-23 07:56] VITALS: BP 150/90
[2018-07-23] MEDS: ENOXAPARIN 40 MG/0.4ML SYR SC SCH (09:00)
[2018-07-23] MEDS: MAG HYD/AL HYD/SIMETH 30ML UDC PO PRN ×2 (09:00→19:54)
[2018-07-23] MEDS: FOLIC ACID 1 MG TAB PO SCH (09:00)
[2018-07-23] MEDS: methylPREDNIS SUCC 125 MG/2ML IVP SCH (09:00)
[2018-07-23] MEDS: THIAMINE HCL 100 MG TAB PO SCH (09:00)
[2018-07-23] MEDS: ACETAMINOPHEN 325 MG TAB PO PRN ×2 (09:06→19:38)
--- NOTE | 2018-07-23 09:07 | NUR ---
Physical Therapy Impression Pt with much improved tolerance to PT session today. CGA/Benjy for STS transfers. Ambulation x 40' and 75' with seated rest break in between ambulation bouts. SpO2 WNL on 1L O2 throughout session. Benjy to lift LEs into bed. Rec further rehab. Physical Therapy Goals 1. Benjy for all bed mobility 2. Gait x50' with least restrictive AD and CGA. 3. Benjy for transfers from various surfaces. Patient's Goals
--- NOTE | 2018-07-23 10:17 | Hospitalist Progress Note ---
Subjective Progress Notes Subjective He is more awake/alert/interactive. Less dyspneic. He is working with PT/OT. Physical Exam Vital Signs Date Time Temp Pulse Resp B/P (MAP) Pulse Ox O2 Delivery O2 Flow Rate FiO2 07/23/18 07:59 97 Nasal Cannula 2.0 07/23/18 07:56 98.5 69 22 150/90 (110) 07/22/18 19:59 21.0 Intake and Output 07/23/18 06:59 Intake Total 5024 ml Balance 5024 ml Intake Oral 1270 ml IV Total 3754 ml # Voids 5 # Bowel Movements 4 General Appearance: Alert, Awake Cardiovascular: Other (Irregular) Respiratory: Other (Decreased breath sounds bilaterally/few scattered rhonchi) GI: Soft and Non-Tender Extremities: Warm, Perfused Psych: Alert & Oriented X3 Result Diagram: 07/22/1853907/22/18 0540 Assessment and Plan Problems: (1) Seizure due to alcohol withdrawal Status: Acute Assessment & Plan: He had at least one witnessed seizure. Most likely due to alcohol withdrawal. He has been on CIWA protocol with no further seizure activity. He is receiving thiamine supplements. (2) COPD with exacerbation Status: Acute Assessment & Plan: Much improved. His chest x-ray showed peribronchial thickening c/w bronchitis. He is on nebulizers and Solu-Medrol. Will transition to oral steroids soon. (3) Alcohol withdrawal Status: Resolved Assessment & Plan: He appears to have completed withdrawal. He was on CIWA protocol. (4) Alcoholism Status: Chronic Assessment & Plan: Longstanding. He has not been able to maintain abstinence for any significant length of time. (5) Chronic a-fib Status: Chronic Assessment & Plan: It appears he has been on Eliquis in the past - now restarted. His rate has been controlled without medications. (6) Type 2 diabetes mellitus Status: Chronic Assessment & Plan: Exacerbated by steroids - will wean off soon. He is on sliding scale insulin - will modify as needed. (7) Hypomagnesemia Status: Acute Assessment & Plan: Continue with oral supplementation. Watch labs. Exam Sepsis Risk: No Definite Risk LIUDMILA SOL MD Jul 23, 2018 10:17
[2018-07-23] MEDS: KCL/NS* 20 MEQ/1000 ML PREMIX 1,000 ML IV SCH ×3 (10:19→23:29)
[2018-07-23] MEDS: PANTOPRAZOLE SOD 40 MG TABEC PO SCH (10:19)
[2018-07-23] MEDS: MAGNESIUM OXIDE 400 MG TAB PO SCH ×2 (10:19→19:37)
[2018-07-23 10:39] VITALS: BP 157/77
--- NOTE | 2018-07-23 12:03 | NUR ---
Occupational Therapy Impression CGA/Min A sit<>stands. CGA ambulation with RW x40ft and x75ft. Mod A sit<>supine. Min A gown change and partial bed path. Pt declined further ADLs at this time. Rec further rehab to improve strength and endurance. Occupational Therapy Goals 1) Pt will be SBA UB/LB dressing. 2) Pt will be SBA grooming/hygiene. 3) Pt will be SBA toilet task. Patient's Goal
[2018-07-23] MEDS: HYPROMELLOSE 0.4% LUB 15ML BTL OU PRN (12:58)
[2018-07-23] MEDS: LOPERAMIDE HCL 2 MG CAP PO PRN ×3 (14:33→23:24)
[2018-07-23 16:19] VITALS: BP 168/98
[2018-07-23] MEDS: TAMSULOSIN HCL 0.4 MG CAP PO SCH (19:37)
[2018-07-23] MEDS: APIXABAN 2.5 MG TABLET PO SCH (19:38)
[2018-07-23 22:02] VITALS: BP 171/81
[2018-07-24] VITALS (7 sets, daily range): BP systolic 121–167; BP diastolic 65–111
[2018-07-24] MEDS: ALBUTEROL/IPRATROPIUM 3 ML NEB NEB SCH ×4 (00:53→17:18)
[2018-07-24] MEDS: LOPERAMIDE HCL 2 MG CAP PO PRN ×3 (01:23→17:05)
[2018-07-24] MEDS: HYPROMELLOSE 0.4% LUB 15ML BTL OU PRN (04:43)
[2018-07-24] MEDS: MENTHOL/METHYL SALI CREAM 57 GM 57 GM TUBE TP SCH (04:44)
[2018-07-24 06:24] LABS: PLATELET COUNT, AUTOMATED 229 K/uL (150-450)
[2018-07-24] MEDS: MAGNESIUM SUL* 2 GM/50 ML IVPB 50 ML IVPB ONE ×2 (09:02→13:56)
[2018-07-24] MEDS: RANITIDINE HCL 150 MG TAB PO SCH ×2 (09:03→21:32)
[2018-07-24] MEDS: predniSONE 20 MG TAB PO SCH (09:03)
[2018-07-24] MEDS: FOLIC ACID 1 MG TAB PO SCH (09:03)
[2018-07-24] MEDS: PANTOPRAZOLE SOD 40 MG TABEC PO SCH (09:03)
[2018-07-24] MEDS: APIXABAN 2.5 MG TABLET PO SCH ×2 (09:03→21:32)
[2018-07-24] MEDS: KCL/NS* 20 MEQ/1000 ML PREMIX 1,000 ML IV SCH (09:03)
[2018-07-24] MEDS: THIAMINE HCL 100 MG TAB PO SCH (09:03)
--- NOTE | 2018-07-24 10:31 | Hospitalist Progress Note ---
Subjective Progress Notes Subjective Patient has complaints of severe diarrhea. He also has acid reflux. Patient Complains of: Cardiovascular: No: Chest Pain Respiratory: No: Shortness of Breath Physical Exam Vital Signs Date Time Temp Pulse Resp B/P (MAP) Pulse Ox O2 Delivery O2 Flow Rate FiO2 07/24/18 09:15 91 Nasal Cannula 2.0 07/24/18 07:20 98.0 80 20 140/79 (99) 07/23/18 21:28 21.0 Intake and Output 07/24/18 01:00 Intake Total 1799 ml Output Total 825 ml Balance 974 ml Intake Oral 810 ml IV Total 989 ml Output Urine Total 825 ml # Voids 8 # Bowel Movements 9 General Appearance: Alert, Awake, No Acute Distress, Afebrile Neuro: No Gross deficits Cardiovascular: Regular Rate and Rhythm Respiratory: No Respiratory Distress, Clear to Auscultation GI: Soft and Non-Tender Extremities: Warm, Perfused; No Edema Psych: Alert & Oriented X3, Appropriate Mood & Affect Result Diagram: 07/24/1835 07/24/18534 Assessment and Plan Problems: (1) Seizure due to alcohol withdrawal Status: Acute Assessment & Plan: He had at least one witnessed seizure. Most likely due to alcohol withdrawal. He has been on CIWA protocol with no further seizure activity. He is receiving thiamine supplements. (2) COPD with exacerbation Status: Acute Assessment & Plan: Much improved. His chest x-ray showed peribronchial thickening c/w bronchitis. He is on nebulizers and Solu-Medrol. He has been transitioned to oral steroids. (3) Alcohol withdrawal Status: Resolved Assessment & Plan: He appears to have completed withdrawal. He was on CIWA protocol. (4) Alcoholism Status: Chronic Assessment & Plan: Longstanding. He has not been able to maintain abstinence for any significant length of time. (5) Chronic a-fib Status: Chronic Assessment & Plan: It appears he has been on Eliquis in the past - now restarted. His rate has been controlled without medications. (6) Type 2 diabetes mellitus Status: Chronic Assessment & Plan: Exacerbated by steroids - will wean off soon. He is on sliding scale insulin - will modify as needed. (7) Hypomagnesemia Status: Acute Assessment & Plan: He was switched to oral supplementation, which induced severe diarrhea. Will replace IV today and hold oral supplement. Exam Sepsis Risk: No Definite Risk DOMONIQUE CAAL TEST ENGINEERING INTERN Jul 24, 2018 10:31
--- NOTE | 2018-07-24 11:46 | NUR ---
Occupational Therapy Impression CGA ambulation 2x15ft with RW. Mod A sit to supine. Max A LB dressing. Pt declined further ADLs or needs at this time. Continue POC. Occupational Therapy Goals 1) Pt will be SBA UB/LB dressing. 2) Pt will be SBA grooming/hygiene. 3) Pt will be SBA toilet task. Patient's Goal
[2018-07-24] MEDS: INSULIN HUM LISPRO 100 UN/ML 3 ML VIAL SUBQ PRN ×3 (12:07→21:33)
--- NOTE | 2018-07-24 13:22 | NUR ---
Physical Therapy Impression Pt reports that he is very tired today, requiring encouragement to participate in therapy session. SBA for supine to sit, Harshad for sit to supine. CGA for transfers and ambulation x20' with RW. Pt fatigued today and declines further mobility. Physical Therapy Goals 1. Harshad for all bed mobility 2. Gait x50' with least restrictive AD and CGA. 3. Harshad for transfers from various surfaces. Patient's Goals
--- NOTE | 2018-07-24 14:15 | NUR ---
Magnesium given late due to lack of IV access.
[2018-07-24] MEDS: ACETAMINOPHEN 325 MG TAB PO PRN (19:58)
[2018-07-24] MEDS: TAMSULOSIN HCL 0.4 MG CAP PO SCH (21:32)
[2018-07-25] MEDS: KCL/NS* 20 MEQ/1000 ML PREMIX 1,000 ML IV SCH ×3 (00:53→22:52)
[2018-07-25] MEDS: ALBUTEROL/IPRATROPIUM 3 ML NEB NEB SCH ×4 (00:59→16:59)
[2018-07-25] MEDS: HYPROMELLOSE 0.4% LUB 15ML BTL OU PRN ×3 (01:16→15:59)
[2018-07-25 03:04] VITALS: BP 130/68
[2018-07-25] MEDS: ACETAMINOPHEN 325 MG TAB PO PRN ×4 (04:33→21:15)
[2018-07-25 06:12] LABS: PLATELET COUNT, AUTOMATED 198 K/uL (150-450)
[2018-07-25] MEDS: PANTOPRAZOLE SOD 40 MG TABEC PO SCH (08:23)
[2018-07-25] MEDS: RANITIDINE HCL 150 MG TAB PO SCH ×2 (08:23→21:14)
[2018-07-25] MEDS: FOLIC ACID 1 MG TAB PO SCH (08:23)
[2018-07-25] MEDS: APIXABAN 2.5 MG TABLET PO SCH ×2 (08:24→21:14)
[2018-07-25] MEDS: predniSONE 20 MG TAB PO SCH (08:24)
[2018-07-25] MEDS: THIAMINE HCL 100 MG TAB PO SCH (08:24)
[2018-07-25 08:29] VITALS: BP 156/83
[2018-07-25] MEDS ORDERED: MAGNESIUM SUL* 4 GM/100 ML BAG 100 ML IVPB ONE (08:45)
--- NOTE | 2018-07-25 11:48 | Hospitalist Progress Note ---
Subjective Progress Notes Subjective This patient was admitted for alcohol detoxification. He had no acute events overnight. Patient Complains of: Cardiovascular: No: Chest Pain Respiratory: No: Shortness of Breath Physical Exam Vital Signs Date Time Temp Pulse Resp B/P (MAP) Pulse Ox O2 Delivery O2 Flow Rate FiO2 07/25/18 11:19 75 18 07/25/18 11:07 95 Room Air 07/25/18 08:29 97.8 156/83 (107) 07/25/18 05:47 1.0 07/23/18 21:28 21.0 Intake and Output 07/25/18 07:00 Intake Total 1590 ml Output Total 300 ml Balance 1290 ml Intake Oral 1540 ml IV Total 50 ml Output Urine Total 300 ml # Voids 7 # Bowel Movements 4 Cardiovascular: Regular Rate and Rhythm Respiratory: Clear to Auscultation Result Diagram: 07/25/1852307/25/18523 Assessment and Plan Problems: (1) Seizure due to alcohol withdrawal Status: Acute Assessment & Plan: He had at least one witnessed seizure. Most likely due to alcohol withdrawal. He has now cleared CIWA protocol He remains on thiamine. (2) Alcohol withdrawal Status: Resolved Assessment & Plan: He appears to have completed withdrawal. He was on CIWA protocol. (3) Alcoholism Status: Chronic Assessment & Plan: Longstanding. He has not been able to maintain abstinence for any significant length of time. (4) COPD with exacerbation Status: Acute Assessment & Plan: Much improved. His chest x-ray showed peribronchial thickening c/w bronchitis. He is on nebulizers and Solu-Medrol. He has been tr ansitioned to oral steroids. (5) Chronic a-fib Status: Chronic Assessment & Plan: It appears he has been on Eliquis in the past - now restarted. His rate has been controlled without medications. (6) Type 2 diabetes mellitus Status: Chronic Assessment & Plan: Exacerbated by steroids - will wean off soon. He is on sliding scale insulin - will modify as needed. (7) Hypomagnesemia Status: Acute Assessment & Plan: He is scheduled to receiving IV magnesium today. Exam Sepsis Risk: No Definite Risk ALVARO SHAW DO Jul 25, 2018 11:48
[2018-07-25] MEDS: INSULIN HUM LISPRO 100 UN/ML 3 ML VIAL SUBQ PRN ×3 (12:33→21:16)
[2018-07-25 19:59] VITALS: BP 160/90
[2018-07-25] MEDS: TAMSULOSIN HCL 0.4 MG CAP PO SCH (21:14)
[2018-07-25 22:55] VITALS: BP 155/97
[2018-07-26 02:45] VITALS: BP 166/88
[2018-07-26] MEDS: ALBUTEROL/IPRATROPIUM 3 ML NEB NEB SCH ×4 (05:46→17:04)
[2018-07-26 06:47] LABS: PLATELET COUNT, AUTOMATED 211 K/uL (150-450)
[2018-07-26 07:03] VITALS: BP 174/83
[2018-07-26] MEDS: ACETAMINOPHEN 325 MG TAB PO PRN ×3 (07:18→22:19)
[2018-07-26] MEDS: HYPROMELLOSE 0.4% LUB 15ML BTL OU PRN ×2 (07:34→16:07)
[2018-07-26] MEDS: THIAMINE HCL 100 MG TAB PO SCH (09:01)
[2018-07-26] MEDS: PANTOPRAZOLE SOD 40 MG TABEC PO SCH (09:01)
[2018-07-26] MEDS: RANITIDINE HCL 150 MG TAB PO SCH ×2 (09:01→21:09)
[2018-07-26] MEDS: predniSONE 20 MG TAB PO SCH (09:02)
[2018-07-26] MEDS: APIXABAN 2.5 MG TABLET PO SCH ×2 (09:02→21:08)
[2018-07-26] MEDS: FOLIC ACID 1 MG TAB PO SCH (09:02)
[2018-07-26] MEDS: KCL/NS* 20 MEQ/1000 ML PREMIX 1,000 ML IV SCH (09:04)
[2018-07-26] MEDS ORDERED: MAGNESIUM SUL* 2 GM/50 ML IVPB 50 ML IVPB ONE (09:35)
[2018-07-26] MEDS: LOPERAMIDE HCL 2 MG CAP PO SCH ×2 (11:34→21:07)
[2018-07-26] MEDS: MAGNESIUM OXIDE 400 MG TAB PO SCH ×2 (11:34→21:09)
[2018-07-26] MEDS: INSULIN HUM LISPRO 100 UN/ML 3 ML VIAL SUBQ PRN ×3 (11:54→21:10)
[2018-07-26 11:56] VITALS: BP 151/71
--- NOTE | 2018-07-26 12:34 | NUR ---
Occupational Therapy Impression Mod A supine to sit with HOB raised. CGA ambulation x45ft with RW. V/c's for management of RW. SBA toileting. SpO2 WNL on room air throughout tx. AROM with B UE. Pt oriented to call light and seated up in chair for lunch. Plans for discharge to [facility] when accepted. Occupational Therapy Goals 1) Pt will be SBA UB/LB dressing. 2) Pt will be SBA grooming/hygiene. 3) Pt will be SBA toilet task. Patient's Goal
--- NOTE | 2018-07-26 12:41 | Hospitalist Progress Note ---
Subjective Progress Notes Subjective No new complaints. He is eating and drinking better. Loose stools have improved. Physical Exam Vital Signs Date Time Temp Pulse Resp B/P (MAP) Pulse Ox O2 Delivery O2 Flow Rate FiO2 07/26/18 11:56 97.7 63 18 151/71 (97) 94 Room Air 07/26/18 11:16 0.5 07/23/18 21:28 21.0 Intake and Output 07/26/18 06:59 Intake Total 1500 ml Balance 1500 ml Intake Oral 500 ml IV Total 1000 ml # Voids 8 # Bowel Movements 2 General Appearance: Alert, Awake Cardiovascular: Regular Rate and Rhythm Respiratory: Other (few scattered rhonchi) GI: Soft and Non-Tender Extremities: Warm, Perfused Integumentary: Generalized Fragile Skin Result Diagram: 07/26/18 0556 07/26/18 05 Assessment and Plan Problems: (1) Seizure due to alcohol withdrawal Status: Acute Assessment & Plan: He had at least one witnessed seizure. Most likely due to alcohol withdrawal. He has now cleared CIWA protocol He remains on thiamine. (2) Alcohol withdrawal Status: Resolved Assessment & Plan: He appears to have completed withdrawal. He was on CIWA protocol. (3) Alcoholism Status: Chronic Assessment & Plan: Longstanding. He has not been able to maintain abstinence for any significant length of time. He has been marginally functional. Plan is for transfer to [facility] as soon as paperwork done. (4) COPD with exacerbation Status: Acute Assessment & Plan: Much improved. His chest x-ray showed peribronchial thickening c/w bronchitis. He is on nebulizers and Solu-Medrol. He has been transitioned to oral steroids. (5) Chronic a-fib Status: Chronic Assessment & Plan: It appears he has been on Eliquis in the past - now restarted. His rate has been controlled without medications. (6) Type 2 diabetes mellitus Status: Chronic Assessment & Plan: Exacerbated by steroids - will wean off soon. He is on sliding scale insulin - will modify as needed. (7) Hypomagnesemia Status: Acute Assessment & Plan: He is scheduled to receive IV magnesium today. Will try to restart oral magnesium (with Imodium to reduce loose stools). Watch lab. Exam Sepsis Risk: No Definite Risk LIUDMILA SOL MD Jul 26, 2018 12:41
[2018-07-26] MEDS: MAG HYD/AL HYD/SIMETH 30ML UDC PO PRN (14:30)
[2018-07-26 17:00] VITALS: BP_SYST 151; BP_SYST 178; BP_DIAS 71; BP_DIAS 91
[2018-07-26 19:18] VITALS: BP 162/79
[2018-07-26] MEDS ORDERED: LOPERAMIDE HCL 2 MG CAP PO SCH (21:00)
[2018-07-26] MEDS: TAMSULOSIN HCL 0.4 MG CAP PO SCH (21:08)
[2018-07-27] MEDS: ALBUTEROL/IPRATROPIUM 3 ML NEB NEB SCH ×3 (00:05→11:10)
[2018-07-27] MEDS: HYPROMELLOSE 0.4% LUB 15ML BTL OU PRN ×2 (00:27→08:39)
[2018-07-27 02:14] VITALS: BP 150/75
[2018-07-27] MEDS: MENTHOL/METHYL SALI CREAM 57 GM 57 GM TUBE TP PRN ×3 (02:21→10:21)
[2018-07-27 07:31] VITALS: BP 162/91
[2018-07-27] MEDS: ACETAMINOPHEN 325 MG TAB PO PRN (07:38)
--- NOTE | 2018-07-27 08:13 | Hospitalist Depart ---
Discharge Summary Reason for Hosp/Final Diag: (1) Seizure due to alcohol withdrawal Status: Acute Hospital Course & Plan: He had at least one witnessed seizure. Most likely due to alcohol withdrawal. He has now cleared [facility] protocol He remains on thiamine. Bright and alert and oriented. Very happy to be going to [facility] and says he will likely stay there rather than trying to go home at some point. No further seizures noted. Ambulating well with walker and seems stable. (2) Alcohol withdrawal Status: Resolved Hospital Course & Plan: He appears to have completed withdrawal. He was on CIVA protocol. (3) Alcoholism Status: Chronic Hospital Course & Plan: Longstanding. He has not been able to maintain abstinence for any significant length of time. He has been marginally functional . Plan is for transfer to [facility] as soon as paperwork done. We talked about the need to refrain from all alcohol at all costs. (4) COPD with exacerbation Status: Acute Hospital Course & Plan: Much improved. His chest x-ray showed peribronchial thickening c/w bronchitis. He has been transitioned to oral steroids. On nebs on regular schedule and prn inhalers. O2 at 2L/min continuously. (5) Chronic a-fib Status: Chronic Hospital Course & Plan: It appears he has been on Eliquis in the past - now restarted. His rate has been controlled without medications. (6) Type 2 diabetes mellitus Status: Chronic Hospital Course & Plan: Exacerbated by steroids - will wean off soon. He is on sliding scale insulin - will modify as needed. (7) Hypomagnesemia Status: Acute Hospital Course & Plan: On oral magnesium 200 mg po bid (with Imodium to reduce loose stools). Mg level is 1.6 today which is a little low but improving. Unable to use more Mg++ that current dose due to severe diarrhea. Will follow labs carefully. Departure Weight (Pounds): 160 Weight (Ounces): 9.0 Result Diagram: 07/26/18 0556 07/27/18 0730 Item Value Date Time White Blood Count 10.9 k/uL 08/18/12 0425 Red Blood Count 4.15 M/uL 08/18/12 042 Hemoglobin 12.9 g/dL L 08/18/12424 Hematocrit 38.3 % L 08/18/12424 Mean Corpuscular Volume 92.1 fL 08/18/12424 Mean Corpuscular Hemoglobin 31.1 pg 08/18/12424 Mean Corpuscular Hemoglobin Concent 33.7 g/dL 08/18/12424 Red Cell Distribution Width 16.4 % H 08/18/12424 Platelet Count 147 K/uL L 08/18/12424 Mean Platelet Volume 7.5 fL 08/18/12424 Neutrophils (%) (Auto) 84.9 % H 08/18/12424 Lymphocytes (%) (Auto) 7.5 % L 08/18/12424 Blood Gas Puncture Site Right radial 08/18/12424 Blood Gas Patient Temperature 98.4 DEGREES 08/18/12424 Arterial Blood Partial Pressure CO2 37 mmHg 08/18/12424 Arterial Blood Partial Pressure O2 71 mmHg 08/18/12424 Arterial Blood pH 7.45 08/18/12424 Arterial Blood HCO3 26 mmol/L 08/18/12424 Arterial Blood Oxygen Saturation 95 % 08/18/12424 Arterial Blood Base Excess 2.0 mmol/L 08/18/12424 Juma Test Acceptable 08/18/12424 Oxygen Liters/Minute 30% 08/18/12424 Sodium Level 135 mmol/L L 08/18/12424 Potassium Level 3.9 mmol/L 08/18/12424 Chloride Level 103 mmol/L 08/18/12424 Carbon Dioxide Level 26 mmol/L 08/18/12424 Blood Urea Nitrogen 9 mg/dl 08/18/12424 Creatinine 0.50 mg/dl L 08/18/12424 Glomerular Filtration Rate Calc > 60.0 08/18/12424 Random Glucose 178 mg/dl H 08/18/12424 Calcium Level 7.9 mg/dl L 08/18/12424 Total Bilirubin 1.0 mg/dl 08/18/12424 Aspartate Amino Transf (AST/SGOT) 53 U/L H 08/18/12424 Alanine Aminotransferase (ALT/SGPT) 74 U/L H 08/18/12424 Alkaline Phosphatase 43 U/L 08/18/12424 Total Protein 5.0 gm/dl L 08/18/12424 Albumin 2.5 g/dl L 08/18/12424 Magnesium Level 1.6 mg/dl L 07/26/18 0556 Condition: Improved Discharge: Skilled Nursing PT/OT Follow Up For: PT For Strengthening, PT For Surgical Rehab, OT For ADL's, PT Evaluation and Treat, ST Evaluation and Treat, OT Evaluation and Treat Discharge Code Status: Full Code Follow-Up Labs: Other (WB glucose ac and hs. Sliding scale coverage as per med rec.) Time Spent: > 30 min Discharge Instructions Home Meds Active Scripts Tramadol Hcl (TRAMADOL HCL) 50 Mg Tablet, 1 TAB PO Q4-6H PRN for PAIN, #20 MG TAKE ONE TABLETS BY MOUTH EVERY FOUR TO SIX HOURS NEEDED Prov:EMILY VILLALTA DO 04/28/18 Benzonatate (BENZONATATE) 200 Mg Capsule, 200 MG PO TID PRN for COUGH, #15 CAP 0 Refills Prov:BELTRAN HENRIQUEZ MD 04/11/18 Reported Medications Erythromycin Base (Erythromycin) 5 Mg/Gram (0.5 %) Oint...g., 0.25 INCH OP DAILY Apply to both eyes daily 07/20/18 Apixaban (ELIQUIS) 5 Mg Tablet, 1 TAB PO BID 07/20/18 Triamcinolone Acetonide 0.1% Cr 15 Gm Tube (TRIAMCINOLONE ACETONIDE 0.1% CREAM) 15 Gm Cream..g., 1 RACHEL TOP BID PRN for ITCHING DO NOT EXCEED 14 DAYS AT A TIME 07/19/18 Ranitidine Hcl (RANITIDINE HCL) 150 Mg Tablet, 150 MG PO QDAY 07/19/18 Dextran 70/Hypromellose (Natural Balance Tears Eye Drop) 0.1 %-0.3 % Drops, 1-2 GTT OU PRN PRN for DRY EYES 03/23/18 Escitalopram Oxalate (LEXAPRO) 20 Mg Tablet, 20 MG PO QDAY, TAB 03/15/18 Folic Acid (FOLIC ACID) 1 Mg Tablet, 1 MG PO QDAY, TAB 12/26/16 Cyanocobalamin (Vitamin B-12) (CYANOCOBALAMIN INJECTION) 1,000 Mcg/1 Ml Vial, 1000 MCG IJ Q2WK, VIAL 12/23/16 Amlodipine Besylate (AMLODIPINE BESYLATE) 5 Mg Tablet, 1 TAB PO QDAY, TAB 08/15/16 Tamsulosin Hcl (TAMSULOSIN HCL) 0.4 Mg Cap.er.24h, 0.4 MG PO HS, CAP 08/15/16 Multivitamin (MULTIVITAMINS) 1 Each Capsule, 1 EACH PO QDAY, CAPSULE 08/15/16 Discontinued Reported Medications Nystatin (NYSTOP) 60 Gm Powder, 1 RACHEL TP BID for ANTI FUNGAL 03/23/18 Mag Hydrox/Aluminum Hyd/Simeth (Maalox Advanced Suspension) 200 Mg-200 Mg-20 Mg/5 Ml Oral.susp, 1 DOSE-PACK PO Q4H 03/23/18 Loperamide HCl (Imodium A-D) 2 Mg Capsule, 2 MG PO PRN PRN for DIARRHEA 03/23/18 Menthol/Methyl Salicylate (BENGAY GREASELESS CREAM) 57 Gm Oint, 1 GM TP 3-4XD for PAIN 03/23/18 Acidoph/L.bulg/Bif.b/S.thermop (BACID CAPLET) 1 Each Tablet, 2 EACH PO BIDBS 03/23/18 Thiamine Hcl (THIAMINE HCL) 100 Mg Tablet, 100 MG PO DAILY 12/26/16 Apixaban (ELIQUIS) 2.5 Mg Tablet, 2 TAB PO BID 08/15/16 Magnesium Oxide (MAGNESIUM OXIDE) 400 Mg Tablet, 2 CAP PO TID 08/15/16 Cholecalciferol (Vitamin D3) (VITAMIN D3) 1,000 Unit Capsule, 1000 UNIT PO QDAY, CAPSULE 08/15/16 Discontinued Scripts Guaifenesin/Codeine (GUAIFENESIN-CODEINE SYRUP) 5 Ml Syrp, 5 ML PO Q6H PRN for C OUGH, #120 ML 0 Refills Prov:BELTRAN HENRIQUEZ MD 04/11/18 Albuterol Sulfate 0.083% (ALBUTEROL SULFATE 0.083%) 2.5 Mg/3 Ml Vial.neb, 2.5 MG INH Q4H PRN for WHEEZING, #1 BOX 0 Refills Prov:BELTRAN HENRIQUEZ MD 04/11/18 Prednisone (PREDNISONE) 20 Mg Tablet, 60 MG PO QDAY, #12 TAB Prov:BELTRAN HENRIQUEZ MD 04/11/18 Diet: Diabetic Activity: With Walker Special Instructions: Diet 1800 calories a day O2 at 2L/min continuously Prednisone 20 mg po daily for 7 days then 10 mg po bid for 7 days then 10 mg po. daily for 7 days then stop prednisone. CBC, BMP, Mg++ in one week. Venous Thromboembolism Antithrombotics Is Pt On Any Antithrombotics?: Yes EVETTE QUISPE MD FACP Jul 27, 2018 08:13
[2018-07-27] MEDS: PANTOPRAZOLE SOD 40 MG TABEC PO SCH (08:36)
[2018-07-27] MEDS: THIAMINE HCL 100 MG TAB PO SCH (08:36)
[2018-07-27] MEDS: FOLIC ACID 1 MG TAB PO SCH (08:36)
[2018-07-27] MEDS: APIXABAN 2.5 MG TABLET PO SCH (08:37)
[2018-07-27] MEDS: LOPERAMIDE HCL 2 MG CAP PO SCH (08:37)
[2018-07-27] MEDS: RANITIDINE HCL 150 MG TAB PO SCH (08:37)
[2018-07-27] MEDS: predniSONE 20 MG TAB PO SCH (08:37)
[2018-07-27] MEDS: MAGNESIUM OXIDE 400 MG TAB PO SCH (08:38)
--- NOTE | 2018-07-27 09:26 | NUR ---
PHYSICAL THERAPY INFORMATION TRANSFER SHEET BED MOBILITY: Moderate Assistance 1 person assist TRANSFERS: CGA GAIT: 60 ' with RW and Verbal cues CGA Weightbearing Status: STAIRS: with . EXERCISES: Verbalizes Needs: Yes Understands Directions Yes Cooperative: Yes Family Teaching: No Physical Therapy Comment:
--- NOTE | 2018-07-27 09:42 | NUR ---
OCCUPATIONAL THERAPY Dressing Assistance: Mod A LB dressing Bathing Assistance: N/T with OT Home Assessment: Not Completed Feeding Assistance: Set-up Feeding Specialized Equipment: None Toilet Use: Standby Assistance Verbalizes Needs: Yes Understands Precautions: Yes Cooperative: Yes Family Teaching: No Occupational Therapy Comment:
[2018-07-27] MEDS: MAG HYD/AL HYD/SIMETH 30ML UDC PO PRN (10:19)
[2018-07-27] MEDS: INSULIN HUM LISPRO 100 UN/ML 3 ML VIAL SUBQ PRN (12:30)
== END 2018-07-27 14:20 | DRG 897 ==
LOC: ER 16:58 → ICU 07-18 07:23 → MED 07-20 16:31
PROVIDERS: ADMIT Internal Medicine; ATTEND Internal Medicine
PROC: 5A09357 Assistance with Respiratory Ventilation, Less than 24 Consecutive Hours, Continuous Positive Airway Pressure (ICD-10-PCS; principal; 2018-07-24)
DX: F10.231 Alcohol dependence with withdrawal delirium (principal); E87.1 Hypo-osmolality and hyponatremia; I44.2 Atrioventricular block, complete; J44.1 Chronic obstructive pulmonary disease with (acute) exacerbation; I48.2 Chronic atrial fibrillation; E11.9 Type 2 diabetes mellitus without complications; E83.42 Hypomagnesemia; I49.5 Sick sinus syndrome; I10 Essential (primary) hypertension; E78.5 Hyperlipidemia, unspecified; K21.9 Gastro-esophageal reflux disease without esophagitis; Z95.0 Presence of cardiac pacemaker; N40.0 Benign prostatic hyperplasia without lower urinary tract symptoms; R40.2422 Glasgow coma scale score 9-12, at arrival to emergency department
CPT/HCPCS: 36415; 36416; 36600; 70450; 71045; 72125; 80305; 80320; 81001; 82040; 82140; 82247; 82310; 82374; 82435; 82565; 82803; 82947; 82948; 83735; 84075; 84132; 84155; 84295; 84450; 84460; 84484; 84520; 85025; 87040; 87502; 93005; 94640; 94660; 94667; 94668; 96374; 96376; 97163; 97166; 99285; C1758; J1650; J2060; J2930; J3411; J3475; J3480; J7030; J7050; J7512; J7613

== ENCOUNTER → 2018-07-17 | Outpatient (CLI) | payer MEDICARE ==
[2017-12-23 13:02] VITALS: BMI 28.9
[~2018-07-17] MED LIST changes: -AMLO-111; -AMLO-111 PO; +AMLO-125; +AMLO-125 PO; +APIX5TAB PO; +ERYT1OIN3 OP; +RANI-318 PO; +TRIA15CR40 TOP
== END ==
LOC: AMB 15:49
PROVIDERS: ATTEND Nurse Practitioner
DX: R41.82 Altered mental status, unspecified (principal); R47.01 Aphasia; R47.81 Slurred speech; R25.1 Tremor, unspecified; R53.1 Weakness
CPT/HCPCS: A0425; A0427

== ENCOUNTER → 2018-08-07 | Outpatient (REF) | payer MEDICARE, MEDICAID ==
[2017-12-23 13:02] VITALS: BMI 28.9
[~2018-08-07] MED LIST changes: +APIX5TAB PO; +ERYT1OIN3 OP; +RANI-318 PO; +TRIA15CR40 TOP
== END ==
LOC: ZZLCC 08:38
PROVIDERS: ATTEND Family Medicine
DX: R60.9 Edema, unspecified (principal); E83.42 Hypomagnesemia; J44.1 Chronic obstructive pulmonary disease with (acute) exacerbation
CPT/HCPCS: 82310; 82374; 82435; 82565; 82947; 83735; 84132; 84295; 84520

== ENCOUNTER 2018-12-14 14:18 | Emergency (ER) | payer OTHER ==
[2017-12-23 13:02] VITALS: Wt 79.4 kg
[~2018-12-14 14:18] MED LIST changes: -BENGAY TP; +METH57CR TP
[2018-12-14 15:10] LABS: PLATELET COUNT, AUTOMATED 267 K/uL (150-450)
--- NOTE | 2018-12-14 15:41 | ER Report ---
History and Physical Time Seen By MD: 14:30 Hx. of Stated Complaint: patient reports being worried about his electrolytes. Was sent from [facility] to go to detox for alchol. Patient reports having one beer yesterday. No other complaints HPI/ROS CHIEF COMPLAINT: Alcohol dependence HISTORY OF PRESENT ILLNESS: 73-year-old male patient presents to emergency room with complaint of alcohol dependence. Patient states that he was [facility] to the [facility] for his alcohol abuse. Patient states that he escaped from the pen[facility]iary 2 to drink. He states this occurred approximate 3 weeks ago and then yesterday. She states yesterday he did drink a beer and a half. He states that he did not drink any alcohol containing products to get drunk. He states that he has no intention of being admitted to behavioral health. He states he would like to have his labs checked as he does have a h istory of hypokalemia, hyponatremia and hypomagnesemia. REVIEW OF SYSTEMS: Respiratory: No cough, no dyspnea. Cardiovascular: No chest pain, no palpitations. Gastrointestinal: No vomiting, no abdominal pain. Musculoskeletal: No back pain. Allergies: Coded Allergies: No Known Drug Allergies (Verified , 03/15/18) Home Meds Active Scripts Tramadol Hcl (TRAMADOL HCL) 50 Mg Tablet, 1 TAB PO Q4-6H PRN for PAIN, #20 MG TAKE ONE TABLETS BY MOUTH EVERY FOUR TO SIX HOURS NEEDED Prov:EMILY VILLALTA DO 04/28/18 Benzonatate (BENZONATATE) 200 Mg Capsule, 200 MG PO TID PRN for COUGH, #15 CAP 0 Refills Prov:BELTRAN HENRIQUEZ MD 04/11/18 Reported Medications Erythromycin Base (Erythromycin) 5 Mg/Gram (0.5 %) Oint...g., 0.25 INCH OP DAILY Apply to both eyes daily 07/20/18 Apixaban (ELIQUIS) 5 Mg Tablet, 1 TAB PO BID 07/20/18 Triamcinolone Acetonide 0.1% Cr 15 Gm Tube (TRIAMCINOLONE ACETONIDE 0.1% CREAM) 15 Gm Cream..g., 1 RACHEL TOP BID PRN for ITCHING DO NOT EXCEED 14 DAYS AT A TIME 07/19/18 Ranitidine Hcl (RANITIDINE HCL) 150 Mg Tablet, 150 MG PO QDAY 07/19/18 Dextran 70/Hypromellose (Natural Balance Tears Eye Drop) 0.1 %-0.3 % Drops, 1-2 GTT OU PRN PRN for DRY EYES 03/23/18 Escitalopram Oxalate (LEXAPRO) 20 Mg Tablet, 20 MG PO QDAY, TAB 03/15/18 Folic Acid (FOLIC ACID) 1 Mg Tablet, 1 MG PO QDAY, TAB 12/26/16 Cyanocobalamin (Vitamin B-12) (CYANOCOBALAMIN INJECTION) 1,000 Mcg/1 Ml Vial, 1000 MCG IJ Q2WK, VIAL 12/23/16 Amlodipine Besylate (AMLODIPINE BESYLATE) 5 Mg Tablet, 1 TAB PO QDAY, TAB 08/15/16 Tamsulosin Hcl (TAMSULOSIN HCL) 0.4 Mg Cap.er.24h, 0.4 MG PO HS, CAP 08/15/16 Multivitamin (MULTIVITAMINS) 1 Each Capsule, 1 EACH PO QDAY, CAPSULE 08/15/16 Past Medical/Surgical History Patient has a past medical history of syncope, A. fib, hypertension, hyperlipidemia, ulcers, reflux, prostate problems, bilateral fractured ribs, fractured fibula, spinal stenosis, compression fracture, type 2 diabetes, hyponatremia, hypokalemia, hypomagnesemia, alcohol abuse. Patient has a surgical history of pacemaker, cataract surgery. Patient denies any pertinent family medical history. Reviewed Nurses Notes: Yes Hx Smoking: No Smoking Status: Never Smoker Exposure to Second Hand Smoke?: No Hx Substance Use Disorder: No Hx Alcohol Use: Yes Constitutional Vital Sign - Last 24 Hours 12/14/18 12/14/18 14:25 16:14 Temp 99.3 Pulse 73 85 Resp 16 16 B/P (MAP) 180/76 170/88 (115) Pulse Ox 90 92 O2 Delivery Room Air Room Air Physical Exam General Appearance: The patient is alert, has no immediate need for airway protection and no current signs of toxicity. Respiratory: Chest is non tender, lungs are clear to auscultation. Cardiac: regular rate and rhythm Gastrointestinal: Abdomen is soft and non tender, no masses, bowel sounds normal. Musculoskeletal: Neck: Neck is supple and non tender. Extremities have full range of motion and are non tender. Skin: No rashes or lesions. DIFFERENTIAL DIAGNOSIS: After history and physical exam differential diagnosis was considered for alcohol abuse, depression, electrolyte abnormality. Medical Decision Making Data Points Result Diagram: 12/14/18 1456 12/14/18 1456 Laboratory Hematology Test 12/14/18 14:56 White Blood Count 6.3 k/uL (4.5-11.0) Red Blood Count 5.25 M/uL (4.00-5.60) Hemoglobin 14.5 g/dL (14.0-18.0) Hematocrit 43.4 % (42.0-52.0) Mean Corpuscular Volume 82.8 fL (80.0-96.0) Mean Corpuscular Hemoglobin 27.7 pg (26.0-33.0) Mean Corpuscular Hemoglobin Concent 33.5 g/dL (32.0-36.0) Red Cell Distribution Width 14.4 % (11.5-14.5) Platelet Count 267 K/uL (150-450) Mean Platelet Volume 7.6 fL (7.2-11.1) Neutrophils (%) (Auto) 45.5 % (39.4-72.5) Lymphocytes (%) (Auto) 38.7 % (17.6-49.6) Monocytes (%) (Auto) 13.1 % (4.1-12.4) H Eosinophils (%) (Auto) 2.0 % (0.4-6.7) Basophils (%) (Auto) 0.7 % (0.3-1.4) Nucleated RBC Relative Count (auto) 0.1 /100WBC Neutrophils # (Auto) 2.9 K/uL (2.0-7.4) Lymphocytes # (Auto) 2.5 K/uL (1.3-3.6) Monocytes # (Auto) 0.8 K/uL (0.3-1.0) Eosinophils # (Auto) 0.1 K/uL (0.0-0.5) Basophils # (Auto) 0.0 K/uL (0.0-0.1) Nucleated RBC Absolute Count (auto) 0.00 K/uL Chemistry Test 12/14/18 14:56 Sodium Level 135 mmol/L (137-145) Potassium Level 4.3 mmol/L (3.5-5.0) Chloride Level 98 mmol/L (98-107) Carbon Dioxide Level 28 mmol/L (22-30) Blood Urea Nitrogen 9 mg/dl (9-21) Creatinine 0.70 mg/dl (0.66-1.25) Glomerular Filtration Rate Calc > 60.0 Random Glucose 88 mg/dl (75-110) Calcium Level 8.8 mg/dl (8.4-10.2) Magnesium Level 1.2 mg/dl (1.7-2.2) Total Bilirubin 0.4 mg/dl (0.2-1.3) Aspartate Amino Transf (AST/SGOT) 21 U/L (0-35) Alanine Aminotransferase (ALT/SGPT) 32 U/L (0-56) Alkaline Phosphatase 62 U/L (0-126) Total Protein 7.1 g/dl (6.3-8.2) Albumin 3.7 g/dl (3.5-5.0) Toxicology Test 12/14/18 14:56 Salicylates Level < 10 mg/L Salicylate Last Dose Date unk Acetaminophen Level < 10 ug/ml Serum Alcohol < 10 mg/dl ED Course/Re-evaluation ED Course Patient is admitted and examined, history and physical were obtained. Differential diagnoses were considered. On examination lungs are clear, heart was regular, abdomen was soft and nontender. Lab work for a [facility] a dmission were none. Patient did ultimately refused admission to [facility]. A urine sample was not obtained prior to his refusal. Patient had no luck joint abnormalities, his magnesium was slightly low at 1.2. I will have him continue with his normal medications. We'll go ahead and discharge him back to the [facility]. The reason for the discharge back to the penitentiary is that he has no intention of going to behavioral health. At this time is not a risk to himself or others. He is also his own power of litigation attorney and thus can also make the decision as to his healthcare. I discussed the patient who verbalized understanding and agreement with plan. Decision to Disposition Date: Dec 14, 2018 Decision to Disposition Time: 15:36 Depart Departure Latest Vital Signs Vital Signs Date Time Temp Pulse Resp B/P (MAP) Pulse Ox O2 Delivery O2 Flow Rate FiO2 12/14/18 16:14 85 16 170/88 (115) 92 Room Air 12/14/18 14:25 99.3 Impression: Primary Impression: Alcohol use disorder, severe, dependence Condition: Improved Disposition: HOME OR SELF-CARE Patient Instructions: Abuse of Alcohol (ED) Additional Instructions: Continue with normal medications. Follow up with Dr. Vu this week. Return to the ER if condition worsens or you would like to go to rehab. Avoid alcohol or alcohol containing products. CARROLL AMADOR Dec 14, 2018 15:41
[2018-12-14 16:14] VITALS: BP 170/88
== END 2018-12-14 16:13 | disposition home or self-care (01) ==
LOC: ER 15:15
DX: F10.20 Alcohol dependence, uncomplicated (principal)
CPT/HCPCS: 80320; 80329; 82040; 82247; 82310; 82374; 82435; 82565; 82947; 83735; 84075; 84132; 84155; 84295; 84443; 84450; 84460; 84520; 85025; 99283

== ENCOUNTER → 2018-12-19 | Outpatient (REF) | payer MEDICARE, MEDICAID ==
[2017-12-23 13:02] VITALS: BMI 28.9
== END ==
LOC: ZZLCC 06:45
PROVIDERS: ATTEND Family Medicine
DX: E11.9 Type 2 diabetes mellitus without complications (principal)
CPT/HCPCS: 82565